=== PATIENT | female | born 1970 | race African-American/Black ===

== ENCOUNTER 2022-02-18 00:27 | Inpatient (IN) | payer MEDICARE, MEDICAID, SELFPAY ==
[2022-02-18] VITALS (17 sets, daily range): BP systolic 126–162; BP diastolic 62–91; PULSE 70–88; RESP 18–22; TEMP 35.6–36.5; O2SAT 90–94; BMI 79.9
--- NOTE | 2022-02-18 | ECHO_ITS ---
Patient Info Name: Armond Jones Age: 51 years : 1970 Gender: Female Ht: 64 in Wt: 466 lbs BSA: 3.25 m2 HR: 83 bpm BP: 147 / 62 mmHg Heart Rhythm: Sinus Rhythm Technical Quality: Poor Exam Date: 02/18/2022 10:06 AM Exam Location: [facility] Pul[facility] Patient Status: Inpatient Admit Date: 02/18/2022 Staff Ordering Physician: Sofia Santo MD Mobile Engineer: Ileana Juarez RDCS Attending Provider: Sofia Santo MD Referring Physician: Gal STERLING; Exam Type: CA echo dop color flow w con Study Info Indications - chf Complete two-dimensional, color flow and Doppler transthoracic echocardiogram is performed with contrast to opacify the left ventricle and to improve the deliniation of the left ventricle endocardial borders. Contrast/Agitated Saline Contrast/Ag. Saline: Definity Amount: 3.00 ml Administered By: Ileana Juarez RDCS Existing IV Access: Yes IV Access Condition: patent with no signs of infiltration Summary 1. Left ventricular chamber dimension is mildly enlarged. 2. Left ventricular systolic function is mildly reduced, estimated at 50-55%. 3. There is moderately increased left ventricular wall thickness. 4. The left ventricular diastolic function is indeterminate. 5. Left atrial chamber dimension is mildly enlarged. 6. Right atrial chamber dimension is mildly enlarged. 7. There is mild mitral valve regurgitation. 8. There is mild tricuspid valve regurgitation. 9. There is mild pulmonic regurgitation. Left Ventricle Left ventricular chamber dimension is mildly enlarged. Left ventricular systolic function is mildly reduced, estimated at 50-55%. There is moderately increased left ventricular wall thickness. The left ventricular diastolic function is indeterminate. Right Ventricle Right ventricular chamber dimension is not well visualized. Left Atria Left atrial chamber dimension is mildly enlarged. Right Atria Right atrial chamber dimension is mildly enlarged. Atrial Septum Intact interatrial septum visualized by color flow imaging. Aortic Valve The aortic valve is trileaflet. There is mild aortic valve sclerosis. There is no aortic valve stenosis. There is trace aortic valve regurgitation. Pulmonic Valve The pulmonic valve is normal. There is no pulmonic valve stenosis. There is mild pulmonic regurgitation. Mitral Valve The mitral valve has thickened leaflets. There is no mitral valve stenosis. There is mild mitral valve regurgitation. Tricuspid Valve The tricuspid valve leaflets are not well visualized. There is no significant tricuspid valve stenosis. There is mild tricuspid valve regurgitation. No pulmonary hypertension, estimated pulmonary arterial systolic pressure is 31 mmHg. Pericardium/Pleural The pericardium appears normal. There is no pericardial effusion. Inferior Vena Cava Normal inferior vena cava with >50% collapse upon inspiration consistent with normal right atrial pressure, 10 mmHg. Aorta The aortic root size at the sinus of Valsalva is normal. Left Ventricular Outflow Tract Name Value Normal LVOT 2D LVOT Diameter 2.15 cm
--- NOTE | ~2022-02-18 | XR_ITS ---
EXAMINATION: XR chest 1V portable DATE: 02/18/2022 06:09 INDICATION: Congestive heart failure TECHNIQUE: frontal view of the chest was obtained. COMPARISON: None FINDINGS: Evaluation is mildly limited by body habitus. Cardiomegaly with pulmonary vascular congestion but wit hout scott pulmonary edema. Bandlike opacity at the lateral left midlung zone and favor atelectasis o breezy pneumonia. No pleural effusion or pneumothorax. There are bridging osteophytes at multiple levels in the spine, consistent with diffuse idiopathic skeletal hyperostosis (DISH). IMPRESSION: 1. Cardiomegaly with pulmonary vascular congestion but without scott pulmonary edema. 2. Bandlike opacity left midlung zone and favor atelectasis over pneumonia. Reviewed, dictated and finalized at location A. MACHINE OPERATOR
--- NOTE | ~2022-02-18 | US_ITS ---
EXAMINATION: US renal BI DATE: 02/18/2022 10:48 INDICATION: Acute kidney injury. TECHNIQUE: Multiple ultrasound grayscale images of the kidneys were obtained. COMPARISON: None. FINDINGS: The right kidney measures 12.5 x 5.7 x 6.6 cm. The left kidney measures 10.6 x 5.3 x 7.7 cm. The kidn eys demonstrate normal parenchymal echogenicity. There is no hydronephrosis. The bladder is decompres sed. IMPRESSION: 1. Normal kidney sizes. No hydronephrosis. Reviewed, dictated and finalized at location A. TUNER
--- NOTE | ~2022-02-18 | US_ITS ---
US abdomen limited DATE: 02/22/2022 13:04 INDICATION: Check for ascites TECHNIQUE: Real-time imaging COMPARISON: CT abdomen pelvis FINDINGS: The abdominal structures were difficult to penetrate due to morbid obesity, edema of the ab dominal wall. No significant ascites was documented. IMPRESSION: Limited examination; no significant ascites is demonstrated Reviewed, dictated and finalized at Location A. Reviewed, dictated and finalized at location A. PACKER
--- NOTE | ~2022-02-18 | CT_ITS ---
EXAMINATION: CT abdomen pelvis wo con DATE: 02/22/2022 12:46 INDICATION: Abdominal distention TECHNIQUE: Computed tomography (CT) of the abdomen and pelvis was performed without intravenous contr ast. Automated exposure control and iterative reconstruction technique were employed. Exam dose: 161 6.53 mGy-cm total exam DLP. COMPARISON: 02/22/2022 Limited abdominal ultrasound examination FINDINGS: Soft tissue detail is quite limited due to morbid obesity. There is lingular infiltrate/atelectasis and lesser middle lobe atelectasis. Cardiomegaly. No pericardial effusion. No pleural effusion. There is extensive edema of the abdominal wall, particularly the dependent portion, consistent with a nasarca. There is minimal perihepatic ascites. No apparent hepatic, splenic, pancreatic, and adrenal or renal space-occupying mass lesion is evident on this limited noncontrast examination. No bile duct or pancreatic duct dilatation is evident. The gallbladder is not detected. No apparent urinary tract calculus or hydroureteronephrosis. Normal caliber of the abdominal aorta. No obvious adenopathy or intra-abdominal or pelvic mass lesion or adenopathy or ascites is noted. No bowel obstruction or intraperitoneal free air is evident. Detail of the bowel is quite limited. Included skeletal structures are unremarkable. IMPRESSION: Anasarca Limited examination due to morbid obesity Cardiomegaly Minimal perihepatic ascites Reviewed, dictated and finalized at Location A. Reviewed, dictated and finalized at location A. NCE CENTER DISPLAY BUILDER
--- NOTE | 2022-02-18 00:42 | ADMGEN ---
This patient, Armond Jones, was admitted to IMU Room 213-01. Patient/family oriented to hospital policies and general routines including ID bracelet, bed and alarms, visiting hours, pain management, procedures, bathroom and other care routines, personal items, smoking policy, room service/diet, and visiting hours. Information on how to activate the Rapid Response Team has been discussed. Patient/Family are encouraged to report perceived risks to care and to ask questions if they do not understand what they are told or what they should do.
--- NOTE | 2022-02-18 00:57 | ECG_ITS ---
Measurements Intervals [place] Rate: 86 P: 35 UT: 166 QRS: 10 QRSD: 82 T: 6 QT: 367 QTc: 440 Interpretive Statements SINUS RHYTHM LOW QRS VOLTAGE IN PRECORDIAL LEADS BORDERLINE R WAVE PROGRESSION, ANTERIOR LEADS BORDERLINE ST-T WAVE ABNORMALITY- INF/HIGH LAT LEADS BASELINE ARTIFACT- I, II, III, AVR, AVL, AVF, V1-V6 BORDERLINE ECG NO PREVIOUS ECG AVAILABLE FOR COMPARISON Electronically Signed On 02-18-2022 6:45:05 CREEL CLERK by Luis Sofia D.O.
[2022-02-18 01:36] LABS: Glucose Point of Care 93 mg/dl (65-105)
[2022-02-18 03:06] LABS: Basophils Percent Auto 0.2 % (0.2-1.2); Eosinophils Absolute Auto 0.2 K/mm3 (0-0.3); Eosinophils Percent Auto 3.3 % (0-4.4); Hematocrit 35.6 % (37.0-47.0); Hemoglobin 9.8 g/dL (12.0-15.0); Immature Granulocyte Absolute 0.01 K/mm3 (0.00-0.031); Immature Granulocyte Percent A 0.2 % (0-0.5); Lymphocytes Absolute Auto 0.79 K/mm3 (0.9-3.2); Lymphocytes Percent Auto 17.2 % (18.3-44.2); Mean Corpuscular HGB Conc 27.5 g/dl (32-36); Mean Corpuscular Hemoglobin 23.1 pg (26-34); Mean Corpuscular Volume 83.8 fl (80-100); Mean Platelet Volume 9.6 fl (7.4-10.4); Monocytes Absolute Auto 0.5 K/mm3 (0.1-0.6); Monocytes Percent Auto 11.8 % (2.6-8.5); Neutrophils Absolute Auto 3.1 K/mm3 (1.3-6.7); Neutrophils Percent Auto 67.3 % (45.5-73.1); Platelet Count Result 256 k/mm3 (150-375); Red Blood Count 4.25 M/mm3 (4.2-5.4); Red Cell Distribution Width 21.6 % (11.5-14.5); White Blood Count 4.6 K/mm3 (4.5-10.0)
[2022-02-18 03:16] LABS: INR 1.2; Prothrombin Time 14.7 Seconds (11.1-14.7)
[2022-02-18 03:17] LABS: Partial Thromboplastin Time 28.6 SECONDS (22.3-36.8)
[2022-02-18 03:19] LABS: Lactic Acid Reflex 0.8 mmol/L (0.7-2.0)
[2022-02-18 03:39] LABS: Troponin I 0.038 ng/mL (0.000-0.034)
[2022-02-18 03:51] LABS: NT Pro B Type Natriuretic Pept 3260 pg/mL (5-100)
[2022-02-18 03:52] LABS: Anion Gap 15 mmol/L (8-16); Blood Urea Nitrogen 37 mg/dL (7-17); Calcium 8.6 mg/dL (8.4-10.2); Carbon Dioxide 27 mmol/L (22-30); Chloride 109 mmol/L (98-107); Estimated CRCL calculation 46 ml/min; Estimated Glomerular Filt Rate 26; Glucose 105 mg/dL (65-110); Magnesium 2.3 mg/dL (1.6-2.3); Phosphorus 4.4 mg/dL (2.5-4.5); Potassium 4.6 mmol/L (3.4-5.0); Sodium 151 mmol/L (137-145)
[2022-02-18 04:06] LABS: Anisocytosis 1+ (NORMAL); Ovalocytes 1+ (NORMAL); Platelet Estimate Adequate (Adequate); Poikilocytosis 1+ (NORMAL)
[2022-02-18 04:07] LABS: Hypochromasia 2+ (NORMAL); Schistocytes None Seen (NORMAL)
[2022-02-18 04:47] LABS: Appearance Urine Clear (Clear); Bilirubin Urine Negative (Negative); Blood Urine Negative (Negative); Color Urine Yellow (Yellow); Glucose Urine UA Negative (Negative); Ketones Urine Negative (Negative); Leukocyte Esterase Ur Negative LEU/UL (Negative); Nitrate Urine Negative (Negative); Protein Urine 2+ mg/dL (Negative); Specific Grav Ur 1.015 (1.001-1.035); Urobilinogen Urine 0.2 mg/dL (<2.0)
[2022-02-18 04:50] LABS: Bacteria Urine Trace /hpf; Mucus Urine Rare /lpf; Squamous Epithelial Cell Urine Occasional /hpf (Few); WBC Urine 0-3 /hpf
[2022-02-18] MEDS: DEXTROSE 5%/0.45% SOD CHL 1,000 ML 65 ML IV CONT (04:57)
[2022-02-18] MEDS: polyethylene glycoL 3350 238 GM BOTTLE PO (04:59)
[2022-02-18 05:22] LABS: Add Urine Microscopic? YES
[2022-02-18 06:49] LABS: Troponin I 0.037 ng/mL (0.000-0.034)
[2022-02-18 08:13] LABS: Glucose Point of Care 137 mg/dl (65-105)
[2022-02-18] MEDS: amLODIPine BESYLATE 5 MG TABLET 10 MG PO (08:27)
[2022-02-18] MEDS: METOPROLOL TARTRATE 50 MG TAB PO ×2 (08:27→22:02)
[2022-02-18] MEDS: hydrALAZINE HCL 50 MG TABLET PO ×2 (08:28→22:02)
[2022-02-18] MEDS: ENOXAPARIN 40 MG/0.4 ML SYRINGE SUB-Q (08:28)
[2022-02-18] MEDS: ATORVASTATIN 20 MG TABLET PO (08:28)
[2022-02-18] MEDS: lisinopriL 10 MG TABLET PO (08:28)
--- NOTE | 2022-02-18 08:44 | PM.IMHP ---
H&P: HPI History of Present Illness Date/Time: 02/18/22 08:44 Chief Complaint: shortness of breath Narrative: 51-year-old female with past medical history significant for heart failure, obesity, diabetes, hypertension is presenting with a history of progressively worsening shortness of breath. She has not been able to follow-up with outpatient care due to lack of insurance. She has been able to maintain taking her medications, however. A few weeks ago, she started noticing that she had significant reduction in urinary output despite continuing to take her Lasix. She is also noted the last week significant swelling in her lower extremities, abdomen, hips and thighs. Patient denies fevers or chills, nausea, vomiting or diarrhea. No recent travel or sick contacts. Patient presented to the ER at [facility]. She was thought to be in heart failure exacerbation and started on Lasix. Review of Systems Review of Systems: 12 point review of systems was assessed and was negative except as noted in the HPI [facility] Past Medical History Medical History (Updated 02/18/22 @ 17:51 by Lashae Rhoades, ) Hypertension associated with diabetes Morbid obesity with BMI of 70 and over, adult Family History Family History Mother Diabetes mellitus Social History Social History Smoking status: Never smoker Alcohol intake: never Substance use: never Lack of Transportation: YES Lack of Food: Never True Current Housing: I Have Housing Concerned About Future Housing: No Difficulty Paying Gas/Electric Bills: No Difficulty Paying for Meds: No Currently Unemployed: No Education: High School Diploma/GED Difficulty w/ Childcare or Family Care: No Spiritual care concerns: No Meds Home Medications and Allergies Home Medications Medication Instructions Recorded Confirmed Type amlodipine 10 mg tablet 10 mg PO DAILY 02/18/22 02/18/22 History atorvastatin 20 mg tablet 20 mg PO DAILY 02/18/22 02/18/22 History furosemide 40 mg tablet 40 mg PO DAILY 02/18/22 02/18/22 History glipizide 10 mg tablet 10 mg PO DAILY 02/18/22 02/18/22 History hydralazine 50 mg tablet 50 mg PO BID 02/18/22 02/18/22 History insulin detemir U-100 100 unit/mL 20 unit subcut HS 02/18/22 02/18/22 History (3 mL) subcutaneous pen (Levemir FlexTouch U-100 Insulin) lisinopril 40 mg tablet 10 mg PO DAILY 02/18/22 02/18/22 History metformin 1,000 mg tablet 1,000 mg PO BID 02/18/22 02/18/22 History metoprolol tartrate 50 mg tablet 50 mg PO BID 02/18/22 02/18/22 History Allergies Allergy/AdvReac Type Severity Reaction Status Date / Time Latex, Natural Rubber Allergy Rash Verified 02/18/22 01:05 Vital Signs Vital Signs - 24 hr 02/18/22 00:49 02/18/22 00:35 02/18/22 02:00 Temperature 97.7 F Pulse Rate 88 83 Respiratory Rate 20 Blood Pressure 153/91 H Pulse Oximetry 90 Oxygen Delivery Room Air 02/18/22 04:00 02/18/22 04:00 02/18/22 04:00 Temperature 97.6 F Pulse Rate 83 87 88 Respiratory Rate 20 18 Blood Pressure 147/62 H Pulse Oximetry 90 94 Oxygen Delivery Room Air 02/18/22 06:00 02/18/22 08:15 02/18/22 08:27 Temperature 96.0 F L Pulse Rate 83 84 86 Respiratory Rate 22 H Blood Pressure 162/71 H Pulse Oximetry 93 Oxygen Delivery Exam Narrative: General: No acute distress, alert and oriented per baseline HEENT: Atraumatic, normocephalic, mucous membranes moist CV: Regular rate and rhythm, S1, S2 Lungs: Diminished at bases, some scattered crackles Abdomen: Soft, nontender, somewhat distended, pitting edema noted in bilateral hips and lower abdomen Extremities: Significant pitting edema to bilateral lower extremities Skin: No rashes noted, no lesions or wounds seen Psych: Euthymic, normal affect H&P: Results Labs Labs: Short CBC 02/18/22 Range/Units
[2022-02-18] MEDS: PERFLUTREN LIPID MICROSPHERES 1.5 ML VIAL DILUTED TO 10 ML TOTAL VOLUME IV PUSH (10:10)
--- NOTE | 2022-02-18 10:11 | IVDEFINITY ---
Prior to administration of IV Definity the patient was educated on the risks and benefits of the imaging enhancing agent including potential adverse side effects. The patient verbalized understanding. Allergies were verified. No exclusion criteria were identified and at least one of the following inclusion criteria were met: 1) physician request, 2) patient technically difficult to image (per the [place] [employer]ocardi[employer] guidelines of two or more segments not discernable within the apical view), or 3) questionable left ventricular function. ?
[2022-02-18] MEDS: FUROSEMIDE INJ 40 MG/4 ML VIAL IV PUSH ×2 (11:33→17:09)
[2022-02-18 11:44] LABS: Glucose Point of Care 162 mg/dl (65-105)
--- NOTE | 2022-02-18 13:01 | PM.CNCAR ---
Assessment and Plan Assessment and plan (1) Hypertension associated with diabetes: Code(s): E11.59 - Type 2 diabetes mellitus with other circulatory complications; I15.2 - Hypertension secondary to endocrine disorders Status: Acute Assessment and Plan: Elevated at this point. Continue metoprolol, hydralazine, amlodipine. Hold lisinopril because of renal failure. (2) Morbid obesity with BMI of 70 and over, adult: Code(s): E66.01 - Morbid (severe) obesity due to excess calories; Z68.45 - Body mass index [BMI] 70 or greater, adult Status: Acute Assessment and Plan: Significant weight gain over the past few months. Obviously dietary and lifestyle modifications are imperative and discussed/recommended (3) CHF (congestive heart failure): Code(s): I50.9 - Heart failure, unspecified Status: Acute Assessment and Plan: Her heart failure is not otherwise specified. Uncertain what type. Likely right-sided heart failure from untreated sleep apnea, pulmonary hypertension but cannot exclude systolic or diastolic left-sided heart failure either at this point. Regardless heard diet is also quite poor and she eats fast food frequently. She does not watch her salt intake. Low-salt diet. Intake and output will be recorded as well as daily weights. 2D echocardiogram with Doppler will be ordered and reviewed. 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 Will increase furosemide to 40 mg IV q.8 hours. BMP daily. Nocturnal oxygen study tonight. (4) Renal failure: Code(s): N19 - Unspecified kidney failure Status: Acute Assessment and Plan: Nephrology consultation History of Present Illness History of Present Illness Consult date/time: 02/18/22 13:01 Requesting physician: Lashae Rhoades DO Consult reason: congestive heart failure Reason For Visit: chf Narrative: Date of service 02/18/2022 Reason fo consultation: CHF Requesting provider: Dr. Rhoades History: Patient is a 51-year-old female who does have a history of CHF, hypertension, diabetes, obesity. She formally has seen Dr. White as an outpatient but has not seen him recently due to insurance reasons. She has a longstanding history of lower extremity edema. It has progressively worsened over the years but especially the last 3 days as significantly worsened. She also has had worsening shortness of breath. Shortness of breath occurs with only mild activity such as walking across the room at this point. She denies any chest pain, paroxysmal nocturnal dyspnea, orthopnea, palpitations. Because of the worsening edema, dyspnea with activity and the fact she reportedly has not had a bowel movement in about 3 weeks, she decided to come to an outside hospital for further workup evaluation and treatment. She was subsequently transferred here for further evaluation and treatment for heart failure. Patient was found to be in renal failure also and BNP was elevated. She was given diuretics and she is feeling somewhat better and is breathing a little easier. Review of Systems Review of Systems: All systems reviewed & are unremarkable except as noted in HPI and below Constitutional: Constitutional: Denies body ache(s) Eyes: Eyes: Denies blurry vision ENT: Reports Normal hearing present Cardiovascular: Cardiovascular: Denies chest pain, Reports pedal edema, Reports leg edema, Denies lightheadedness and Denies palpitations Respiratory: Respiratory: Reports dyspnea and Reports dyspnea on exertion Gastrointestinal: Gastrointestinal: Denies abdominal pain, Reports bloating and Reports constipation Genitourinary: Genitourinary: Denies hematuria Musculoskeletal: Musculoskeletal: Denies back pain Integumentary/Breasts: Skin/Breast: Reports skin pain and Denies unusual bruising Neurologic: Denies Abnormal speech present Psychiatric: Psychiatric: Denies behavioral changes End
[2022-02-18 13:08] LABS: Hemoglobin A1C 8.6 % (<5.7)
[2022-02-18 13:28] LABS: Basophils Percent Auto 0.2 % (0.2-1.2); Eosinophils Absolute Auto 0.2 K/mm3 (0-0.3); Eosinophils Percent Auto 3.5 % (0-4.4); Hematocrit 36.4 % (37.0-47.0); Hemoglobin 9.9 g/dL (12.0-15.0); Immature Granulocyte Absolute 0.02 K/mm3 (0.00-0.031); Immature Granulocyte Percent A 0.4 % (0-0.5); Lymphocytes Absolute Auto 0.67 K/mm3 (0.9-3.2); Lymphocytes Percent Auto 14.9 % (18.3-44.2); Mean Corpuscular HGB Conc 27.2 g/dl (32-36); Mean Corpuscular Hemoglobin 22.8 pg (26-34); Mean Corpuscular Volume 83.9 fl (80-100); Mean Platelet Volume 8.8 fl (7.4-10.4); Monocytes Absolute Auto 0.5 K/mm3 (0.1-0.6); Monocytes Percent Auto 10.4 % (2.6-8.5); Neutrophils Absolute Auto 3.2 K/mm3 (1.3-6.7); Neutrophils Percent Auto 70.6 % (45.5-73.1); Platelet Count Result 253 k/mm3 (150-375); Red Blood Count 4.34 M/mm3 (4.2-5.4); White Blood Count 4.5 K/mm3 (4.5-10.0)
[2022-02-18 13:39] LABS: Alanine Aminotransferase 17 U/L (6-35); Albumin Level 3.7 g/dL (3.5-5.1); Alkaline Phosphatase 107 U/L (38-126); Anion Gap 11 mmol/L (8-16); Aspartate Amino Transferase 26 U/L (14-36); Bilirubin,Total 0.5 mg/dL (0.2-1.3); Blood Urea Nitrogen 36 mg/dL (7-17); Calcium 8.5 mg/dL (8.4-10.2); Carbon Dioxide 29 mmol/L (22-30); Chloride 107 mmol/L (98-107); Estimated CRCL calculation 48 ml/min; Estimated Glomerular Filt Rate 27; Glucose 195 mg/dL (65-110); Potassium 5.3 mmol/L (3.4-5.0); Sodium 147 mmol/L (137-145)
--- NOTE | 2022-02-18 13:44 | PM.CNNEP ---
Assessment and Plan Assessment and plan (1) Renal failure: Code(s): N19 - Unspecified kidney failure Status: Acute Assessment and Plan: acute versus acute on chronic versus chronic (?) no reported history of renal insufficiency per patient major risk factors include HTN and DM x 15+ years with variable control follow-up on renal ultrasound assess for proteinuria check serological testing hold DAMIEN-I given #2 follow repeat labs and UOP (2) Hyperkalemia: Code(s): E87.5 - Hyperkalemia Status: Acute Assessment and Plan: mildly elevated due to #1 +/- DAMIEN-I use medical management as needed follow repeat levels (3) CHF (congestive heart failure): Code(s): I50.9 - Heart failure, unspecified Status: Acute Assessment and Plan: apparent new issue/finding Cardiology recommendations noted suspect right sided heart failure from obesity/pulmonary HTN/possible LUCIA however, cannot discount systolic and/or diastolic dysfunction either follow-up on Echo IV diuresis follow I/Os and daily weights (4) Hypertension: Code(s): I10 - Essential (primary) hypertension Status: Chronic Assessment and Plan: elevated on admission but better currently diuresis may help to some degree follow trend of hemodynamics (5) Diabetes: Code(s): E11.9 - Type 2 diabetes mellitus without complications Status: Chronic Assessment and Plan: follow accuchecks glycemic control Will continue to follow. History of Present Illness Reason for Consult Consult date: 02/19/22 Reason for consult: Other (renal insufficiency) Chief Complaint Chief complaint: chf History of Present Illness Narrative: The patient is a 51-year-old female with a past medical history as outlined below who presented to an outside hospital emergency room due to shortness of breath. The patient noted approximately two weeks ago she has had decrease/ decline in her urine output spite the use of outpatient diuretic therapy. This was further complicated by an increase in swelling in her lower extremity edema As well as increasing edema in her abdomen, hips, and thighs. Soon after, she no any increase in her shortness of breath that seems to be progressively getting worse and worse. She had no reported issues or with fevers, chills, nausea, diarrhea. Given the progressive decline in her breathing, she presented to [facility] Emergency room further evaluation. Workup and evaluation in the emergency room demonstrated the patient to have evidence of what appeared to be exacerbation of congestive heart failure. Furthermore, routine blood test demonstrated evidence of renal insufficiency although it is unclear how acute or chronic his condition is. She was otherwise hemodynamically stable. Given her renal failure and her evidence of CHF, she was transferred to [facility] for further evaluation and therapy. Renal consultation was requested due to her elevated BUN and creatinine. Unfortunately, I have no other previous labs to compare to but according to the patient, she has never been told that she had any issues or problems with renal dysfunction. She does have risk factors for kidney disease in the form of hypertension and diabetes for last 15+ years and she freely admits that her control of these two conditions has been up and down in the time that she is had these problems. Unfortunately, due to issues with her insurance, she has not been able to follow-up of any primary care physician or outpatient evaluation but she was able to continue her home medications. Currently, at the time my visit, she does not appear to be in acute distress and her breathing seems the fairly stable at rest. Review of Systems Review of Systems: As per HPI. [facility] Past Medical History Medical History (Updated 02/19/22 @ 01:48 by Sheela Rene MD) Hyp
[2022-02-18 13:56] LABS: Anisocytosis 2+ (NORMAL); Hypochromasia 1+ (NORMAL); Ovalocytes 1+ (NORMAL); Platelet Estimate Adequate (Adequate)
[2022-02-18 14:11] LABS: Schistocytes None Seen (NORMAL)
[2022-02-18 16:40] LABS: Glucose Point of Care 185 mg/dl (65-105)
[2022-02-18] MEDS: DEXTROSE 50% 25 GM/50 ML SYRINGE IV PUSH (18:37)
[2022-02-18] MEDS: SODIUM BICARBONATE 8.4% 50 MEQ/50 ML SYRINGE IV PUSH (18:37)
[2022-02-18] MEDS: INSULIN HUMAN REGULAR (*BKC) 100 UNITS/ML 10 UNITS IV PUSH (18:41)
[2022-02-18] MEDS: CALCIUM GLUC 1,000 MG/NS 50 ML 1,000 MG/50 ML BAG 100 MG IVPB (18:41)
[2022-02-18 20:00] LABS: Anion Gap 8 mmol/L (8-16); Blood Urea Nitrogen 37 mg/dL (7-17); Calcium 8.6 mg/dL (8.4-10.2); Carbon Dioxide 29 mmol/L (22-30); Chloride 110 mmol/L (98-107); Estimated CRCL calculation 43 ml/min; Estimated Glomerular Filt Rate 23; Glucose 111 mg/dL (65-110); Potassium 4.9 mmol/L (3.4-5.0); Sodium 147 mmol/L (137-145)
[2022-02-18 21:18] LABS: Glucose Point of Care 117 mg/dl (65-105)
[2022-02-18] MEDS: HEPARIN SODIUM 5,000 UNITS/ML VIAL 5000 UNITS SUB-Q (22:02)
[2022-02-18] MEDS: INSULIN GLARGINE (*BKC) 100 UNITS/ML 20 UNITS SUB-Q (22:03)
[2022-02-19] VITALS (17 sets, daily range): BP systolic 113–144; BP diastolic 54–100; PULSE 66–79; RESP 18–22; TEMP 35.7–36.6; O2SAT 90–94
[2022-02-19 05:06] LABS: Basophils Percent Auto 0.5 % (0.2-1.2); Eosinophils Absolute Auto 0.1 K/mm3 (0-0.3); Eosinophils Percent Auto 3.2 % (0-4.4); Hematocrit 34.8 % (37.0-47.0); Hemoglobin 9.5 g/dL (12.0-15.0); Immature Granulocyte Absolute 0.02 K/mm3 (0.00-0.031); Immature Granulocyte Percent A 0.5 % (0-0.5); Lymphocytes Absolute Auto 0.93 K/mm3 (0.9-3.2); Lymphocytes Percent Auto 24.5 % (18.3-44.2); Mean Corpuscular HGB Conc 27.3 g/dl (32-36); Mean Corpuscular Hemoglobin 22.7 pg (26-34); Mean Corpuscular Volume 83.3 fl (80-100); Mean Platelet Volume 9.1 fl (7.4-10.4); Monocytes Absolute Auto 0.5 K/mm3 (0.1-0.6); Monocytes Percent Auto 13.5 % (2.6-8.5); Neutrophils Absolute Auto 2.2 K/mm3 (1.3-6.7); Neutrophils Percent Auto 57.8 % (45.5-73.1); Platelet Count Result 251 k/mm3 (150-375); Red Blood Count 4.18 M/mm3 (4.2-5.4); Red Cell Distribution Width 21.8 % (11.5-14.5); White Blood Count 3.8 K/mm3 (4.5-10.0)
[2022-02-19 05:15] LABS: Alanine Aminotransferase 16 U/L (6-35); Albumin Level 3.6 g/dL (3.5-5.1); Alkaline Phosphatase 99 U/L (38-126); Anion Gap 12 mmol/L (8-16); Aspartate Amino Transferase 22 U/L (14-36); Bilirubin,Total 0.5 mg/dL (0.2-1.3); Blood Urea Nitrogen 37 mg/dL (7-17); Calcium 8.6 mg/dL (8.4-10.2); Carbon Dioxide 28 mmol/L (22-30); Chloride 108 mmol/L (98-107); Creatine Kinase 81 U/L (30-135); Estimated CRCL calculation 44 ml/min; Estimated Glomerular Filt Rate 24; Glucose 105 mg/dL (65-110); Phosphorus 4.3 mg/dL (2.5-4.5); Sodium 148 mmol/L (137-145)
[2022-02-19 05:42] LABS: Complement C3 136 mg/dL (88-165)
[2022-02-19] MEDS: HEPARIN SODIUM 5,000 UNITS/ML VIAL 5000 UNITS SUB-Q ×3 (06:00→22:04)
[2022-02-19 07:30] LABS: Creatinine Urine 132.7 mg/dL; Total Protein Urine Random 114 mg/dL; Ur Ttl Prot Creatinine Ratio 0.86 mg/mg (0-0.20); Urea Random Urine 551 MG/DL
[2022-02-19 07:34] LABS: Sodium Urine Random 35 meq/L
--- NOTE | 2022-02-19 07:53 | PM.IMPN ---
Progress Note: A&P Assessment and Plan (1) CHF (congestive heart failure): Code(s): I50.9 - Heart failure, unspecified Status: Acute Assessment and Plan: EF noted to be 50-55%, unable to determine diastolic function, appreciate cardiology consultation Continue IV diuresis with Lasix 40 mg IV t.i.d. (2) Renal failure: Code(s): N19 - Unspecified kidney failure Status: Acute Assessment and Plan: Creatinine improving with Lasix, continue diuresis and monitor Appreciate nephrology consultation Will discuss with Nephrology, but would recommend discontinuing Norvasc in favor of hydralazine/clonidine versus other medications due to significant lower extremity edema at baseline (3) Morbid obesity with BMI of 70 and over, adult: Code(s): E66.01 - Morbid (severe) obesity due to excess calories; Z68.45 - Body mass index [BMI] 70 or greater, adult Status: Acute (4) Hypertension associated with diabetes: Code(s): E11.59 - Type 2 diabetes mellitus with other circulatory complications; I15.2 - Hypertension secondary to endocrine disorders Status: Acute Assessment and Plan: A1c is 8.6, Accu-Cheks and sliding scale insulin Lantus 20 units q.h.s. plus 11 units of NovoLog with meals and intensive sliding scale (5) Hypernatremia: Code(s): E87.0 - Hyperosmolality and hypernatremia Status: Acute Assessment and Plan: improving with diuresis, monitor (6) Hyperkalemia: Code(s): E87.5 - Hyperkalemia Status: Acute Assessment and Plan: Resolved, continue to monitor Plan DVT prophylaxis with Lovenox GI prophylaxis not indicated Code status full code Subjective Date/time seen: 02/19/22 07:53 Interval history: No overnight events noted. No chest pain or shortness of breath. No nausea, vomiting or diarrhea. No fevers or chills. Patient states that her swelling is significantly improved. Review of Systems Review of Systems: 12 point review of systems was assessed and was negative except as noted in the HPI Exam Narrative: General: No acute distress, alert and oriented per baseline HEENT: Atraumatic, normocephalic, mucous membranes moist CV: Regular rate and rhythm, S1, S2 Lungs: Diminished at bases, some scattered crackles Abdomen: Soft, nontender, somewhat distended, pitting edema noted in bilateral hips and lower abdomen Extremities: Significant pitting edema to bilateral lower extremities Skin: No rashes noted, no lesions or wounds seen Psych: Euthymic, normal affect Objective Data Vital Signs Vital Signs: Vital Signs - 24 hr 02/18/22 08:15 02/18/22 08:27 02/18/22 12:26 Temperature 96.0 F L 96.7 F L Pulse Rate 84 86 71 Respiratory Rate 22 H 22 H Blood Pressure 162/71 H 133/76 Pulse Oximetry 93 94 Oxygen Delivery 02/18/22 08:00 02/18/22 12:00 02/18/22 08:00 Temperature Pulse Rate 86 Respiratory Rate Blood Pressure Pulse Oximetry 93 94 Oxygen Delivery Room Air Room Air 02/18/22 10:00 02/18/22 12:00 02/18/22 14:00 Temperature Pulse Rate 70 74 80 Respiratory Rate Blood Pressure Pulse Oximetry Oxygen Delivery 02/18/22 16:00 02/18/22 16:48 02/18/22 16:00 Temperature 97.7 F Pulse Rate 72 72 Respiratory Rate 22 H Blood Pressure 126/73 Pulse Oximetry 94 92 Oxygen Delivery Room Air 02/18/22 18:00 02/18/22 20:00 02/18/22 22:02 Temperature 97.4 F L Pulse Rate 74 76 77 Respiratory Rate 20 Blood Pressure 142/62 H Pulse Oximetry 90 Oxygen Delivery 02/19/22 00:00 02/18/22 20:00 02/19/22 00:00 Temperature 97.2 F L Pulse Rate 66 Respiratory Rate 20 Blood Pressure 116/54 L Pulse Oximetry 90 Oxygen Delivery Room Air Room Air 02/18/22 20:00 02/18/22 22:00 02/19/22 00:00 Temperature Pulse Rate 73 77 68 Respiratory Rate Blood Pressure Pulse Oximetry Oxygen Delivery 02/19/22 02:00 02/19/22 04:
[2022-02-19 08:15] LABS: Glucose Point of Care 86 mg/dl (65-105)
[2022-02-19 08:20] LABS: Platelet Estimate Adequate (Adequate)
[2022-02-19 08:21] LABS: Anisocytosis 2+ (NORMAL); Microcytosis 1+ (NORMAL); Ovalocytes 1+ (NORMAL); Tear Drop Cells 1+ (NORMAL)
[2022-02-19 08:22] LABS: Schistocytes None Seen (NORMAL); Target Cells 1+ (NORMAL)
[2022-02-19] MEDS: FUROSEMIDE INJ 40 MG/4 ML VIAL IV PUSH ×3 (08:47→16:10)
[2022-02-19] MEDS: amLODIPine BESYLATE 5 MG TABLET 10 MG PO (08:48)
[2022-02-19] MEDS: ATORVASTATIN 20 MG TABLET PO (08:48)
[2022-02-19] MEDS: METOPROLOL TARTRATE 50 MG TAB PO ×2 (08:48→22:04)
[2022-02-19] MEDS: hydrALAZINE HCL 50 MG TABLET PO ×2 (08:48→22:05)
--- NOTE | 2022-02-19 09:33 | PM.PNCARD ---
Progress Note: A&P Assessment and Plan (1) Hypertension associated with diabetes: Code(s): E11.59 - Type 2 diabetes mellitus with other circulatory complications; I15.2 - Hypertension secondary to endocrine disorders Status: Acute Assessment and Plan: BP is better controlled today. Continue metoprolol, hydralazine, amlodipine. Hold lisinopril because of renal failure. (2) Morbid obesity with BMI of 70 and over, adult: Code(s): E66.01 - Morbid (severe) obesity due to excess calories; Z68.45 - Body mass index [BMI] 70 or greater, adult Status: Acute Assessment and Plan: Significant weight gain over the past few months. Obviously dietary and lifestyle modifications are imperative and discussed/recommended (3) CHF (congestive heart failure): Code(s): I50.9 - Heart failure, unspecified Status: Acute Assessment and Plan: She does have significant sleep apnea. Probably predominantly right-sided heart failure. Echo was of poor quality due to body habitus but ejection fraction did not appear to be significantly reduced. Continue IV diuretics. Treatment for sleep apnea. Low-salt diet. Intake and output will be recorded as well as daily weights. Will request records from her nuclear medical tech's office regarding previous workup. Continue furosemide to 40 mg IV q.8 hours. BMP daily. Give a dose of metolazone 2.5 mg times 1 today (4) Renal failure: Code(s): N19 - Unspecified kidney failure Status: Acute Assessment and Plan: Nephrology consultation (5) LUCIA (obstructive sleep apnea): Code(s): G47.33 - Obstructive sleep apnea (adult) (pediatric) Status: Acute Assessment and Plan: Will consult pulmonology Subjective Date/time seen: 02/19/22 09:33 Interval history: 51-year-old admitted for heart failure Date of service 02/19/2022: She is diuresing. She does feel that she is slightly less swollen. Apnea link did show severe sleep apnea. It should be noted that she typically sleeps on her side or her stomach at home. She denies any chest pain. Review of Systems Review of Systems: All systems reviewed & are unremarkable except as noted in HPI and below Constitutional: Constitutional: Denies body ache(s) and Denies excessive sweating Eyes: Eyes: Denies blurry vision ENT: Reports Normal hearing present and Denies lip swelling Cardiovascular: Cardiovascular: Denies chest pain, Reports pedal edema, Reports leg edema, Denies lightheadedness, Denies palpitations, Reports dyspnea and Reports dyspnea on exertion Respiratory: Respiratory: Reports dyspnea and Reports dyspnea on exertion Gastrointestinal: Gastrointestinal: Denies abdominal pain, Reports bloating and Reports constipation Genitourinary: Genitourinary: Denies hematuria Musculoskeletal: Musculoskeletal: Denies back pain Integumentary/Breasts: Skin/Breast: Reports skin pain and Denies unusual bruising Neurologic: Reports Normal hearing present, Denies Abnormal speech present and Denies behavioral changes Psychiatric: Psychiatric: Denies behavioral changes Endocrine: Endocrine: Denies excessive sweating and Denies palpitations Hematologic/Lymphatic: Hematologic/Lymphatic: Denies easy bleeding Allergic/Immunologic: Allergic/Immunologic: Denies GI upset with certain foods and Denies lip swelling Exam Narrative: Pleasant and appropriate and appears stated age Const: General: comfortable and no acute distress; No in distress HENMT: Face/Nose/Sinus: Normal nares present Eyes: Sclera: sclerae normal Pupils: pupils not ERRL Neck: Neck: supple Carotids: no bruits Chest: Other: No reproducible chest wall pain to palpation Resp: Effort & Inspection: normal respiratory effort Auscultation: diminished lung sounds Cardio: Rate: regular rate Rhythm: regular rhythm Other: Distant heart sounds GI: Inspection: non-distended Auscultation: normal bowel sounds Skin: Ge
[2022-02-19] MEDS: metOLazone 2.5 MG TABLET PO (10:21)
--- NOTE | 2022-02-19 11:18 | PM.CNPUL ---
Assessment and Plan Assessment and plan (1) Obesity hypoventilation syndrome: Code(s): E66.2 - Morbid (severe) obesity with alveolar hypoventilation Status: Acute Assessment and Plan: Patient with a BMI of 80.9, after diuresis and feeling improved her daytime blood gas of 7.37/51/56. She has obesity hypoventilation syndrome and would benefit from noninvasive ventilation to prevent further exacerbations and hospitalizations. I will initiate noninvasive ventilation. I will initially try BiPAP and if she does not tolerate this I will try noninvasive ventilation with an AVAPS mode. I will check an overnight oximetry on noninvasive ventilation on room air. I will check a blood gas prior to removal of the noninvasive ventilation. I will check a TSH and free T4. Agree with as aggressive diuresis as tolerated by her cardiac and renal Systems per Cardiology and the hospitalist team. Discussed with Dr. Rhoades. Will follow with you. History of Present Illness History of Present Illness Consult date: 02/19/22 Chief complaint: chf Narrative: 02/19/2022: This is a new pulmonary consult for obstructive sleep apnea. 51-year-old with a history of CHF, hypertension, diabetes, morbid obesity with a BMI of 80.9. Patient presented to the emergency room on 02/18/2022 with chronic dyspnea on exertion and worse over the last 3 days. Patient also had worsening total body edema. patient was found to be fluid overloaded with acute renal failure and a BNP of 3260. Her chest x-ray demonstrated cardiomegaly, perihilar congestion and mild pulmonary vascular redistribution. Patient was initiated on diuretics And currently is on Lasix 40 IV t.i.d.. She has also been placed on lisinopril 10 q.day, metoprolol 50 q.12, hydralazine 50 q.12, amlodipine 10 q.day and a statin. As of today she remains 2.1 L positive since admission. Since admission patient has been on room air with saturations 90%. Patient had an apnea link performed on 02/18/2022 with a baseline saturation 87%, low saturation 70%. Time with saturation less than or equal to 80 8% was 344 minutes or 89% of the monitored time, her oxygen desaturation index was 76.8 and her AHI was 42.1. I was consulted for obstructive sleep apnea. The patient tells me that 10 years ago she had an in-lab sleep study when she weighed 300 lb and was told she did not have obstructive sleep apnea. over the last year the patient has had worsening dyspnea on exertion and worsening anasarca. Over the last week she states that she had trouble walking across the room. Patient is a never smoker and was exposed to secondhand smoke from both of her parents and swell as her . 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 Ten years ago she weighed 300 lb. In February of 2021 she weighed 338 lb. In September of 2021 she weighed 350 lb. Currently she weighs 465 lb. This weight loss has been associated with increasing total body edema. The patient says that she snores sometimes she has no witnessed apneas, no morning headaches, minimal daytime hypersomnia and does feel refreshed when she wakes up. 02/19 Today the patient states that her dyspnea on exertion is about 40% better. Her tightness in her abdomen and legs is improved but still present. Creatinine is 2.5. Her room air blood gases 7.37/51/56. DATA 02/18/2022 Echo summary Summary ? 1. Left ventricular chamber dimension is mildly enlarged. ? 2. Left ventricular systolic function is mildly reduced, estimated at 50-55%. ? 3. There is moderately increased left ventricular wall thickness. ? 4. The left ventricular diastolic function is indeterminate. ? 5. Left atrial chamber dimension is mildly enlarged. ? 6. Right atrial chamber dimension is mildly enlarged. ? 7. There is mild mitral valve reg
[2022-02-19 11:53] LABS: Glucose Point of Care 125 mg/dl (65-105)
[2022-02-19 12:11] LABS: Alveolar/Arterial O2 Gradient 33.2 mmHg; Base Excess ABG 2.9 mEq/l (+/-2.0); Fractional Inspired Oxygen 21 %; Oxygen Content ABG 13.8 %vol (16.0-22.0); PO2 ABG 55.5 mmHg (80.0-100.0); PO2 FiO2 Ratio Arterial Blood 2.64 %; Total Hemoglobin 11.3 g/dL (12.0-18.0); pH ABG 7.372 (7.350-7.450)
[2022-02-19 12:12] LABS: Oxygen Saturation ABG 87.7 % (95.0-100.0)
[2022-02-19 12:13] LABS: Device ROOM AIR; Modified Allen's Test Pass; Oxyhemoglobin 86.5 % THb (90.0-100.0); Site Drawn LEFT RADIAL
--- NOTE | 2022-02-19 12:36 | P.PNNP_ITS ---
Progress Note: A&P Assessment and Plan (1) Renal failure: Code(s): N19 - Unspecified kidney failure Status: Acute Assessment and Plan: * acute versus acute on chronic versus chronic (?) * no reported history of renal insufficiency per patient * major risk factors include HTN and DM x 15+ years with variable control * evaluation to date: * renal ultrasound without obstruction * urine electrolytes are prerenal * 860mg of proteinuria * serological testing pending * hold DAMIEN-I given #2 * follow repeat labs and UOP (2) Hyperkalemia: Code(s): E87.5 - Hyperkalemia Status: Acute Assessment and Plan: * better at this dwight * due to #1 +/- DAMIEN-I use * medical management as needed * follow repeat levels (3) CHF (congestive heart failure): Code(s): I50.9 - Heart failure, unspecified Status: Acute Assessment and Plan: * apparent new issue/finding * Cardiology recommendations noted * Echo results noted * suspect right sided heart failure from obesity/pulmonary HTN/LUCIA * continue IV diuresis * follow I/Os and daily weights (4) LUCIA (obstructive sleep apnea): Code(s): G47.33 - Obstructive sleep apnea (adult) (pediatric) Status: Acute Assessment and Plan: * as noted by apnea link * Pulmonary recommendations noted (5) Hypertension: Code(s): I10 - Essential (primary) hypertension Status: Chronic Assessment and Plan: * elevated on admission but better currently * diuresis may help to some degree * follow trend of hemodynamics (6) Diabetes: Code(s): E11.9 - Type 2 diabetes mellitus without complications Status: Chronic Assessment and Plan: * follow accuchecks * glycemic control Will continue to follow. Subjective Date/time seen: 02/19/22 12:36 Feels less swollen at this time with ongoing diuresis (although difficult to assess by I/Os how much UOP she is making); renal function remains relatively stable; apnea link reveals evidence of LUCIA and Pulmonary has seen the patient already with regard to this finding; no apparent distress at the time of my visit. Exam Narrative: General: obese AA female in NAD Heart: normal S1 and S2; no rub Lungs: decreased throughtout with bibasilar crackles Abdomen: soft, nontender, nondistended; abdominal wall edema present Extremities: no cyanosis or clubbing; 2 - 3+ edema Skin: warm and dry Objective Data Vital Signs Vital Signs: Vital Signs Temp Pulse Resp BP Pulse Ox O2 Del Method 02/19/22 12:00 72 02/19/22 10:00 70 02/19/22 12:10 35.7 C L 71 20 113/100 H 91 02/19/22 11:39 Room Air 02/19/22 08:00 Room Air 02/19/22 08:00 78 02/19/22 08:48 79 02/19/22 08:34 35.8 C L 78 22 H 138/61 92 02/19/22 04:00 36.2 C L 73 18 138/57 L 90 02/19/22 06:00 74 02/19/22 04:52 90 Room Air 02/19/22 04:00 70 02/19/22 02:00 76 02/19/22 00:00 68 02/18/22 22:00 77 02/18/22 20:00 73 02/19/22 00:00 Room Air 02/18/22 20:00 Room Air 02/19/22 00:00 36.2 C L 66 20 116/54 L 90 02/18/22 22:02 77 02/18/22 20:00 36.3 C L 76 20 142/62 H
--- NOTE | 2022-02-19 12:36 | PM.PNNEP ---
Progress Note: A&P Assessment and Plan (1) Renal failure: Code(s): N19 - Unspecified kidney failure Status: Acute Assessment and Plan: acute versus acute on chronic versus chronic (?) no reported history of renal insufficiency per patient major risk factors include HTN and DM x 15+ years with variable control evaluation to date: renal ultrasound without obstruction urine electrolytes are prerenal 860mg of proteinuria serological testing pending hold DAMIEN-I given #2 follow repeat labs and UOP (2) Hyperkalemia: Code(s): E87.5 - Hyperkalemia Status: Acute Assessment and Plan: better at this dwight due to #1 +/- DAMIEN-I use medical management as needed follow repeat levels (3) CHF (congestive heart failure): Code(s): I50.9 - Heart failure, unspecified Status: Acute Assessment and Plan: apparent new issue/finding Cardiology recommendations noted Echo results noted suspect right sided heart failure from obesity/pulmonary HTN/LUCIA continue IV diuresis follow I/Os and daily weights (4) LUCIA (obstructive sleep apnea): Code(s): G47.33 - Obstructive sleep apnea (adult) (pediatric) Status: Acute Assessment and Plan: as noted by apnea link Pulmonary recommendations noted (5) Hypertension: Code(s): I10 - Essential (primary) hypertension Status: Chronic Assessment and Plan: elevated on admission but better currently diuresis may help to some degree follow trend of hemodynamics (6) Diabetes: Code(s): E11.9 - Type 2 diabetes mellitus without complications Status: Chronic Assessment and Plan: follow accuchecks glycemic control Will continue to follow. Subjective Date/time seen: 02/19/22 12:36 Feels less swollen at this time with ongoing diuresis (although difficult to assess by I/Os how much UOP she is making); renal function remains relatively stable; apnea link reveals evidence of LUCIA and Pulmonary has seen the patient already with regard to this finding; no apparent distress at the time of my visit. Exam Narrative: General: obese AA female in NAD Heart: normal S1 and S2; no rub Lungs: decreased throughtout with bibasilar crackles Abdomen: soft, nontender, nondistended; abdominal wall edema present Extremities: no cyanosis or clubbing; 2 - 3+ edema Skin: warm and dry Objective Data Vital Signs Vital Signs: Vital Signs Temp Pulse Resp BP Pulse Ox O2 Del Method 02/19/22 12:00 72 02/19/22 10:00 70 02/19/22 12:10 35.7 C L 71 20 113/100 H 91 02/19/22 11:39 Room Air 02/19/22 08:00 Room Air 02/19/22 08:00 78 02/19/22 08:48 79 02/19/22 08:34 35.8 C L 78 22 H 138/61 92 02/19/22 04:00 36.2 C L 73 18 138/57 L 90 02/19/22 06:00 74 02/19/22 04:52 90 Room Air 02/19/22 04:00 70 02/19/22 02:00 76 02/19/22 00:00 68 02/18/22 22:00 77 02/18/22 20:00 73 02/19/22 00:00 Room Air 02/18/22 20:00 Room Air 02/19/22 00:00 36.2 C L 66 20 116/54 L 90 02/18/22 22:02 77 02/18/22 20:00 36.3 C L 76 20 142/62 H 90 02/18/22 18:00 74 02/18/22 16:00 72 02/18/22 16:48 36.5 C 72 22 H 126/73 92 02/18/22 16:00 94 Room Air 02/18/22 14:00 80 Intake/Output Intake/Output: Intake & Output 02/16/22 02/17/22 02/18/22 02/19/22 23:59 23:59 23:59 23:59 Intake Total 1609 1320 Output Total 601 250 Balance 1008 1070 Meds/Results Medications: Active Medications Generic Name Dose Route Start Last Admin Trade Name Freq PRN Reason Stop Dose Admin Acetaminophen 650 mg 02/18/22 00:54 Acetaminophen 325 Mg Tablet PO Q4H PRN Mild Pain (1-3) or Fever Al Hydrox/Mg Hydrox/Simethicone 30 ml 02/18/22 00:54 Mag Hydrox/Al Hydrox/Simeth 30 Ml Udc PO QID PRN Dyspepsia Aml
[2022-02-19 18:41] LABS: Glucose Point of Care 163 mg/dl (65-105)
[2022-02-19] MEDS: INSULIN GLARGINE (*BKC) 100 UNITS/ML 20 UNITS SUB-Q (22:01)
[2022-02-19 22:12] LABS: Glucose Point of Care 155 mg/dl (65-105)
[2022-02-20] VITALS (12 sets, daily range): BP systolic 135–153; BP diastolic 59–80; PULSE 61–100; RESP 20–24; TEMP 36.4–36.8; O2SAT 91–96
[2022-02-20] MEDS: HEPARIN SODIUM 5,000 UNITS/ML VIAL 5000 UNITS SUB-Q ×3 (06:36→20:28)
[2022-02-20 06:45] LABS: Basophils Percent Auto 0.6 % (0.2-1.2); Eosinophils Absolute Auto 0.1 K/mm3 (0-0.3); Eosinophils Percent Auto 3.2 % (0-4.4); Hematocrit 34.3 % (37.0-47.0); Hemoglobin 9.7 g/dL (12.0-15.0); Immature Granulocyte Absolute 0.01 K/mm3 (0.00-0.031); Immature Granulocyte Percent A 0.3 % (0-0.5); Lymphocytes Absolute Auto 0.88 K/mm3 (0.9-3.2); Lymphocytes Percent Auto 25.8 % (18.3-44.2); Mean Corpuscular HGB Conc 28.3 g/dl (32-36); Mean Corpuscular Hemoglobin 23.4 pg (26-34); Mean Corpuscular Volume 82.7 fl (80-100); Mean Platelet Volume 9.3 fl (7.4-10.4); Monocytes Absolute Auto 0.6 K/mm3 (0.1-0.6); Monocytes Percent Auto 16.4 % (2.6-8.5); Neutrophils Absolute Auto 1.8 K/mm3 (1.3-6.7); Neutrophils Percent Auto 53.7 % (45.5-73.1); Platelet Count Result 230 k/mm3 (150-375); Red Blood Count 4.15 M/mm3 (4.2-5.4); Red Cell Distribution Width 21.9 % (11.5-14.5); White Blood Count 3.4 K/mm3 (4.5-10.0)
[2022-02-20 06:54] LABS: Alanine Aminotransferase 16 U/L (6-35); Albumin Level 3.6 g/dL (3.5-5.1); Alkaline Phosphatase 95 U/L (38-126); Anion Gap 12 mmol/L (8-16); Aspartate Amino Transferase 21 U/L (14-36); Bilirubin,Total 0.5 mg/dL (0.2-1.3); Blood Urea Nitrogen 35 mg/dL (7-17); Calcium 8.7 mg/dL (8.4-10.2); Carbon Dioxide 29 mmol/L (22-30); Chloride 106 mmol/L (98-107); Estimated CRCL calculation 50 ml/min; Estimated Glomerular Filt Rate 28; Glucose 111 mg/dL (65-110); Phosphorus 4.1 mg/dL (2.5-4.5); Potassium 4.3 mmol/L (3.4-5.0); Sodium 147 mmol/L (137-145)
[2022-02-20 07:03] LABS: Alveolar/Arterial O2 Gradient 27.9 mmHg; Base Excess ABG 2.9 mEq/l (+/-2.0); Fractional Inspired Oxygen 21 %; HCO3 ABG 29.3 mEq/l (22.0-26.0); Oxygen Content ABG 13.1 %vol (16.0-22.0); Oxygen Saturation ABG 87.9 % (95.0-100.0); PCO2 ABG 54.1 mmHg (35.0-45.0); PO2 FiO2 Ratio Arterial Blood 2.71 %; Total Hemoglobin 10.8 g/dL (12.0-18.0); pH ABG 7.352 (7.350-7.450)
[2022-02-20 07:05] LABS: Device NON-INVASIVE VENT; Modified Allen's Test Pass; Oxyhemoglobin 85.8 % THb (90.0-100.0); Site Drawn RIGHT RADIAL
[2022-02-20 07:06] LABS: Non-Invasive Expiratory Pressure 5 CMH2O; Non-Invasive Vent Rate 20 /MIN
[2022-02-20 07:41] LABS: Free T4 Free Thyroxine 1.38 ng/mL (0.78-2.19)
[2022-02-20 07:45] LABS: Glucose Point of Care 163 mg/dl (65-105)
--- NOTE | 2022-02-20 08:27 | PM.IMPN ---
Progress Note: A&P Assessment and Plan (1) CHF (congestive heart failure): Code(s): I50.9 - Heart failure, unspecified Status: Acute Assessment and Plan: EF noted to be 50-55%, unable to determine diastolic function, appreciate cardiology consultation Continue IV diuresis with Lasix 40 mg IV t.i.d. Metolazone added per Cardiology, continue to monitor, strict I's and O's and daily weights appear inaccurate, symptoms and clinical exam appear improved (2) Renal failure: Code(s): N19 - Unspecified kidney failure Status: Acute Assessment and Plan: Creatinine improving with Lasix, continue diuresis and monitor Appreciate nephrology consultation Will discuss with Nephrology, but would recommend discontinuing Norvasc in favor of hydralazine/clonidine versus other medications due to significant lower extremity edema at baseline (3) Morbid obesity with BMI of 70 and over, adult: Code(s): E66.01 - Morbid (severe) obesity due to excess calories; Z68.45 - Body mass index [BMI] 70 or greater, adult Status: Acute (4) Hypertension associated with diabetes: Code(s): E11.59 - Type 2 diabetes mellitus with other circulatory complications; I15.2 - Hypertension secondary to endocrine disorders Status: Acute Assessment and Plan: A1c is 8.6, Accu-Cheks and sliding scale insulin Lantus 20 units q.h.s. plus 11 units of NovoLog with meals and intensive sliding scale (5) Hypernatremia: Code(s): E87.0 - Hyperosmolality and hypernatremia Status: Acute Assessment and Plan: improving with diuresis, monitor (6) Hyperkalemia: Code(s): E87.5 - Hyperkalemia Status: Acute Assessment and Plan: Resolved, continue to monitor Plan DVT prophylaxis with Lovenox GI prophylaxis not indicated Code status full code Subjective Date/time seen: 02/20/22 08:27 Interval history: No overnight events noted. No chest pain or shortness of breath. No nausea, vomiting or diarrhea. No fevers or chills. Patient states her swelling is significantly improved from yesterday. Review of Systems Review of Systems: 12 point review of systems was assessed and was negative except as noted in the HPI Exam Narrative: General: No acute distress, alert and oriented per baseline HEENT: Atraumatic, normocephalic, mucous membranes moist CV: Regular rate and rhythm, S1, S2 Lungs: Diminished at bases, some scattered crackles Abdomen: Soft, nontender, improved distension from yesterday, some swelling noted in hips and lower abdomen, nonpitting Extremities: 2+ pitting edema bilateral lower extremities Skin: No rashes noted, no lesions or wounds seen Psych: Euthymic, normal affect Objective Data Vital Signs Vital Signs: Vital Signs - 24 hr 02/19/22 08:34 02/19/22 08:48 02/19/22 11:39 Temperature 96.4 F L Pulse Rate 78 79 Respiratory Rate 22 H Blood Pressure 138/61 Pulse Oximetry 92 Oxygen Delivery Room Air 02/19/22 12:10 02/19/22 10:00 02/19/22 12:00 Temperature 96.2 F L Pulse Rate 71 70 72 Respiratory Rate 20 Blood Pressure 113/100 H Pulse Oximetry 91 Oxygen Delivery 02/19/22 14:00 02/19/22 16:06 02/19/22 16:00 Temperature 96.3 F L Pulse Rate 79 73 70 Respiratory Rate 20 Blood Pressure 128/58 L Pulse Oximetry 93 Oxygen Delivery 02/19/22 21:36 02/19/22 22:04 02/19/22 20:00 Temperature 97.9 F Pulse Rate 74 74 76 Respiratory Rate 20 Blood Pressure 144/78 H Pulse Oximetry 94 Oxygen Delivery 02/20/22 00:00 02/20/22 04:00 02/20/22 05:42 Temperature 97.6 F Pulse Rate 64 61 74 Respiratory Rate 20 Blood Pressure 140/59 L Pulse Oximetry 91 Oxygen Delivery Intake/Output Intake/Output: Intake & Output 02/17/22 02/18/22 02/19/22 02/20/22 23:59 23:59 23:59 23:59 Intake Total 1609 2120 Output Total 601 250 Balance 1008 1870 Meds/Results Medications: Active Med
[2022-02-20] MEDS: FUROSEMIDE INJ 40 MG/4 ML VIAL IV PUSH ×3 (08:58→18:06)
[2022-02-20] MEDS: amLODIPine BESYLATE 5 MG TABLET 10 MG PO (08:58)
[2022-02-20] MEDS: METOPROLOL TARTRATE 50 MG TAB PO ×2 (08:58→20:26)
[2022-02-20 08:59] LABS: Glucose Point of Care 105 mg/dl (65-105)
[2022-02-20] MEDS: hydrALAZINE HCL 50 MG TABLET PO ×2 (09:00→20:26)
[2022-02-20] MEDS: ATORVASTATIN 20 MG TABLET PO (09:00)
--- NOTE | 2022-02-20 10:33 | PM.PNCARD ---
Progress Note: A&P Assessment and Plan (1) Hypertension associated with diabetes: Code(s): E11.59 - Type 2 diabetes mellitus with other circulatory complications; I15.2 - Hypertension secondary to endocrine disorders Status: Acute Assessment and Plan: Continue metoprolol, hydralazine, amlodipine. Hold lisinopril because of renal failure - when able recommend starting Entresto 24-26 for HFpEF. (2) Morbid obesity with BMI of 70 and over, adult: Code(s): E66.01 - Morbid (severe) obesity due to excess calories; Z68.45 - Body mass index [BMI] 70 or greater, adult Status: Acute Assessment and Plan: Significant weight gain over the past few months. Obviously dietary and lifestyle modifications are imperative and discussed/recommended (3) CHF (congestive heart failure): Code(s): I50.9 - Heart failure, unspecified Status: Acute Assessment and Plan: She does have significant sleep apnea. Probably predominantly right-sided heart failure. Echo was of poor quality due to body habitus but ejection fraction did not appear to be significantly reduced. Continue furosemide 40mg IV q8h Treatment for sleep apnea Low-salt diet. Intake and output will be recorded Fluid restriction daily weights As above would start Entresto when renal function improves Would also recommend spironolactone Avoid jardiance because of high risk for genital yeast infections given body habitus (4) Renal failure: Code(s): N19 - Unspecified kidney failure Status: Acute Assessment and Plan: Nephrology consultation (5) LUCIA (obstructive sleep apnea): Code(s): G47.33 - Obstructive sleep apnea (adult) (pediatric) Status: Acute Assessment and Plan: Will consult pulmonology Subjective Date/time seen: 02/20/22 10:33 Cardiology follow up for CHF Still has significant lower extremity swelling but she thinks it is improved some because she has more ankle mobility. Breathing is ok. Does have some shortness of breath with exertion. Review of Systems Review of Systems: All systems reviewed & are unremarkable except as noted in HPI and below Constitutional: Constitutional: Denies body ache(s) and Denies excessive sweating Eyes: Eyes: Denies blurry vision ENT: Reports Normal hearing present and Denies lip swelling Cardiovascular: Cardiovascular: Denies chest pain, Reports pedal edema, Reports leg edema, Denies lightheadedness, Denies palpitations, Reports dyspnea and Reports dyspnea on exertion Respiratory: Respiratory: Reports dyspnea and Reports dyspnea on exertion Gastrointestinal: Gastrointestinal: Denies abdominal pain, Reports bloating and Reports constipation Genitourinary: Genitourinary: Denies hematuria Musculoskeletal: Musculoskeletal: Denies back pain Integumentary/Breasts: Skin/Breast: Reports skin pain and Denies unusual bruising Neurologic: Reports Normal hearing present, Denies Abnormal speech present and Denies behavioral changes Psychiatric: Psychiatric: Denies behavioral changes Endocrine: Endocrine: Denies excessive sweating and Denies palpitations Hematologic/Lymphatic: Hematologic/Lymphatic: Denies easy bleeding Allergic/Immunologic: Allergic/Immunologic: Denies GI upset with certain foods and Denies lip swelling Exam Narrative: Pleasant and appropriate and appears stated age Const: General: comfortable and no acute distress; No in distress HENMT: Face/Nose/Sinus: Normal nares present Eyes: Sclera: sclerae normal Pupils: pupils not ERRL Neck: Neck: supple Carotids: no bruits Chest: Other: No reproducible chest wall pain to palpation Resp: Effort & Inspection: normal respiratory effort Auscultation: diminished lung sounds Cardio: Rate: regular rate Rhythm: regular rhythm Other: Distant heart sounds GI: Inspection: non-distended Auscultation: normal bowel sounds Urinary Catheter: Urinary Catheter: patent and
--- NOTE | 2022-02-20 10:41 | PM.PNPUL ---
Progress Note: A&P Assessment and Plan (1) Obesity hypoventilation syndrome: Code(s): E66.2 - Morbid (severe) obesity with alveolar hypoventilation Status: Acute Assessment and Plan: Patient with a BMI of 80.9, after diuresis and feeling improved her daytime blood gas of 7.37/51/56. She has obesity hypoventilation syndrome with daytime hypercarbia and would benefit from noninvasive ventilation to prevent further exacerbations and hospitalizations. The patient did not tolerate straight BiPAP mode of ventilation but has tolerated a noninvasive ventilation with the AVAPS mode. 02/19/2022 I will initiate noninvasive ventilation. I will initially try BiPAP and if she does not tolerate this I will try noninvasive ventilation with an AVAPS mode. I will check an overnight oximetry on noninvasive ventilation on room air. I will check a blood gas prior to removal of the noninvasive ventilation. I will check a TSH and free T4. Agree with as aggressive diuresis as tolerated by her cardiac and renal Systems per Cardiology and the hospitalist team. 02/20 currently patient states she is improved. She is sitting in a chair on room air saturations 91%. She did not tolerate BiPAP and was placed on noninvasive ventilation with an AVAPS mode rate of 20, tidal volume 500, EPAP 5, minimal inspiratory pressure 6, maximal inspiratory pressure 25, inspiratory time 1.0, rise of 3 and room air last night. Patient wore fullface mask and said that she slept well with the machine. Patient had a blood gas prior to removal of the machine with a pH of 7.35/54/57. Patient had an overnight oximetry on the settings with an average saturation of 88%. Lowest saturation 80%. Time with saturation less than or equal to 88% was 142 minutes or 57% of the monitor time. Free T4 is 1.38, normal, TSH is 5.35, elevated Plan: the patient did not tolerate BiPAP mode of ventilation and I have again adjusted her noninvasive ventilation with the a VATS mode to increase her minute ventilation and have increased her rate from 20-22, increased her tidal volume from 500-550. She required her rise to be decreased to 5 and her inspiratory time to be changed from 1-1.2 for comfort. I have placed her on 28% FiO2 and will repeat an overnight oximetry on the above settings with 28% FiO2 and repeat a blood gas prior to removal of the mask. I have talked to extension course coordinator and have initiated the process to obtain a home noninvasive ventilator with the AVAPS mode. Discussed with Dr. Rhoades. Will follow with you. (2) CHF (congestive heart failure): Code(s): I50.9 - Heart failure, unspecified Status: Acute Assessment and Plan: 02/19 Agree with as aggressive diuresis as tolerated by her cardiac and renal Systems per Cardiology and the hospitalist team. Cr 2.5. Clinically she tells me she has less edema than when she presented. 02/20 Patient is on Lasix 40 IV t.i.d. and says that she is urinating a lot but her ins and outs demonstrates she only urinated 250 mL yesterda y and that she is 3.1 L positive since admission. Her admission weight is listed as 211.4 kg and today her weight is 213.9 kg. She again tells me that her swelling has decreased. Her creatinine is 2.20. Agree with as aggressive diuresis as tolerated by her cardiac and renal Systems per Cardiology and the hospitalist team. Subjective Date/time seen: 02/20/22 10:41 Interval history: 02/19/2022:? This is a new pulmonary consult for obstructive sleep apnea.? 51-year-old with a history of CHF, hypertension, diabetes, morbid obesity with a BMI of 80.9.? Patient presented to the emergency room on 02/18/2022 with chronic dyspnea on exertion and worse over the last 3 days.? Patient also had worsening total body edema.? patient was found to be fluid overloaded with acute renal failure and a BNP of 3260.? Her chest x-ray? demonstrated cardiomegaly, perihilar congestion and mild pulmona
[2022-02-20 11:46] LABS: Glucose Point of Care 122 mg/dl (65-105)
--- NOTE | 2022-02-20 12:49 | PC.NURSE ---
On 02/20/22, the student, [Dora Delgado], provided care and completed [facility] documentation on this patient. I have reviewed the student's documentation and agree with the findings.
[2022-02-20] MEDS: metOLazone 2.5 MG TABLET PO (13:02)
--- NOTE | 2022-02-20 13:50 | P.PNNP_ITS ---
Progress Note: A&P Assessment and Plan (1) Renal failure: Code(s): N19 - Unspecified kidney failure Status: Acute Assessment and Plan: * acute versus acute on chronic versus chronic (?) * suspect more chronic issues than acute * major risk factors include HTN and DM x 15+ years with variable control * obesity, LUCIA, and OHS likely contributing as well * evaluation to date: * renal ultrasound without obstruction * urine electrolytes are prerenal * 860mg of proteinuria * serological testing pending * hold DAMIEN-I given #2 * follow repeat labs and UOP (2) Hyperkalemia: Code(s): E87.5 - Hyperkalemia Status: Acute Assessment and Plan: * better at this dwight * due to #1 +/- DAMIEN-I use * medical management as needed * follow repeat levels (3) CHF (congestive heart failure): Code(s): I50.9 - Heart failure, unspecified Status: Acute Assessment and Plan: * apparent new issue/finding * Cardiology recommendations noted * Echo results noted * suspect right sided heart failure from obesity/pulmonary HTN/LUCIA/OHS * continue IV diuresis * follow I/Os and daily weights (4) LUCIA (obstructive sleep apnea): Code(s): G47.33 - Obstructive sleep apnea (adult) (pediatric) Status: Acute Assessment and Plan: * as noted by apnea link * complicated by obesity hypoventilation syndrome * Pulmonary following with recommendations noted (5) Hypertension: Code(s): I10 - Essential (primary) hypertension Status: Chronic Assessment and Plan: * elevated on admission but better currently * diuresis may help to some degree * follow trend of hemodynamics (6) Diabetes: Code(s): E11.9 - Type 2 diabetes mellitus without complications Status: Chronic Assessment and Plan: * follow accuchecks * glycemic control Will continue to follow. Subjective Date/time seen: 02/20/22 13:50 Overall, she seems to be doing reasonably well. Tolerating aggressive diuresis with relative stability in renal function; no new issues/problems voiced at the time of my visit; respiratory status appears to be improging as well. Exam Narrative: General: obese AA female in NAD Heart: normal S1 and S2; no rub Lungs: decreased throughout with a few bibasilar crackles Abdomen: soft, nontender, nondistended; abdominal wall edema present Extremities: no cyanosis or clubbing; 2 - 3+ edema Skin: warm and intact Objective Data Vital Signs Vital Signs: Vital Signs Temp Pulse Resp BP Pulse Ox 02/20/22 12:00 70 02/20/22 08:00 70 02/20/22 08:00 36.4 C L 74 22 H 153/80 H 96 02/20/22 08:58 100 02/20/22 05:42 36.4 C 74 20 140/59 L 91 02/20/22 04:00 61 02/20/22 00:00 64 02/19/22 20:00 76 02/19/22 22:04 74 02/19/22 21:36 36.6 C 74 20 144/78 H 94 Intake/Output Intake/Output: Intake & Output 02/17/22 02/18/22 02/19/22 02/20/22 23:59 23:59 23:59 23:59 Intake Total 1609 2120 360 Output Total 601 250 Balance 1008 1870 360 Meds/Results Medications: Active Medications Generic Name Dose Route
--- NOTE | 2022-02-20 13:50 | PM.PNNEP ---
Progress Note: A&P Assessment and Plan (1) Renal failure: Code(s): N19 - Unspecified kidney failure Status: Acute Assessment and Plan: acute versus acute on chronic versus chronic (?) suspect more chronic issues than acute major risk factors include HTN and DM x 15+ years with variable control obesity, LUCIA, and OHS likely contributing as well evaluation to date: renal ultrasound without obstruction urine electrolytes are prerenal 860mg of proteinuria serological testing pending hold DAMIEN-I given #2 follow repeat labs and UOP (2) Hyperkalemia: Code(s): E87.5 - Hyperkalemia Status: Acute Assessment and Plan: better at this dwight due to #1 +/- DAMIEN-I use medical management as needed follow repeat levels (3) CHF (congestive heart failure): Code(s): I50.9 - Heart failure, unspecified Status: Acute Assessment and Plan: apparent new issue/finding Cardiology recommendations noted Echo results noted suspect right sided heart failure from obesity/pulmonary HTN/LUCIA/OHS continue IV diuresis follow I/Os and daily weights (4) LUCIA (obstructive sleep apnea): Code(s): G47.33 - Obstructive sleep apnea (adult) (pediatric) Status: Acute Assessment and Plan: as noted by apnea link complicated by obesity hypoventilation syndrome Pulmonary following with recommendations noted (5) Hypertension: Code(s): I10 - Essential (primary) hypertension Status: Chronic Assessment and Plan: elevated on admission but better currently diuresis may help to some degree follow trend of hemodynamics (6) Diabetes: Code(s): E11.9 - Type 2 diabetes mellitus without complications Status: Chronic Assessment and Plan: follow accuchecks glycemic control Will continue to follow. Subjective Date/time seen: 02/20/22 13:50 Overall, she seems to be doing reasonably well. Tolerating aggressive diuresis with relative stability in renal function; no new issues/problems voiced at the time of my visit; respiratory status appears to be improging as well. Exam Narrative: General: obese AA female in NAD Heart: normal S1 and S2; no rub Lungs: decreased throughout with a few bibasilar crackles Abdomen: soft, nontender, nondistended; abdominal wall edema present Extremities: no cyanosis or clubbing; 2 - 3+ edema Skin: warm and intact Objective Data Vital Signs Vital Signs: Vital Signs Temp Pulse Resp BP Pulse Ox 02/20/22 12:00 70 02/20/22 08:00 70 02/20/22 08:00 36.4 C L 74 22 H 153/80 H 96 02/20/22 08:58 100 02/20/22 05:42 36.4 C 74 20 140/59 L 91 02/20/22 04:00 61 02/20/22 00:00 64 02/19/22 20:00 76 02/19/22 22:04 74 02/19/22 21:36 36.6 C 74 20 144/78 H 94 Intake/Output Intake/Output: Intake & Output 02/17/22 02/18/22 02/19/22 02/20/22 23:59 23:59 23:59 23:59 Intake Total 1609 2120 360 Output Total 601 250 Balance 1008 1870 360 Meds/Results Medications: Active Medications Generic Name Dose Route Start Last Admin Trade Name Freq PRN Reason Stop Dose Admin Acetaminophen 650 mg 02/18/22 00:54 Acetaminophen 325 Mg Tablet PO Q4H PRN Mild Pain (1-3) or Fever Al Hydrox/Mg Hydrox/Simethicone 30 ml 02/18/22 00:54 Mag Hydrox/Al Hydrox/Simeth 30 Ml Udc PO QID PRN Dyspepsia Amlodipine Besylate 10 mg 02/18/22 09:00 02/20/22 08:58 Amlodipine Besylate 5 Mg Tablet PO 10 mg DAILY RUSSEL Administration Atorvastatin Calcium 20 mg 02/18/22 09:00 02/20/22 09:00 Atorvastatin 20 Mg Tablet PO 20 mg DAILY RUSSEL Administration Dextrose 12.5 gm 02/18/22 08:02 Dextrose 50% 25 Gm/50 Ml Syringe IV PUSH PRN PRN Hypoglycemia Protocol Furosemide 40 mg 02/18/22 17:00 02/20/22 13:33 Furosemide Inj 40 Mg/4 Ml Vial IV PUSH 40 mg TID RUSSEL Administratio
[2022-02-20 17:07] LABS: Glucose Point of Care 170 mg/dl (65-105)
[2022-02-20] MEDS: INSULIN GLARGINE (*BKC) 100 UNITS/ML 20 UNITS SUB-Q (20:26)
[2022-02-21] VITALS (13 sets, daily range): BP systolic 126–157; BP diastolic 69–77; PULSE 60–80; RESP 16–18; TEMP 36–37.1; O2SAT 86–99
[2022-02-21 05:04] LABS: Basophils Percent Auto 0.5 % (0.2-1.2); Eosinophils Absolute Auto 0.2 K/mm3 (0-0.3); Eosinophils Percent Auto 4.6 % (0-4.4); Hematocrit 32.9 % (37.0-47.0); Hemoglobin 9.1 g/dL (12.0-15.0); Immature Granulocyte Absolute 0.01 K/mm3 (0.00-0.031); Immature Granulocyte Percent A 0.3 % (0-0.5); Lymphocytes Absolute Auto 0.63 K/mm3 (0.9-3.2); Mean Corpuscular HGB Conc 27.7 g/dl (32-36); Mean Corpuscular Hemoglobin 22.8 pg (26-34); Mean Corpuscular Volume 82.3 fl (80-100); Mean Platelet Volume 8.5 fl (7.4-10.4); Monocytes Absolute Auto 0.6 K/mm3 (0.1-0.6); Monocytes Percent Auto 15.9 % (2.6-8.5); Neutrophils Absolute Auto 2.3 K/mm3 (1.3-6.7); Neutrophils Percent Auto 61.7 % (45.5-73.1); Platelet Count Result 215 k/mm3 (150-375); Red Cell Distribution Width 21.5 % (11.5-14.5); White Blood Count 3.7 K/mm3 (4.5-10.0)
[2022-02-21 05:18] LABS: Alveolar/Arterial O2 Gradient 36.2 mmHg; Base Excess ABG 6.3 mEq/l (+/-2.0); Fractional Inspired Oxygen 28 %; HCO3 ABG 33.5 mEq/l (22.0-26.0); Oxygen Content ABG 14.3 %vol (16.0-22.0); Oxygen Saturation ABG 96.1 % (95.0-100.0); Oxyhemoglobin 95.3 % THb (90.0-100.0); PO2 ABG 89.3 mmHg (80.0-100.0); PO2 FiO2 Ratio Arterial Blood 3.19 %; Total Hemoglobin 10.6 g/dL (12.0-18.0); pH ABG 7.345 (7.350-7.450)
[2022-02-21 05:21] LABS: Alanine Aminotransferase 17 U/L (6-35); Albumin Level 3.4 g/dL (3.5-5.1); Alkaline Phosphatase 91 U/L (38-126); Anion Gap 11 mmol/L (8-16); Aspartate Amino Transferase 22 U/L (14-36); Bilirubin,Total 0.4 mg/dL (0.2-1.3); Blood Urea Nitrogen 33 mg/dL (7-17); Calcium 8.6 mg/dL (8.4-10.2); Carbon Dioxide 32 mmol/L (22-30); Chloride 103 mmol/L (98-107); Estimated CRCL calculation 50 ml/min; Estimated Glomerular Filt Rate 28; Glucose 141 mg/dL (65-110); Phosphorus 4.1 mg/dL (2.5-4.5); Potassium 3.9 mmol/L (3.4-5.0); Sodium 146 mmol/L (137-145)
[2022-02-21 05:25] LABS: Device OTHER DEVICE; Modified Allen's Test Pass; PCO2 ABG 62.8 mmHg (35.0-45.0); Site Drawn RIGHT RADIAL
[2022-02-21 05:41] LABS: Anisocytosis 2+ (NORMAL); Hypochromasia 1+ (NORMAL); Platelet Estimate Adequate (Adequate)
[2022-02-21 05:43] LABS: Schistocytes None Seen (NORMAL)
--- NOTE | 2022-02-21 05:51 | PC.NURSE ---
Pt has critical CO2 value of 62.8. Attempted to call Dr. Wasserman twice with no answer. Will try to get ahold of Dr to report critical result. If unable to report result I will pass this information on to day shift.
[2022-02-21] MEDS: HEPARIN SODIUM 5,000 UNITS/ML VIAL 5000 UNITS SUB-Q ×3 (06:41→21:36)
--- NOTE | 2022-02-21 07:54 | PM.IMPN ---
Progress Note: A&P Assessment and Plan (1) CHF (congestive heart failure): Code(s): I50.9 - Heart failure, unspecified Status: Acute Assessment and Plan: EF noted to be 50-55%, unable to determine diastolic function, appreciate cardiology consultation Will discontinue Lasix in favor of Bumex, monitor kidney function with increased diuresis Will also add a fluid restriction of 1200 mL today Metolazone added per Cardiology, continue to monitor, strict I's and O's and daily weights appear inaccurate, symptoms and clinical exam appear worsened today (2) Renal failure: Code(s): N19 - Unspecified kidney failure Status: Acute Assessment and Plan: Creatinine unchanged, discontinue Lasix in favor of Bumex today, monitor response tomorrow Appreciate nephrology consultation Will discontinue Norvasc due to lower extremity lymphedema as well as worsening swelling, may need to add clonidine or hydralazine if blood pressure goes too high without this medication (3) Morbid obesity with BMI of 70 and over, adult: Code(s): E66.01 - Morbid (severe) obesity due to excess calories; Z68.45 - Body mass index [BMI] 70 or greater, adult Status: Acute (4) Hypertension associated with diabetes: Code(s): E11.59 - Type 2 diabetes mellitus with other circulatory complications; I15.2 - Hypertension secondary to endocrine disorders Status: Acute Assessment and Plan: A1c is 8.6, Accu-Cheks and sliding scale insulin Lantus 20 units q.h.s. plus 11 units of NovoLog with meals and intensive sliding scale Blood glucose consistently under 180 here (5) Hypernatremia: Code(s): E87.0 - Hyperosmolality and hypernatremia Status: Acute Assessment and Plan: improving with diuresis, monitor (6) Hyperkalemia: Code(s): E87.5 - Hyperkalemia Status: Acute Assessment and Plan: Resolved, continue to monitor Plan DVT prophylaxis with Lovenox GI prophylaxis not indicated Code status full code Subjective Date/time seen: 02/21/22 07:54 Interval history: No overnight events noted. No chest pain or shortness of breath. No nausea, vomiting or diarrhea. No fevers or chills. Patient feels much more swollen today than yesterday. Review of Systems Review of Systems: 12 point review of systems was assessed and was negative except as noted in the HPI Exam Narrative: General: No acute distress, alert and oriented per baseline HEENT: Atraumatic, normocephalic, mucous membranes moist CV: Regular rate and rhythm, S1, S2 Lungs: Diminished at bases, some scattered crackles Abdomen: Soft, nontender, abdomen feels much more tight and distended, pitting edema in lower abdomen and bilateral hips noted Extremities: 2+ pitting edema bilateral lower extremities, a little worse than yesterday Skin: No rashes noted, no lesions or wounds seen Psych: Euthymic, normal affect Objective Data Vital Signs Vital Signs: Vital Signs - 24 hr 02/20/22 08:58 02/20/22 08:00 02/20/22 08:00 Temperature 97.5 F L Pulse Rate 100 74 70 Respiratory Rate 22 H Blood Pressure 153/80 H Pulse Oximetry 96 Oxygen Delivery 02/20/22 12:00 02/20/22 16:35 02/20/22 16:00 Temperature 98.0 F Pulse Rate 70 73 72 Respiratory Rate 22 H Blood Pressure 144/68 H Pulse Oximetry 93 Oxygen Delivery 02/20/22 19:52 02/20/22 20:00 02/20/22 21:34 Temperature 98.3 F Pulse Rate 73 77 77 Respiratory Rate 22 H 20 Blood Pressure 135/62 Pulse Oximetry 93 92 Oxygen Delivery Room Air 02/20/22 22:30 02/21/22 00:00 02/21/22 04:00 Temperature Pulse Rate 60 60 Respiratory Rate 24 H Blood Pressure Pulse Oximetry Oxygen Delivery CPAP 02/21/22 05:18 Temperature 98.8 F Pulse Rate 63 Respiratory Rate 18 Blood Pressure 146/77 H Pulse Oximetry 99 Oxygen Delivery Intake/Output Intake/Output: Intake & Output 02/18/22 02/19/22
[2022-02-21 08:14] LABS: Glucose Point of Care 108 mg/dl (65-105)
[2022-02-21] MEDS: FUROSEMIDE INJ 40 MG/4 ML VIAL IV PUSH ×2 (08:34→12:43)
[2022-02-21] MEDS: METOPROLOL TARTRATE 50 MG TAB PO ×2 (08:34→21:36)
[2022-02-21] MEDS: ATORVASTATIN 20 MG TABLET PO (08:34)
[2022-02-21] MEDS: amLODIPine BESYLATE 5 MG TABLET 10 MG PO (08:34)
[2022-02-21] MEDS: hydrALAZINE HCL 50 MG TABLET PO ×2 (08:34→21:36)
--- NOTE | 2022-02-21 10:23 | PM.PNCARD ---
Progress Note: A&P Assessment and Plan (1) Obesity hypoventilation syndrome: Code(s): E66.2 - Morbid (severe) obesity with alveolar hypoventilation Status: Acute (2) CHF (congestive heart failure): Code(s): I50.9 - Heart failure, unspecified Status: Acute Plan Massive obesity with hypoventilation and volume overload as a result of this. Patient is still tolerating higher dose of IV furosemide 3 times daily with gradual improvement in fluid overload and so far no worsening renal insufficiency or creation of unacceptable pre renal state. Will therefore continue this for the time being. Dakota Chavez MD [facility] Subjective Date/time seen: date of service:02/21/22 10:23 Interval history: 51-year-old admitted for heart failure Date of service 02/19/2022: She is diuresing. She does feel that she is slightly less swollen. Apnea link did show severe sleep apnea. It should be noted that she typically sleeps on her side or her stomach at home. She denies any chest pain. Date of service 02/21/2022: Sitting in the bedside chair feet elevated offers no complaints says she is feeling better no longer having any dyspnea. Exam Narrative: Pleasant and appropriate and appears stated age Const: General: comfortable and no acute distress; No in distress HENMT: Face/Nose/Sinus: Normal nares present Eyes: Sclera: sclerae normal Pupils: pupils not ERRL Neck: Neck: supple Carotids: no bruits Chest: Other: No reproducible chest wall pain to palpation Resp: Effort & Inspection: normal respiratory effort Auscultation: diminished lung sounds Cardio: Rate: regular rate Rhythm: regular rhythm Other: Distant heart sounds GI: Inspection: non-distended Auscultation: normal bowel sounds Urinary Catheter: Urinary Catheter: patent and draining Skin: General skin exam: normal color and No rashes noted Rashes: no rashes noted Neuro: Cranial nerves: No Equal, round and reactive pupils present and Yes Normal hearing present Speech: normal speech and No Abnormal speech present Extrem: General: edema Other: Severe edema up to and including her hips and lower back Psych: Mental Status: mental status grossly normal Affect: normal affect Objective Data Vital Signs Vital Signs: Vital Signs - 24 hr 02/20/22 12:00 02/20/22 16:35 02/20/22 16:00 Temperature 36.7 C Pulse Rate 70 73 72 Respiratory Rate 22 H Blood Pressure 144/68 H Pulse Oximetry 93 Oxygen Delivery 02/20/22 19:52 02/20/22 20:00 02/20/22 21:34 Temperature 36.8 C Pulse Rate 73 77 77 Respiratory Rate 22 H 20 Blood Pressure 135/62 Pulse Oximetry 93 92 Oxygen Delivery Room Air 02/20/22 22:30 02/21/22 00:00 02/21/22 04:00 Temperature Pulse Rate 60 60 Respiratory Rate 24 H Blood Pressure Pulse Oximetry Oxygen Delivery CPAP 02/21/22 05:18 02/21/22 08:34 Temperature 37.1 C Pulse Rate 63 70 Respiratory Rate 18 Blood Pressure 146/77 H Pulse Oximetry 99 Oxygen Delivery Intake/Output Intake/Output: Intake & Output 02/18/22 02/19/22 02/20/22 02/21/22 23:59 23:59 23:59 23:59 Intake Total 1609 2120 880 680 Output Total 601 250 400 Balance 1008 1870 880 280 Meds/Results Medications: Active Medications Generic Name Dose Route Start Last Admin Trade Name Freq PRN Reason Stop Dose Admin Acetaminophen 650 mg 02/18/22 00:54 Acetaminophen 325 Mg Tablet PO Q4H PRN Mild Pain (1-3) or Fever Al Hydrox/Mg Hydrox/Simethicone 30 ml 02/18/22 00:54 Mag Hydrox/Al Hydrox/Simeth 30 Ml Udc PO QID PRN Dyspepsia Amlodipine Besylate 10 mg 02/18/22 09:00 02/21/22 08:34 Amlodipine Besylate 5 Mg Tablet PO 10 mg DAILY RUSSEL Administration Atorvastatin Calcium 20 mg 02/18/22 09:00 02/21/22 08:34 Atorvastatin 20 Mg Tablet PO 20 mg DAILY RUSSEL Administration Dextrose 12.5 gm 02/18/22 08:02 Dextrose 50% 25 Gm/50 Ml
[2022-02-21 11:54] LABS: Glucose Point of Care 125 mg/dl (65-105)
[2022-02-21 12:13] LABS: Myoglobin, Urine <27 mcg/L (<28)
--- NOTE | 2022-02-21 12:43 | PM.PNNEP ---
Progress Note: A&P Assessment and Plan (1) Renal failure: Code(s): N19 - Unspecified kidney failure Status: Acute Assessment and Plan: acute versus acute on chronic versus chronic (?) suspect more of a chronic issue than acute major risk factors include HTN and DM x 15+ years with variable control obesity, LUCIA, and OHS likely contributing as well evaluation to date: renal ultrasound without obstruction urine electrolytes are prerenal 860mg of proteinuria serological testing pending hold DAMIEN-I given #2 follow repeat labs and UOP (2) Hyperkalemia: Code(s): E87.5 - Hyperkalemia Status: Acute Assessment and Plan: better at this dwight due to #1 +/- DAMIEN-I use medical management as needed follow repeat levels (3) CHF (congestive heart failure): Code(s): I50.9 - Heart failure, unspecified Status: Acute Assessment and Plan: apparent new issue/finding Cardiology recommendations noted Echo results noted suspect right sided heart failure from obesity/pulmonary HTN/LUCIA/OHS continue IV diuresis follow I/Os and daily weights (4) LUCIA (obstructive sleep apnea): Code(s): G47.33 - Obstructive sleep apnea (adult) (pediatric) Status: Acute Assessment and Plan: as noted by apnea link complicated by obesity hypoventilation syndrome Pulmonary following with recommendations noted (5) Hypertension: Code(s): I10 - Essential (primary) hypertension Status: Chronic Assessment and Plan: elevated on admission but better currently diuresis may help to some degree follow trend of hemodynamics (6) Diabetes: Code(s): E11.9 - Type 2 diabetes mellitus without complications Status: Chronic Assessment and Plan: follow accuchecks glycemic control Will continue to follow. Subjective Date/time seen: 02/21/22 12:43 Overall, seems to be doing reasonably well in comparison to admission -- swelling and edema slowly getting better; tolerating diuresis with relative stability in renal function; no apparent distress noted at this time; no other issues/events overnight or earlier this morning. Exam Narrative: General: obese AA female in NAD Heart: normal S1 and S2; no rub Lungs: decreased throughout with a few scattered crackles at bases Abdomen: soft, nontender, nondistended; abdominal wall edema present Extremities: no cyanosis or clubbing; 2 - 3+ edema Skin: no rash Objective Data Vital Signs Vital Signs: Vital Signs Temp Pulse Resp BP Pulse Ox O2 Del Method 02/21/22 12:03 71 02/21/22 08:00 78 02/21/22 12:08 91 Room Air 02/21/22 08:34 70 02/21/22 05:18 37.1 C 63 18 146/77 H 99 02/21/22 04:00 60 02/21/22 00:00 60 02/20/22 22:30 24 H CPAP 02/20/22 21:34 36.8 C 77 20 135/62 92 02/20/22 20:00 77 02/20/22 19:52 73 22 H 93 Room Air 02/20/22 16:00 72 02/20/22 16:35 36.7 C 73 22 H 144/68 H 93 Intake/Output Intake/Output: Intake & Output 02/18/22 02/19/22 02/20/22 02/21/22 23:59 23:59 23:59 23:59 Intake Total 1609 2120 880 800 Output Total 601 250 400 Balance 1008 1870 880 400 Meds/Results Medications: Active Medications Generic Name Dose Route Start Last Admin Trade Name Freq PRN Reason Stop Dose Admin Acetaminophen 650 mg 02/18/22 00:54 Acetaminophen 325 Mg Tablet PO Q4H PRN Mild Pain (1-3) or Fever Al Hydrox/Mg Hydrox/Simethicone 30 ml 02/18/22 00:54 Mag Hydrox/Al Hydrox/Simeth 30 Ml Udc PO QID PRN Dyspepsia Atorvastatin Calcium 20 mg 02/18/22 09:00 02/21/22 08:34 Atorvastatin 20 Mg Tablet PO 20 mg DAILY RUSSEL Administration Bumetanide 2 mg 02/21/22 12:55 02/21/22 13:43 Bumetanide Inj 1 Mg/4 Ml Vial IV PUSH Not Given BID RUSSEL Dextrose 12.5 gm 02/18/22 08:02 Dextrose 50% 25 Gm/50 Ml Syringe IV PUSH
--- NOTE | 2022-02-21 12:43 | P.PNNP_ITS ---
Progress Note: A&P Assessment and Plan (1) Renal failure: Code(s): N19 - Unspecified kidney failure Status: Acute Assessment and Plan: * acute versus acute on chronic versus chronic (?) * suspect more of a chronic issue than acute * major risk factors include HTN and DM x 15+ years with variable control * obesity, LUCIA, and OHS likely contributing as well * evaluation to date: * renal ultrasound without obstruction * urine electrolytes are prerenal * 860mg of proteinuria * serological testing pending * hold DAMIEN-I given #2 * follow repeat labs and UOP (2) Hyperkalemia: Code(s): E87.5 - Hyperkalemia Status: Acute Assessment and Plan: * better at this dwight * due to #1 +/- DAMIEN-I use * medical management as needed * follow repeat levels (3) CHF (congestive heart failure): Code(s): I50.9 - Heart failure, unspecified Status: Acute Assessment and Plan: * apparent new issue/finding * Cardiology recommendations noted * Echo results noted * suspect right sided heart failure from obesity/pulmonary HTN/LUCIA/OHS * continue IV diuresis * follow I/Os and daily weights (4) LUCIA (obstructive sleep apnea): Code(s): G47.33 - Obstructive sleep apnea (adult) (pediatric) Status: Acute Assessment and Plan: * as noted by apnea link * complicated by obesity hypoventilation syndrome * Pulmonary following with recommendations noted (5) Hypertension: Code(s): I10 - Essential (primary) hypertension Status: Chronic Assessment and Plan: * elevated on admission but better currently * diuresis may help to some degree * follow trend of hemodynamics (6) Diabetes: Code(s): E11.9 - Type 2 diabetes mellitus without complications Status: Chronic Assessment and Plan: * follow accuchecks * glycemic control Will continue to follow. Subjective Date/time seen: 02/21/22 12:43 Overall, seems to be doing reasonably well in comparison to admission -- swelling and edema slowly getting better; tolerating diuresis with relative stability in renal function; no apparent distress noted at this time; no other issues/events overnight or earlier this morning. Exam Narrative: General: obese AA female in NAD Heart: normal S1 and S2; no rub Lungs: decreased throughout with a few scattered crackles at bases Abdomen: soft, nontender, nondistended; abdominal wall edema present Extremities: no cyanosis or clubbing; 2 - 3+ edema Skin: no rash Objective Data Vital Signs Vital Signs: Vital Signs Temp Pulse Resp BP Pulse Ox O2 Del Method 02/21/22 12:03 71 02/21/22 08:00 78 02/21/22 12:08 91 Room Air 02/21/22 08:34 70 02/21/22 05:18 37.1 C 63 18 146/77 H 99 02/21/22 04:00 60 02/21/22 00:00 60 02/20/22 22:30 24 H CPAP 02/20/22 21:34 36.8 C 77 20 135/62 92 02/20/22 20:00 77 02/20/22 19:52 73 22 H 93 Room Air 02/20/22 16:00 72 02/20/22 16:35 36.7 C 73 22 H 144/68 H 93 Intake/Output Intake/Output: Intake & Output 02/18/22 02/19/22 02/20/22 02/21/22 23:59 23:59 23:59 23:59 Intake Total 1609 2120 880 800
[2022-02-21] MEDS: BUMETANIDE INJ 1 MG/4 ML VIAL 2 MG IV PUSH (16:59)
[2022-02-21 17:07] LABS: Glucose Point of Care 166 mg/dl (65-105)
--- NOTE | 2022-02-21 18:20 | PM.PNPUL ---
Progress Note: A&P Assessment and Plan (1) Obesity hypoventilation syndrome: Code(s): E66.2 - Morbid (severe) obesity with alveolar hypoventilation Status: Acute Assessment and Plan: Patient with a BMI of 80.9, after diuresis and feeling improved her daytime blood gas of 7.37/51/56. She has obesity hypoventilation syndrome with daytime hypercarbia and would benefit from noninvasive ventilation to prevent further exacerbations and hospitalizations. The patient did not tolerate straight BiPAP mode of ventilation but has tolerated a noninvasive ventilation with the AVAPS mode. 02/19/2022 I will initiate noninvasive ventilation. I will initially try BiPAP and if she does not tolerate this I will try noninvasive ventilation with an AVAPS mode. I will check an overnight oximetry on noninvasive ventilation on room air. I will check a blood gas prior to removal of the noninvasive ventilation. I will check a TSH and free T4. Agree with as aggressive diuresis as tolerated by her cardiac and renal Systems per Cardiology and the hospitalist team. 02/20 currently patient states she is improved. She is sitting in a chair on room air saturations 91%. She did not tolerate BiPAP and was placed on noninvasive ventilation with an AVAPS mode rate of 20, tidal volume 500, EPAP 5, minimal inspiratory pressure 6, maximal inspiratory pressure 25, inspiratory time 1.0, rise of 3 and room air last night. Patient wore fullface mask and said that she slept well with the machine. Patient had a blood gas prior to removal of the machine with a pH of 7.35/54/57. Patient had an overnight oximetry on the settings with an average saturation of 88%. Lowest saturation 80%. Time with saturation less than or equal to 88% was 142 minutes or 57% of the monitor time. Free T4 is 1.38, normal, TSH is 5.35, elevated 02/21 ABG shows increased pCO2, pH 7.34/ pCO2 62.8/pO2 89.3/HCO3 - 33.5/saturation 96% on 2 L/min. she will need continued adjustments to decrease pCO2. Increase TV 570. The ApneaLink did not have sufficient flow time to give reliable results. Although the recording tiome was over 6 hours, the flow time was zero, indicating that the cannula was not in the correct position. Plan: the patient did not tolerate BiPAP mode of ventilation; noninvasive ventilation with the AVAPS mode to increase her minute ventilation and have increased her rate from 20-22, increased her tidal volume from 500-550. She required her rise to be decreased to 5 and her inspiratory time to be changed from 1-1.2 for comfort; Feb 20 - placed on 28% FiO2; overnight oximetry on the above settings with 28% FiO2 and repeat a blood gas prior to removal of the mask. Initiated the process to obtain a home noninvasive ventilator with the AVAPS mode. (2) CHF (congestive heart failure): Code(s): I50.9 - Heart failure, unspecified Status: Acute Assessment and Plan: 02/19 Agree with as aggressive diuresis as tolerated by her cardiac and renal Systems per Cardiology and the hospitalist team. Cr 2.5. Clinically she tells me she has less edema than when she presented. 02/20 Patient is on Lasix 40 IV t.i.d. and says that she is urinating a lot but her ins and outs demonstrates she only urinated 250 mL yesterday and that she is 3.1 L positive since admission. Her admission weight is listed as 211.4 kg and today her weight is 213.9 kg. She again tells me that her swelling has decreased. Her creatinine is 2.20. Continue aggressive diuresis as tolerated by her cardiac and renal systems per Cardiology and the hospitalist team. 02/21 - She continues diuresis; creat better, 2.1. Recorded weights are not accurate. Subjective Date/time seen: 02/21/22 18:20 Interval history: Hospital follow up : 51-year-old with a history of CHF, hypertension, diabet
[2022-02-21] MEDS: INSULIN GLARGINE (*BKC) 100 UNITS/ML 20 UNITS SUB-Q (21:36)
[2022-02-21 21:44] LABS: Glucose Point of Care 174 mg/dl (65-105)
[2022-02-22] VITALS (10 sets, daily range): BP systolic 132–146; BP diastolic 50–65; PULSE 69–88; RESP 14–20; TEMP 36.4–36.6; O2SAT 90–99
[2022-02-22 05:35] LABS: Basophils Percent Auto 0.2 % (0.2-1.2); Eosinophils Absolute Auto 0.1 K/mm3 (0-0.3); Eosinophils Percent Auto 3.2 % (0-4.4); Hematocrit 32.4 % (37.0-47.0); Hemoglobin 9.2 g/dL (12.0-15.0); Immature Granulocyte Absolute 0.01 K/mm3 (0.00-0.031); Immature Granulocyte Percent A 0.2 % (0-0.5); Lymphocytes Absolute Auto 0.64 K/mm3 (0.9-3.2); Lymphocytes Percent Auto 14.7 % (18.3-44.2); Mean Corpuscular HGB Conc 28.4 g/dl (32-36); Mean Corpuscular Hemoglobin 22.7 pg (26-34); Mean Corpuscular Volume 79.8 fl (80-100); Mean Platelet Volume 9.6 fl (7.4-10.4); Monocytes Absolute Auto 0.7 K/mm3 (0.1-0.6); Monocytes Percent Auto 15.7 % (2.6-8.5); Neutrophils Absolute Auto 2.9 K/mm3 (1.3-6.7); Platelet Count Result 222 k/mm3 (150-375); Red Blood Count 4.06 M/mm3 (4.2-5.4); Red Cell Distribution Width 21.2 % (11.5-14.5); White Blood Count 4.3 K/mm3 (4.5-10.0)
[2022-02-22 05:49] LABS: Alanine Aminotransferase 17 U/L (6-35); Albumin Level 3.4 g/dL (3.5-5.1); Alkaline Phosphatase 90 U/L (38-126); Anion Gap 11 mmol/L (8-16); Aspartate Amino Transferase 21 U/L (14-36); Bilirubin,Total 0.5 mg/dL (0.2-1.3); Blood Urea Nitrogen 34 mg/dL (7-17); Calcium 8.7 mg/dL (8.4-10.2); Carbon Dioxide 32 mmol/L (22-30); Chloride 102 mmol/L (98-107); Estimated CRCL calculation 53 ml/min; Estimated Glomerular Filt Rate 32; Glucose 106 mg/dL (65-110); Phosphorus 3.9 mg/dL (2.5-4.5); Potassium 3.7 mmol/L (3.4-5.0); Sodium 145 mmol/L (137-145)
[2022-02-22 05:56] LABS: Platelet Estimate Adequate (Adequate)
[2022-02-22 05:57] LABS: Hypochromasia 2+ (NORMAL)
[2022-02-22 05:58] LABS: Ovalocytes 1+ (NORMAL)
[2022-02-22] MEDS: HEPARIN SODIUM 5,000 UNITS/ML VIAL 5000 UNITS SUB-Q ×3 (06:15→21:25)
--- NOTE | 2022-02-22 07:45 | PM.IMPN ---
Progress Note: A&P Assessment and Plan (1) CHF (congestive heart failure): Code(s): I50.9 - Heart failure, unspecified Status: Acute Assessment and Plan: EF noted to be 50-55%, unable to determine diastolic function, appreciate cardiology consultation Improved on Bumex and fluid restriction, continue this Metolazone discontinued, strict I's and O's and daily weights appear inaccurate (2) Renal failure: Code(s): N19 - Unspecified kidney failure Status: Acute Assessment and Plan: Improved on Bumex Appreciate nephrology consultation Will discontinue Norvasc due to lower extremity lymphedema as well as worsening swelling, may need to add clonidine or hydralazine if blood pressure goes too high without this medication BP controlled here, 132/59 today after stopping norvasc, monitor (3) Morbid obesity with BMI of 70 and over, adult: Code(s): E66.01 - Morbid (severe) obesity due to excess calories; Z68.45 - Body mass index [BMI] 70 or greater, adult Status: Acute (4) Hypertension associated with diabetes: Code(s): E11.59 - Type 2 diabetes mellitus with other circulatory complications; I15.2 - Hypertension secondary to endocrine disorders Status: Acute Assessment and Plan: A1c is 8.6, Accu-Cheks and sliding scale insulin Lantus 20 units q.h.s. at home, novolog with meals at home--being held here Blood glucose consistently under 180 here Blood glucose levels dropping due to different diet here, will decrease insulin: lantus 18 units tonight plus SSI Plan DVT prophylaxis with heparin GI prophylaxis not indicated Code status full code Subjective Date/time seen: 02/22/22 07:45 Interval history: No overnight events noted. No chest pain or shortness of breath. No nausea, vomiting or diarrhea. No fevers or chills. Patient states she has had a significant amount of urine output and feels much less swollen today than yesterday. Review of Systems Review of Systems: 12 point review of systems was assessed and was negative except as noted in the HPI Exam Narrative: General: No acute distress, alert and oriented per baseline HEENT: Atraumatic, normocephalic, mucous membranes moist CV: Regular rate and rhythm, S1, S2 Lungs: Diminished at bases, some scattered crackles Abdomen: Soft with some distention noted, some pitting edema in lower abdomen and side, tops of hips, appears somewhat improved from yesterday Extremities: Edema improved from yesterday and lower extremities, +1 pitting Skin: No rashes noted, no lesions or wounds seen Psych: Euthymic, normal affect Objective Data Vital Signs Vital Signs: Vital Signs - 24 hr 02/21/22 08:34 02/21/22 12:08 02/21/22 14:11 Temperature 96.8 F L Pulse Rate 70 73 Respiratory Rate 17 Blood Pressure 126/76 Pulse Oximetry 91 86 L Oxygen Delivery Room Air 02/21/22 08:00 02/21/22 12:03 02/21/22 14:57 Temperature Pulse Rate 78 71 Respiratory Rate Blood Pressure Pulse Oximetry 91 Oxygen Delivery 02/21/22 16:00 02/21/22 18:19 02/21/22 20:55 Temperature 96.9 F L 97.6 F Pulse Rate 74 77 80 Respiratory Rate 18 16 Blood Pressure 152/69 H 157/73 H Pulse Oximetry 97 93 Oxygen Delivery 02/21/22 21:36 02/21/22 20:00 02/22/22 00:00 Temperature Pulse Rate 80 72 Respiratory Rate Blood Pressure Pulse Oximetry Oxygen Delivery Room Air 02/22/22 04:00 02/22/22 04:57 Temperature 97.8 F Pulse Rate 69 74 Respiratory Rate 14 Blood Pressure 132/59 L Pulse Oximetry 90 Oxygen Delivery Intake/Output Intake/Output: Intake & Output 02/19/22 02/20/22 02/21/22 02/22/22 23:59 23:59 23:59 23:59 Intake Total 2120 880 1370 240 Output Total 250 1400 1000 Balance 6923 286 -30 -897 Meds/Results Medications: Active Medications Generic Name Dose Route Start Last Admin Trade Name Freq PRN Reason Stop Dose Admin Acetaminophen 650 mg
[2022-02-22 08:05] LABS: Glucose Point of Care 79 mg/dl (65-105)
[2022-02-22] MEDS: hydrALAZINE HCL 50 MG TABLET PO ×2 (09:25→20:38)
[2022-02-22] MEDS: METOPROLOL TARTRATE 50 MG TAB PO ×2 (09:25→20:38)
[2022-02-22] MEDS: ATORVASTATIN 20 MG TABLET PO (09:25)
[2022-02-22] MEDS: BUMETANIDE INJ 1 MG/4 ML VIAL 2 MG IV PUSH ×2 (09:26→17:24)
[2022-02-22 12:00] LABS: Glucose Point of Care 101 mg/dl (65-105)
--- NOTE | 2022-02-22 13:10 | P.PNNP_ITS ---
Progress Note: A&P Assessment and Plan (1) Renal failure: Code(s): N19 - Unspecified kidney failure Status: Acute Assessment and Plan: * acute versus acute on chronic versus chronic (?) * suspect more of a chronic issue than acute * major risk factors include HTN and DM x 15+ years with variable control * obesity, LUCIA, and OHS likely contributing as well * evaluation to date: * renal ultrasound without obstruction * urine electrolytes are prerenal * 860mg of proteinuria * serological testing pending * holding DAMIEN-I given #2 * follow repeat labs and UOP (2) Hyperkalemia: Code(s): E87.5 - Hyperkalemia Status: Acute Assessment and Plan: * better at this dwight * due to #1 +/- DAMIEN-I use * medical management as needed * follow repeat levels (3) CHF (congestive heart failure): Code(s): I50.9 - Heart failure, unspecified Status: Acute Assessment and Plan: * apparent new issue/finding * Cardiology recommendations noted * Echo results noted * suspect right sided heart failure from obesity/pulmonary HTN/LUCIA/OHS * continue IV diuresis * follow I/Os and daily weights (4) LUCIA (obstructive sleep apnea): Code(s): G47.33 - Obstructive sleep apnea (adult) (pediatric) Status: Acute Assessment and Plan: * as noted by apnea link * complicated by obesity hypoventilation syndrome * Pulmonary following with recommendations noted (5) Hypertension: Code(s): I10 - Essential (primary) hypertension Status: Chronic Assessment and Plan: * elevated on admission but better currently * diuresis may help to some degree * follow trend of hemodynamics (6) Diabetes: Code(s): E11.9 - Type 2 diabetes mellitus without complications Status: Chronic Assessment and Plan: * follow accuchecks * glycemic control Will continue to follow. Subjective Date/time seen: 02/22/22 13:10 Continues to feel better with ongoing treatment -- feels swelling/edema are improving in association with increased urine output with diuresis; renal function holding stable with current intreventions a well as diuresis; no i ssues/events overnight or earlier this AM. Exam 2 Narrative: General: obese AA female in NAD Heart: normal S1 and S2; no rub Lungs: decreased throughout Abdomen: soft, nontender, nondistended; abdominal wall edema present Extremities: no cyanosis or clubbing; 2+ edema Skin: no nodules Objective Data Vital Signs Vital Signs: Vital Signs Temp Pulse Resp BP Pulse Ox O2 Del Method 02/22/22 12:00 75 02/22/22 08:00 78 02/22/22 10:03 Room Air 02/22/22 08:17 Room Air 02/22/22 04:57 36.6 C 74 14 132/59 L 90 02/22/22 04:00 69 02/22/22 00:00 72 02/21/22 20:00 Room Air 02/21/22 21:36 80 02/21/22 20:55 36.4 C 80 16 157/73 H 93 02/21/22 18:19 36.1 C L 77 18 152/69 H 97 Intake/Output Intake/Output: Intake & Output 02/19/22 02/20/22 02/21/22 02/22/22 23:59 23:59 23:59 23:59 Intake Total 2120 880 1370 720 Output Total 250 1400 2750 Balance 1869 88 Meds/Results Medications:
--- NOTE | 2022-02-22 13:10 | PM.PNNEP ---
Progress Note: A&P Assessment and Plan (1) Renal failure: Code(s): N19 - Unspecified kidney failure Status: Acute Assessment and Plan: acute versus acute on chronic versus chronic (?) suspect more of a chronic issue than acute major risk factors include HTN and DM x 15+ years with variable control obesity, LUCIA, and OHS likely contributing as well evaluation to date: renal ultrasound without obstruction urine electrolytes are prerenal 860mg of proteinuria serological testing pending holding DAMIEN-I given #2 follow repeat labs and UOP (2) Hyperkalemia: Code(s): E87.5 - Hyperkalemia Status: Acute Assessment and Plan: better at this dwight due to #1 +/- DAMIEN-I use medical management as needed follow repeat levels (3) CHF (congestive heart failure): Code(s): I50.9 - Heart failure, unspecified Status: Acute Assessment and Plan: apparent new issue/finding Cardiology recommendations noted Echo results noted suspect right sided heart failure from obesity/pulmonary HTN/LUCIA/OHS continue IV diuresis follow I/Os and daily weights (4) LUCIA (obstructive sleep apnea): Code(s): G47.33 - Obstructive sleep apnea (adult) (pediatric) Status: Acute Assessment and Plan: as noted by apnea link complicated by obesity hypoventilation syndrome Pulmonary following with recommendations noted (5) Hypertension: Code(s): I10 - Essential (primary) hypertension Status: Chronic Assessment and Plan: elevated on admission but better currently diuresis may help to some degree follow trend of hemodynamics (6) Diabetes: Code(s): E11.9 - Type 2 diabetes mellitus without complications Status: Chronic Assessment and Plan: follow accuchecks glycemic control Will continue to follow. Subjective Date/time seen: 02/22/22 13:10 Continues to feel better with ongoing treatment -- feels swelling/edema are improving in association with increased urine output with diuresis; renal function holding stable with current intreventions a well as diuresis; no issues/events overnight or earlier this AM. Exam Narrative: General: obese AA female in NAD Heart: normal S1 and S2; no rub Lungs: decreased throughout Abdomen: soft, nontender, nondistended; abdominal wall edema present Extremities: no cyanosis or clubbing; 2+ edema Skin: no nodules Objective Data Vital Signs Vital Signs: Vital Signs Temp Pulse Resp BP Pulse Ox O2 Del Method 02/22/22 12:00 75 02/22/22 08:00 78 02/22/22 10:03 Room Air 02/22/22 08:17 Room Air 02/22/22 04:57 36.6 C 74 14 132/59 L 90 02/22/22 04:00 69 02/22/22 00:00 72 02/21/22 20:00 Room Air 02/21/22 21:36 80 02/21/22 20:55 36.4 C 80 16 157/73 H 93 02/21/22 18:19 36.1 C L 77 18 152/69 H 97 Intake/Output Intake/Output: Intake & Output 02/19/22 02/20/22 02/21/22 02/22/22 23:59 23:59 23:59 23:59 Intake Total 2120 880 1370 720 Output Total 250 1400 2750 Balance 5240 687 -6529 Meds/Results Medications: Active Medications Generic Name Dose Route Start Last Admin Trade Name Freq PRN Reason Stop Dose Admin Acetaminophen 650 mg 02/18/22 00:54 Acetaminophen 325 Mg Tablet PO Q4H PRN Mild Pain (1-3) or Fever Al Hydrox/Mg Hydrox/Simethicone 30 ml 02/18/22 00:54 Mag Hydrox/Al Hydrox/Simeth 30 Ml Udc PO QID PRN Dyspepsia Atorvastatin Calcium 20 mg 02/18/22 09:00 02/22/22 09:25 Atorvastatin 20 Mg Tablet PO 20 mg DAILY RUSSEL Administration Bumetanide 2 mg 02/21/22 12:55 02/22/22 17:24 Bumetanide Inj 1 Mg/4 Ml Vial IV PUSH 2 mg BID RUSSEL Administration Dextrose 12.5 gm 02/18/22 08:02 Dextrose 50% 25 Gm/50 Ml Syringe IV PUSH PRN PRN Hypoglycemia Protocol Glucagon 1 mg 02/18/22 08:02 Glucagon For Inj
[2022-02-22 14:58] LABS: Alpha 1 Globulin 0.4 g/dL (0.2-0.3); Alpha 2 Globulin 0.7 g/dL (0.5-0.9); Beta 1 Globulin 0.5 g/dL (0.4-0.6); Gamma Globulin 1.7 g/dL (0.8-1.7); Protein, Total 6.9 g/dL (6.1-8.1)
[2022-02-22 16:45] LABS: Glucose Point of Care 120 mg/dl (65-105)
[2022-02-22 17:27] LABS: Kappa\\Lambda Light Chains 2.27 (0.26-1.65)
[2022-02-22] MEDS: INSULIN GLARGINE (*BKC) 100 UNITS/ML 18 UNITS SUB-Q (20:41)
[2022-02-22 21:05] LABS: Glucose Point of Care 146 mg/dl (65-105)
[2022-02-23] VITALS (14 sets, daily range): BP systolic 138–150; BP diastolic 64–75; PULSE 73–89; RESP 18–28; TEMP 36.9; O2SAT 92–96
[2022-02-23] MEDS: HEPARIN SODIUM 5,000 UNITS/ML VIAL 5000 UNITS SUB-Q ×3 (05:51→21:00)
[2022-02-23 06:21] LABS: Basophils Percent Auto 0.3 % (0.2-1.2); Eosinophils Absolute Auto 0.1 K/mm3 (0-0.3); Eosinophils Percent Auto 3.1 % (0-4.4); Hematocrit 32.8 % (37.0-47.0); Hemoglobin 9.4 g/dL (12.0-15.0); Immature Granulocyte Absolute 0.02 K/mm3 (0.00-0.031); Immature Granulocyte Percent A 0.6 % (0-0.5); Lymphocytes Absolute Auto 0.85 K/mm3 (0.9-3.2); Lymphocytes Percent Auto 23.6 % (18.3-44.2); Mean Corpuscular HGB Conc 28.7 g/dl (32-36); Mean Corpuscular Hemoglobin 23.1 pg (26-34); Mean Corpuscular Volume 80.6 fl (80-100); Mean Platelet Volume 9.6 fl (7.4-10.4); Monocytes Absolute Auto 0.6 K/mm3 (0.1-0.6); Monocytes Percent Auto 15.8 % (2.6-8.5); Neutrophils Percent Auto 56.6 % (45.5-73.1); Platelet Count Result 227 k/mm3 (150-375); Red Blood Count 4.07 M/mm3 (4.2-5.4); Red Cell Distribution Width 21.3 % (11.5-14.5); White Blood Count 3.6 K/mm3 (4.5-10.0)
[2022-02-23 06:48] LABS: Alanine Aminotransferase 20 U/L (6-35); Albumin Level 3.6 g/dL (3.5-5.1); Alkaline Phosphatase 94 U/L (38-126); Anion Gap 7 mmol/L (8-16); Aspartate Amino Transferase 28 U/L (14-36); Bilirubin,Total 0.8 mg/dL (0.2-1.3); Blood Urea Nitrogen 34 mg/dL (7-17); Calcium 8.6 mg/dL (8.4-10.2); Carbon Dioxide 35 mmol/L (22-30); Chloride 101 mmol/L (98-107); Estimated CRCL calculation 55 ml/min; Estimated Glomerular Filt Rate 34; Glucose 119 mg/dL (65-110); Phosphorus 3.8 mg/dL (2.5-4.5); Potassium 3.5 mmol/L (3.4-5.0); Sodium 143 mmol/L (137-145)
[2022-02-23 07:44] LABS: NT Pro B Type Natriuretic Pept 5330 pg/mL (5-100)
[2022-02-23 08:07] LABS: Platelet Estimate Adequate (Adequate)
[2022-02-23 08:08] LABS: Anisocytosis 1+ (NORMAL); Ovalocytes 1+ (NORMAL); Poikilocytosis 1+ (NORMAL); Target Cells 1+ (NORMAL)
[2022-02-23 08:09] LABS: Schistocytes 1+ (NORMAL)
[2022-02-23 08:57] LABS: Glucose Point of Care 101 mg/dl (65-105)
--- NOTE | 2022-02-23 09:08 | PM.PNCARD ---
Progress Note: A&P Assessment and Plan (1) Obesity hypoventilation syndrome: Code(s): E66.2 - Morbid (severe) obesity with alveolar hypoventilation <TOD Chan - Last Filed: 02/23/22 13:34> Status: Acute <TOD Chan - Last Filed: 02/23/22 13:34> (2) CHF (congestive heart failure): Code(s): I50.9 - Heart failure, unspecified <TOD Chan - Last Filed: 02/23/22 13:34> Status: Acute <TOD Chan - Last Filed: 02/23/22 13:34> Assessment and Plan: She does have significant sleep apnea. Probably predominantly right-sided heart failure. Echo was of poor quality due to body habitus but ejection fraction did not appear to be significantly reduced. Continue furosemide 40mg IV q8h - renal function is stable Treatment for sleep apnea Low-salt diet. Strict I&O Fluid restriction daily weights Would start Entresto when renal function improves Would also recommend spironolactone Avoid jardiance because of high risk for genital yeast infections given body habitus <TOD Chan - Last Filed: 02/23/22 13:34> Assessment and Plan: Attending Addendum: I agree with the above documentation and plan of care as outlined. <Ameya Mendez MD - Last Filed: 02/23/22 14:18> Subjective Date/time seen: 02/23/22 09:08 <TOD Chan - Last Filed: 02/23/22 13:34> Interval history: 51-year-old admitted for heart failure Date of service 02/19/2022: She is diuresing. She does feel that she is slightly less swollen. Apnea link did show severe sleep apnea. It should be noted that she typically sleeps on her side or her stomach at home. She denies any chest pain. Date of service 02/21/2022: Sitting in the bedside chair feet elevated offers no complaints says she is feeling better no longer having any dyspnea. Date of service 02/23/22: Feels good today continues to deny any dyspnea. Swelling is improving. <TOD Chan - Last Filed: 02/23/22 13:34> Review of Systems Review of Systems: All systems reviewed & are unremarkable except as noted in HPI and below <TOD Chan - Last Filed: 02/23/22 13:34> Constitutional: Constitutional: Denies body ache(s) and Denies excessive sweating <TOD Chan - Last Filed: 02/23/22 13:34> Eyes: Eyes: Denies blurry vision <TOD Chan - Last Filed: 02/23/22 13:34> ENT: Reports Normal hearing present and Denies lip swelling <TOD Chan - Last Filed: 02/23/22 13:34> Cardiovascular: Cardiovascular: Denies chest pain, Reports pedal edema, Reports leg edema, Denies lightheadedness, Denies palpitations, Reports dyspnea and Reports dyspnea on exertion <TOD Chan - Last Filed: 02/23/22 13:34> Respiratory: Respiratory: Reports dyspnea and Reports dyspnea on exertion <TOD Chan - Last Filed: 02/23/22 13:34> Gastrointestinal: Gastrointestinal: Denies abdominal pain, Reports bloating and Reports constipation <TOD Chan - Last Filed: 02/23/22 13:34> Genitourinary: Genitourinary: Denies hematuria <TOD Chan - Last Filed: 02/23/22 13:34> Musculoskeletal: Musculoskeletal: Denies back pain <TOD Chan - Last Filed: 02/23/22 13:34> Integumentary/Breasts: Skin/Breast: Reports skin pain and Denies unusual bruising <TOD Chan - Last Filed: 02/23/22 13:34> Neurologic: Reports Normal hearing present, Denies Abnormal speech present and Denies behavioral changes <TOD Chan - Last Filed: 02/23/22 13:34> Psychiatric: Psychiatric: Denies behavioral changes <TOD Chan - Last Filed: 02/23/22 13:34> Endocrine: Endocrine: Denies excessive sweating and Denies palpitations <TOD Chan - Last Filed: 02/23/22 13:34> Hematologic/Lymphatic: Hematologic/Lymphatic: Denies easy bleeding <TOD Chan - Last Filed: 02/23/22 13:
[2022-02-23] MEDS: METOPROLOL TARTRATE 50 MG TAB PO ×2 (09:48→21:01)
[2022-02-23] MEDS: ATORVASTATIN 20 MG TABLET PO (09:50)
[2022-02-23] MEDS: hydrALAZINE HCL 50 MG TABLET PO ×2 (09:50→21:01)
[2022-02-23] MEDS: BUMETANIDE INJ 1 MG/4 ML VIAL 2 MG IV PUSH ×2 (09:50→17:07)
--- NOTE | 2022-02-23 10:30 | PM.IMPN ---
Progress Note: A&P Assessment and Plan (1) CHF (congestive heart failure): Code(s): I50.9 - Heart failure, unspecified Status: Acute Assessment and Plan: EF noted to be 50-55%, unable to determine diastolic function, appreciate cardiology consultation Improved on Bumex and fluid restriction, continue this Metolazone discontinued, strict I's and O's and daily weights appear inaccurate (2) Renal failure: Code(s): N19 - Unspecified kidney failure Status: Acute Assessment and Plan: Continue to improve with diuresis Appreciate nephrology consultation Will discontinue Norvasc due to lower extremity lymphedema as well as worsening swelling, may need to add clonidine or hydralazine if blood pressure goes too high without this medication BP controlled here, 132/59 today after stopping norvasc, monitor (3) Morbid obesity with BMI of 70 and over, adult: Code(s): E66.01 - Morbid (severe) obesity due to excess calories; Z68.45 - Body mass index [BMI] 70 or greater, adult Status: Acute (4) Hypertension associated with diabetes: Code(s): E11.59 - Type 2 diabetes mellitus with other circulatory complications; I15.2 - Hypertension secondary to endocrine disorders Status: Acute Assessment and Plan: A1c is 8.6, Accu-Cheks and sliding scale insulin Lantus 20 units q.h.s. at home, novolog with meals at home--being held here Blood glucose consistently under 180 here Blood glucose levels dropping due to different diet here, decreased insulin from 20 units to 18 units, now stable FBG around 100 (5) Obesity hypoventilation syndrome: Code(s): E66.2 - Morbid (severe) obesity with alveolar hypoventilation Status: Acute Assessment and Plan: appreciate pulm consult, nocturnal NIV (6) LUCIA (obstructive sleep apnea): Code(s): G47.33 - Obstructive sleep apnea (adult) (pediatric) Status: Acute Assessment and Plan: nocturnal NIV per pulm, will need at d/c Plan PT/OT/ambulate TID DVT prophylaxis with heparin GI prophylaxis not indicated Code status full code Subjective Date/time seen: 02/23/22 10:30 Interval history: No overnight events noted. No chest pain or shortness of breath. No nausea, vomiting or diarrhea. No fevers or chills. Patient states her swelling seems much improved today. Review of Systems Review of Systems: 12 point review of systems was assessed and was negative except as noted in the HPI Exam Narrative: General: No acute distress, alert and oriented per baseline HEENT: Atraumatic, normocephalic, mucous membranes moist CV: Regular rate and rhythm, S1, S2 Lungs: Diminished at bases, some scattered crackles Abdomen: Soft with some distention noted, some pitting edema in lower abdomen and side, tops of hips, continues to improve Extremities: Edema improved from yesterday and lower extremities, nonpitting today Skin: No rashes noted, no lesions or wounds seen Psych: Euthymic, normal affect Objective Data Vital Signs Vital Signs: Vital Signs - 24 hr 02/22/22 12:00 02/22/22 14:00 02/22/22 16:00 Temperature 97.5 F L Pulse Rate 75 79 77 Respiratory Rate 20 Blood Pressure 134/50 L Pulse Oximetry 92 Oxygen Delivery 02/22/22 20:38 02/22/22 21:34 02/22/22 20:00 Temperature 97.5 F L Pulse Rate 77 88 80 Respiratory Rate 20 Blood Pressure 146/65 H Pulse Oximetry 99 Oxygen Delivery 02/23/22 02:22 02/23/22 04:00 02/23/22 05:19 Temperature 98.4 F Pulse Rate 78 76 78 Respiratory Rate 18 Blood Pressure 146/64 H Pulse Oximetry 93 Oxygen Delivery 02/23/22 07:44 02/23/22 09:48 Temperature Pulse Rate 83 Respiratory Rate Blood Pressure Pulse Oximetry 96 Oxygen Delivery Room Air Intake/Output Intake/Output: Intake & Output 02/20/22 02/21/22 02/22/22 02/23/22 23:59 23:59 23:59 23:59 Intake Total 880 1370 960 480 Output Total 1400 2750 160
[2022-02-23 12:31] LABS: Glucose Point of Care 142 mg/dl (65-105)
[2022-02-23] MEDS: LORATADINE 10 MG TABLET PO (12:35)
[2022-02-23] MEDS: FLUTICASONE PROPIONATE 0.05% NA SPR 16 GM BTL (*BKC) 1 SPRAY NASAL ×2 (12:35→21:01)
--- NOTE | 2022-02-23 12:55 | P.PNPL_ITS ---
Progress Note: A&P Assessment and Plan (1) Obesity hypoventilation syndrome: Code(s): E66.2 - Morbid (severe) obesity with alveolar hypoventilation Status: Acute Assessment and Plan: Patient with a BMI of 80.9, after diuresis and feeling improved her daytime blood gas of 7.37/51/56. She has obesity hypoventilation syndrome with daytime hypercarbia and would benefit from noninvasive ventilation to prevent further exacerbations and hospitalizations. The patient did not tolerate straight BiPAP mode of ventilation but has tolerated a noninvasive ventilation with the AVAPS mode. 02/19/2022 I will initiate noninvasive ventilation. I will initially try BiPAP and if she does not tolerate this I will try noninvasive ventilation with an AVAPS mode. I will check an overnight oximetry on noninvasive ventilation on room air. I will check a blood gas prior to removal of the noninvasive ventilation. I will check a TSH and free T4. Agree with as aggressive diuresis as tolerated by her cardiac and renal Systems per Cardiology and the hospitalist team. 02/20 currently patient states she is improved. She is sitting in a chair on room air saturations 91%. She did not tolerate BiPAP and was placed on noninvasive ventilation with an AVAPS mode rate of 20, tidal volume 500, EPAP 5, minimal inspiratory pressure 6, maximal inspiratory pressure 25, inspiratory time 1.0, rise of 3 and room air last night. Patient wore fullface mask and said that she slept well with the machine. Patient had a blood gas prior to removal of the machine with a pH of 7.35/54/57. Patient had an overnight oximetry on the settings with an average saturation of 88%. Lowest saturation 80%. Time with saturation less than or equal to 88% was 142 minutes or 57% of the monitor time. Free T4 is 1.38, normal, TSH is 5.35, elevated Plan: the patient did not tolerate BiPAP mode of ventilation and I have again adjusted her noninvasive ventilation with the a VATS mode to increase her minute ventilation and have increased her rate from 20-22, increased her tidal volume from 500-550. She required her rise to be decreased to 5 and her inspiratory time to be changed from 1-1.2 for comfort. I have placed her on 28% FiO2 and will repeat an overnight oximetry on the above settings with 28% FiO2 and repeat a blood gas prior to removal of the mask. I have talked to respiratory special services coordinator rdinator and have initiated the process to obtain a home noninvasive ventilator with the AVAPS mode. 02/21? ABG shows increased pCO2, pH 7.34/ pCO2 62.8/pO2 89.3/HCO3 - 33.5/saturation 96% on 2 L/min. she will need continued adjustments to decrease pCO2. Increase TV 570. The Apnea[employer] did not have sufficient flow time to give reliable results. Although the recording tiome was over 6 hours, the flow time was zero, indicating that the cannula was not in the correct position. Plan:? the patient did not tolerate BiPAP mode of ventilation; noninvasive ventilation with the AVAPS mode to increase her minute ventilation and have increased her rate from 20-22, increased her tidal volume from 500-550.? She required her rise to be decreased to 5 and her inspiratory time to be changed from 1-1.2 for comfort; Nov 11 - placed on 28% FiO2; overnight oximetry on the above settings with 28% FiO2 and repeat a blood gas prior to removal of the mask. Initiated the process to obtain a home noninvasive ventilator with the AVAPS mode. 02/22 the patient did not tolerate hospital noninvasive ventilation. 02/23 Patient did not tolerate hospital noninvasive ventilation. Currently she is sitting in a chair in states she has no shortness of breath at rest. Room air saturations are 93%. Patient stated she could not
--- NOTE | 2022-02-23 14:48 | PM.PNNEP ---
Progress Note: A&P Assessment and Plan (1) Renal failure: Code(s): N19 - Unspecified kidney failure Status: Acute Assessment and Plan: acute versus acute on chronic versus chronic (?) suspect more of a chronic issue than acute possible component of renal venous hypertension (and hence improvement in renal function with diuresis) major risk factors include HTN and DM x 15+ years with variable control obesity, LUCIA, and OHS likely contributing as well evaluation to date: renal ultrasound without obstruction urine electrolytes are prerenal 860mg of proteinuria ANCA, SPEP, and UPEP negative; other serologies pending holding DAMIEN-I given #2 follow repeat labs and UOP (2) Hyperkalemia: Code(s): E87.5 - Hyperkalemia Status: Acute Assessment and Plan: better at this dwight due to #1 +/- DAMIEN-I use medical management as needed follow repeat levels (3) CHF (congestive heart failure): Code(s): I50.9 - Heart failure, unspecified Status: Acute Assessment and Plan: apparent new issue/finding Cardiology recommendations noted Echo results noted suspect right sided heart failure from obesity/pulmonary HTN/LUCIA/OHS continue IV diuresis follow I/Os and daily weights (4) LUCIA (obstructive sleep apnea): Code(s): G47.33 - Obstructive sleep apnea (adult) (pediatric) Status: Acute Assessment and Plan: as noted by apnea link complicated by obesity hypoventilation syndrome Pulmonary following with recommendations noted (5) Hypertension: Code(s): I10 - Essential (primary) hypertension Status: Chronic Assessment and Plan: elevated on admission but better currently diuresis may help to some degree follow trend of hemodynamics (6) Diabetes: Code(s): E11.9 - Type 2 diabetes mellitus without complications Status: Chronic Assessment and Plan: follow accuchecks glycemic control Will continue to follow. Subjective Date/time seen: 02/23/22 14:48 Continue to make slow and steady improvement -- breathing as well as edema/swelling are significantly better and renal function stable if not better in spite of aggressive IV diuresis; no apparent distress voiced at the time of my visit; no events overnight or earlier this AM. Exam Narrative: General: obese AA female in NAD Heart: normal S1 and S2; no rub Lungs: decreased throughout Abdomen: soft, nontender, nondistended; abdominal wall edema present Extremities: no cyanosis or clubbing; 2+ edema Skin: no nodules Objective Data Vital Signs Vital Signs: Vital Signs Temp Pulse Resp BP Pulse Ox O2 Del Method 02/23/22 14:00 36.9 C 77 20 150/75 H 92 02/23/22 12:00 73 02/23/22 08:00 77 02/23/22 09:50 Room Air 02/23/22 09:48 83 02/23/22 07:44 96 Room Air 02/23/22 05:19 36.9 C 78 18 146/64 H 93 02/23/22 04:00 76 02/23/22 02:22 78 02/22/22 20:00 80 02/22/22 21:34 36.4 C L 88 20 146/65 H 99 02/22/22 20:38 77 Intake/Output Intake/Output: Intake & Output 02/20/22 02/21/22 02/22/22 02/23/22 23:59 23:59 23:59 23:59 Intake Total 880 1370 960 720 Output Total 1400 2750 1600 Balance -880 Meds/Results Medications: Active Medications Generic Name Dose Route Start Last Admin Trade Name Freq PRN Reason Stop Dose Admin Acetaminophen 650 mg 02/18/22 00:54 Acetaminophen 325 Mg Tablet PO Q4H PRN Mild Pain (1-3) or Fever Al Hydrox/Mg Hydrox/Simethicone 30 ml 02/18/22 00:54 Mag Hydrox/Al Hydrox/Simeth 30 Ml Udc PO QID PRN Dyspepsia Atorvastatin Calcium 20 mg 02/18/22 09:00 02/23/22 09:50 Atorvastatin 20 Mg Tablet PO 20 mg DAILY RUSSEL Administration Bumetanide 2 mg 02/21/22 12:55 02/23/22 17:07 Bumetanide Inj 1 Mg/4 Ml Vial IV PUSH 2 mg BID RUSSEL Administration Dextrose 1
--- NOTE | 2022-02-23 14:48 | P.PNNP_ITS ---
Progress Note: A&P Assessment and Plan (1) Renal failure: Code(s): N19 - Unspecified kidney failure Status: Acute Assessment and Plan: * acute versus acute on chronic versus chronic (?) * suspect more of a chronic issue than acute * possible component of renal venous hypertension (and hence improvement in renal function with diuresis) * major risk factors include HTN and DM x 15+ years with variable control * obesity, LUCIA, and OHS likely contributing as well * evaluation to date: * renal ultrasound without obstruction * urine electrolytes are prerenal * 860mg of proteinuria * ANCA, SPEP, and UPEP negative; other serologies pending * holding DAMIEN-I given #2 * follow repeat labs and UOP (2) Hyperkalemia: Code(s): E87.5 - Hyperkalemia Status: Acute Assessment and Plan: * better at this dwight * due to #1 +/- DAMIEN-I use * medical management as needed * follow repeat levels (3) CHF (congestive heart failure): Code(s): I50.9 - Heart failure, unspecified Status: Acute Assessment and Plan: * apparent new issue/finding * Cardiology recommendations noted * Echo results noted * suspect right sided heart failure from obesity/pulmonary HTN/LUCIA/OHS * continue IV diuresis * follow I/Os and daily weights (4) LUCIA (obstructive sleep apnea): Code(s): G47.33 - Obstructive sleep apnea (adult) (pediatric) Status: Acute Assessment and Plan: * as noted by apnea link * complicated by obesity hypoventilation syndrome * Pulmonary following with recommendations noted (5) Hypertension: Code(s): I10 - Essential (primary) hypertension Status: Chronic Assessment and Plan: * elevated on admission but better currently * diuresis may help to some degree * follow trend of hemodynamics (6) Diabetes: Code(s): E11.9 - Type 2 diabetes mellitus without complications Status: Chronic Assessment and Plan: * follow accuchecks * glycemic control Will continue to follow. Subjective Date/time seen: 02/23/22 14:48 Continue to make slow and steady improvement -- breathing as well as edema/swelling are significantly better and renal function stable if not better in spite of aggressive IV diuresis; no apparent distress voiced at the time of my visit; no events overnight or earlier this AM. Exam Narrative: General: obese AA female in NAD Heart: normal S1 and S2; no rub Lungs: decreased throughout Abdomen: soft, nontender, nondistended; abdominal wall edema present Extremities: no cyanosis or clubbing; 2+ edema Skin: no nodules Objective Data Vital Signs Vital Signs: Vital Signs Temp Pulse Resp BP Pulse Ox O2 Del Method 02/23/22 14:00 36.9 C 77 20 150/75 H 92 02/23/22 12:00 73 02/23/22 08:00 77 02/23/22 09:50 Room Air 02/23/22 09:48 83 02/23/22 07:44 96 Room Air 02/23/22 05:19 36.9 C 78 18 146/64 H 93 02/23/22 04:00 76 02/23/22 02:22 78 02/22/22 20:00 80 02/22/22 21:34 36.4 C L 88 20 146/65 H 99 02/22/22 20:38 77 Intake/Output Intake/Output: Intake & Output 02/20/22 02/21/22 02/22/22 02/23/22 23:59 23:
[2022-02-23] MEDS: DOCUSATE SODIUM 100 MG CAPSULE PO ×2 (17:07→21:01)
[2022-02-23 17:14] LABS: Glucose Point of Care 162 mg/dl (65-105)
[2022-02-23 20:52] LABS: Total Protein/Creatinine Ratio 927 mg/g creat (24-184)
[2022-02-23] MEDS: INSULIN GLARGINE (*BKC) 100 UNITS/ML 18 UNITS SUB-Q (20:59)
[2022-02-24] VITALS (12 sets, daily range): BP systolic 131–148; BP diastolic 57–81; PULSE 66–81; RESP 18–27; TEMP 36.5–36.6; O2SAT 94–96
[2022-02-24 01:48] LABS: ANCA Screen Negative (Negative)
[2022-02-24 02:48] LABS: Glucose Point of Care 222 mg/dl (65-105)
[2022-02-24] MEDS: HEPARIN SODIUM 5,000 UNITS/ML VIAL 5000 UNITS SUB-Q ×3 (05:54→22:46)
[2022-02-24 05:58] LABS: Alanine Aminotransferase 22 U/L (6-35); Albumin Level 3.4 g/dL (3.5-5.1); Alkaline Phosphatase 93 U/L (38-126); Anion Gap 11 mmol/L (8-16); Aspartate Amino Transferase 28 U/L (14-36); Bilirubin,Total 0.7 mg/dL (0.2-1.3); Blood Urea Nitrogen 30 mg/dL (7-17); Calcium 8.4 mg/dL (8.4-10.2); Carbon Dioxide 34 mmol/L (22-30); Chloride 100 mmol/L (98-107); Estimated CRCL calculation 49 ml/min; Estimated Glomerular Filt Rate 30; Glucose 136 mg/dL (65-110); Potassium 3.1 mmol/L (3.4-5.0); Sodium 145 mmol/L (137-145)
[2022-02-24 06:11] LABS: Basophils Percent Auto 0.6 % (0.2-1.2); Eosinophils Absolute Auto 0.1 K/mm3 (0-0.3); Eosinophils Percent Auto 3.6 % (0-4.4); Hematocrit 31.6 % (37.0-47.0); Hemoglobin 8.8 g/dL (12.0-15.0); Immature Granulocyte Absolute 0.01 K/mm3 (0.00-0.031); Immature Granulocyte Percent A 0.3 % (0-0.5); Lymphocytes Absolute Auto 0.86 K/mm3 (0.9-3.2); Lymphocytes Percent Auto 23.8 % (18.3-44.2); Mean Corpuscular HGB Conc 27.8 g/dl (32-36); Mean Corpuscular Hemoglobin 22.4 pg (26-34); Mean Corpuscular Volume 80.6 fl (80-100); Mean Platelet Volume 9.7 fl (7.4-10.4); Monocytes Absolute Auto 0.6 K/mm3 (0.1-0.6); Monocytes Percent Auto 15.2 % (2.6-8.5); Neutrophils Absolute Auto 2.1 K/mm3 (1.3-6.7); Neutrophils Percent Auto 56.5 % (45.5-73.1); Platelet Count Result 207 k/mm3 (150-375); Red Blood Count 3.92 M/mm3 (4.2-5.4); Red Cell Distribution Width 21.5 % (11.5-14.5); White Blood Count 3.6 K/mm3 (4.5-10.0)
[2022-02-24 07:06] LABS: Anisocytosis 2+ (NORMAL); Ovalocytes 1+ (NORMAL); Platelet Estimate Adequate (Adequate); Poikilocytosis 1+ (NORMAL); Schistocytes 1+ (NORMAL)
[2022-02-24 07:07] LABS: Target Cells 1+ (NORMAL)
[2022-02-24 08:42] LABS: Glucose Point of Care 116 mg/dl (65-105)
[2022-02-24] MEDS: ATORVASTATIN 20 MG TABLET PO (08:50)
[2022-02-24] MEDS: BUMETANIDE INJ 1 MG/4 ML VIAL 2 MG IV PUSH (08:50)
[2022-02-24] MEDS: FLUTICASONE PROPIONATE 0.05% NA SPR 16 GM BTL (*BKC) 1 SPRAY NASAL ×2 (08:51→22:45)
[2022-02-24] MEDS: hydrALAZINE HCL 50 MG TABLET PO ×2 (08:51→22:45)
[2022-02-24] MEDS: DOCUSATE SODIUM 100 MG CAPSULE PO ×2 (08:51→22:45)
[2022-02-24] MEDS: LORATADINE 10 MG TABLET PO (08:51)
[2022-02-24] MEDS: METOPROLOL TARTRATE 50 MG TAB PO ×2 (08:52→22:46)
--- NOTE | 2022-02-24 10:30 | PM.IMPN ---
Progress Note: A&P Assessment and Plan (1) CHF (congestive heart failure): Code(s): I50.9 - Heart failure, unspecified Status: Acute Assessment and Plan: EF noted to be 50-55%, unable to determine diastolic function, appreciate cardiology consultation Improved on Bumex and fluid restriction, kidney function slightly worsened today, will decrease diuresis to bumex 1 mg BID and reasess tomorrow, can likely convert to oral diuresis tomorrow and d/c home soon Metolazone discontinued, strict I's and O's and daily weights appear inaccurate (2) Renal failure: Code(s): N19 - Unspecified kidney failure Status: Acute Assessment and Plan: Continue to improve with diuresis Appreciate nephrology consultation Will discontinue Norvasc due to lower extremity lymphedema as well as worsening swelling, may need to add clonidine or hydralazine if blood pressure goes too high without this medication BP controlled here, 132/59 today after stopping norvasc, monitor (3) Morbid obesity with BMI of 70 and over, adult: Code(s): E66.01 - Morbid (severe) obesity due to excess calories; Z68.45 - Body mass index [BMI] 70 or greater, adult Status: Acute Assessment and Plan: DAMIEN wrap for lymphedema, ambulate TID to mobilize fluid, work with PT/OT for d/c planning (4) Hypertension associated with diabetes: Code(s): E11.59 - Type 2 diabetes mellitus with other circulatory complications; I15.2 - Hypertension secondary to endocrine disorders Status: Acute Assessment and Plan: A1c is 8.6, Accu-Cheks and sliding scale insulin Lantus 20 units q.h.s. at home, novolog with meals at home--being held here Blood glucose consistently under 180 here Blood glucose levels dropping due to different diet here, decreased insulin from 20 units to 18 units, now stable FBG around 100 (5) Obesity hypoventilation syndrome: Code(s): E66.2 - Morbid (severe) obesity with alveolar hypoventilation Status: Acute Assessment and Plan: appreciate pulm consult, nocturnal NIV (6) LUCIA (obstructive sleep apnea): Code(s): G47.33 - Obstructive sleep apnea (adult) (pediatric) Status: Acute Assessment and Plan: nocturnal NIV per pulm, will need at d/c Plan PT/OT/ambulate TID DVT prophylaxis with heparin GI prophylaxis not indicated Code status full code Subjective Date/time seen: 02/24/22 10:30 Interval history: No overnight events noted. No chest pain or shortness of breath. No nausea, vomiting or diarrhea. No fevers or chills. Review of Systems Review of Systems: 12 point review of systems was assessed and was negative except as noted in the HPI Exam Narrative: General: No acute distress, alert and oriented per baseline HEENT: Atraumatic, normocephalic, mucous membranes moist CV: Regular rate and rhythm, S1, S2 Lungs: Diminished at bases, some scattered crackles Abdomen: Soft with some distention noted, edema much improved from yesterday Extremities: Edema improved from yesterday and lower extremities, nonpitting today Skin: No rashes noted, no lesions or wounds seen Psych: Euthymic, normal affect Objective Data Vital Signs Vital Signs: Vital Signs - 24 hr 02/23/22 12:00 02/23/22 14:00 02/23/22 16:00 Temperature 98.5 F Pulse Rate 73 77 78 Respiratory Rate 20 Blood Pressure 150/75 H Pulse Oximetry 92 Oxygen Delivery 02/23/22 20:34 02/23/22 21:01 02/23/22 20:00 Temperature 98.4 F Pulse Rate 78 78 Respiratory Rate 20 Blood Pressure 138/65 Pulse Oximetry 93 Oxygen Delivery Room Air 02/23/22 23:13 02/23/22 22:40 02/23/22 20:00 Temperature Pulse Rate 76 73 89 Respiratory Rate 28 H Blood Pressure Pulse Oximetry 95 95 Oxygen Delivery 02/24/22 00:00 02/24/22 04:53 02/24/22 04:00 Temperature 98 F Pulse Rate 69 66 67 Respiratory Rate 20 Blood Pressure 139/57 L Pulse Oximetry 94 Oxygen
--- NOTE | 2022-02-24 10:41 | PM.PNCARD ---
Progress Note: A&P Assessment and Plan (1) Obesity hypoventilation syndrome: Code(s): E66.2 - Morbid (severe) obesity with alveolar hypoventilation Status: Acute (2) CHF (congestive heart failure): Code(s): I50.9 - Heart failure, unspecified Status: Acute Assessment and Plan: She does have significant sleep apnea. Probably predominantly right-sided heart failure. Echo was of poor quality due to body habitus but ejection fraction did not appear to be significantly reduced. Improving with aggressive diuresis Reduce furosemide to 40mg IV b.i.d Treatment for sleep apnea Low-salt diet. Strict I&O Fluid restriction daily weights Would start Entresto when renal function improves Would also recommend spironolactone Avoid jardiance because of high risk for genital yeast infections given body habitus Subjective Date/time seen: 02/24/22 10:41 Cardiology follow up for CHF Interval history: Continues to improve. No shortness of breath. Edema is improving. She feels that her abdominal girth is decreasing and abdomen feels less distended/firm. Review of Systems Review of Systems: All systems reviewed & are unremarkable except as noted in HPI and below Constitutional: Constitutional: Denies body ache(s) and Denies excessive sweating Eyes: Eyes: Denies blurry vision ENT: Reports Normal hearing present and Denies lip swelling Cardiovascular: Cardiovascular: Denies chest pain, Reports pedal edema, Reports leg edema, Denies lightheadedness, Denies palpitations, Reports dyspnea and Reports dyspnea on exertion Respiratory: Respiratory: Reports dyspnea and Reports dyspnea on exertion Gastrointestinal: Gastrointestinal: Denies abdominal pain, Reports bloating and Reports constipation Genitourinary: Genitourinary: Denies hematuria Musculoskeletal: Musculoskeletal: Denies back pain Integumentary/Breasts: Skin/Breast: Reports skin pain and Denies unusual bruising Neurologic: Reports Normal hearing present, Denies Abnormal speech present and Denies behavioral changes Psychiatric: Psychiatric: Denies behavioral changes Endocrine: Endocrine: Denies excessive sweating and Denies palpitations Hematologic/Lymphatic: Hematologic/Lymphatic: Denies easy bleeding Allergic/Immunologic: Allergic/Immunologic: Denies GI upset with certain foods and Denies lip swelling Exam Narrative: Pleasant and appropriate and appears stated age Const: General: comfortable and no acute distress; No in distress HENMT: Face/Nose/Sinus: Normal nares present Eyes: Sclera: sclerae normal Pupils: pupils not ERRL Neck: Neck: supple Carotids: no bruits Chest: Other: No reproducible chest wall pain to palpation Resp: Effort & Inspection: normal respiratory effort Auscultation: diminished lung sounds Cardio: Rate: regular rate Rhythm: regular rhythm Other: Distant heart sounds GI: Inspection: non-distended Auscultation: normal bowel sounds Skin: General skin exam: normal color and No rashes Rashes: no rashes noted Neuro: Cranial nerves: No Equal, round and reactive pupils present and Yes Normal hearing present Speech: normal speech and No Abnormal speech present Extrem: General: edema Other: Moderate pedal edema, pretibial edema improved Psych: Mental Status: mental status grossly normal Affect: normal affect Objective Data Vital Signs Vital Signs: Vital Signs - 24 hr 02/23/22 12:00 02/23/22 14:00 02/23/22 16:00 Temperature 36.9 C Pulse Rate 73 77 78 Respiratory Rate 20 Blood Pressure 150/75 H Pulse Oximetry 92 Oxygen Delivery 02/23/22 20:34 02/23/22 21:01 02/23/22 20:00 Temperature 36.9 C Pulse Rate 78 78 Respiratory Rate 20 Blood Pressure 138/65 Pulse Oximetry 93 Oxygen Delivery Room Air 02/23/22 23:13 02/23/22 22:40 02/23/22 20:00 Temperature Pulse Rate 76 73 89 Respiratory Rate 28 H Blood Pressure Pulse Oximetry 95 95 Oxyge
--- NOTE | 2022-02-24 11:13 | P.PNNP_ITS ---
Progress Note: A&P Assessment and Plan (1) Renal failure: Code(s): N19 - Unspecified kidney failure Status: Acute Assessment and Plan: * acute versus acute on chronic versus chronic (?) * suspect more of a chronic issue than acute * major risk factors include HTN and DM x 15+ years with variable control * obesity, LUCIA, and OHS likely contributing as well * evaluation to date: * renal ultrasound without obstruction * urine electrolytes are prerenal * 860mg of proteinuria * ANCA, SPEP, and UPEP negative; other serologies pending * holding DAMIEN-I given #2 * follow repeat labs and UOP (2) Hyperkalemia: Code(s): E87.5 - Hyperkalemia Status: Acute Assessment and Plan: * better at this dwight * due to #1 +/- DAMIEN-I use on admission * medical management as needed * follow repeat levels (3) CHF (congestive heart failure): Code(s): I50.9 - Heart failure, unspecified Status: Acute Assessment and Plan: * apparent new issue/finding * Cardiology recommendations noted * Echo results noted * suspect right sided heart failure from obesity/pulmonary HTN/LUCIA/OHS * continue diuresis - noted plan to switch to oral diuretics * follow I/Os and daily weights (4) LUCIA (obstructive sleep apnea): Code(s): G47.33 - Obstructive sleep apnea (adult) (pediatric) Status: Acute Assessment and Plan: * as noted by apnea link * complicated by obesity hypoventilation syndrome * Pulmonary following with recommendations noted (5) Hypertension: Code(s): I10 - Essential (primary) hypertension Status: Chronic Assessment and Plan: * elevated on admission but better currently * diuresis may help to some degree * follow trend of hemodynamics (6) Diabetes: Code(s): E11.9 - Type 2 diabetes mellitus without complications Status: Chronic Assessment and Plan: * follow accuchecks * glycemic control Will continue to follow. Subjective Date/time seen: 02/24/22 11:13 Continues to do well overall; decreasing edema/swelling in association with improvement in her breathing/respiratory status; renal function remains relatively stable with ongoing diuresis; no apparent distress voiced. Exam Narrative: General: obese AA female in NAD Heart: normal S1 and S2; no rub Lungs: decreased throughout Abdomen: soft, nontender, nondistended; decreased abdominal wall edema Extremities: no cyanosis or clubbing; 1+ edema Skin: warm and intact Objective Data Vital Signs Vital Signs: Vital Signs Temp Pulse Resp BP Pulse Ox O2 Del Method 02/24/22 08:00 72 02/24/22 08:00 Room Air 02/24/22 08:52 76 02/24/22 04:00 67 02/24/22 04:53 36.6 C 66 20 139/57 L 94 02/24/22 00:00 69 02/23/22 20:00 89 02/23/22 22:40 73 95 02/23/22 23:13 76 28 H 95 02/23/22 20:00 Room Air 02/23/22 21:01 78 02/23/22 20:34 36.9 C 78 20 138/65 93 02/23/22 16:00 78 02/23/22 14:00 36.9 C 77 20 150/75 H 92 Intake/Output Intake/Output: Intake & Output 02/21/22 02/22/22 02/23/22 02/24/22 23:59 23:59 23:59 23:59 Intake Total 1370 960
--- NOTE | 2022-02-24 11:13 | PM.PNNEP ---
Progress Note: A&P Assessment and Plan (1) Renal failure: Code(s): N19 - Unspecified kidney failure Status: Acute Assessment and Plan: acute versus acute on chronic versus chronic (?) suspect more of a chronic issue than acute major risk factors include HTN and DM x 15+ years with variable control obesity, LUCIA, and OHS likely contributing as well evaluation to date: renal ultrasound without obstruction urine electrolytes are prerenal 860mg of proteinuria ANCA, SPEP, and UPEP negative; other serologies pending holding DAMIEN-I given #2 follow repeat labs and UOP (2) Hyperkalemia: Code(s): E87.5 - Hyperkalemia Status: Acute Assessment and Plan: better at this dwgiht due to #1 +/- DAMIEN-I use on admission medical management as needed follow repeat levels (3) CHF (congestive heart failure): Code(s): I50.9 - Heart failure, unspecified Status: Acute Assessment and Plan: apparent new issue/finding Cardiology recommendations noted Echo results noted suspect right sided heart failure from obesity/pulmonary HTN/LUCIA/OHS continue diuresis - noted plan to switch to oral diuretics follow I/Os and daily weights (4) LUCIA (obstructive sleep apnea): Code(s): G47.33 - Obstructive sleep apnea (adult) (pediatric) Status: Acute Assessment and Plan: as noted by apnea link complicated by obesity hypoventilation syndrome Pulmonary following with recommendations noted (5) Hypertension: Code(s): I10 - Essential (primary) hypertension Status: Chronic Assessment and Plan: elevated on admission but better currently diuresis may help to some degree follow trend of hemodynamics (6) Diabetes: Code(s): E11.9 - Type 2 diabetes mellitus without complications Status: Chronic Assessment and Plan: follow accuchecks glycemic control Will continue to follow. Subjective Date/time seen: 02/24/22 11:13 Continues to do well overall; decreasing edema/swelling in association with improvement in her breathing/respiratory status; renal function remains relatively stable with ongoing diuresis; no apparent distress voiced. Exam Narrative: General: obese AA female in NAD Heart: normal S1 and S2; no rub Lungs: decreased throughout Abdomen: soft, nontender, nondistended; decreased abdominal wall edema Extremities: no cyanosis or clubbing; 1+ edema Skin: warm and intact Objective Data Vital Signs Vital Signs: Vital Signs Temp Pulse Resp BP Pulse Ox O2 Del Method 02/24/22 08:00 72 02/24/22 08:00 Room Air 02/24/22 08:52 76 02/24/22 04:00 67 02/24/22 04:53 36.6 C 66 20 139/57 L 94 02/24/22 00:00 69 02/23/22 20:00 89 02/23/22 22:40 73 95 02/23/22 23:13 76 28 H 95 02/23/22 20:00 Room Air 02/23/22 21:01 78 02/23/22 20:34 36.9 C 78 20 138/65 93 02/23/22 16:00 78 02/23/22 14:00 36.9 C 77 20 150/75 H 92 Intake/Output Intake/Output: Intake & Output 02/21/22 02/22/22 02/23/22 02/24/22 23:59 23:59 23:59 23:59 Intake Total 1370 960 960 480 Output Total 1400 2750 2550 600 Balance -30 -1790 -1590 -120 Meds/Results Medications: Active Medications Generic Name Dose Route Start Last Admin Trade Name Freq PRN Reason Stop Dose Admin Acetaminophen 650 mg 02/18/22 00:54 Acetaminophen 325 Mg Tablet PO Q4H PRN Mild Pain (1-3) or Fever Al Hydrox/Mg Hydrox/Simethicone 30 ml 02/18/22 00:54 Mag Hydrox/Al Hydrox/Simeth 30 Ml Udc PO QID PRN Dyspepsia Atorvastatin Calcium 20 mg 02/18/22 09:00 02/24/22 08:50 Atorvastatin 20 Mg Tablet PO 20 mg DAILY RUSSEL Administration Bumetanide 1 mg 02/24/22 17:00 Bumetanide Inj 1 Mg/4 Ml Vial IV PUSH BID RUSSEL Dextrose 12.5 gm 02/18/22 08:02 Dextrose 50% 25 Gm/50 Ml Syringe IV PUSH PRN PRN
[2022-02-24 11:26] LABS: Complement Total CH50 >60 U/mL (31-60)
[2022-02-24 12:14] LABS: Glucose Point of Care 132 mg/dl (65-105)
[2022-02-24 17:07] LABS: Glucose Point of Care 223 mg/dl (65-105)
[2022-02-24] MEDS: INSULIN ASPART (*BKC) 100 UNITS/ML SUB-Q (17:18)
[2022-02-24] MEDS: BUMETANIDE INJ 1 MG/4 ML VIAL IV PUSH (17:18)
[2022-02-24] MEDS: INSULIN GLARGINE (*BKC) 100 UNITS/ML 18 UNITS SUB-Q (22:43)
[2022-02-24 23:14] LABS: Glucose Point of Care 190 mg/dl (65-105)
[2022-02-25] VITALS (17 sets, daily range): BP systolic 137–158; BP diastolic 57–72; PULSE 70–88; RESP 16–24; TEMP 36.1–37.2; O2SAT 92–95
[2022-02-25 05:05] LABS: Alveolar/Arterial O2 Gradient 19.4 mmHg; Base Excess ABG 14.3 mEq/l (+/-2.0); Fractional Inspired Oxygen 21 %; HCO3 ABG 40.1 mEq/l (22.0-26.0); Oxygen Saturation ABG 92.2 % (95.0-100.0); Oxyhemoglobin 90.4 % THb (90.0-100.0); PCO2 ABG 57.5 mmHg (35.0-45.0); PO2 ABG 61.5 mmHg (80.0-100.0); PO2 FiO2 Ratio Arterial Blood 2.93 %; Total Hemoglobin 10.2 g/dL (12.0-18.0); pH ABG 7.461 (7.350-7.450)
[2022-02-25 05:09] LABS: Device NON-INVASIVE VENT; Modified Allen's Test Pass; Non-Invasive Vent Rate 24 /MIN; Site Drawn RIGHT RADIAL
[2022-02-25 05:10] LABS: Non-Invasive Expiratory Pressure 10 CMH2O
[2022-02-25 05:21] LABS: Basophils Percent Auto 0.5 % (0.2-1.2); Eosinophils Absolute Auto 0.2 K/mm3 (0-0.3); Eosinophils Percent Auto 5.2 % (0-4.4); Hematocrit 32.4 % (37.0-47.0); Hemoglobin 9.2 g/dL (12.0-15.0); Immature Granulocyte Absolute 0.02 K/mm3 (0.00-0.031); Immature Granulocyte Percent A 0.5 % (0-0.5); Lymphocytes Absolute Auto 0.94 K/mm3 (0.9-3.2); Lymphocytes Percent Auto 25.7 % (18.3-44.2); Mean Corpuscular HGB Conc 28.4 g/dl (32-36); Mean Corpuscular Hemoglobin 22.9 pg (26-34); Mean Corpuscular Volume 80.8 fl (80-100); Mean Platelet Volume 10.1 fl (7.4-10.4); Monocytes Absolute Auto 0.6 K/mm3 (0.1-0.6); Monocytes Percent Auto 17.2 % (2.6-8.5); Neutrophils Absolute Auto 1.9 K/mm3 (1.3-6.7); Neutrophils Percent Auto 50.9 % (45.5-73.1); Platelet Count Result 227 k/mm3 (150-375); Red Blood Count 4.01 M/mm3 (4.2-5.4); Red Cell Distribution Width 21.4 % (11.5-14.5); White Blood Count 3.7 K/mm3 (4.5-10.0)
[2022-02-25 05:24] LABS: Alanine Aminotransferase 23 U/L (6-35); Albumin Level 3.4 g/dL (3.5-5.1); Alkaline Phosphatase 86 U/L (38-126); Anion Gap 11 mmol/L (8-16); Aspartate Amino Transferase 36 U/L (14-36); Bilirubin,Total 0.7 mg/dL (0.2-1.3); Blood Urea Nitrogen 30 mg/dL (7-17); Calcium 8.5 mg/dL (8.4-10.2); Carbon Dioxide 37 mmol/L (22-30); Chloride 98 mmol/L (98-107); Estimated CRCL calculation 51 ml/min; Estimated Glomerular Filt Rate 32; Glucose 141 mg/dL (65-110); Potassium 2.9 mmol/L (3.4-5.0); Sodium 146 mmol/L (137-145)
[2022-02-25 05:53] LABS: Anisocytosis 1+ (NORMAL); Hypochromasia 1+ (NORMAL); Ovalocytes 1+ (NORMAL); Platelet Estimate Adequate (Adequate); Schistocytes None Seen (NORMAL)
[2022-02-25] MEDS: HEPARIN SODIUM 5,000 UNITS/ML VIAL 5000 UNITS SUB-Q ×3 (06:46→21:29)
--- NOTE | 2022-02-25 08:13 | PM.IMPN ---
Progress Note: A&P Assessment and Plan (1) CHF (congestive heart failure): Code(s): I50.9 - Heart failure, unspecified Status: Acute Assessment and Plan: EF noted to be 50-55%, unable to determine diastolic function, appreciate cardiology consultation Improved on Bumex and fluid restriction, kidney function slightly worsened today, continue diuresis with bumex 1 mg BID Metolazone discontinued, strict I's and O's and daily weights appear inaccurate (2) Renal failure: Code(s): N19 - Unspecified kidney failure Status: Acute Assessment and Plan: Continue to improve with diuresis Appreciate nephrology consultation Discontinued Norvasc due to lower extremity lymphedema as well as worsening swelling, may need to add clonidine or hydralazine if blood pressure goes too high without this medication BP controlled and will continue to monitor (3) Morbid obesity with BMI of 70 and over, adult: Code(s): E66.01 - Morbid (severe) obesity due to excess calories; Z68.45 - Body mass index [BMI] 70 or greater, adult Status: Acute Assessment and Plan: SAMI wrap for lymphedema, ambulate TID to mobilize fluid, work with PT/OT for d/c planning (4) Hypertension associated with diabetes: Code(s): E11.59 - Type 2 diabetes mellitus with other circulatory complications; I15.2 - Hypertension secondary to endocrine disorders Status: Acute Assessment and Plan: A1c is 8.6, Accu-Cheks and sliding scale insulin Lantus 20 units q.h.s. at home, novolog with meals at home--being held here Blood glucose consistently under 180 here Blood glucose levels dropping due to different diet here, decreased insulin from 20 units to 18 units, now stable FBG around 100 (5) Obesity hypoventilation syndrome: Code(s): E66.2 - Morbid (severe) obesity with alveolar hypoventilation Status: Acute Assessment and Plan: appreciate pulm consult, nocturnal NIV which Has been ordered by Pulmonary (6) LUCIA (obstructive sleep apnea): Code(s): G47.33 - Obstructive sleep apnea (adult) (pediatric) Status: Acute Assessment and Plan: nocturnal NIV per pulm, will need at d/c Plan PT/OT/ambulate TID DVT prophylaxis with heparin GI prophylaxis not indicated Code status full code Subjective Date/time seen: 02/25/22 08:13 Interval history: No overnight events noted. breathing has improved significantly. She is going for a home oxygen evaluation. Leg swelling has improved it is wrapped with Sami wrap. No fever chills. Mild cough Review of Systems Review of Systems: All systems reviewed & are unremarkable except as noted in HPI and below Exam Narrative: General: No acute distress, alert and oriented per baseline HEENT: Atraumatic, normocephalic, mucous membranes moist CV: Regular rate and rhythm, S1, S2 Lungs: Diminished at bases, some scattered crackles Abdomen: Soft with some distention noted, edema much improved Extremities: Edema improved bilateral lower extremities, nonpitting Skin: No rashes noted, no lesions or wounds seen Psych: Euthymic, normal affect Objective Data Vital Signs Vital Signs: Vital Signs - 24 hr 02/24/22 08:52 02/24/22 12:00 02/24/22 14:12 Temperature 97.7 F Pulse Rate 76 75 76 Respiratory Rate 18 Blood Pressure 131/63 Pulse Oximetry 94 Oxygen Delivery Fraction of Inspired Oxygen 02/24/22 16:00 02/24/22 20:50 02/24/22 22:46 Temperature 97.7 F Pulse Rate 78 81 81 Respiratory Rate 20 Blood Pressure 148/81 H Pulse Oximetry 94 Oxygen Delivery Fraction of Inspired Oxygen 02/24/22 22:40 02/24/22 22:40 02/24/22 20:00 Temperature Pulse Rate 79 69 Respiratory Rate 27 H Blood Pressure Pulse Oximetry 96 96 Oxygen Delivery BiPAP Fraction of Inspired Oxygen 21 02/24/22 20:00 02/25/22 00:00 02/25/22 02:46 Temperature Pulse Rate 81 81 Respiratory Rate 24 H Bl
[2022-02-25] MEDS: ATORVASTATIN 20 MG TABLET PO (08:32)
[2022-02-25] MEDS: FLUTICASONE PROPIONATE 0.05% NA SPR 16 GM BTL (*BKC) 1 SPRAY NASAL (08:33)
[2022-02-25] MEDS: hydrALAZINE HCL 50 MG TABLET PO ×2 (08:33→21:29)
[2022-02-25] MEDS: BUMETANIDE INJ 1 MG/4 ML VIAL IV PUSH ×2 (08:33→18:02)
[2022-02-25] MEDS: METOPROLOL TARTRATE 50 MG TAB PO ×2 (08:33→21:29)
[2022-02-25] MEDS: DOCUSATE SODIUM 100 MG CAPSULE PO ×2 (08:33→21:29)
[2022-02-25] MEDS: LORATADINE 10 MG TABLET PO (08:33)
[2022-02-25 08:48] LABS: Glucose Point of Care 128 mg/dl (65-105)
--- NOTE | 2022-02-25 09:01 | PM.PNPUL ---
Progress Note: A&P Assessment and Plan (1) Obesity hypoventilation syndrome: Code(s): E66.2 - Morbid (severe) obesity with alveolar hypoventilation Status: Acute Assessment and Plan: Patient with a BMI of 80.9, after diuresis and feeling improved her daytime blood gas of 7.37/51/56. She has obesity hypoventilation syndrome with daytime hypercarbia and would benefit from noninvasive ventilation to prevent further exacerbations and hospitalizations. The patient did not tolerate straight BiPAP mode of ventilation but has tolerated a noninvasive ventilation with the AVAPS mode. 02/19/2022 I will initiate noninvasive ventilation. I will initially try BiPAP and if she does not tolerate this I will try noninvasive ventilation with an AVAPS mode. I will check an overnight oximetry on noninvasive ventilation on room air. I will check a blood gas prior to removal of the noninvasive ventilation. I will check a TSH and free T4. Agree with as aggressive diuresis as tolerated by her cardiac and renal Systems per Cardiology and the hospitalist team. 02/20 currently patient states she is improved. She is sitting in a chair on room air saturations 91%. She did not tolerate BiPAP and was placed on noninvasive ventilation with an AVAPS mode rate of 20, tidal volume 500, EPAP 5, minimal inspiratory pressure 6, maximal inspiratory pressure 25, inspiratory time 1.0, rise of 3 and room air last night. Patient wore fullface mask and said that she slept well with the machine. Patient had a blood gas prior to removal of the machine with a pH of 7.35/54/57. Patient had an overnight oximetry on the settings with an average saturation of 88%. Lowest saturation 80%. Time with saturation less than or equal to 88% was 142 minutes or 57% of the monitor time. Free T4 is 1.38, normal, TSH is 5.35, elevated Plan: the patient did not tolerate BiPAP mode of ventilation and I have again adjusted her noninvasive ventilation with the a VATS mode to increase her minute ventilation and have increased her rate from 20-22, increased her tidal volume from 500-550. She required her rise to be decreased to 5 and her inspiratory time to be changed from 1-1.2 for comfort. I have placed her on 28% FiO2 and will repeat an overnight oximetry on the above settings with 28% FiO2 and repeat a blood gas prior to removal of the mask. I have talked to international marketing coordinator and have initiated the process to obtain a home noninvasive ventilator with the AVAPS mode. 02/21? ABG shows increased pCO2, pH 7.34/ pCO2 62.8/pO2 89.3/HCO3 - 33.5/saturation 96% on 2 L/min. she will need continued adjustments to decrease pCO2. Increase TV 570. The ApneaLink did not have sufficient flow time to give reliable results. Although the recording tiome was over 6 hours, the flow time was zero, indicating that the cannula was not in the correct position. Plan:? the patient did not tolerate BiPAP mode of ventilation; noninvasive ventilation with the AVAPS mode to increase her minute ventilation and have increased her rate from 20-22, increased her tidal volume from 500-550.? She required her rise to be decreased to 5 and her inspiratory time to be changed from 1-1.2 for comfort; Nov - placed on 28% FiO2; overnight oximetry on the above settings with 28% FiO2 and repeat a blood gas prior to removal of the mask. Initiated the process to obtain a home noninvasive ventilator with the AVAPS mode. 02/22 the patient did not tolerate hospital noninvasive ventilation. 02/23 Patient did not tolerate hospital noninvasive ventilation. Currently she is sitting in a chair in states she has no shortness of breath at rest. Room air saturations are 93%. Patient stated she could not tolerate the hospital noninvasive ventilation close air was not going in and she had a difficult time expiring. Placed her in bed and adjusted her noninvasive ventilation To achieve comfort with AVAPS mode to a rate of 24, tidal v
--- NOTE | 2022-02-25 09:04 | PCNWS ---
Weekly nutritional screen. Patient is tolerating current diet with adequate intake. No weight loss reported. No nutritional needs at this time.
--- NOTE | 2022-02-25 10:50 | PCRCNOTE ---
Home O2 Eval complete. No Home O2 required. RN notified.
[2022-02-25] MEDS: CALCIUM CARBONATE (TUMS) 500 MG (200 MG ELEMENTAL) PO (11:45)
[2022-02-25 11:52] LABS: Glucose Point of Care 161 mg/dl (65-105)
[2022-02-25] MEDS: POTASSIUM CHLORIDE 20 MEQ TABLET PO (12:55)
[2022-02-25 13:49] LABS: Anti Glomerular Basement Memb <1.0 AI (<1.0)
--- NOTE | 2022-02-25 14:23 | P.PNNP_ITS ---
Progress Note: A&P Assessment and Plan (1) Renal failure: Code(s): N19 - Unspecified kidney failure Status: Acute Assessment and Plan: * suspect more of a chronic issue than acute given relative stability in renal function at this time * major risk factors include HTN and DM x 15+ years with variable control * obesity, LUCIA, and OHS likely contributing as well * evaluation to date: * renal ultrasound without obstruction * urine electrolytes are prerenal * 860mg of proteinuria * ANCA, antiGBM-ab, SPEP, and UPEP negative; other serologies pending * holding DAMIEN-I given #2 * follow repeat labs and UOP (2) Hyperkalemia: Code(s): E87.5 - Hyperkalemia Status: Acute Assessment and Plan: * better at this dwight (issues with hypokalemia noted) * due to #1 +/- DAMIEN-I use on admission * medical management as needed * follow repeat levels - consider adding back DAMIEN-I versus entresto (3) CHF (congestive heart failure): Code(s): I50.9 - Heart failure, unspecified Status: Acute Assessment and Plan: * apparent new issue/finding * Cardiology recommendations noted * Echo results noted * suspect right sided heart failure from obesity/pulmonary HTN/LUCIA/OHS * continue diuresis - noted plan to switch to oral diuretics * follow I/Os and daily weights (4) LUCIA (obstructive sleep apnea): Code(s): G47.33 - Obstructive sleep apnea (adult) (pediatric) Status: Acute Assessment and Plan: * as noted by apnea link * complicated by obesity hypoventilation syndrome * Pulmonary following with recommendations noted (5) Hypertension: Code(s): I10 - Essential (primary) hypertension Status: Chronic Assessment and Plan: * elevated on admission but better currently * diuresis may help to some degree * follow trend of hemodynamics (6) Diabetes: Code(s): E11.9 - Type 2 diabetes mellitus without complications Status: Chronic Assessment and Plan: * follow accuchecks * glycemic control Will continue to follow. Subjective Date/time seen: 02/25/22 14:23 Continues to do reasonably well with ongoing therapy -- swelling/edema/breathing all have significantly improved with current aggressive therapy; no apparent distress noted at this time; no issues/events overnight or earlier this morning. Exam Narrative: General: obese AA female in NAD Heart: normal S1 and S2; no rub Lungs: decreased throughout Abdomen: soft, nontender, nondistended; decreased abdominal wall edema Extremities: no cyanosis or clubbing; 1+ edema Skin: no rash Objective Data Vital Signs Vital Signs: Vital Signs Temp Pulse Resp BP Pulse Ox O2 Del Method FiO2 02/25/22 13:45 36.4 C 84 16 142/72 H 93 02/25/22 12:00 74 02/25/22 09:15 Room Air 02/25/22 09:10 84 95 Room Air 02/25/22 08:55 79 92 Room Air 02/25/22 08:50 73 93 Room Air 02/25/22 08:00 78 02/25/22 08:33 84 02/25/22 04:00 70 02/25/22 04:50 84 24 H 92 02/25/22 04:05 36.1 C L 71 20 137/57 L 93 02/25/22 02:46 81 24 H 94 02/25/22 00:00 81 02/24/22 20:00 BiPAP 21 02/24/22 20:00 69 02/24/22 22:40 96 BiPAP 21
--- NOTE | 2022-02-25 14:23 | PM.PNNEP ---
Progress Note: A&P Assessment and Plan (1) Renal failure: Code(s): N19 - Unspecified kidney failure Status: Acute Assessment and Plan: suspect more of a chronic issue than acute given relative stability in renal function at this time major risk factors include HTN and DM x 15+ years with variable control obesity, LUCIA, and OHS likely contributing as well evaluation to date: renal ultrasound without obstruction urine electrolytes are prerenal 860mg of proteinuria ANCA, antiGBM-ab, SPEP, and UPEP negative; other serologies pending holding DAMIEN-I given #2 follow repeat labs and UOP (2) Hyperkalemia: Code(s): E87.5 - Hyperkalemia Status: Acute Assessment and Plan: better at this dwight (issues with hypokalemia noted) due to #1 +/- DAMIEN-I use on admission medical management as needed follow repeat levels - consider adding back DAMIEN-I versus entresto (3) CHF (congestive heart failure): Code(s): I50.9 - Heart failure, unspecified Status: Acute Assessment and Plan: apparent new issue/finding Cardiology recommendations noted Echo results noted suspect right sided heart failure from obesity/pulmonary HTN/LUCIA/OHS continue diuresis - noted plan to switch to oral diuretics follow I/Os and daily weights (4) LUCIA (obstructive sleep apnea): Code(s): G47.33 - Obstructive sleep apnea (adult) (pediatric) Status: Acute Assessment and Plan: as noted by apnea link complicated by obesity hypoventilation syndrome Pulmonary following with recommendations noted (5) Hypertension: Code(s): I10 - Essential (primary) hypertension Status: Chronic Assessment and Plan: elevated on admission but better currently diuresis may help to some degree follow trend of hemodynamics (6) Diabetes: Code(s): E11.9 - Type 2 diabetes mellitus without complications Status: Chronic Assessment and Plan: follow accuchecks glycemic control Will continue to follow. Subjective Date/time seen: 02/25/22 14:23 Continues to do reasonably well with ongoing therapy -- swelling/edema/breathing all have significantly improved with current aggressive therapy; no apparent distress noted at this time; no issues/events overnight or earlier this morning. Exam Narrative: General: obese AA female in NAD Heart: normal S1 and S2; no rub Lungs: decreased throughout Abdomen: soft, nontender, nondistended; decreased abdominal wall edema Extremities: no cyanosis or clubbing; 1+ edema Skin: no rash Objective Data Vital Signs Vital Signs: Vital Signs Temp Pulse Resp BP Pulse Ox O2 Del Method FiO2 02/25/22 13:45 36.4 C 84 16 142/72 H 93 02/25/22 12:00 74 02/25/22 09:15 Room Air 02/25/22 09:10 84 95 Room Air 02/25/22 08:55 79 92 Room Air 02/25/22 08:50 73 93 Room Air 02/25/22 08:00 78 02/25/22 08:33 84 02/25/22 04:00 70 02/25/22 04:50 84 24 H 92 02/25/22 04:05 36.1 C L 71 20 137/57 L 93 02/25/22 02:46 81 24 H 94 02/25/22 00:00 81 02/24/22 20:00 BiPAP 21 02/24/22 20:00 69 02/24/22 22:40 96 BiPAP 02/24/22 22:40 79 27 H 96 02/24/22 22:46 81 02/24/22 20:50 36.5 C 81 20 148/81 H 94 02/24/22 16:00 78 Intake/Output Intake/Output: Intake & Output 02/22/22 02/23/22 02/24/22 02/25/22 23:59 23:59 23:59 23:59 Intake Total 960 960 960 360 Output Total 2750 2550 2050 400 Balance -1790 -1590 -1090 -40 Meds/Results Medications: Active Medications Generic Name Dose Route Start Last Admin Trade Name Freq PRN Reason Stop Dose Admin Acetaminophen 650 mg 02/18/22 00:54 Acetaminophen 325 Mg Tablet PO Q4H PRN Mild Pain (1-3) or Fever Al Hydrox/Mg Hydrox/Simethicone 30 ml 02/18/22 00:54 Mag Hydrox/Al Hydrox/Simeth 30 Ml Udc PO
[2022-02-25 17:25] LABS: Glucose Point of Care 160 mg/dl (65-105)
[2022-02-25] MEDS: INSULIN GLARGINE (*BKC) 100 UNITS/ML 18 UNITS SUB-Q (21:29)
[2022-02-25] MEDS: FLUTICASONE PROPIONATE 0.05% NA SPR 16 GM BTL (*BKC) 2 SPRAY NASAL (21:30)
[2022-02-25 21:49] LABS: Glucose Point of Care 185 mg/dl (65-105)
[2022-02-26] VITALS (7 sets, daily range): BP systolic 137–164; BP diastolic 69–85; PULSE 68–74; RESP 18; TEMP 36.8–36.9; O2SAT 90–93
[2022-02-26 06:39] LABS: Basophils Percent Auto 0.2 % (0.2-1.2); Eosinophils Absolute Auto 0.1 K/mm3 (0-0.3); Eosinophils Percent Auto 3.5 % (0-4.4); Hematocrit 32.8 % (37.0-47.0); Hemoglobin 9.2 g/dL (12.0-15.0); Immature Granulocyte Absolute 0.01 K/mm3 (0.00-0.031); Immature Granulocyte Percent A 0.2 % (0-0.5); Lymphocytes Absolute Auto 1.06 K/mm3 (0.9-3.2); Lymphocytes Percent Auto 26.2 % (18.3-44.2); Mean Corpuscular Hemoglobin 22.7 pg (26-34); Mean Platelet Volume 9.6 fl (7.4-10.4); Monocytes Absolute Auto 0.6 K/mm3 (0.1-0.6); Monocytes Percent Auto 15.8 % (2.6-8.5); Neutrophils Absolute Auto 2.2 K/mm3 (1.3-6.7); Neutrophils Percent Auto 54.1 % (45.5-73.1); Platelet Count Result 218 k/mm3 (150-375); Red Blood Count 4.05 M/mm3 (4.2-5.4); Red Cell Distribution Width 21.6 % (11.5-14.5); White Blood Count 4.1 K/mm3 (4.5-10.0)
[2022-02-26 06:49] LABS: Alanine Aminotransferase 22 U/L (6-35); Albumin Level 3.7 g/dL (3.5-5.1); Alkaline Phosphatase 90 U/L (38-126); Anion Gap 12 mmol/L (8-16); Aspartate Amino Transferase 33 U/L (14-36); Bilirubin,Total 0.8 mg/dL (0.2-1.3); Blood Urea Nitrogen 29 mg/dL (7-17); Calcium 8.6 mg/dL (8.4-10.2); Carbon Dioxide 36 mmol/L (22-30); Chloride 98 mmol/L (98-107); Estimated CRCL calculation 51 ml/min; Estimated Glomerular Filt Rate 32; Glucose 111 mg/dL (65-110); Magnesium 1.8 mg/dL (1.6-2.3); Potassium 3.2 mmol/L (3.4-5.0); Sodium 146 mmol/L (137-145)
[2022-02-26] MEDS: HEPARIN SODIUM 5,000 UNITS/ML VIAL 5000 UNITS SUB-Q (06:52)
[2022-02-26] MEDS: LORATADINE 10 MG TABLET PO (08:33)
[2022-02-26] MEDS: DOCUSATE SODIUM 100 MG CAPSULE PO (08:34)
[2022-02-26] MEDS: ATORVASTATIN 20 MG TABLET PO (08:34)
[2022-02-26] MEDS: METOPROLOL TARTRATE 50 MG TAB PO (08:35)
[2022-02-26] MEDS: hydrALAZINE HCL 50 MG TABLET PO (08:35)
[2022-02-26] MEDS: POTASSIUM CHLORIDE 20 MEQ TABLET 40 MEQ PO (08:37)
[2022-02-26] MEDS: FLUTICASONE PROPIONATE 0.05% NA SPR 16 GM BTL (*BKC) 2 SPRAY NASAL (08:38)
[2022-02-26] MEDS: BUMETANIDE INJ 1 MG/4 ML VIAL IV PUSH (08:38)
[2022-02-26 09:18] LABS: Glucose Point of Care 119 mg/dl (65-105)
--- NOTE | 2022-02-26 09:50 | PM.PNCARD ---
Progress Note: A&P Assessment and Plan (1) Obesity hypoventilation syndrome: Code(s): E66.2 - Morbid (severe) obesity with alveolar hypoventilation Status: Acute (2) CHF (congestive heart failure): Code(s): I50.9 - Heart failure, unspecified Status: Acute Assessment and Plan: She does have significant sleep apnea. Probably predominantly right-sided heart failure. Echo was of poor quality due to body habitus but ejection fraction did not appear to be significantly reduced. Improved. Continue p.o. bumex Supplement K+ as needed Treatment for sleep apnea Low-salt diet. Strict I&O Fluid restriction daily weights Would start Entresto when renal function improves Would also recommend spironolactone Avoid jardiance because of high risk for genital yeast infections given body habitus Follow up in our office has been scheduled. Cardiology will sign off. Do not hesitate to contact us with any questions. Subjective Date/time seen: 02/26/22 09:50 Cardiology follow up for CHF Continues to feel well. Completed physical therapy this morning without any shortness of breath. Swelling continues to improve. Review of Systems Review of Systems: All systems reviewed & are unremarkable except as noted in HPI and below Constitutional: Constitutional: Denies body ache(s) and Denies excessive sweating Eyes: Eyes: Denies blurry vision ENT: Reports Normal hearing present and Denies lip swelling Cardiovascular: Cardiovascular: Denies chest pain, Reports pedal edema, Reports leg edema, Denies lightheadedness, Denies palpitations, Reports dyspnea and Reports dyspnea on exertion Respiratory: Respiratory: Reports dyspnea and Reports dyspnea on exertion Gastrointestinal: Gastrointestinal: Denies abdominal pain, Reports bloating and Reports constipation Genitourinary: Genitourinary: Denies hematuria Musculoskeletal: Musculoskeletal: Denies back pain Integumentary/Breasts: Skin/Breast: Reports skin pain and Denies unusual bruising Neurologic: Reports Normal hearing present, Denies Abnormal speech present and Denies behavioral changes Psychiatric: Psychiatric: Denies behavioral changes Endocrine: Endocrine: Denies excessive sweating and Denies palpitations Hematologic/Lymphatic: Hematologic/Lymphatic: Denies easy bleeding Allergic/Immunologic: Allergic/Immunologic: Denies GI upset with certain foods and Denies lip swelling Exam Narrative: Pleasant and appropriate and appears stated age Const: General: comfortable and no acute distress; No in distress Nutritional Appearance: obese morbidly obese HENMT: Face/Nose/Sinus: Normal nares present Eyes: Sclera: sclerae normal Pupils: pupils not ERRL Neck: Neck: supple Carotids: no bruits Chest: Other: No reproducible chest wall pain to palpation Resp: Effort & Inspection: normal respiratory effort Auscultation: diminished lung sounds Cardio: Rate: regular rate Rhythm: regular rhythm Other: Distant heart sounds GI: Inspection: non-distended Auscultation: normal bowel sounds Urinary Catheter: Urinary Catheter: patent and draining Skin: General skin exam: normal color and No rashes Rashes: no rashes noted Neuro: Cranial nerves: No Equal, round and reactive pupils present and Yes Normal hearing present Speech: normal speech and No Abnormal speech present Extrem: General: edema Other: Moderate pedal edema, pretibial edema improved Psych: Mental Status: mental status grossly normal Affect: normal affect Objective Data Vital Signs Vital Signs: Vital Signs - 24 hr 02/25/22 12:00 02/25/22 13:45 02/25/22 16:00 Temperature 36.4 C Pulse Rate 74 84 80 Respiratory Rate 16 Blood Pressure 142/72 H Pulse Oximetry 93 Oxygen Delivery 02/25/22 21:18 02/25/22 21:29 02/25/22 20:00 Temperature 37.2 C Pulse Rate 77 77 78 Respiratory Rate 20 Blood Pressure 158/70 H Pulse Oximetry 92 Oxygen Delive
--- NOTE | 2022-02-26 12:51 | P.PNNP_ITS ---
Progress Note: A&P Assessment and Plan (1) Renal failure: Code(s): N19 - Unspecified kidney failure Status: Acute Assessment and Plan: * suspect more of a chronic issue than acute given relative stability in renal function since admission * major risk factors include HTN and DM x 15+ years with variable control * obesity, LUCIA, and OHS likely contributing as well * evaluation to date: * renal ultrasound without obstruction * urine electrolytes are prerenal * 860mg of proteinuria * ANCA, antiGBM-ab, SPEP, and UPEP negative; other serologies pending * holding DAMIEN-I given #2 * follow repeat labs and UOP (2) Hyperkalemia: Code(s): E87.5 - Hyperkalemia Status: Acute Assessment and Plan: * better at this dwight (issues with hypokalemia noted) * due to #1 +/- DAMIEN-I use on admission * medical management as needed * follow repeat levels - consider adding back DAMIEN-I versus entresto (3) CHF (congestive heart failure): Code(s): I50.9 - Heart failure, unspecified Status: Acute Assessment and Plan: * apparent new issue/finding * Cardiology recommendations noted * Echo results noted * suspect right sided heart failure from obesity/pulmonary HTN/LUCIA/OHS * continue diuresis - noted plan to switch to oral diuretics * follow I/Os and daily weights (4) LUCIA (obstructive sleep apnea): Code(s): G47.33 - Obstructive sleep apnea (adult) (pediatric) Status: Acute Assessment and Plan: * as noted by apnea link * complicated by obesity hypoventilation syndrome * Pulmonary following with recommendations noted (5) Hypertension: Code(s): I10 - Essential (primary) hypertension Status: Chronic Assessment and Plan: * elevated on admission but better currently * diuresis may help to some degree * follow trend of hemodynamics (6) Diabetes: Code(s): E11.9 - Type 2 diabetes mellitus without complications Status: Chronic Assessment and Plan: * follow accuchecks * glycemic control Will continue to follow. Subjective Date/time seen: 02/26/22 12:51 Continues to do well since admission -- breathing along with swelling/edema conitnue to improve with diuretic therapy and renal function remains stable as well; no apparent distress voiced at tthis time; no issues/events overnight or earlier this AM. Exam Narrative: General: obese AA female in NAD Heart: normal S1 and S2; no rub Lungs: decreased throughout Abdomen: soft, nontender, nondistended; decreased abdominal wall edema Extremities: no cyanosis or clubbing; 1+ edema Skin: no rash Objective Data Vital Signs Vital Signs: Vital Signs Temp Pulse Resp BP Pulse Ox O2 Del Method 02/26/22 08:00 Room Air 02/26/22 08:00 71 02/26/22 08:35 68 02/26/22 04:00 69 02/26/22 05:11 36.8 C 72 18 137/69 90 02/25/22 22:55 88 24 H 93 02/26/22 00:00 68 02/25/22 20:00 Room Air 02/25/22 20:00 78 02/25/22 21:29 77 02/25/22 21:18 37.2 C 77 20 158/70 H 92 02/25/22 16:00 80 02/25/22 13:45 36.4 C 84 16 142/72 H 93 Intake/Output Intake/Output: Intake & Output 02/23/22 02/24/22
--- NOTE | 2022-02-26 12:51 | PM.PNNEP ---
Progress Note: A&P Assessment and Plan (1) Renal failure: Code(s): N19 - Unspecified kidney failure Status: Acute Assessment and Plan: suspect more of a chronic issue than acute given relative stability in renal function since admission major risk factors include HTN and DM x 15+ years with variable control obesity, LUCIA, and OHS likely contributing as well evaluation to date: renal ultrasound without obstruction urine electrolytes are prerenal 860mg of proteinuria ANCA, antiGBM-ab, SPEP, and UPEP negative; other serologies pending holding DAMIEN-I given #2 follow repeat labs and UOP (2) Hyperkalemia: Code(s): E87.5 - Hyperkalemia Status: Acute Assessment and Plan: better at this dwight (issues with hypokalemia noted) due to #1 +/- DAMIEN-I use on admission medical management as needed follow repeat levels - consider adding back DAMIEN-I versus entresto (3) CHF (congestive heart failure): Code(s): I50.9 - Heart failure, unspecified Status: Acute Assessment and Plan: apparent new issue/finding Cardiology recommendations noted Echo results noted suspect right sided heart failure from obesity/pulmonary HTN/LUCIA/OHS continue diuresis - noted plan to switch to oral diuretics follow I/Os and daily weights (4) LUCIA (obstructive sleep apnea): Code(s): G47.33 - Obstructive sleep apnea (adult) (pediatric) Status: Acute Assessment and Plan: as noted by apnea link complicated by obesity hypoventilation syndrome Pulmonary following with recommendations noted (5) Hypertension: Code(s): I10 - Essential (primary) hypertension Status: Chronic Assessment and Plan: elevated on admission but better currently diuresis may help to some degree follow trend of hemodynamics (6) Diabetes: Code(s): E11.9 - Type 2 diabetes mellitus without complications Status: Chronic Assessment and Plan: follow accuchecks glycemic control Will continue to follow. Subjective Date/time seen: 02/26/22 12:51 Continues to do well since admission -- breathing along with swelling/edema conitnue to improve with diuretic therapy and renal function remains stable as well; no apparent distress voiced at tthis time; no issues/events overnight or earlier this AM. Exam Narrative: General: obese AA female in NAD Heart: normal S1 and S2; no rub Lungs: decreased throughout Abdomen: soft, nontender, nondistended; decreased abdominal wall edema Extremities: no cyanosis or clubbing; 1+ edema Skin: no rash Objective Data Vital Signs Vital Signs: Vital Signs Temp Pulse Resp BP Pulse Ox O2 Del Method 02/26/22 08:00 Room Air 02/26/22 08:00 71 02/26/22 08:35 68 02/26/22 04:00 69 02/26/22 05:11 36.8 C 72 18 137/69 90 02/25/22 22:55 88 24 H 93 02/26/22 00:00 68 02/25/22 20:00 Room Air 02/25/22 20:00 78 02/25/22 21:29 77 02/25/22 21:18 37.2 C 77 20 158/70 H 92 02/25/22 16:00 80 02/25/22 13:45 36.4 C 84 16 142/72 H 93 Intake/Output Intake/Output: Intake & Output 02/23/22 02/24/22 02/25/22 02/26/22 23:59 23:59 23:59 23:59 Intake Total 675 627 3001 240 Output Total 2550 2050 400 920 Balance -1590 -1090 840 -680 Meds/Results Medications: Active Medications Generic Name Dose Route Start Last Admin Trade Name Nghiaq PRN Reason Stop Dose Admin Acetaminophen 650 mg 02/18/22 00:54 Acetaminophen 325 Mg Tablet PO Q4H PRN Mild Pain (1-3) or Fever Al Hydrox/Mg Hydrox/Simethicone 30 ml 02/18/22 00:54 Mag Hydrox/Al Hydrox/Simeth 30 Ml Udc PO QID PRN Dyspepsia Atorvastatin Calcium 20 mg 02/18/22 09:00 02/26/22 08:34 Atorvastatin 20 Mg Tablet PO 20 mg DAILY RUSSEL Administration Bumetanide 1 mg 02/26/22 17:00 Bumetanide 1 Mg Tablet PO BID RUSSEL Calcium Carbon
--- NOTE | 2022-02-26 13:28 | PM.DS ---
DS: Admitting Diagnosis Discharge Date 02/26/2022 Admitting Diagnosis Shortness of breath DS: Discharge Diagnosis Discharge Diagnosis (1) CHF (congestive heart failure): Code(s): I50.9 - Heart failure, unspecified Status: Acute (2) Renal failure: Code(s): N19 - Unspecified kidney failure Status: Acute (3) Morbid obesity with BMI of 70 and over, adult: Code(s): E66.01 - Morbid (severe) obesity due to excess calories; Z68.45 - Body mass index [BMI] 70 or greater, adult Status: Acute (4) Hypertension associated with diabetes: Code(s): E11.59 - Type 2 diabetes mellitus with other circulatory complications; I15.2 - Hypertension secondary to endocrine disorders Status: Acute (5) Obesity hypoventilation syndrome: Code(s): E66.2 - Morbid (severe) obesity with alveolar hypoventilation Status: Acute (6) LUCIA (obstructive sleep apnea): Code(s): G47.33 - Obstructive sleep apnea (adult) (pediatric) Status: Acute DS: Summary Hospital Course Hospital Course: # congestive heart failure: EF noted to be 50-55%, unable to determine diastolic function, appreciate cardiology consultation. Patient started with diuresis. Monitor renal function during diuresis. Kidney function remains stable further diuresis and eventually Bumex was changed to oral b.i.d. Needs close monitoring of intake and output as well as renal function as an outpatient basis # renal insufficiency acute versus chronic. Creatinine of 2 on arrival. Remains same with diuresis. Likely related to underlying hypertension and diabetes mellitus. Continue to follow up with Renal as an outpatient basis #Morbid obesity with BMI of 70 and over, adult: DAMIEN wrap for lymphedema, ambulate TID to mobilize fluid, follow-up with bariatric surgery as an outpatient basis eventually # type 2 diabetes mellitus on insulin: A1c is 8.6, Accu-Cheks and sliding scale insulin Lantus 20 units q.h.s. at home, novolog with meals at home--being held here Resume home medication. With renal insufficiency will stop her metformin # obesity hypoventilation syndrome: appreciate pulm consult, nocturnal NIV ordered and will need at discharge. Delete that # obstructive sleep apnea # nocturnal NIV per pulm, will need at d/c # DVT prophylaxis with heparin # Code status full code Time Spent with Patient Time attestation: Total time spent providing and/or coordinating discharge services: 50 minutes Exam Narrative: General: No acute distress, alert and oriented per baseline HEENT: Atraumatic, normocephalic, mucous membranes moist CV: Regular rate and rhythm, S1, S2 Lungs: Diminished at bases, some scattered crackles Abdomen: Soft with some distention noted, edema much improved Extremities: Edema improved bilateral lower extremities, nonpitting Skin: No rashes noted, no lesions or wounds seen Psych: Euthymic, normal affect DS: Data Data Completed and Pending Completed studies during hospitalization: Exam Type: ? ? CA echo dop color flow w con Study Info Indications ?? ? - chf Complete two-dimensional, color flow and Doppler transthoracic echocardiogram is performed with contrast to opacify the left ventricle and to improve the deliniation of the left ventricle endocardial borders. Account #: ? ? [id number] Contrast/Agitated Saline Contrast/Ag. Saline: ? ? Definity Amount: ? ? 3.00 ml Administered By: ? ? Ann,? Ileana [facility] Existing IV Access: ? ? Yes IV Access Condition: ? ? patent with no signs of infiltration Summary ? 1. Left ventricular chamber dimension is mildly enlarged. ? 2. Left ventricular systolic function is mildly reduced, estimated at 50-55%. ? 3. There is moderately increased left ventricular wall thickness. ? 4. The left ventricular diastolic function is indeterminate. ? 5. Left atrial chamber dimension is mildly enlarged. ? 6. Right atrial
[2022-02-26 13:41] LABS: Glucose Point of Care 139 mg/dl (65-105)
[2022-02-26 18:47] LABS: Cryoglobulin, QL Negative (Negative)
== END 2022-02-26 15:45 | disposition home or self-care (01) | DRG 292 ==
LOC: ANHIMU 02-19 12:22 → ANH2MED 02-19 17:19
PROVIDERS: Internal Medicine Nephrology; Internal Medicine Pulmonary Disease; Student in an Organized Health Care Education/Training Program; Admitting Provider Internal Medicine; Visit Provider Internal Medicine
DX: I13.0 Hypertensive heart and chronic kidney disease with heart failure and stage 1 through stage 4 chronic kidney disease, or unspecified chronic kidney disease (principal); E66.2 Morbid (severe) obesity with alveolar hypoventilation; Z68.45 Body mass index [BMI] 70 or greater, adult; E87.0 Hyperosmolality and hypernatremia; I50.810 Right heart failure, unspecified; I89.0 Lymphedema, not elsewhere classified; N18.9 Chronic kidney disease, unspecified; E11.22 Type 2 diabetes mellitus with diabetic chronic kidney disease; E87.5 Hyperkalemia; I27.20 Pulmonary hypertension, unspecified; Z79.4 Long term (current) use of insulin; Z91.198 Patient's noncompliance with other medical treatment and regimen for other reason
CPT/HCPCS: 36415; 36600; 71045; 74176; 76705; 76775; 80048; 80053; 80069; 81001; 82550; 82570; 82595; 82805; 82948; 83036; 83520; 83605; 83735; 83874; 83880; 83883; 84100; 84155; 84156; 84165; 84166; 84300; 84439; 84443; 84484; 84540; 85025; 85610; 85730; 85999; 86036; 86038; 86160; 86162; 86225; 93005; 94002; 94618; 94762; 97110; 97116; 97161; 97165; 97530; 97535; A9270; C8929; J0610; J1644; J1650; J1815; J1940; Q9957

== ENCOUNTER 2022-03-04 13:39 | Outpatient (CLI) | payer MEDICARE, MEDICAID, SELFPAY ==
[2022-03-04 14:39] LABS: Basophils Percent Auto 0.5 % (0.2-1.2); Eosinophils Absolute Auto 0.1 K/mm3 (0-0.3); Eosinophils Percent Auto 3.4 % (0-4.4); Hematocrit 34.7 % (37.0-47.0); Hemoglobin 9.6 g/dL (12.0-15.0); Immature Granulocyte Absolute 0.01 K/mm3 (0.00-0.031); Immature Granulocyte Percent A 0.2 % (0-0.5); Lymphocytes Absolute Auto 0.98 K/mm3 (0.9-3.2); Lymphocytes Percent Auto 23.8 % (18.3-44.2); Mean Corpuscular HGB Conc 27.7 g/dl (32-36); Mean Corpuscular Hemoglobin 23.3 pg (26-34); Mean Corpuscular Volume 84.2 fl (80-100); Mean Platelet Volume 10.4 fl (7.4-10.4); Monocytes Absolute Auto 0.5 K/mm3 (0.1-0.6); Monocytes Percent Auto 11.2 % (2.6-8.5); Neutrophils Absolute Auto 2.5 K/mm3 (1.3-6.7); Neutrophils Percent Auto 60.9 % (45.5-73.1); Platelet Count Result 239 k/mm3 (150-375); Red Blood Count 4.12 M/mm3 (4.2-5.4); Red Cell Distribution Width 22.5 % (11.5-14.5); White Blood Count 4.1 K/mm3 (4.5-10.0)
[2022-03-04 14:51] LABS: Alanine Aminotransferase 19 U/L (6-35); Alkaline Phosphatase 106 U/L (38-126); Anion Gap 9 mmol/L (8-16); Aspartate Amino Transferase 25 U/L (14-36); Bilirubin,Total 0.9 mg/dL (0.2-1.3); Blood Urea Nitrogen 26 mg/dL (7-17); Calcium 8.6 mg/dL (8.4-10.2); Carbon Dioxide 31 mmol/L (22-30); Chloride 105 mmol/L (98-107); Estimated Glomerular Filt Rate 36; Glucose 119 mg/dL (65-110); Potassium 3.6 mmol/L (3.4-5.0); Sodium 145 mmol/L (137-145)
[2022-03-04 15:35] LABS: Anisocytosis 3+ (NORMAL); Hypochromasia 1+ (NORMAL); Platelet Estimate Adequate (Adequate); Schistocytes None Seen (NORMAL)
== END 2022-03-04 13:40 | disposition home or self-care (01) ==
PROVIDERS: Visit Provider Internal Medicine
DX: I50.9 Heart failure, unspecified (principal); N19 Unspecified kidney failure
CPT/HCPCS: 36415; 80053; 85025

== ENCOUNTER 2022-03-18 11:18 | Outpatient (CLI) | payer MEDICARE, MEDICAID, SELFPAY ==
[2022-03-18 12:08] LABS: Anion Gap 7 mmol/L (8-16); Blood Urea Nitrogen 25 mg/dL (7-17); Calcium 8.7 mg/dL (8.4-10.2); Carbon Dioxide 30 mmol/L (22-30); Chloride 106 mmol/L (98-107); Estimated Glomerular Filt Rate 36; Glucose 174 mg/dL (65-110); Sodium 143 mmol/L (137-145)
== END 2022-03-18 11:19 | disposition home or self-care (01) ==
LOC: ANHLAB 11:22
PROVIDERS: Visit Provider Nurse Practitioner
DX: I50.30 Unspecified diastolic (congestive) heart failure (principal)
CPT/HCPCS: 36415; 80048

== ENCOUNTER 2022-07-09 09:49 | Inpatient (IN) | payer MEDICARE, MEDICAID, SELFPAY ==
[2022-07-09] VITALS (14 sets, daily range): BP systolic 132–181; BP diastolic 65–90; PULSE 64–75; RESP 16–24; TEMP 35.9–36.7; O2SAT 89–100; BMI 75.1
--- NOTE | ~2022-07-09 | US_ITS ---
EXAMINATION: US renal BI DATE: 07/09/2022 17:42 INDICATION: Chronic renal failure TECHNIQUE: Multiple grayscale and Doppler ultrasound images of the kidneys were obtained. COMPARISON: None. FINDINGS: The kidneys are not visualized due to patient body habitus. IMPRESSION: 1. Nonvisualization of the kidneys. Reviewed, dictated and finalized at location F.
--- NOTE | ~2022-07-09 | US_ITS ---
EXAMINATION: US venous doppler [facility] DATE: 07/09/2022 17:41 INDICATION: Lower limb edema TECHNIQUE: Martines scale images without and with compression and Doppler images of the bilateral lower e xtremity veins were obtained. COMPARISON: None FINDINGS: The right common femoral vein, profunda femoral vein, femoral vein, popliteal vein, peroneal trunk, p osterior tibial veins, and greater saphenous vein are patent. The left common femoral vein, profunda femoral vein, femoral vein, popliteal vein, peroneal trunk, po sterior tibial veins, and greater saphenous vein are patent. IMPRESSION: 1. Patent bilateral lower extremity veins. No evidence of deep venous thrombosis. Reviewed, dictated and finalized at location F. IMPRESSION: 1. Patent bilateral lower extremity veins. No evidence of deep venous thrombosi s.
--- NOTE | ~2022-07-09 | XR_ITS ---
EXAMINATION: XR chest 1V portable DATE: 07/09/2022 11:47 INDICATION: Dyspnea. TECHNIQUE: A single frontal view of the chest was obtained on 2 radiographs. COMPARISON: Chest single view 02/18/2022, CT abdomen and pelvis 02/22/2022 FINDINGS: Sensitivity is decreased by obesity. There are airspace opacities in the mid and lower lung zones. No pleural effusion or pneumothorax. Cardiomegaly is noted. IMPRESSION: 1. Airspace opacities in the mid and lower lung zones, consistent with atelectasis versus pneumonia. 2. Cardiomegaly. Reviewed, dictated and finalized at location A. IMPRESSION: 1. Airspace opacities in the mid and lower lung zones, consistent with atelecta sis versus pneumonia. 2. Cardiomegaly.
--- NOTE | ~2022-07-09 | XR_ITS ---
EXAMINATION: XR chest 1V portable Exam Date/Time: 07/12/2022 15:56 CDT HISTORY: increase oxygen demand. Comparison: 07/09/2022. RESULT: Lines, tubes, and devices: None. Lungs and pleura: The patient is rotated towards the right. Sensitivity is decreased by obesity. Sim ilar diffuse mild reticular and groundglass opacities, with vascular congestion. Scattered subsegment al airspace opacities. Cardiomediastinal silhouette: Stable. Other: No acute osseous or upper abdominal finding. IMPRESSION: Pulmonary vascular congestion/mild interstitial edema. Patchy opacities may reflect atelectasis, noti ng that infection is not excluded Reviewed, dictated and finalized at location K. IMPRESSION: Pulmonary vascular congestion/mild interstitial edema. Patchy opacities may ref lect atelectasis, noting that infection is not excluded
--- NOTE | 2022-07-09 09:58 | ECG_ITS ---
Measurements Intervals [place] Rate: 73 P: 16 ME: 171 QRS: 74 QRSD: 90 T: -39 QT: 403 QTc: 444 Interpretive Statements SINUS RHYTHM POOR R WAVE PROGRESSION, ANTERIOR LEADS BORDERLINE ST-T WAVE ABNORMALITY- INF/HIGH LAT LEADS BASELINE ARTIFACT- I, II, AVR, AVL BORDERLINE ECG COMPARED TO ECG 02/18/2022 05:38:37 NO SIGNIFICANT CHANGES Electronically Signed On 07-09-2022 10:09:32 CDT by Luis Sofia D.O.
[2022-07-09 10:42] LABS: Basophils Percent Auto 0.2 % (0.2-1.2); Eosinophils Absolute Auto 0.1 K/mm3 (0-0.3); Eosinophils Percent Auto 2.3 % (0-4.4); Hematocrit 34.3 % (37.0-47.0); Hemoglobin 9.7 g/dL (12.0-15.0); Immature Granulocyte Absolute 0.01 K/mm3 (0.00-0.031); Immature Granulocyte Percent A 0.2 % (0-0.5); Lymphocytes Absolute Auto 0.74 K/mm3 (0.9-3.2); Lymphocytes Percent Auto 15.8 % (18.3-44.2); Mean Corpuscular HGB Conc 28.3 g/dl (32-36); Mean Corpuscular Hemoglobin 25.4 pg (26-34); Mean Corpuscular Volume 89.8 fl (80-100); Mean Platelet Volume 9.9 fl (7.4-10.4); Monocytes Absolute Auto 0.5 K/mm3 (0.1-0.6); Monocytes Percent Auto 11.3 % (2.6-8.5); Neutrophils Absolute Auto 3.3 K/mm3 (1.3-6.7); Neutrophils Percent Auto 70.2 % (45.5-73.1); Platelet Count Result 219 k/mm3 (150-375); Red Blood Count 3.82 M/mm3 (4.2-5.4); Red Cell Distribution Width 17.9 % (11.5-14.5); White Blood Count 4.7 K/mm3 (4.5-10.0)
[2022-07-09 10:56] LABS: Alanine Aminotransferase 22 U/L (6-35); Albumin Level 3.8 g/dL (3.5-5.1); Alkaline Phosphatase 197 U/L (38-126); Anion Gap 6 mmol/L (8-16); Aspartate Amino Transferase 23 U/L (14-36); Bilirubin,Total 0.9 mg/dL (0.2-1.3); Blood Urea Nitrogen 32 mg/dL (7-17); Calcium 8.6 mg/dL (8.4-10.2); Carbon Dioxide 32 mmol/L (22-30); Chloride 107 mmol/L (98-107); Estimated CRCL calculation 61 ml/min; Estimated Glomerular Filt Rate 38; Glucose 177 mg/dL (65-110); Potassium 4.4 mmol/L (3.4-5.0); Sodium 145 mmol/L (137-145)
[2022-07-09] MEDS: BUMETANIDE INJ 1 MG/4 ML VIAL IV PUSH ×2 (10:56→20:35)
[2022-07-09 10:58] LABS: Hypochromasia 1+ (NORMAL); Platelet Estimate Adequate (Adequate)
[2022-07-09 10:59] LABS: Anisocytosis 1+ (NORMAL); Ovalocytes 1+ (NORMAL); Poikilocytosis 1+ (NORMAL)
[2022-07-09 11:00] LABS: Schistocytes None Seen (NORMAL)
--- NOTE | 2022-07-09 12:16 | PC.NURSE ---
Lab called regarding BNP results. Lab reports will be resulted in approx 15-20 min.
[2022-07-09 12:25] LABS: NT Pro B Type Natriuretic Pept 4530 pg/mL (19.9-100)
--- NOTE | 2022-07-09 12:26 | ED.SOB ---
HPI - SOB/Dyspnea General Chief Complaint: Shortness of Breath/Dyspnea Stated Complaint: SOB Time Seen by Provider: 07/09/22 10:00 History of Present Illness HPI Narrative: Patient is a 52-year-old female who presents ER with shortness of breath. Worsening over the last week. She has been out of her Bumex. Has recently been hospitalized due to heart failure exacerbation. No chest pain or chest pressure. Hypoxic upon arrival. Related Data Home Medications Medication Instructions Recorded Confirmed atorvastatin 20 mg tablet 20 mg PO DAILY 02/18/22 07/09/22 glipizide 10 mg tablet 10 mg PO DAILY 02/18/22 07/09/22 hydralazine 50 mg tablet 50 mg PO BID 02/18/22 07/09/22 insulin detemir U-100 100 unit/mL 20 unit subcut HS 02/18/22 07/09/22 (3 mL) subcutaneous pen (Levemir FlexTouch U-100 Insulin) metoprolol tartrate 50 mg tablet 50 mg PO BID 02/18/22 07/09/22 Allergies Allergy/AdvReac Type Severity Reaction Status Date / Time Latex, Natural Rubber Allergy Rash Verified 07/09/22 10:13 Review of Systems Review of Systems: All systems reviewed & are unremarkable except as noted in HPI and below Constitutional: Constitutional: Denies chills, Denies fatigue and Denies fever(s) ENT: Denies nasal congestion and Denies sore throat Cardiovascular: Cardiovascular: Denies chest pain, Denies rapid heart rate and Denies radiating jaw, neck or arm pain Respiratory: Respiratory: Denies cough and Reports dyspnea Gastrointestinal: Gastrointestinal: Denies abdominal pain, Denies nausea and Denies vomiting [facility] Past Medical History Medical History (Updated 07/09/22 @ 19:00 by Jose Baker MD) CHF (congestive heart failure) Diabetes Hyperlipidemia Hypertension Hypertension associated with diabetes Morbid obesity with BMI of 70 and over, adult LUCIA (obstructive sleep apnea) Surgical History Surgical History (Updated 07/09/22 @ 15:13 by Pam Walls NP) H/O section times 2 History of tonsillectomy and adenoidectomy Family History Family History Mother Diabetes mellitus Family history of thyroid problem Sibling Thyroid cancer Social History Social History (Updated 07/09/22 @ 15:15 by Pam Walls NP) Social History: She lives with her 2 daughters . She is disabled. She is . Code status full code Smoking status: Never smoker Alcohol intake: never Substance use: never Lack of Transportation: No Lack of Food: Never True Current Housing: I Have Housing Concerned About Future Housing: No Difficulty Paying Gas/Electric Bills: No Difficulty Paying for Meds: No Currently Unemployed: No Education: Trade/Vocational Certificate Difficulty w/ Childcare or Family Care: No Spiritual care concerns: No Exam Narrative: GENERAL: Well-appearing, morbidly obese, and in no acute distress. HEAD: Normocephalic, atraumatic. ENT: Mucous membranes moist. CHEST: Clear to auscultation. No respiratory distress. HEART: Regular rate and rhythm. Normal peripheral pulses. ABDOMEN: Soft, nontender, nondistended. EXTREMITIES: Normal range of motion. 2+ edema. SKIN: Warm, dry, no rash. NEURO: Alert and oriented x3. PSYCH: Normal mood and affect. Course Course Emergency Course: Patient informed of results and need to stay due to hypoxia and volume overload. Diuresis ordered. Vital Signs Vital signs: Vital Signs Temperature 98.1 F 07/09/22 09:53 Pulse Rate 75 07/09/22 09:53 Respiratory Rate 22 H 07/09/22 09:53 Blood Pressure 181/90 H 07/09/22 09:53 Pulse Oximetry 89 L 07/09/22 09:53 Oxygen Delivery Room Air 07/09/22 09:53 Temperature 96.7 F L 07/09/22 14:00 Pulse Rate 72 07/09/22 18:19 Respiratory Rate 21 H 07/09/22 14:00 Blood Pressure 141/86 H 07/09/22 14:00 Pulse Oximetry 99 07/09/22 14:00 Oxygen Delivery Nasal Cannula 07/09/22 11:02 Oxygen Flow Rate 2
--- NOTE | 2022-07-09 13:15 | PM.IMHP ---
H&P: HPI History of Present Illness Date/Time: 07/09/22 13:15 Chief Complaint: Shortness of breath Narrative: This is a 52-year-old female patient who has 4+ pitting edema to her lower extremities and has been gaining weight. She has increased swelling to her lower extremities. She does have a history of congestive heart failure. The patient stated that she knew she was in trouble when she gained weight a few days ago. The patient stated that she had similar symptoms back in February when she was admitted for CHF. The patient tells me that she was not aware of her renal failure. She also stated she was not aware of her anemia. Chest x-ray today shows airspace opacities in the mid and lower lung zones consistent with atelectasis versus pneumonia. Cardiomegaly. Her H&H is 9.7 and 34.3 which is her baseline. Her BUN is 32 creatinine 1.7 which is her baseline. GFR is 38 again her is her baseline. Blood sugars 177. BNP is 4530. The patient stated that she does take her Bumex as prescribed. The patient is being admitted to inpatient services the date of service of 07/09/2022. Review of Systems Review of Systems: All systems reviewed & are unremarkable except as noted in HPI and below Constitutional: Constitutional: Reports as per HPI and Reports no additional constitutional complaints Eyes: Eyes: Reports as per HPI and Reports no additional eye complaints ENT: Reports system reviewed and no additional complaints, except as documented and Reports Normal hearing present Cardiovascular: Cardiovascular: Reports no additional cardiovascular complaints Respiratory: Respiratory: Reports no additional respiratory complaints and Reports no additional respiratory complaints Gastrointestinal: Gastrointestinal: Reports as per HPI and Reports no additional gastrointestinal complaints Musculoskeletal: Musculoskeletal: Reports no additional musculoskeletal complaints Integumentary/Breasts: Skin/Breast: Reports system reviewed and no additional complaints, except as docu and Reports as per HPI Neurologic: Reports system reviewed and no additional complaints, except as documented, Reports as per HPI and Reports Normal hearing present Psychiatric: Psychiatric: Reports no additional psychiatric complaints and Reports as per HPI Endocrine: Endocrine: Reports no additional endocrine complaints Hematologic/Lymphatic: Hematologic/Lymphatic: Reports no additional hematologic/lymphatic complaints Allergic/Immunologic: Allergic/Immunologic: Reports no additional allergic/immunologic complaints PMFSH Past Medical History Medical History CHF (congestive heart failure) Diabetes Hyperlipidemia Hypertension Hypertension associated with diabetes Morbid obesity with BMI of 70 and over, adult LUCIA (obstructive sleep apnea) Surgical History Surgical History (Updated 07/09/22 @ 15:13 by Pam Walls NP) H/O section times 2 History of tonsillectomy and adenoidectomy Family History Family History Mother Diabetes mellitus Family history of thyroid problem Sibling Thyroid cancer Social History Social History (Updated 07/09/22 @ 15:15 by Pam Walls NP) Social History: She lives with her 2 daughters . She is disabled. She is . Code status full code Smoking status: Never smoker Alcohol intake: never Substance use: never Lack of Transportation: No Lack of Food: Never True Current Housing: I Have Housing Concerned About Future Housing: No Difficulty Paying Gas/Electric Bills: No Difficulty Paying for Meds: No Currently Unemployed: No Education: Trade/Vocational Certificate Difficulty w/ Childcare or Family Care: No Spiritual care concerns: No Meds Home Medications and Allergies Home Medications Medication Instructions Recorded Confirmed Type atorvastatin 2
--- NOTE | 2022-07-09 14:55 | ADMGEN ---
This patient, Armond Jones, was admitted to [facility] Surg Room 322-01. Patient/family oriented to hospital policies and general routines including ID bracelet, bed and alarms, visiting hours, pain management, procedures, bathroom and other care routines, personal items, smoking policy, room service/diet, and visiting hours. Information on how to activate the Rapid Response Team has been discussed. Patient/Family are encouraged to report perceived risks to care and to ask questions if they do not understand what they are told or what they should do.
[2022-07-09] MEDS: METOPROLOL TARTRATE 50 MG TAB PO (18:19)
[2022-07-09] MEDS: POTASSIUM CHLORIDE 10 MEQ TABLET.ER PO (18:20)
[2022-07-09] MEDS: hydrALAZINE HCL 50 MG TABLET PO (18:20)
[2022-07-09 19:32] LABS: Glucose Point of Care 166 mg/dl (65-105)
[2022-07-09] MEDS: FLUTICASONE PROPIONATE 0.05% NA SPR 16 GM BTL (*BKC) 1 SPRAY NASAL (20:36)
[2022-07-09] MEDS: HEPARIN SODIUM 5,000 UNITS/ML VIAL 5000 UNITS SUB-Q (20:51)
[2022-07-09] MEDS: INSULIN GLARGINE (*BKC) 100 UNITS/ML 20 UNITS SUB-Q (20:53)
[2022-07-09 21:53] LABS: Glucose Point of Care 150 mg/dl (65-105)
[2022-07-10] VITALS (11 sets, daily range): BP systolic 141–146; BP diastolic 69–102; PULSE 63–70; RESP 18–20; TEMP 35.9–36.3; O2SAT 81–100
[2022-07-10] MEDS: HEPARIN SODIUM 5,000 UNITS/ML VIAL 5000 UNITS SUB-Q ×3 (05:52→21:21)
[2022-07-10 07:23] LABS: Basophils Percent Auto 0.3 % (0.2-1.2); Eosinophils Absolute Auto 0.1 K/mm3 (0-0.3); Eosinophils Percent Auto 3.5 % (0-4.4); Hematocrit 33.7 % (37.0-47.0); Hemoglobin 9.2 g/dL (12.0-15.0); Immature Granulocyte Absolute 0.01 K/mm3 (0.00-0.031); Immature Granulocyte Percent A 0.3 % (0-0.5); Lymphocytes Absolute Auto 0.83 K/mm3 (0.9-3.2); Lymphocytes Percent Auto 23.9 % (18.3-44.2); Mean Corpuscular HGB Conc 27.3 g/dl (32-36); Mean Corpuscular Hemoglobin 24.9 pg (26-34); Mean Corpuscular Volume 91.3 fl (80-100); Mean Platelet Volume 9.9 fl (7.4-10.4); Monocytes Absolute Auto 0.5 K/mm3 (0.1-0.6); Platelet Count Result 198 k/mm3 (150-375); Red Blood Count 3.69 M/mm3 (4.2-5.4); Red Cell Distribution Width 17.8 % (11.5-14.5); White Blood Count 3.5 K/mm3 (4.5-10.0)
[2022-07-10 07:37] LABS: Alanine Aminotransferase 20 U/L (6-35); Albumin Level 3.6 g/dL (3.5-5.1); Alkaline Phosphatase 168 U/L (38-126); Anion Gap 4 mmol/L (8-16); Aspartate Amino Transferase 23 U/L (14-36); Bilirubin,Total 0.8 mg/dL (0.2-1.3); Blood Urea Nitrogen 34 mg/dL (7-17); Calcium 8.4 mg/dL (8.4-10.2); Carbon Dioxide 32 mmol/L (22-30); Chloride 107 mmol/L (98-107); Estimated CRCL calculation 57 ml/min; Estimated Glomerular Filt Rate 36; Glucose 90 mg/dL (65-110); Magnesium 2.2 mg/dL (1.6-2.3); Potassium 4.6 mmol/L (3.4-5.0); Sodium 143 mmol/L (137-145)
[2022-07-10 07:47] LABS: Hemoglobin A1C 8.4 % (<5.7)
[2022-07-10 07:57] LABS: Hypochromasia 2+ (NORMAL); Ovalocytes 1+ (NORMAL); Platelet Estimate Adequate (Adequate)
[2022-07-10 07:58] LABS: Anisocytosis 1+ (NORMAL); Schistocytes None Seen (NORMAL)
[2022-07-10 08:19] LABS: Glucose Point of Care 77 mg/dl (65-105)
[2022-07-10] MEDS: FLUTICASONE PROPIONATE 0.05% NA SPR 16 GM BTL (*BKC) 1 SPRAY NASAL ×2 (08:48→21:03)
[2022-07-10] MEDS: METOPROLOL TARTRATE 50 MG TAB PO ×2 (08:49→18:35)
[2022-07-10] MEDS: ATORVASTATIN 20 MG TABLET PO (08:50)
[2022-07-10] MEDS: POTASSIUM CHLORIDE 10 MEQ TABLET.ER PO ×2 (08:50→18:37)
[2022-07-10] MEDS: hydrALAZINE HCL 50 MG TABLET PO ×2 (08:50→18:38)
[2022-07-10] MEDS: glipiZIDE 5 MG TABLET 10 MG PO (08:50)
[2022-07-10] MEDS: BUMETANIDE INJ 1 MG/4 ML VIAL IV PUSH ×2 (08:51→18:49)
[2022-07-10 09:12] LABS: Glucose Point of Care 91 mg/dl (65-105)
--- NOTE | 2022-07-10 11:20 | P.CONNP_ITS ---
Assessment and Plan Assessment and plan (1) Stage 3b chronic kidney disease: Code(s): N18.32 - Chronic kidney disease, stage 3b Status: Chronic Assessment and Plan: * baseline creatinine runs ~ 1.7 - 2.2mg/dl * based on evaluation on last hospitalization (February 2022), felt to be secondary to diabetes and hypertension * previous evaluation reviewed: * HTN + DM x 15+ years with variable control * obesity and LUCIA/OHS likely contributing * renal ultrasound w/o obstruction * moderate proteinuria * serological evaluation (ANCA/RASHEL/dsDNA-Ab/cyroglobulins/antiGBM-Ab/SPEP and UPEP) all negative * appears relatively stable * follow repeat labs and UOP with diuresis (2) Acute exacerbation of CHF (congestive heart failure): Code(s): I50.9 - Heart failure, unspecified Status: Acute Assessment and Plan: * as evidence evaluation to date: * 20 pound fluid weight gain * elevated BNP * edema in abdomen, back, and lower extremities * suspect due to right sided heart failure (based on last Echo, obesity, and LUCIA) * on IV bumex * consider adding metolazone to augment diuresis * follow I/Os, daily weights, and exam * reassess for proteinuria to r/o nephrotic syndrome * Cardiology consultation (3) Hypertension: Code(s): I10 - Essential (primary) hypertension Status: Chronic Assessment and Plan: * mildly elevated * may improve with ongoing diuresis * follow trend of hemodynamics (4) Anemia: Code(s): D64.9 - Anemia, unspecified Status: Acute Assessment and Plan: * could be related to CKD * check iron studies * consider empiric Epogen * follow H/H (5) Diabetes mellitus with chronic kidney disease: Code(s): E11.22 - Type 2 diabetes mellitus with diabetic chronic kidney disease Status: Chronic Assessment and Plan: * follow accuchecks * glycemic control per hospitalists I will continue to follow the patient with you while she remains hospitalized and make further recommendations during hospital course. Thank you for allowing me to participate in care this patient. History of Present Illness Reason for Consult Consult date: 07/10/22 Reason for consult: chronic renal failure Chief Complaint Chief complaint: CHF Exacerbation History of Present Illness Narrative: The patient is a 52-year-old female with a past medical history as outlined below who presented to [facility] Emergency room for further evaluation of shortness of breath The patient was apparently coming to [facility] for a follow-up appointment with Cardiology regarding her known history of congestive heart failure. On her way in to the hospital, she felt more short of breath than usual. she felt that her breathing was somewhat worse in general and instead of going to her schedule cardiology appointment, she presented to the ER for further assessment. Workup and evaluation in the emergency room demonstrated the patient to be hemodynamically stable and in no acute distress. Routine blood test demo nstrated labs consistent with a known history of renal insufficiency /chronic kidney disease with no critical electrolyte abnormalities. Her CBC was significant for anemia with a hemoglobin of 9.7 and hematocrit 34.3. Her BNP was quite elevated 4530 and she had a chest x-ray that demonstrated airspace opacities in the mid and lower lung zones consistent with atelectasis versus pneumonia as well as cardiomegaly. Her exam was significant for significant /severe low
--- NOTE | 2022-07-10 11:20 | PM.CNNEP ---
Assessment and Plan Assessment and plan (1) Stage 3b chronic kidney disease: Code(s): N18.32 - Chronic kidney disease, stage 3b Status: Chronic Assessment and Plan: baseline creatinine runs ~ 1.7 - 2.2mg/dl based on evaluation on last hospitalization (February 2022), felt to be secondary to diabetes and hypertension previous evaluation reviewed: HTN + DM x 15+ years with variable control obesity and LUCIA/OHS likely contributing renal ultrasound w/o obstruction moderate proteinuria serological evaluation (ANCA/RASHEL/dsDNA-Ab/cyroglobulins/antiGBM-Ab/SPEP and UPEP) all negative appears relatively stable follow repeat labs and UOP with diuresis (2) Acute exacerbation of CHF (congestive heart failure): Code(s): I50.9 - Heart failure, unspecified Status: Acute Assessment and Plan: as evidence evaluation to date: 20 pound fluid weight gain elevated BNP edema in abdomen, back, and lower extremities suspect due to right sided heart failure (based on last Echo, obesity, and LUCIA) on IV bumex consider adding metolazone to augment diuresis follow I/Os, daily weights, and exam reassess for proteinuria to r/o nephrotic syndrome Cardiology consultation (3) Hypertension: Code(s): I10 - Essential (primary) hypertension Status: Chronic Assessment and Plan: mildly elevated may improve with ongoing diuresis follow trend of hemodynamics (4) Anemia: Code(s): D64.9 - Anemia, unspecified Status: Acute Assessment and Plan: could be related to CKD check iron studies consider empiric Epogen follow H/H (5) Diabetes mellitus with chronic kidney disease: Code(s): E11.22 - Type 2 diabetes mellitus with diabetic chronic kidney disease Status: Chronic Assessment and Plan: follow accuchecks glycemic control per hospitalists I will continue to follow the patient with you while she remains hospitalized and make further recommendations during hospital course. Thank you for allowing me to participate in care this patient. History of Present Illness Reason for Consult Consult date: 07/10/22 Reason for consult: chronic renal failure Chief Complaint Chief complaint: CHF Exacerbation History of Present Illness Narrative: The patient is a 52-year-old female with a past medical history as outlined below who presented to [facility] Emergency room for further evaluation of shortness of breath The patient was apparently coming to [facility] for a follow-up appointment with Cardiology regarding her known history of congestive heart failure. On her way in to the hospital, she felt more short of breath than usual. she felt that her breathing was somewhat worse in general and instead of going to her schedule cardiology appointment, she presented to the ER for further assessment. Workup and evaluation in the emergency room demonstrated the patient to be hemodynamically stable and in no acute distress. Routine blood test demonstrated labs consistent with a known history of renal insufficiency /chronic kidney disease with no critical electrolyte abnormalities. Her CBC was significant for anemia with a hemoglobin of 9.7 and hematocrit 34.3. Her BNP was quite elevated 4530 and she had a chest x-ray that demonstrated airspace opacities in the mid and lower lung zones consistent with atelectasis versus pneumonia as well as cardiomegaly. Her exam was significant for significant /severe lower extremity edema as well as mild distension is abdomen with abdominal wall edema as well. It was felt her shortness of breath and swelling were likely another exacerbation of her CHF much like she had in February of 2022. She was started on IV diuretic therapy and subsequently admitted to the hospital for further evaluation and therapy. Since her admission, she appears to have responded to IV diuretic therapy and does feel
[2022-07-10 12:06] LABS: Glucose Point of Care 108 mg/dl (65-105)
--- NOTE | 2022-07-10 12:50 | PM.CNCAR ---
Assessment and Plan Assessment and plan (1) CHF (congestive heart failure): Code(s): I50.9 - Heart failure, unspecified Status: Acute (2) Obesity hypoventilation syndrome: Code(s): E66.2 - Morbid (severe) obesity with alveolar hypoventilation Status: Acute (3) Morbid obesity with BMI of 70 and over, adult: Code(s): E66.01 - Morbid (severe) obesity due to excess calories; Z68.45 - Body mass index [BMI] 70 or greater, adult Status: Acute Plan This is a 52-year-old woman with suspected right heart failure because of massive obesity and probable sleep apnea. CPAP has been started at home and she is compliant with her device. She has gained about 20 lb of weight presumably fluid weight since discharge in February. Her medical regimen is appropriate for this. I would like to add some oral chlorthalidone to hopefully increase the affective the IV bumetanide that is being used for her diuresis. Hopefully this will accelerate her diuresis to her previous dry weight and allow her to be discharged more expeditiously. I do not believe we need to initiate any further cardiac workup her evaluation was just a few months ago and there is nothing going on clinically that with sleep me to suspect something different or new here. It is important that she loses weight and is compliant with her CPAP. These measures will be the most effective in terms of treating her diastolic heart failure. Dakota Chavez MD [facility] History of Present Illness History of Present Illness Consult date/time: 07/10/22 12:50 Reason For Visit: CHF Exacerbation Narrative: this is a 52-year-old woman who is known to our service with a history of diastolic heart failure and massive obesity who is being seen at the request of the hospitalist today for assistance with evaluation and management. The patient was seen by our service in February of 2022 when she was hospitalized here for some time with edema and fluid overload. The patient is massively obese with a BMI of 75 and was felt clinically to have obstructive sleep apnea. Her evaluation at that time included an echocardiogram which was of suboptimal quality because of her body habitus but did did appear to show preserved left ventricular systolic function and no obvious valvular dysfunction. She was treated with the regimen including bumetanide, hydralazine, metoprolol and over the course of the hospital stay lost about 45 lb of weight and was discharged in the middle of February in improved condition. She states that she had a follow-up appointment yesterday with my partner, Dr. Alfaro and while she was coming into the hospital he building 2 arrived to the appointment she was feeling worse with more shortness of breath so instead of coming to the office she went to the emergency room where she was evaluated and admitted. Her admitting weight in the hospital at 197.8 kg suggests about 20 lb of weight gain since discharge in February. She was unaware of this weight gain otherwise. She believes that for several days before this admission she has been having more difficulty with exertional shortness of breath. Upon seeing her in the room today she appears to be comfortable she has a visiting with her daughter who is in the room as well. Review of Systems Constitutional: Constitutional: Reports fatigue Eyes: Eyes: Reports no additional eye complaints ENT: Reports system reviewed and no additional complaints, except as documented Cardiovascular: Cardiovascular: Reports as per HPI and Reports leg edema Respiratory: Respiratory: Reports dyspnea on exertion Gastrointestinal: Gastrointestinal: Reports no additional gastrointestinal complaints Musculoskeletal: Musculoskeletal: Reports no additional musculoskeletal complaints Integumentary/Breasts: Skin/Breast: Reports system reviewed and no additional complaints, except as docu Neurologic: Reports system reviewed and no additional com
--- NOTE | 2022-07-10 14:33 | PM.IMPN ---
Progress Note: A&P Assessment and Plan (1) CHF (congestive heart failure): Code(s): I50.9 - Heart failure, unspecified Status: Acute Assessment and Plan: Monitor vital signs, I&Os, BUN/creatinine, daily weights, neuro status and patient is a fall risk Monitor serum electrolytes, Keep serum Potassium>4 and serum Magnesium>2 and CBC IV Bumex Consult cardiology for further management, appreciate assistance and recommendations Patient has 4+ pitting edema to lower extremities. Will also get the ultrasound to rule out any DVTs. Last echo was on 02/18/2022 read as EF of 50 55%, mild valvular disease, LVH, intermediate diastolic function BNP 4530 (2) Hyperlipidemia: Code(s): E78.5 - Hyperlipidemia, unspecified Status: Acute Assessment and Plan: Continue with atorvastatin (3) Hypertension: Code(s): I10 - Essential (primary) hypertension Status: Chronic Assessment and Plan: Continue with hydralazine Metoprolol (4) Diabetes: Code(s): E11.9 - Type 2 diabetes mellitus without complications Status: Chronic Assessment and Plan: Accu-Cheks AC and HS with sliding scale insulin and hypoglycemic protocol check A1c Continue with glipizide (5) LUCIA (obstructive sleep apnea): Code(s): G47.33 - Obstructive sleep apnea (adult) (pediatric) Status: Acute Assessment and Plan: The patient is requesting a nasal pillow for her CPAP machine (6) Renal failure: Code(s): N19 - Unspecified kidney failure Status: Acute Assessment and Plan: Renal ultrasound with non visualization of the kidneys due to body habitus Nephrology has been consulted The patient is at her baseline. Continue to monitor her renal function as she is on Bumex. Subjective Date/time seen: 07/10/22 14:33 Interval history: Patient sitting on side of the bed 1 and room. Patient stated that she presented to the ED due to shortness of breath and that this has improved since arrival. Patient states that she noticed swelling into her back and bottom that is not normally there. She also states that her abdomen is very tight when it is usually not tight. Patient has had approximately 20 lb weight gain since February. Review of Systems Review of Systems: All systems reviewed & are unremarkable except as noted in HPI and below Exam Narrative: GENERAL: Comfortable, no acute distress, morbidly obese HENMT: moist mucous membranes EYES: EOM intact b/l NECK: no lymphadenopathy RESPIRATORY: clear to auscultation CARDIO: RRR GI: soft, nontender, bowel sounds present SKIN: no rashes EXTREMITIES: +4 pitting edema from the mid abdomen down Objective Data Vital Signs Vital Signs: Vital Signs - 24 hr 07/09/22 18:19 07/09/22 22:57 07/09/22 22:00 Temperature 96.6 F L Pulse Rate 72 64 Respiratory Rate 18 Blood Pressure 132/65 Pulse Oximetry 97 97 Oxygen Delivery Nasal Cannula Oxygen Flow Rate 2 07/09/22 20:20 07/10/22 01:03 07/10/22 06:00 Temperature 96.6 F L Pulse Rate 64 63 65 Respiratory Rate 18 18 Blood Pressure 145/70 H Pulse Oximetry 97 95 100 Oxygen Delivery Nasal Cannula Autopap Oxygen Flow Rate 3 07/10/22 08:49 07/10/22 08:46 Temperature Pulse Rate 64 Respiratory Rate Blood Pressure Pulse Oximetry 100 Oxygen Delivery Nasal Cannula Oxygen Flow Rate 2 Intake/Output Intake/Output: Intake & Output 07/07/22 07/08/22 07/09/22 07/10/22 23:59 23:59 23:59 23:59 Intake Total 350 590 Balance 350 590 Meds/Results Medications: Active Medications Generic Name Dose Route Start Last Admin Trade Name Freq PRN Reason Stop Dose Admin Acetaminophen 650 mg 07/09/22 12:28 Acetaminophen 325 Mg Tablet PO Q4H PRN Mild Pain (1-3) or Fever Hydrocodone Bitart/Acetaminophen 1 tab 07/09/22 12:28 Hydrocodone/Acetaminophen (*Crx) 5-325 Mg Tablet PO Q4H PRN Mohamud
--- NOTE | 2022-07-10 14:48 | PC.NURSE ---
BAL Quintero requested to try to wean patient off of O2. O2 sats were 81% on room air. Patient placed back on 2 L O2 nC. Sats are now 95% on 2L NC. BAL Quintero aware.
[2022-07-10] MEDS: CHLORTHALIDONE 25 MG TABLET PO (15:30)
[2022-07-10 17:00] LABS: Glucose Point of Care 153 mg/dl (65-105)
[2022-07-10 19:10] LABS: Creatinine Urine 107.3 mg/dL; Total Protein Urine Random 169 mg/dL; Ur Ttl Prot Creatinine Ratio 1.58 mg/mg (0-0.20)
[2022-07-10] MEDS: INSULIN GLARGINE (*BKC) 100 UNITS/ML 20 UNITS SUB-Q (21:00)
[2022-07-10 22:18] LABS: Glucose Point of Care 144 mg/dl (65-105)
[2022-07-11] VITALS (8 sets, daily range): BP systolic 135–140; BP diastolic 52–79; PULSE 65–72; RESP 18–22; TEMP 36.6–36.7; O2SAT 93–98
[2022-07-11] MEDS: HEPARIN SODIUM 5,000 UNITS/ML VIAL 5000 UNITS SUB-Q ×3 (05:48→20:58)
[2022-07-11 07:16] LABS: Basophils Percent Auto 0.3 % (0.2-1.2); Eosinophils Absolute Auto 0.1 K/mm3 (0-0.3); Hemoglobin 9.3 g/dL (12.0-15.0); Immature Granulocyte Absolute 0.01 K/mm3 (0.00-0.031); Immature Granulocyte Percent A 0.3 % (0-0.5); Lymphocytes Absolute Auto 0.88 K/mm3 (0.9-3.2); Lymphocytes Percent Auto 24.9 % (18.3-44.2); Mean Corpuscular HGB Conc 27.4 g/dl (32-36); Mean Corpuscular Hemoglobin 24.7 pg (26-34); Mean Corpuscular Volume 90.4 fl (80-100); Mean Platelet Volume 10.1 fl (7.4-10.4); Monocytes Absolute Auto 0.6 K/mm3 (0.1-0.6); Monocytes Percent Auto 16.4 % (2.6-8.5); Neutrophils Absolute Auto 1.9 K/mm3 (1.3-6.7); Neutrophils Percent Auto 54.1 % (45.5-73.1); Platelet Count Result 201 k/mm3 (150-375); Red Blood Count 3.76 M/mm3 (4.2-5.4); White Blood Count 3.5 K/mm3 (4.5-10.0)
[2022-07-11 07:35] LABS: Alanine Aminotransferase 19 U/L (6-35); Albumin Level 3.7 g/dL (3.5-5.1); Alkaline Phosphatase 176 U/L (38-126); Anion Gap 2 mmol/L (8-16); Aspartate Amino Transferase 25 U/L (14-36); Bilirubin,Total 0.9 mg/dL (0.2-1.3); Blood Urea Nitrogen 36 mg/dL (7-17); Calcium 8.6 mg/dL (8.4-10.2); Carbon Dioxide 37 mmol/L (22-30); Chloride 106 mmol/L (98-107); Estimated CRCL calculation 49 ml/min; Estimated Glomerular Filt Rate 30; Glucose 59 mg/dL (65-110); Magnesium 2.2 mg/dL (1.6-2.3); Potassium 4.9 mmol/L (3.4-5.0); Sodium 145 mmol/L (137-145)
[2022-07-11] MEDS: DEXTROSE 5% 1,000 ML 1,000 ML 100 ML IVPB (07:43)
[2022-07-11] MEDS: BUMETANIDE INJ 1 MG/4 ML VIAL IV PUSH (07:47)
[2022-07-11] MEDS: POTASSIUM CHLORIDE 10 MEQ TABLET.ER PO (07:47)
[2022-07-11] MEDS: ATORVASTATIN 20 MG TABLET PO (07:47)
[2022-07-11] MEDS: METOPROLOL TARTRATE 50 MG TAB PO ×2 (07:47→16:59)
[2022-07-11] MEDS: LORATADINE 10 MG TABLET PO (07:48)
[2022-07-11] MEDS: FLUTICASONE PROPIONATE 0.05% NA SPR 16 GM BTL (*BKC) 1 SPRAY NASAL ×2 (07:48→20:59)
[2022-07-11] MEDS: hydrALAZINE HCL 50 MG TABLET PO ×2 (07:48→16:59)
[2022-07-11] MEDS: CHLORTHALIDONE 25 MG TABLET PO (07:48)
[2022-07-11 08:09] LABS: Glucose Point of Care 93 mg/dl (65-105)
[2022-07-11 08:09] LABS: Glucose Point of Care 47 mg/dl (65-105)
[2022-07-11 08:09] LABS: Glucose Point of Care 59 mg/dl (65-105)
[2022-07-11 08:28] LABS: Anisocytosis 1+ (NORMAL); Hypochromasia 2+ (NORMAL); Microcytosis 1+ (NORMAL); Ovalocytes 1+ (NORMAL); Platelet Estimate Adequate (Adequate)
[2022-07-11 08:29] LABS: Schistocytes None Seen (NORMAL)
--- NOTE | 2022-07-11 10:23 | PM.PNCARD ---
Progress Note: A&P Assessment and Plan (1) Acute exacerbation of CHF (congestive heart failure): Code(s): I50.9 - Heart failure, unspecified Status: Acute Assessment and Plan: Patient with acute on chronic CHF with preserved ejection fraction In the setting of morbid obesity and untreated or undertreated was LUCIA. - change IV bumetanide to bumetanide 2 mg p.o. b.i.d. for maintenance diuresis. - start spironolactone 25 mg p.o. daily; reduce potassium dose to 10 mEq p.o. daily, monitor potassium levels closely. - start SGLT 2 inhibitor for diastolic CHF; will also benefit patient for diabetes mellitus, and some weight reduction -optimal blood pressure control -outpatient cardiology follow-up (2) LUCIA (obstructive sleep apnea): Code(s): G47.33 - Obstructive sleep apnea (adult) (pediatric) Status: Acute Assessment and Plan: optimal treatment of LUCIA, weight reduction. Patient reported that she is scheduled to undergo weight reduction eval as an outpatient. She was encouraged to follow up at weight loss clinic. Patient also has establish cardiovascular care, and will follow up in our cardiology clinic after hospital discharge. Time Spent With Patient Time with patient: 25 - 35 minutes Subjective Date/time seen: 07/11/22 10:23 Interval history: Date of service: July 11, 2022 Interval history:Patient reports improvement in her shortness of breath. No chest pain or palpitations. At the time of evaluation, patient was sitting Up in the bed. Exam Narrative: PHYSICAL EXAMINATION: GENERAL: morbidly obese, Alert, oriented, no acute distress MENTAL STATUS: affect appropriate to mood EYES: Extraocular movements intact, no pallor EARS: External ears appear normal, hearing grossly normal NOSE: Normal and patent, no discharge MOUTH: Mucous membranes moist, tongue normal NECK: Supple, thick neck CHEST: Good respiratory effort, diminished breath sounds due to body habitus HEART: Normal rate, regular rhythm, no audible murmurs ABDOMEN: obese, protuberant NEUROLOGICAL: Alert, oriented, normal speech, no gross motor deficits MUSCULOSKELETAL: No major deformity, no amputation EXTREMITIES: pedal edema, no clubbing, no cyanosis SKIN: no rash on the exposed area, no cyanosis PSYCHIATRIC: Normal mood, appropriate affect Objective Data Vital Signs Vital Signs: Vital Signs - 24 hr 07/10/22 14:34 07/10/22 14:39 07/10/22 14:00 Temperature 36.2 C L Pulse Rate 69 Respiratory Rate 20 Blood Pressure 146/69 H Pulse Oximetry 81 L 94 95 Oxygen Delivery Room Air Nasal Cannula Oxygen Flow Rate 2 07/10/22 18:35 07/10/22 18:36 07/10/22 20:00 Temperature Pulse Rate 70 70 70 Respiratory Rate 20 Blood Pressure 146/81 H Pulse Oximetry 94 94 Oxygen Delivery Nasal Cannula Oxygen Flow Rate 2 07/10/22 22:00 07/11/22 06:00 07/11/22 07:55 Temperature 36.3 C L 36.6 C Pulse Rate 64 65 Respiratory Rate 20 20 Blood Pressure 141/102 H 135/52 L Pulse Oximetry 95 95 93 Oxygen Delivery Nasal Cannula Oxygen Flow Rate 2 07/11/22 09:24 Temperature Pulse Rate Respiratory Rate Blood Pressure Pulse Oximetry 98 Oxygen Delivery Nasal Cannula Oxygen Flow Rate 2 Intake/Output Intake/Output: Intake & Output 07/08/22 07/09/22 07/10/22 07/11/22 23:59 23:59 23:59 23:59 Intake Total 350 1470 490 Balance 350 1470 490 Meds/Results Medications: Active Medications Generic Name Dose Route Start Last Admin Trade Name Freq PRN Reason Stop Dose Admin Acetaminophen 650 mg 07/09/22 12:28 Acetaminophen 325 Mg Tablet PO Q4H PRN Mild Pain (1-3) or Fever Hydrocodone Bitart/Acetaminophen 1 tab 07/09/22 12:28 Hydrocodone/Acetaminophen (*Crx) 5-325 Mg Tablet PO Q4H PRN Pain Rated 4-6 Atorvastatin Calcium 20 mg 07/10/22 09:00 07/11/22 07:47 Atorvastatin 20 Mg Tablet PO 20 mg DAILY RUSSEL Administration
--- NOTE | 2022-07-11 11:33 | P.PNNP_ITS ---
Progress Note: A&P Assessment and Plan (1) Stage 3b chronic kidney disease: Code(s): N18.32 - Chronic kidney disease, stage 3b Status: Chronic Assessment and Plan: * baseline creatinine runs ~ 1.7 - 2.2mg/dl * based on evaluation on last hospitalization (February 2022), felt to be secondary to diabetes and hypertension * previous evaluation reviewed (February 2022): * HTN + DM x 15+ years with variable control * obesity and LUCIA/OHS likely contributing * renal ultrasound w/o obstruction * moderate proteinuria * serological evaluation (ANCA/RASHEL/dsDNA-Ab/cyroglobulins/antiGBM-Ab/SPEP and UPEP) all negative * appears relatively stable * follow repeat labs and UOP with diuresis (2) Acute exacerbation of CHF (congestive heart failure): Code(s): I50.9 - Heart failure, unspecified Status: Acute Assessment and Plan: * as evidence evaluation to date: * 20 pound fluid weight gain * elevated BNP * edema in abdomen, back, and lower extremities * suspect due to right sided heart failure (based on last Echo, obesity, and LUCIA) * on IV bumex + chlorthalidone * follow I/Os, daily weights, and exam * not nephrotic syndrome as only 1600mg of proteinuria * Cardiology following (3) Hypertension: Code(s): I10 - Essential (primary) hypertension Status: Chronic Assessment and Plan: * mildly elevated but better * may improve with ongoing diuresis * follow trend of hemodynamics (4) Anemia: Code(s): D64.9 - Anemia, unspecified Status: Acute Assessment and Plan: * could be related to CKD * check iron studies * consider empiric Epogen * follow H/H (5) Diabetes mellitus with chronic kidney disease: Code(s): E11.22 - Type 2 diabetes mellitus with diabetic chronic kidney disease Status: Chronic Assessment and Plan: * follow accuchecks * glycemic control per hospitalists Will continue to follow. Subjective Date/time seen: 07/11/22 11:33 She reports ongoing improvement in her respiratory status/breathing and believes her swelling/edema is better as well; creatinine up by AM labs but not surprising in the context of IV diuresis; no other acute issues/events overnight or earlier this morning. Exam Narrative: General: WD/WN AA female in NAD Heart: normal S1 and S2; no rub Lungs: decreased throughout Abdomen: soft, nontender, nondistended; decreased abdominal wall edema Extremities: no cyanosis or clubbing; 2 - 3+ edema Skin: warm and dry Objective Data Vital Signs Vital Signs: Vital Signs Temp Pulse Resp BP Pulse Ox O2 Del Method O2 Flow Rate 07/11/22 11:30 97.8 F 72 18 140/79 98 07/11/22 09:24 98 Nasal Cannula 2 07/11/22 07:55 93 Nasal Cannula 2 07/11/22 06:00 98 F 65 20 135/52 L 95 07/10/22 22:00 97.4 F L 64 20 141/102 H 95 07/10/22 20:00 70 20 94 Nasal Cannula 2 07/10/22 18:36 70 146/81 H 94 07/10/22 18:35 70 Intake/Output Intake/Output: Intake & Output 07/08/22 07/09/22 07/10/22 07/11/22 23:59 23:59 23:59 23:59 Intake Total 350 1470 1610 Balance 350 1470 1610 Meds/Results Medications: Active Medications
--- NOTE | 2022-07-11 11:33 | PM.PNNEP ---
Progress Note: A&P Assessment and Plan (1) Stage 3b chronic kidney disease: Code(s): N18.32 - Chronic kidney disease, stage 3b Status: Chronic Assessment and Plan: baseline creatinine runs ~ 1.7 - 2.2mg/dl based on evaluation on last hospitalization (February 2022), felt to be secondary to diabetes and hypertension previous evaluation reviewed (February 2022): HTN + DM x 15+ years with variable control obesity and LUCIA/OHS likely contributing renal ultrasound w/o obstruction moderate proteinuria serological evaluation (ANCA/RASHEL/dsDNA-Ab/cyroglobulins/antiGBM-Ab/SPEP and UPEP) all negative appears relatively stable follow repeat labs and UOP with diuresis (2) Acute exacerbation of CHF (congestive heart failure): Code(s): I50.9 - Heart failure, unspecified Status: Acute Assessment and Plan: as evidence evaluation to date: 20 pound fluid weight gain elevated BNP edema in abdomen, back, and lower extremities suspect due to right sided heart failure (based on last Echo, obesity, and LUCIA) on IV bumex + chlorthalidone follow I/Os, daily weights, and exam not nephrotic syndrome as only 1600mg of proteinuria Cardiology following (3) Hypertension: Code(s): I10 - Essential (primary) hypertension Status: Chronic Assessment and Plan: mildly elevated but better may improve with ongoing diuresis follow trend of hemodynamics (4) Anemia: Code(s): D64.9 - Anemia, unspecified Status: Acute Assessment and Plan: could be related to CKD check iron studies consider empiric Epogen follow H/H (5) Diabetes mellitus with chronic kidney disease: Code(s): E11.22 - Type 2 diabetes mellitus with diabetic chronic kidney disease Status: Chronic Assessment and Plan: follow accuchecks glycemic control per hospitalists Will continue to follow. Subjective Date/time seen: 07/11/22 11:33 She reports ongoing improvement in her respiratory status/breathing and believes her swelling/edema is better as well; creatinine up by AM labs but not surprising in the context of IV diuresis; no other acute issues/events overnight or earlier this morning. Exam Narrative: General: WD/WN AA female in NAD Heart: normal S1 and S2; no rub Lungs: decreased throughout Abdomen: soft, nontender, nondistended; decreased abdominal wall edema Extremities: no cyanosis or clubbing; 2 - 3+ edema Skin: warm and dry Objective Data Vital Signs Vital Signs: Vital Signs Temp Pulse Resp BP Pulse Ox O2 Del Method O2 Flow Rate 07/11/22 11:30 97.8 F 72 18 140/79 98 07/11/22 09:24 98 Nasal Cannula 2 07/11/22 07:55 93 Nasal Cannula 2 07/11/22 06:00 98 F 65 20 135/52 L 95 07/10/22 22:00 97.4 F L 64 20 141/102 H 95 07/10/22 20:00 70 20 94 Nasal Cannula 2 07/10/22 18:36 70 146/81 H 94 07/10/22 18:35 70 Intake/Output Intake/Output: Intake & Output 07/08/22 07/09/22 07/10/22 07/11/22 23:59 23:59 23:59 23:59 Intake Total 350 1470 1610 Balance 350 1470 1610 Meds/Results Medications: Active Medications Generic Name Dose Route Start Last Admin Trade Name Freq PRN Reason Stop Dose Admin Acetaminophen 650 mg 07/09/22 12:28 Acetaminophen 325 Mg Tablet PO Q4H PRN Mild Pain (1-3) or Fever Hydrocodone Bitart/Acetaminophen 1 tab 07/09/22 12:28 Hydrocodone/Acetaminophen (*Crx) 5-325 Mg Tablet PO Q4H PRN Pain Rated 4-6 Atorvastatin Calcium 20 mg 07/10/22 09:00 07/11/22 07:47 Atorvastatin 20 Mg Tablet PO 20 mg DAILY RUSSEL Administration Bumetanide 2 mg 07/11/22 17:00 07/11/22 16:59 Bumetanide 1 Mg Tablet PO 2 mg BID RUSSEL Administration Chlorthalidone 25 mg 07/10/22 12:50 07/11/22 07:48 Chlorthalidone 25 Mg Tablet PO 25 mg DAILY RUSSEL Administration Dextrose 12.5 gm 07/09/22 15:08 Dextrose 5
[2022-07-11] MEDS: EMPAGLIFLOZIN 10 MG TABLET PO (12:11)
[2022-07-11 12:32] LABS: Glucose Point of Care 113 mg/dl (65-105)
--- NOTE | 2022-07-11 12:48 | PM.IMPN ---
Progress Note: A&P Assessment and Plan (1) CHF (congestive heart failure): Code(s): I50.9 - Heart failure, unspecified Status: Acute Assessment and Plan: Monitor vital signs, I&Os, BUN/creatinine, daily weights, neuro status and patient is a fall risk Monitor serum electrolytes, Keep serum Potassium>4 and serum Magnesium>2 and CBC Consult cardiology for further management, appreciate assistance and recommendations Patient has 4+ pitting edema to lower extremities. Will also get the ultrasound to rule out any DVTs. Last echo was on 02/18/2022 read as EF of 50 55%, mild valvular disease, LVH, intermediate diastolic function BNP 4530 07/11 Cardiology transition patient to IV Bumex to p.o. Bumexi 2 mg p.o. b.i.d. patient was started on spironolactone and SGLT 2 inhibitor for diastolic CHF. Patient is a requiring O2 supplementation. Wean patient to maintain oxygen greater than 90%. (2) Hyperlipidemia: Code(s): E78.5 - Hyperlipidemia, unspecified Status: Acute Assessment and Plan: Continue with atorvastatin (3) Hypertension: Code(s): I10 - Essential (primary) hypertension Status: Chronic Assessment and Plan: Continue with hydralazine Metoprolol (4) Diabetes: Code(s): E11.9 - Type 2 diabetes mellitus without complications Status: Chronic Assessment and Plan: Accu-Cheks AC and HS with sliding scale insulin and hypoglycemic protocol check A1c Continue with glipizide (5) LUCIA (obstructive sleep apnea): Code(s): G47.33 - Obstructive sleep apnea (adult) (pediatric) Status: Acute Assessment and Plan: The patient is requesting a nasal pillow for her CPAP machine (6) Renal failure: Code(s): N19 - Unspecified kidney failure Status: Acute Assessment and Plan: Renal ultrasound with non visualization of the kidneys due to body habitus Nephrology has been consulted The patient is at her baseline. Continue to monitor her renal function as she is on Bumex. Plan Patient states that she has an appointment for outpatient weight loss surgery program and discussed with her that this would be a great idea considering her weight and overall health right now. She is waiting to hear back from this program currently. Subjective Date/time seen: 07/11/22 12:48 Interval history: Patient sitting on the edge of the bed doing well when I enter the room. Patient states that her shortness of breath has improved although she is still wearing oxygen. Patient failed to be weaned off oxygen yesterday. Patient believes that some of the swelling has gone down. Patient denies body aches, chills, chest pain, headache, dizziness. Review of Systems Review of Systems: All systems reviewed & are unremarkable except as noted in HPI and below Exam Narrative: GENERAL: Comfortable, no acute distress, morbidly obese HENMT: moist mucous membranes EYES: EOM intact b/l NECK: no lymphadenopathy RESPIRATORY: clear to auscultation CARDIO: RRR GI: soft, nontender, bowel sounds present SKIN: no rashes EXTREMITIES: +4 pitting edema from the mid abdomen down Objective Data Vital Signs Vital Signs: Vital Signs - 24 hr 07/10/22 14:34 07/10/22 14:39 07/10/22 14:00 Temperature 97.1 F L Pulse Rate 69 Respiratory Rate 20 Blood Pressure 146/69 H Pulse Oximetry 81 L 94 95 Oxygen Delivery Room Air Nasal Cannula Oxygen Flow Rate 2 07/10/22 18:35 07/10/22 18:36 07/10/22 20:00 Temperature Pulse Rate 70 70 70 Respiratory Rate 20 Blood Pressure 146/81 H Pulse Oximetry 94 94 Oxygen Delivery Nasal Cannula Oxygen Flow Rate 2 07/10/22 22:00 07/11/22 06:00 07/11/22 07:55 Temperature 97.4 F L 98 F Pulse Rate 64 65 Respiratory Rate 20 20 Blood Pressure 141/102 H 135/52 L Pulse Oximetry 95 95 93 Oxygen Delivery Nasal Cannula Oxygen Flow Rate 2 07/11/22 09:24 Temperature Pulse R
[2022-07-11 16:58] LABS: Glucose Point of Care 108 mg/dl (65-105)
[2022-07-11] MEDS: BUMETANIDE 1 MG TABLET 2 MG PO (16:59)
[2022-07-11 21:41] LABS: Glucose Point of Care 164 mg/dl (65-105)
[2022-07-12] VITALS (8 sets, daily range): BP systolic 132–154; BP diastolic 51–75; PULSE 67–72; RESP 18–22; TEMP 36.4–36.8; O2SAT 92–99
[2022-07-12 05:49] LABS: Glucose Point of Care 123 mg/dl (65-105)
[2022-07-12] MEDS: HEPARIN SODIUM 5,000 UNITS/ML VIAL 5000 UNITS SUB-Q ×3 (05:51→20:34)
[2022-07-12 06:43] LABS: Basophils Percent Auto 0.3 % (0.2-1.2); Eosinophils Absolute Auto 0.1 K/mm3 (0-0.3); Eosinophils Percent Auto 3.5 % (0-4.4); Hematocrit 32.9 % (37.0-47.0); Hemoglobin 9.1 g/dL (12.0-15.0); Lymphocytes Absolute Auto 0.72 K/mm3 (0.9-3.2); Lymphocytes Percent Auto 19.4 % (18.3-44.2); Mean Corpuscular HGB Conc 27.7 g/dl (32-36); Mean Corpuscular Hemoglobin 24.8 pg (26-34); Mean Corpuscular Volume 89.6 fl (80-100); Mean Platelet Volume 9.5 fl (7.4-10.4); Monocytes Absolute Auto 0.5 K/mm3 (0.1-0.6); Monocytes Percent Auto 14.3 % (2.6-8.5); Neutrophils Absolute Auto 2.3 K/mm3 (1.3-6.7); Neutrophils Percent Auto 62.5 % (45.5-73.1); Platelet Count Result 184 k/mm3 (150-375); Red Blood Count 3.67 M/mm3 (4.2-5.4); Red Cell Distribution Width 17.7 % (11.5-14.5); White Blood Count 3.7 K/mm3 (4.5-10.0)
[2022-07-12 06:56] LABS: Alanine Aminotransferase 20 U/L (6-35); Albumin Level 3.7 g/dL (3.5-5.1); Alkaline Phosphatase 175 U/L (38-126); Anion Gap 5 mmol/L (8-16); Aspartate Amino Transferase 26 U/L (14-36); Bilirubin,Total 0.9 mg/dL (0.2-1.3); Blood Urea Nitrogen 39 mg/dL (7-17); Calcium 8.6 mg/dL (8.4-10.2); Carbon Dioxide 33 mmol/L (22-30); Chloride 104 mmol/L (98-107); Estimated CRCL calculation 49 ml/min; Estimated Glomerular Filt Rate 30; Glucose 115 mg/dL (65-110); Potassium 4.7 mmol/L (3.4-5.0); Sodium 142 mmol/L (137-145)
[2022-07-12 07:12] LABS: Iron 50 ug/dL (37-170)
[2022-07-12 07:18] LABS: Anisocytosis 1+ (NORMAL); Hypochromasia 1+ (NORMAL); Ovalocytes 1+ (NORMAL); Platelet Estimate Adequate (Adequate); Schistocytes None Seen (NORMAL)
[2022-07-12 07:22] LABS: Percent Iron Saturation 14 % (20-50)
[2022-07-12 08:02] LABS: Glucose Point of Care 107 mg/dl (65-105)
[2022-07-12] MEDS: ATORVASTATIN 20 MG TABLET PO (08:08)
[2022-07-12] MEDS: glipiZIDE 5 MG TABLET 10 MG PO (08:08)
[2022-07-12] MEDS: BUMETANIDE 1 MG TABLET 2 MG PO (08:08)
[2022-07-12] MEDS: METOPROLOL TARTRATE 50 MG TAB PO ×2 (08:08→16:37)
[2022-07-12] MEDS: CHLORTHALIDONE 25 MG TABLET PO (08:08)
[2022-07-12] MEDS: EMPAGLIFLOZIN 10 MG TABLET PO (08:08)
[2022-07-12] MEDS: POTASSIUM CHLORIDE 10 MEQ TABLET.ER PO (08:08)
[2022-07-12] MEDS: FLUTICASONE PROPIONATE 0.05% NA SPR 16 GM BTL (*BKC) 1 SPRAY NASAL ×2 (08:09→20:34)
[2022-07-12] MEDS: hydrALAZINE HCL 50 MG TABLET PO ×2 (08:09→16:37)
[2022-07-12] MEDS: TOLNAFTATE 1% POWDER 45 GM BTL 1 APPLIC TOPICAL ×2 (08:09→20:34)
[2022-07-12] MEDS: SPIRONOLACTONE 25 MG TABLET PO (08:09)
[2022-07-12 11:38] LABS: Glucose Point of Care 155 mg/dl (65-105)
--- NOTE | 2022-07-12 14:44 | PM.PNNEP ---
Progress Note: A&P Assessment and Plan (1) Stage 3b chronic kidney disease: Code(s): N18.32 - Chronic kidney disease, stage 3b Status: Chronic Assessment and Plan: baseline creatinine runs ~ 1.7 - 2.2mg/dl based on evaluation on last hospitalization (February 2022), felt to be secondary to diabetes and hypertension previous evaluation reviewed (February 2022): HTN + DM x 15+ years with variable control obesity and LUCIA/OHS likely contributing renal ultrasound w/o obstruction moderate proteinuria serological evaluation (ANCA/RASHEL/dsDNA-Ab/cyroglobulins/antiGBM-Ab/SPEP and UPEP) all negative appears relatively stable follow repeat labs and UOP with diuresis (2) Acute exacerbation of CHF (congestive heart failure): Code(s): I50.9 - Heart failure, unspecified Status: Acute Assessment and Plan: as evidence evaluation to date: 20 pound fluid weight gain elevated BNP edema in abdomen, back, and lower extremities suspect due to right sided heart failure (based on last Echo, obesity, and LUCIA) on IV bumex + chlorthalidone follow I/Os, daily weights, and exam not nephrotic syndrome as only 1600mg of proteinuria Cardiology following (3) Hypertension: Code(s): I10 - Essential (primary) hypertension Status: Chronic Assessment and Plan: mildly elevated but better may improve with ongoing diuresis follow trend of hemodynamics (4) Anemia: Code(s): D64.9 - Anemia, unspecified Status: Acute Assessment and Plan: could be related to CKD anemia studies with iron deficiency dose with IV iron follow H/H (5) Diabetes mellitus with chronic kidney disease: Code(s): E11.22 - Type 2 diabetes mellitus with diabetic chronic kidney disease Status: Chronic Assessment and Plan: follow accuchecks glycemic control per hospitalists Will continue to follow. Subjective Date/time seen: 07/12/22 14:44 Overall, she seems to think her breathing and edema are doing better; however, her oxygen saturations drop with ambulation but she denies shortness of breath; no other issues/events overnight or earlier this morning; renal function relatively stable with ongoing diuresis. Exam Narrative: General: WD/WN AA female in NAD Heart: normal S1 and S2; no rub Lungs: decreased throughout Abdomen: soft, nontender, nondistended; decreased abdominal wall edema Extremities: no cyanosis or clubbing; 2 - 3+ edema Skin: warm and intact Objective Data Vital Signs Vital Signs: Vital Signs Temp Pulse Resp BP Pulse Ox O2 Del Method O2 Flow Rate 07/12/22 14:00 97.8 F 72 20 154/75 H 92 07/12/22 08:00 94 Nasal Cannula 2 07/12/22 08:08 72 07/12/22 06:00 97.6 F 69 22 H 146/72 H 99 07/11/22 20:00 68 22 H 93 Autopap 07/12/22 02:18 68 93 Autopap 07/11/22 23:35 67 96 Autopap 07/11/22 22:00 98.1 F 71 22 H 135/69 93 07/11/22 20:46 93 Nasal Cannula 2 Intake/Output Intake/Output: Intake & Output 07/09/22 07/10/22 07/11/22 07/12/22 23:59 23:59 23:59 23:59 Intake Total 350 1470 1730 2011 Output Total 70 Balance 350 1470 1730 1942 Meds/Results Medications: Active Medications Generic Name Dose Route Start Last Admin Trade Name Freq PRN Reason Stop Dose Admin Acetaminophen 650 mg 07/09/22 12:28 Acetaminophen 325 Mg Tablet PO Q4H PRN Mild Pain (1-3) or Fever Hydrocodone Bitart/Acetaminophen 1 tab 07/09/22 12:28 Hydrocodone/Acetaminophen (*Crx) 5-325 Mg Tablet PO Q4H PRN Pain Rated 4-6 Atorvastatin Calcium 20 mg 07/10/22 09:00 07/12/22 08:08 Atorvastatin 20 Mg Tablet PO 20 mg DAILY RUSSEL Administration Bumetanide 2 mg 07/11/22 17:00 07/12/22 08:08 Bumetanide 1 Mg Tablet PO 2 mg BID RUSSEL Administration Bumetanide 1 mg 07/12/22 17:00 07/12/22 16:38 Bumetanide Inj 1 Mg/4 Ml Vial I
--- NOTE | 2022-07-12 14:44 | P.PNNP_ITS ---
Progress Note: A&P Assessment and Plan (1) Stage 3b chronic kidney disease: Code(s): N18.32 - Chronic kidney disease, stage 3b Status: Chronic Assessment and Plan: * baseline creatinine runs ~ 1.7 - 2.2mg/dl * based on evaluation on last hospitalization (February 2022), felt to be secondary to diabetes and hypertension * previous evaluation reviewed (February 2022): * HTN + DM x 15+ years with variable control * obesity and LUCIA/OHS likely contributing * renal ultrasound w/o obstruction * moderate proteinuria * serological evaluation (ANCA/RASHEL/dsDNA-Ab/cyroglobulins/antiGBM-Ab/SPEP and UPEP) all negative * appears relatively stable * follow repeat labs and UOP with diuresis (2) Acute exacerbation of CHF (congestive heart failure): Code(s): I50.9 - Heart failure, unspecified Status: Acute Assessment and Plan: * as evidence evaluation to date: * 20 pound fluid weight gain * elevated BNP * edema in abdomen, back, and lower extremities * suspect due to right sided heart failure (based on last Echo, obesity, and LUCIA) * on IV bumex + chlorthalidone * follow I/Os, daily weights, and exam * not nephrotic syndrome as only 1600mg of proteinuria * Cardiology following (3) Hypertension: Code(s): I10 - Essential (primary) hypertension Status: Chronic Assessment and Plan: * mildly elevated but better * may improve with ongoing diuresis * follow trend of hemodynamics (4) Anemia: Code(s): D64.9 - Anemia, unspecified Status: Acute Assessment and Plan: * could be related to CKD * anemia studies with iron deficiency * dose with IV iron * follow H/H (5) Diabetes mellitus with chronic kidney disease: Code(s): E11.22 - Type 2 diabetes mellitus with diabetic chronic kidney disease Status: Chronic Assessment and Plan: * follow accuchecks * glycemic control per hospitalists Will continue to follow. Subjective Date/time seen: 07/12/22 14:44 Overall, she seems to think her breathing and edema are doing better; however, her oxygen saturations drop with ambulation but she denies shortness of breath; no other issues/events overnight or earlier this morning; renal function relatively stable with ongoing diuresis. Exam Narrative: General: WD/WN AA female in NAD Heart: normal S1 and S2; no rub Lungs: decreased throughout Abdomen: soft, nontender, nondistended; decreased abdominal wall edema Extremities: no cyanosis or clubbing; 2 - 3+ edema Skin: warm and intact Objective Data Vital Signs Vital Signs: Vital Signs Temp Pulse Resp BP Pulse Ox O2 Del Method O2 Flow Rate 07/12/22 14:00 97.8 F 72 20 154/75 H 92 07/12/22 08:00 94 Nasal Cannula 2 07/12/22 08:08 72 07/12/22 06:00 97.6 F 69 22 H 146/72 H 99 07/11/22 20:00 68 22 H 93 Autopap 07/12/22 02:18 68 93 Autopap 07/11/22 23:35 67 96 Autopap 07/11/22 22:00 98.1 F 71 22 H 135/69 93 07/11/22 20:46 93 Nasal Cannula 2 Intake/Output Intake/Output: Intake & Output 07/09/22 07/10/22 07/11/22 07/12/22 23:59 23:59 23:59 23:59 Intake Total 350 1470 1730 2011 Output Total 70 Balance 350 1470 1730 1941
--- NOTE | 2022-07-12 15:28 | PM.IMPN ---
Progress Note: A&P Assessment and Plan (1) CHF (congestive heart failure): Code(s): I50.9 - Heart failure, unspecified Status: Acute Assessment and Plan: Monitor vital signs, I&Os, BUN/creatinine, daily weights, neuro status and patient is a fall risk Monitor serum electrolytes, Keep serum Potassium>4 and serum Magnesium>2 and CBC Consult cardiology for further management, appreciate assistance and recommendations Patient has 4+ pitting edema to lower extremities. Will also get the ultrasound to rule out any DVTs. Last echo was on 02/18/2022 read as EF of 50 55%, mild valvular disease, LVH, intermediate diastolic function BNP 4530 07/11 Cardiology transition patient to IV Bumex to p.o. Bumexi 2 mg p.o. b.i.d. patient was started on spironolactone and SGLT 2 inhibitor for diastolic CHF. Patient is a requiring O2 supplementation. Wean patient to maintain oxygen greater than 90%. 07/12 restarted patient back on IV Bumex due to her continuing to have shortness of breath and +4 pitting edema. Due to increased oxygen demands and patient requiring 2 L will repeat chest x-ray. (2) Hypoxia: Code(s): R09.02 - Hypoxemia Status: Acute Assessment and Plan: patient requiring 2 L of oxygen to maintain saturations greater than 90. Have tried to wean patient multiple times and her O2 has dropped into the low 80s. Patient is still requiring 2 L Will repeat chest x-ray Patient may have to have home O2 evaluation if cannot decrease oxygen demand. Patient has distant lung sounds Most likely due to body mass. (3) Hyperlipidemia: Code(s): E78.5 - Hyperlipidemia, unspecified Status: Acute Assessment and Plan: Continue with atorvastatin (4) Hypertension: Code(s): I10 - Essential (primary) hypertension Status: Chronic Assessment and Plan: Continue with hydralazine Metoprolol (5) Diabetes: Code(s): E11.9 - Type 2 diabetes mellitus without complications Status: Chronic Assessment and Plan: Accu-Cheks AC and HS with sliding scale insulin and hypoglycemic protocol check A1c Continue with glipizide (6) LUCIA (obstructive sleep apnea): Code(s): G47.33 - Obstructive sleep apnea (adult) (pediatric) Status: Acute Assessment and Plan: The patient is requesting a nasal pillow for her CPAP machine (7) Renal failure: Code(s): N19 - Unspecified kidney failure Status: Acute Assessment and Plan: Renal ultrasound with non visualization of the kidneys due to body habitus Nephrology has been consulted The patient is at her baseline. Continue to monitor her renal function as she is on Bumex. Plan Patient states that she has an appointment for outpatient weight loss surgery program and discussed with her that this would be a great idea considering her weight and overall health right now. She is waiting to hear back from this program currently. Subjective Date/time seen: 07/12/22 15:28 Interval history: patient doing well today. Patient states that her shortness of breath has improved although every time she ambulates her oxygen drops. Patient has not experienced any orthopnea and states that she typically sleeps with multiple pillows under her head and that she has done this since she was a kid. Patient denies cough. Patient believes that her edema is improving although on exam she still has very edematous skin with tightness. Patient may have to have home O2 evaluation if oxygen does not improve. Review of Systems Review of Systems: All systems reviewed & are unremarkable except as noted in HPI and below Exam Narrative: GENERAL: Comfortable, no acute distress, morbidly obese HENMT: moist mucous membranes EYES: EOM intact b/l NECK: no lymphadenopathy RESPIRATORY: distant breath sounds CARDIO: RRR GI: soft, nontender, bowel sounds present, edema over the abdomen SKIN: no rashes E
[2022-07-12 16:12] LABS: Glucose Point of Care 132 mg/dl (65-105)
[2022-07-12] MEDS: BUMETANIDE INJ 1 MG/4 ML VIAL IV PUSH (16:38)
[2022-07-12 21:37] LABS: Glucose Point of Care 144 mg/dl (65-105)
[2022-07-13] VITALS (13 sets, daily range): BP systolic 122–161; BP diastolic 59–77; PULSE 67–79; RESP 12–24; TEMP 36.2–36.4; O2SAT 86–98
[2022-07-13] MEDS: HEPARIN SODIUM 5,000 UNITS/ML VIAL 5000 UNITS SUB-Q ×3 (06:13→21:03)
[2022-07-13 07:07] LABS: Basophils Percent Auto 0.3 % (0.2-1.2); Eosinophils Absolute Auto 0.2 K/mm3 (0-0.3); Eosinophils Percent Auto 5.2 % (0-4.4); Immature Granulocyte Absolute 0.02 K/mm3 (0.00-0.031); Immature Granulocyte Percent A 0.6 % (0-0.5); Lymphocytes Percent Auto 23.1 % (18.3-44.2); Mean Corpuscular HGB Conc 28.1 g/dl (32-36); Mean Corpuscular Volume 88.9 fl (80-100); Mean Platelet Volume 10.4 fl (7.4-10.4); Monocytes Absolute Auto 0.6 K/mm3 (0.1-0.6); Monocytes Percent Auto 16.8 % (2.6-8.5); Neutrophils Absolute Auto 1.9 K/mm3 (1.3-6.7); Platelet Count Result 187 k/mm3 (150-375); Red Cell Distribution Width 17.7 % (11.5-14.5); White Blood Count 3.5 K/mm3 (4.5-10.0)
[2022-07-13 07:23] LABS: Alanine Aminotransferase 20 U/L (6-35); Albumin Level 3.7 g/dL (3.5-5.1); Alkaline Phosphatase 179 U/L (38-126); Anion Gap 4 mmol/L (8-16); Aspartate Amino Transferase 29 U/L (14-36); Bilirubin,Total 0.8 mg/dL (0.2-1.3); Blood Urea Nitrogen 40 mg/dL (7-17); Calcium 8.7 mg/dL (8.4-10.2); Carbon Dioxide 32 mmol/L (22-30); Chloride 106 mmol/L (98-107); Estimated CRCL calculation 54 ml/min; Estimated Glomerular Filt Rate 33; Glucose 124 mg/dL (65-110); Magnesium 2.3 mg/dL (1.6-2.3); Potassium 4.2 mmol/L (3.4-5.0); Sodium 142 mmol/L (137-145)
[2022-07-13 07:52] LABS: Procalcitonin 0.1 ng/mL
[2022-07-13 08:23] LABS: Glucose Point of Care 128 mg/dl (65-105)
[2022-07-13] MEDS: IRON SUCROSE COMPLEX 500 MG in SODIUM CHLORIDE 0.9% IV 250 ML 78.57 MG IVPB (09:16)
[2022-07-13] MEDS: ATORVASTATIN 20 MG TABLET PO (09:16)
[2022-07-13] MEDS: FLUTICASONE PROPIONATE 0.05% NA SPR 16 GM BTL (*BKC) 1 SPRAY NASAL ×2 (09:16→21:04)
[2022-07-13] MEDS: hydrALAZINE HCL 50 MG TABLET PO ×2 (09:17→17:35)
[2022-07-13] MEDS: EMPAGLIFLOZIN 10 MG TABLET PO (09:17)
[2022-07-13] MEDS: TOLNAFTATE 1% POWDER 45 GM BTL 1 APPLIC TOPICAL ×2 (09:17→21:05)
[2022-07-13] MEDS: glipiZIDE 5 MG TABLET 10 MG PO (09:17)
[2022-07-13] MEDS: BUMETANIDE INJ 1 MG/4 ML VIAL IV PUSH ×2 (09:17→17:35)
[2022-07-13] MEDS: SPIRONOLACTONE 25 MG TABLET PO (09:17)
[2022-07-13] MEDS: POTASSIUM CHLORIDE 10 MEQ TABLET.ER PO (09:17)
[2022-07-13] MEDS: METOPROLOL TARTRATE 50 MG TAB PO ×2 (09:17→17:35)
[2022-07-13] MEDS: CHLORTHALIDONE 25 MG TABLET PO (09:17)
[2022-07-13] MEDS: LORATADINE 10 MG TABLET PO (09:17)
--- NOTE | 2022-07-13 10:57 | HOMEO2EVAL ---
Evaluation was performed at [facility] Home Oxygen Evaluation RC: Home Oxygen (O2) Evaluation Start: 07/12/22 11:32 Freq: ONCE Status: Active Protocol: RPE Activity Type Activity Date Activity User E-sign Co-sign Detail Recorded Client Recorded Date Recorded By Document 07/13/22 10:15 PK [email or web address] 07/13/22 10:52 PK Document 07/13/22 10:20 PK [email or web address] 07/13/22 10:52 PK Document 07/13/22 10:25 [facility] [email or web address] 07/13/22 10:52 [facility] Document 07/13/22 10:30 [facility] [email or web address] 07/13/22 10:52 [facility] Document 07/13/22 10:45 [facility] [email or web address] 07/13/22 10:52 [facility] 07/13/22 07/13/22 07/13/22 10:15 10:20 10:25 Home O2 Evaluation [Oxygen] -Test Phase Resting Exercise Exercise -Oxygen Delivery Room Air Room Air Nasal Cannula -Oxygen Flow Rate (L/min) 1 [Pulse Oximetry] -Pulse Oximetry (90-100 %) 93 86 L 87 L [Pulse Rate] -Pulse Rate (60-100 beats/min) 69 77 79 [Charges] -Treatment Charges O2 Evaluation - Inpatient 07/13/22 07/13/22 10:30 10:45 Home O2 Evaluation [Oxygen] -Test Phase Exercise Exercise -Oxygen Delivery Nasal Cannula -Oxygen Flow Rate (L/min) 2 2 [Pulse Oximetry] -Pulse Oximetry (90-100 %) 90 90 [Pulse Rate] -Pulse Rate (60-100 beats/min) 78 78 [Charges] -Treatment Charges
--- NOTE | 2022-07-13 11:02 | PCRCNOTE ---
HOME O2 EVAL COMPLETE. PATIENT REQUIRES 2 LPM WITH ACTIVITY AND ROOM AIR WITH REST. RN NOTIFIED. SET UP WITH [facility]. [phone]
--- NOTE | 2022-07-13 11:11 | P.PNNP_ITS ---
Progress Note: A&P Assessment and Plan (1) Stage 3b chronic kidney disease: Code(s): N18.32 - Chronic kidney disease, stage 3b Status: Chronic Assessment and Plan: * baseline creatinine runs ~ 1.7 - 2.2mg/dl * based on evaluation on last hospitalization (February 2022), felt to be secondary to diabetes and hypertension * previous evaluation reviewed (February 2022): * HTN + DM x 15+ years with variable control * obesity and LUCIA/OHS likely contributing * renal ultrasound w/o obstruction * moderate proteinuria * serological evaluation (ANCA/RASHEL/dsDNA-Ab/cyroglobulins/antiGBM-Ab/SPEP and UPEP) all negative * appears relatively stable * follow repeat labs and UOP with diuresis (2) Acute exacerbation of CHF (congestive heart failure): Code(s): I50.9 - Heart failure, unspecified Status: Acute Assessment and Plan: * as evidence evaluation to date: * 20 pound fluid weight gain * elevated BNP * edema in abdomen, back, and lower extremities * suspect due to right sided heart failure (based on last Echo, obesity, and LUCIA) * on IV bumex + chlorthalidone * consider increasing bumex to 2mg IV bid * follow I/Os, daily weights, and exam * not nephrotic syndrome as only 1600mg of proteinuria * Cardiology following (3) Hypertension: Code(s): I10 - Essential (primary) hypertension Status: Chronic Assessment and Plan: * mildly elevated but better * may improve with ongoing diuresis * follow trend of hemodynamics (4) Anemia: Code(s): D64.9 - Anemia, unspecified Status: Acute Assessment and Plan: * could be related to CKD * anemia studies with iron deficiency * dose with IV iron * follow H/H (5) Diabetes mellitus with chronic kidney disease: Code(s): E11.22 - Type 2 diabetes mellitus with diabetic chronic kidney disease Status: Chronic Assessment and Plan: * follow accuchecks * glycemic control per hospitalists Will continue to follow. Subjective Date/time seen: 07/13/22 11:11 Denies any shortness of breath but attempts at weaning supplemental oxygen have failed; renal function tolerating diuresis at this time; still quite edematous but patient thinks swelling/edema is doing better; no other issues/events overnight. Exam Narrative: General: WD/WN AA female in NAD Heart: normal S1 and S2; no rub Lungs: decreased throughout Abdomen: soft, nontender, nondistended; decreased abdominal wall edema Extremities: no cyanosis or clubbing; 2 - 3+ edema Skin: warm and intact Objective Data Vital Signs Vital Signs: Vital Signs Temp Pulse Resp BP Pulse Ox O2 Del Method O2 Flow Rate 07/13/22 10:45 78 90 Nasal Cannula 2 07/13/22 10:30 78 90 2 07/13/22 10:25 79 87 L Nasal Cannula 1 07/13/22 10:20 77 86 L Room Air 07/13/22 10:15 69 93 Room Air 07/13/22 09:17 69 07/13/22 09:07 96 Nasal Cannula 2 07/13/22 06:00 97.6 F 69 18 131/68 90 07/13/22 00:19 67 94 Autopap 07/12/22 20:00 93 Nasal Cannula 2 07/12/22 20:19 98.3 F 67 18 132/51 L 98 07/12/22 16:37 70 07/12/22 14:00 97.8 F 72 20 154/75 H 92 Intake/Output Intake/Output: Intake & Output
--- NOTE | 2022-07-13 11:11 | PM.PNNEP ---
Progress Note: A&P Assessment and Plan (1) Stage 3b chronic kidney disease: Code(s): N18.32 - Chronic kidney disease, stage 3b Status: Chronic Assessment and Plan: baseline creatinine runs ~ 1.7 - 2.2mg/dl based on evaluation on last hospitalization (February 2022), felt to be secondary to diabetes and hypertension previous evaluation reviewed (February 2022): HTN + DM x 15+ years with variable control obesity and LUCIA/OHS likely contributing renal ultrasound w/o obstruction moderate proteinuria serological evaluation (ANCA/RASHEL/dsDNA-Ab/cyroglobulins/antiGBM-Ab/SPEP and UPEP) all negative appears relatively stable follow repeat labs and UOP with diuresis (2) Acute exacerbation of CHF (congestive heart failure): Code(s): I50.9 - Heart failure, unspecified Status: Acute Assessment and Plan: as evidence evaluation to date: 20 pound fluid weight gain elevated BNP edema in abdomen, back, and lower extremities suspect due to right sided heart failure (based on last Echo, obesity, and LUCIA) on IV bumex + chlorthalidone consider increasing bumex to 2mg IV bid follow I/Os, daily weights, and exam not nephrotic syndrome as only 1600mg of proteinuria Cardiology following (3) Hypertension: Code(s): I10 - Essential (primary) hypertension Status: Chronic Assessment and Plan: mildly elevated but better may improve with ongoing diuresis follow trend of hemodynamics (4) Anemia: Code(s): D64.9 - Anemia, unspecified Status: Acute Assessment and Plan: could be related to CKD anemia studies with iron deficiency dose with IV iron follow H/H (5) Diabetes mellitus with chronic kidney disease: Code(s): E11.22 - Type 2 diabetes mellitus with diabetic chronic kidney disease Status: Chronic Assessment and Plan: follow accuchecks glycemic control per hospitalists Will continue to follow. Subjective Date/time seen: 07/13/22 11:11 Denies any shortness of breath but attempts at weaning supplemental oxygen have failed; renal function tolerating diuresis at this time; still quite edematous but patient thinks swelling/edema is doing better; no other issues/events overnight. Exam Narrative: General: WD/WN AA female in NAD Heart: normal S1 and S2; no rub Lungs: decreased throughout Abdomen: soft, nontender, nondistended; decreased abdominal wall edema Extremities: no cyanosis or clubbing; 2 - 3+ edema Skin: warm and intact Objective Data Vital Signs Vital Signs: Vital Signs Temp Pulse Resp BP Pulse Ox O2 Del Method O2 Flow Rate 07/13/22 10:45 78 90 Nasal Cannula 2 07/13/22 10:30 78 90 2 07/13/22 10:25 79 87 L Nasal Cannula 1 07/13/22 10:20 77 86 L Room Air 07/13/22 10:15 69 93 Room Air 07/13/22 09:17 69 07/13/22 09:07 96 Nasal Cannula 2 07/13/22 06:00 97.6 F 69 18 131/68 90 07/13/22 00:19 67 94 Autopap 07/12/22 20:00 93 Nasal Cannula 2 07/12/22 20:19 98.3 F 67 18 132/51 L 98 07/12/22 16:37 70 07/12/22 14:00 97.8 F 72 20 154/75 H 92 Intake/Output Intake/Output: Intake & Output 07/10/22 07/11/22 07/12/22 07/13/22 23:59 23:59 23:59 23:59 Intake Total 1470 1730 2011 120 Output Total 70 Balance 1470 1730 1942 120 Meds/Results Medications: Active Medications Generic Name Dose Route Start Last Admin Trade Name Freq PRN Reason Stop Dose Admin Acetaminophen 650 mg 07/09/22 12:28 Acetaminophen 325 Mg Tablet PO Q4H PRN Mild Pain (1-3) or Fever Hydrocodone Bitart/Acetaminophen 1 tab 07/09/22 12:28 Hydrocodone/Acetaminophen (*Crx) 5-325 Mg Tablet PO Q4H PRN Pain Rated 4-6 Atorvastatin Calcium 20 mg 07/10/22 09:00 07/13/22 09:16 Atorvastatin 20 Mg Tablet PO 20 mg DAILY RUSSEL Administration Bumetanide 2 mg 07/11/22 17:00
[2022-07-13 11:32] LABS: Glucose Point of Care 124 mg/dl (65-105)
--- NOTE | 2022-07-13 13:46 | PM.IMPN ---
Progress Note: A&P Assessment and Plan (1) CHF (congestive heart failure): Code(s): I50.9 - Heart failure, unspecified Status: Acute Assessment and Plan: Monitor vital signs, I&Os, BUN/creatinine, daily weights, neuro status and patient is a fall risk Monitor serum electrolytes, Keep serum Potassium>4 and serum Magnesium>2 and CBC Consult cardiology for further management, appreciate assistance and recommendations Patient has 4+ pitting edema to lower extremities. Will also get the ultrasound to rule out any DVTs. Last echo was on 02/18/2022 read as EF of 50 55%, mild valvular disease, LVH, intermediate diastolic function BNP 4530 07/11 Cardiology transition patient to IV Bumex to p.o. Bumexi 2 mg p.o. b.i.d. patient was started on spironolactone and SGLT 2 inhibitor for diastolic CHF. Patient is a requiring O2 supplementation. Wean patient to maintain oxygen greater than 90%. 07/12 restarted patient back on IV Bumex due to her continuing to have shortness of breath and +4 pitting edema. Due to increased oxygen demands and patient requiring 2 L will repeat chest x-ray. 07/13 Patient is still very edematous. X-Ray showed pulmonary vascular congestion/ mild interstitial edema. Continue diuretics. (2) Hypoxia: Code(s): R09.02 - Hypoxemia Status: Acute Assessment and Plan: patient requiring 2 L of oxygen to maintain saturations greater than 90. Have tried to wean patient multiple times and her O2 has dropped into the low 80s. Patient is still requiring 2 L Will repeat chest x-ray Patient may have to have home O2 evaluation if cannot decrease oxygen demand. Patient has distant lung sounds Most likely due to body mass. (3) Hyperlipidemia: Code(s): E78.5 - Hyperlipidemia, unspecified Status: Acute Assessment and Plan: Continue with atorvastatin (4) Hypertension: Code(s): I10 - Essential (primary) hypertension Status: Chronic Assessment and Plan: Continue with hydralazine Metoprolol (5) Diabetes: Code(s): E11.9 - Type 2 diabetes mellitus without complications Status: Chronic Assessment and Plan: Accu-Cheks AC and HS with sliding scale insulin and hypoglycemic protocol check A1c Continue with glipizide (6) LUCIA (obstructive sleep apnea): Code(s): G47.33 - Obstructive sleep apnea (adult) (pediatric) Status: Acute Assessment and Plan: The patient is requesting a nasal pillow for her CPAP machine (7) Renal failure: Code(s): N19 - Unspecified kidney failure Status: Acute Assessment and Plan: Renal ultrasound with non visualization of the kidneys due to body habitus Nephrology has been consulted The patient is at her baseline. Continue to monitor her renal function as she is on Bumex. Plan Patient states that she has an appointment for outpatient weight loss surgery program and discussed with her that this would be a great idea considering her weight and overall health right now. She is waiting to hear back from this program currently. Subjective Date/time seen: 07/13/22 13:46 Interval history: Patient is still very edematous. Patient continues to be on O2. Patient states that she is not short of breath. Denies chest pain, N/V/D, dizziness, orthopnea, and cough. Review of Systems Review of Systems: All systems reviewed & are unremarkable except as noted in HPI and below Exam Narrative: GENERAL: Comfortable, no acute distress, morbidly obese HENMT: moist mucous membranes EYES: EOM intact b/l NECK: no lymphadenopathy RESPIRATORY: distant breath sounds CARDIO: RRR GI: soft, nontender, bowel sounds present, edema over the abdomen SKIN: no rashes EXTREMITIES: +4 pitting edema from the mid abdomen down, slowly improving. Objective Data Vital Signs Vital Signs: Vital Signs - 24 hr 07/12/22
[2022-07-13 16:32] LABS: Glucose Point of Care 117 mg/dl (65-105)
[2022-07-13 22:12] LABS: Glucose Point of Care 178 mg/dl (65-105)
[2022-07-14 00:16] VITALS: PULSE 66; O2SAT 95
[2022-07-14 05:03] VITALS: BP 160/77; PULSE 73; RESP 16; TEMP 35.9; O2SAT 94
[2022-07-14] MEDS: HEPARIN SODIUM 5,000 UNITS/ML VIAL 5000 UNITS SUB-Q (05:44)
[2022-07-14 07:43] LABS: Basophils Percent Auto 0.5 % (0.2-1.2); Eosinophils Absolute Auto 0.2 K/mm3 (0-0.3); Eosinophils Percent Auto 4.6 % (0-4.4); Hematocrit 33.2 % (37.0-47.0); Hemoglobin 9.4 g/dL (12.0-15.0); Immature Granulocyte Absolute 0.01 K/mm3 (0.00-0.031); Immature Granulocyte Percent A 0.3 % (0-0.5); Lymphocytes Absolute Auto 0.85 K/mm3 (0.9-3.2); Mean Corpuscular HGB Conc 28.3 g/dl (32-36); Mean Corpuscular Hemoglobin 25.4 pg (26-34); Mean Corpuscular Volume 89.7 fl (80-100); Mean Platelet Volume 10.3 fl (7.4-10.4); Monocytes Absolute Auto 0.7 K/mm3 (0.1-0.6); Monocytes Percent Auto 17.6 % (2.6-8.5); Platelet Count Result 188 k/mm3 (150-375); Red Cell Distribution Width 17.6 % (11.5-14.5); White Blood Count 3.7 K/mm3 (4.5-10.0)
[2022-07-14 07:51] LABS: Alanine Aminotransferase 20 U/L (6-35); Albumin Level 3.8 g/dL (3.5-5.1); Alkaline Phosphatase 177 U/L (38-126); Anion Gap 4 mmol/L (8-16); Aspartate Amino Transferase 27 U/L (14-36); Bilirubin,Total 0.9 mg/dL (0.2-1.3); Blood Urea Nitrogen 39 mg/dL (7-17); Calcium 8.9 mg/dL (8.4-10.2); Carbon Dioxide 35 mmol/L (22-30); Chloride 104 mmol/L (98-107); Estimated CRCL calculation 51 ml/min; Estimated Glomerular Filt Rate 31; Glucose 92 mg/dL (65-110); Potassium 4.1 mmol/L (3.4-5.0); Sodium 143 mmol/L (137-145)
[2022-07-14 07:57] LABS: Hypochromasia 1+ (NORMAL); Ovalocytes 1+ (NORMAL); Platelet Estimate Adequate (Adequate)
[2022-07-14 07:58] LABS: Anisocytosis 1+ (NORMAL); Schistocytes None Seen (NORMAL)
[2022-07-14 08:15] LABS: Glucose Point of Care 100 mg/dl (65-105)
[2022-07-14] MEDS: hydrALAZINE HCL 50 MG TABLET PO (09:10)
[2022-07-14] MEDS: glipiZIDE 5 MG TABLET 10 MG PO (09:10)
[2022-07-14] MEDS: CHLORTHALIDONE 25 MG TABLET PO (09:10)
[2022-07-14] MEDS: ATORVASTATIN 20 MG TABLET PO (09:10)
[2022-07-14] MEDS: FLUTICASONE PROPIONATE 0.05% NA SPR 16 GM BTL (*BKC) 1 SPRAY NASAL (09:10)
[2022-07-14 09:11] VITALS: PULSE 73
[2022-07-14] MEDS: EMPAGLIFLOZIN 10 MG TABLET PO (09:11)
[2022-07-14] MEDS: METOPROLOL TARTRATE 50 MG TAB PO (09:11)
[2022-07-14] MEDS: POTASSIUM CHLORIDE 10 MEQ TABLET.ER PO (09:13)
[2022-07-14] MEDS: BUMETANIDE INJ 1 MG/4 ML VIAL IV PUSH (09:15)
[2022-07-14] MEDS: SPIRONOLACTONE 25 MG TABLET PO (09:15)
[2022-07-14] MEDS: IRON SUCROSE COMPLEX 500 MG in SODIUM CHLORIDE 0.9% IV 250 ML 78.5 MG IVPB (09:25)
[2022-07-14] MEDS: LORATADINE 10 MG TABLET PO (09:25)
--- NOTE | 2022-07-14 09:49 | PM.PNNEP ---
Progress Note: A&P Assessment and Plan (1) Stage 3b chronic kidney disease: Code(s): N18.32 - Chronic kidney disease, stage 3b Status: Chronic Assessment and Plan: baseline creatinine runs ~ 1.7 - 2.2mg/dl based on evaluation on last hospitalization (February 2022), felt to be secondary to diabetes and hypertension previous evaluation reviewed (February 2022): HTN + DM x 15+ years with variable control obesity and LUCIA/OHS likely contributing renal ultrasound w/o obstruction moderate proteinuria serological evaluation (ANCA/RASHEL/dsDNA-Ab/cyroglobulins/antiGBM-Ab/SPEP and UPEP) all negative appears relatively stable follow repeat labs and UOP with diuresis (2) Acute exacerbation of CHF (congestive heart failure): Code(s): I50.9 - Heart failure, unspecified Status: Acute Assessment and Plan: as evidence evaluation to date: 20 pound fluid weight gain elevated BNP edema in abdomen, back, and lower extremities suspect due to right sided heart failure (based on last Echo, obesity, and LUCIA) on IV bumex + chlorthalidone will change chlorthalidone to metolazone increase bumex to 2mg IV bid follow I/Os, daily weights, and exam not nephrotic syndrome as only 1600mg of proteinuria Cardiology following (3) Hypertension: Code(s): I10 - Essential (primary) hypertension Status: Chronic Assessment and Plan: mildly elevated but better may improve with ongoing diuresis follow trend of hemodynamics (4) Anemia: Code(s): D64.9 - Anemia, unspecified Status: Acute Assessment and Plan: could be related to CKD anemia studies with iron deficiency dose with IV iron start oral iron follow H/H (5) Diabetes mellitus with chronic kidney disease: Code(s): E11.22 - Type 2 diabetes mellitus with diabetic chronic kidney disease Status: Chronic Assessment and Plan: follow accuchecks glycemic control per hospitalists Will continue to follow. Subjective Date/time seen: 07/14/22 09:49 Appears fairly comfortable at the time of my visit; renal function tolerating diuresis at this time but she still has a significant amount of sweling/edema although she feels that it is doing better; no apparent issues or problems overnight or earlier this AM. Exam Narrative: General: WD/WN AA female in NAD Heart: normal S1 and S2; no rub Lungs: decreased throughout Abdomen: soft, nontender, nondistended; decreased abdominal wall edema Extremities: no cyanosis or clubbing; 2 - 3+ edema Skin: warm and intact Objective Data Vital Signs Vital Signs: Vital Signs Temp Pulse Resp BP Pulse Ox O2 Del Method O2 Flow Rate 07/14/22 09:11 73 07/14/22 05:03 96.7 F L 73 16 160/77 H 94 07/14/22 00:16 66 95 Autopap 07/13/22 22:00 97.1 F L 69 24 H 161/77 H 98 07/13/22 20:00 91 Nasal Cannula 2 07/13/22 17:35 72 07/13/22 14:00 97.6 F 67 12 122/59 L 92 Intake/Output Intake/Output: Intake & Output 07/11/22 07/12/22 07/13/22 07/14/22 23:59 23:59 23:59 23:59 Intake Total 1730 2011 1135 590 Output Total 70 Balance 1730 1941 1135 590 Meds/Results Medications: Active Medications Generic Name Dose Route Start Last Admin Trade Name Freq PRN Reason Stop Dose Admin Acetaminophen 650 mg 07/09/22 12:28 Acetaminophen 325 Mg Tablet PO Q4H PRN Mild Pain (1-3) or Fever Hydrocodone Bitart/Acetaminophen 1 tab 07/09/22 12:28 Hydrocodone/Acetaminophen (*Crx) 5-325 Mg Tablet PO Q4H PRN Pain Rated 4-6 Atorvastatin Calcium 20 mg 07/10/22 09:00 07/14/22 09:10 Atorvastatin 20 Mg Tablet PO 20 mg DAILY RUSSEL Administration Bumetanide 2 mg 07/11/22 17:00 07/12/22 08:08 Bumetanide 1 Mg Tablet PO 2 mg BID RUSSEL Administration Bumetanide 1 mg 07/12/22 17:00 07/14/22 09:15 Bumetanide Inj 1 Mg/4 Ml Vial IV PUSH 1 m
--- NOTE | 2022-07-14 09:49 | P.PNNP_ITS ---
Progress Note: A&P Assessment and Plan (1) Stage 3b chronic kidney disease: Code(s): N18.32 - Chronic kidney disease, stage 3b Status: Chronic Assessment and Plan: * baseline creatinine runs ~ 1.7 - 2.2mg/dl * based on evaluation on last hospitalization (February 2022), felt to be secondary to diabetes and hypertension * previous evaluation reviewed (February 2022): * HTN + DM x 15+ years with variable control * obesity and LUCIA/OHS likely contributing * renal ultrasound w/o obstruction * moderate proteinuria * serological evaluation (ANCA/RASHEL/dsDNA-Ab/cyroglobulins/antiGBM-Ab/SPEP and UPEP) all negative * appears relatively stable * follow repeat labs and UOP with diuresis (2) Acute exacerbation of CHF (congestive heart failure): Code(s): I50.9 - Heart failure, unspecified Status: Acute Assessment and Plan: * as evidence evaluation to date: * 20 pound fluid weight gain * elevated BNP * edema in abdomen, back, and lower extremities * suspect due to right sided heart failure (based on last Echo, obesity, and LUCIA) * on IV bumex + chlorthalidone * will change chlorthalidone to metolazone * increase bumex to 2mg IV bid * follow I/Os, daily weights, and exam * not nephrotic syndrome as only 1600mg of proteinuria * Cardiology following (3) Hypertension: Code(s): I10 - Essential (primary) hypertension Status: Chronic Assessment and Plan: * mildly elevated but better * may improve with ongoing diuresis * follow trend of hemodynamics (4) Anemia: Code(s): D64.9 - Anemia, unspecified Status: Acute Assessment and Plan: * could be related to CKD * anemia studies with iron deficiency * dose with IV iron * start oral iron * follow H/H (5) Diabetes mellitus with chronic kidney disease: Code(s): E11.22 - Type 2 diabetes mellitus with diabetic chronic kidney disease Status: Chronic Assessment and Plan: * follow accuchecks * glycemic control per hospitalists Will continue to follow. Subjective Date/time seen: 07/14/22 09:49 Appears fairly comfortable at the time of my visit; renal function tolerating diuresis at this time but she still has a significant amount of sweling/edema although she feels that it is doing better; no apparent issues or problems overnight or earlier this AM. Exam Narrative: General: WD/WN AA female in NAD Heart: normal S1 and S2; no rub Lungs: decreased throughout Abdomen: soft, nontender, nondistended; decreased abdominal wall edema Extremities: no cyanosis or clubbing; 2 - 3+ edema Skin: warm and intact Objective Data Vital Signs Vital Signs: Vital Signs Temp Pulse Resp BP Pulse Ox O2 Del Method O2 Flow Rate 07/14/22 09:11 73 07/14/22 05:03 96.7 F L 73 16 160/77 H 94 07/14/22 00:16 66 95 Autopap 07/13/22 22:00 97.1 F L 69 24 H 161/77 H 98 07/13/22 20:00 91 Nasal Cannula 2 07/13/22 17:35 72 07/13/22 14:00 97.6 F 67 12 122/59 L 92 Intake/Output Intake/Output: Intake & Output 07/11/22 07/12/22 07/13/22 07/14/22 23:59 23:59 23:59 23:59 Intake Total 0 2011 1135 590 Output Total 70 Balance 1730 1941 1135 590
[2022-07-14 12:05] LABS: Glucose Point of Care 145 mg/dl (65-105)
--- NOTE | 2022-07-14 13:57 | PM.DS ---
DS: Admitting Diagnosis Discharge Date 07/14/22 Admitting Diagnosis Congestive heart failure exacerbation DS: Discharge Diagnosis Discharge Diagnosis (1) CHF (congestive heart failure): Code(s): I50.9 - Heart failure, unspecified Status: Acute Assessment and Plan: Monitor vital signs, I&Os, BUN/creatinine, daily weights, neuro status and patient is a fall risk Monitor serum electrolytes, Keep serum Potassium>4 and serum Magnesium>2 and CBC Consult cardiology for further management, appreciate assistance and recommendations Patient has 4+ pitting edema to lower extremities. Will also get the ultrasound to rule out any DVTs. Last echo was on 02/18/2022 read as EF of 50 55%, mild valvular disease, LVH, intermediate diastolic function BNP 4530 07/11 Cardiology transition patient to IV Bumex to p.o. Bumexi 2 mg p.o. b.i.d. patient was started on spironolactone and SGLT 2 inhibitor for diastolic CHF. Patient is a requiring O2 supplementation. Wean patient to maintain oxygen greater than 90%. 07/12 restarted patient back on IV Bumex due to her continuing to have shortness of breath and +4 pitting edema. Due to increased oxygen demands and patient requiring 2 L will repeat chest x-ray. 07/13 Patient is still very edematous. X-Ray showed pulmonary vascular congestion/ mild interstitial edema. Continue diuretics. 07/14 Patient still edematous but improving. Pt wanting to be discharged and she is medically stable. No longer having shortness of breath. Medication changes per cardiology and recommended follow up with cardiology. (2) Hypoxia: Code(s): R09.02 - Hypoxemia Status: Acute Assessment and Plan: Patient requiring 2 L of oxygen to maintain saturations greater than 90. Have tried to wean patient multiple times and her O2 has dropped into the low 80s. Patient has distant lung sounds Most likely due to body mass. 07/14 Home O2 evaluation recommending 2 L of O2 with activity and none with rest. (3) Hyperlipidemia: Code(s): E78.5 - Hyperlipidemia, unspecified Status: Acute Assessment and Plan: Continue with atorvastatin (4) Hypertension: Code(s): I10 - Essential (primary) hypertension Status: Chronic Assessment and Plan: Continue with hydralazine Metoprolol (5) Diabetes: Code(s): E11.9 - Type 2 diabetes mellitus without complications Status: Chronic Assessment and Plan: Accu-Cheks AC and HS with sliding scale insulin and hypoglycemic protocol check A1c Continue with glipizide (6) LUCIA (obstructive sleep apnea): Code(s): G47.33 - Obstructive sleep apnea (adult) (pediatric) Status: Acute Assessment and Plan: The patient is requesting a nasal pillow for her CPAP machine (7) Renal failure: Code(s): N19 - Unspecified kidney failure Status: Acute Assessment and Plan: Renal ultrasound with non visualization of the kidneys due to body habitus Nephrology has been consulted The patient is at her baseline. Monitor her renal function as she is on Bumex. Plan Patient states that she has an appointment for outpatient weight loss surgery program and discussed with her that this would be a great idea considering her weight and overall health right now. She is waiting to hear back from this program currently. DS: Summary Hospital Course Reason for hospitalization: Congestive heart failure exacerbation Hospital Course: 52-year-old female with past medical history significant for chronic kidney disease, congestive heart failure, diabetes, LUCIA, hyperlipidemia and morbid obesity presented to the ED on 07/09/2022 with shortness of breath worsening over the past week. Patient had been out of her Bumex and not been taking it. Patient recently hospitalized in February of 2022 due to heart failure exacerbation. Cardiology consulted. It
[2022-07-14 14:00] VITALS: BP 122/64; PULSE 68; RESP 20; TEMP 36.2; O2SAT 95
== END 2022-07-14 16:45 | disposition home or self-care (01) | DRG 291 ==
LOC: ANHED 10:37 → ANH3MEDSUR 13:29
PROVIDERS: Internal Medicine Nephrology; Nurse Practitioner; Admitting Provider Family Medicine; Emergency Provider Emergency Medicine; PCP Internal Medicine Pulmonary Disease; Visit Provider Internal Medicine Critical Care Medicine
DX: I13.0 Hypertensive heart and chronic kidney disease with heart failure and stage 1 through stage 4 chronic kidney disease, or unspecified chronic kidney disease (principal); I50.33 Acute on chronic diastolic (congestive) heart failure; E66.2 Morbid (severe) obesity with alveolar hypoventilation; N17.9 Acute kidney failure, unspecified; Z68.45 Body mass index [BMI] 70 or greater, adult; E11.22 Type 2 diabetes mellitus with diabetic chronic kidney disease; N18.32 Chronic kidney disease, stage 3b; R09.02 Hypoxemia; D63.1 Anemia in chronic kidney disease; E78.5 Hyperlipidemia, unspecified; Z79.4 Long term (current) use of insulin
CPT/HCPCS: 36415; 71045; 76775; 80053; 81050; 82570; 82728; 82948; 83036; 83540; 83550; 83735; 83880; 84145; 84156; 84443; 85025; 93005; 93970; 94618; 96374; 99285; A9270; J1644; J1756; J1815; J7050; J7070

== ENCOUNTER 2022-10-24 13:49 | Outpatient (CLI) | payer MEDICARE, MEDICAID, SELFPAY ==
[2022-10-24 15:03] LABS: Creatinine Urine 46.4 mg/dL; Total Protein Urine Random 46 mg/dL; Ur Ttl Prot Creatinine Ratio 0.99 mg/mg (0-0.20)
[2022-10-24 15:42] LABS: Albumin Level 4.1 g/dL (3.5-5.1); Anion Gap 9 mmol/L (8-16); Blood Urea Nitrogen 63 mg/dL (7-17); Calcium 9.8 mg/dL (8.4-10.2); Carbon Dioxide 32 mmol/L (22-30); Chloride 88 mmol/L (98-107); Estimated Glomerular Filt Rate 31; Glucose 622 mg/dL (65-110); Phosphorus 4.2 mg/dL (2.5-4.5); Potassium 4.7 mmol/L (3.4-5.0); Sodium 129 mmol/L (137-145)
[2022-10-24 16:14] LABS: Vitamin D 25 Hydroxy < 12.8 ng/mL
== END 2022-10-24 13:50 | disposition home or self-care (01) ==
PROVIDERS: Visit Provider Internal Medicine Nephrology
DX: E11.22 Type 2 diabetes mellitus with diabetic chronic kidney disease (principal); I12.9 Hypertensive chronic kidney disease with stage 1 through stage 4 chronic kidney disease, or unspecified chronic kidney disease; N18.32 Chronic kidney disease, stage 3b
CPT/HCPCS: 36415; 80069; 82306; 82570; 83970; 84156

== ENCOUNTER 2023-06-27 13:33 | Emergency (ER) | payer MEDICARE, MEDICAID, SELFPAY ==
--- NOTE | ~2023-06-27 | XR_ITS ---
EXAM: XR knee RT 3V DATE: 06/27/2023 14:27 HISTORY: fall, pain ANTERIOR SURFACE . COMPARISON: None available. FINDINGS: Decreased mineralization. No fracture or dislocation. No lytic or blastic lesion. Tricompa rtmental right knee arthritis, severe in the lateral compartment. No erosion or periosteal change. Mo derate volume joint fluid. Soft tissues within normal limits. IMPRESSION: No acute osseous finding in the right knee. Reviewed, dictated and finalized at location K.
--- NOTE | ~2023-06-27 | XR_ITS ---
EXAM: XR hand LT min 3V, XR wrist LT min 3V DATE: 06/27/2023 14:26 HISTORY: fall, RADIAL WRIST AREA pain . COMPARISON: None available. FINDINGS: Normal mineralization. No fracture or dislocation. No lytic or blastic lesion. Mild scatte red degenerative change in the fingers, thumb, and wrist. Moderate degenerative change at the DRUJ. N o erosion or periosteal change. Soft tissues within normal limits. IMPRESSION: No acute osseous finding in the left hand or wrist. Reviewed, dictated and finalized at location K. IMPRESSION: No acute osseous finding in the left hand or wrist.
--- NOTE | ~2023-06-27 | XR_ITS ---
EXAM: XR shoulder RT min 2V, XR clavicle RT DATE: 06/27/2023 14:26 HISTORY: fall, ANTERIOR LATERAL pain . COMPARISON: None available. FINDINGS: Normal mineralization. No fracture or dislocation. No lytic or blastic lesion. Moderate ac romioclavicular and glenohumeral joint degenerative change. No erosion or periosteal change. Soft tis sues within normal limits. IMPRESSION: No acute osseous finding in the right clavicle or shoulder. Reviewed, dictated and finalized at location K. IMPRESSION: No acute osseous finding in the right clavicle or shoulder.
[2023-06-27 13:39] VITALS: BP 165/85; PULSE 87; RESP 16; TEMP 36.2; O2SAT 99
--- NOTE | 2023-06-27 13:39 | ED.FALL ---
HPI - Fall General Chief Complaint: Fall Stated Complaint: fall Time Seen by Provider: 06/27/23 13:38 History of Present Illness HPI Narrative: Patient is a 53-year-old female with history of CHF, diabetes, hyperlipidemia, hypertension, obesity, obstructive sleep apnea here with a fall. She states that yesterday mid day she was visiting her father and was not fully picking her feet up while she was walking, tripped and fell down falling straight forward onto her front. She tried to break her fall and injured her right shoulder, right knee and left wrist/hand on the way down. Patient denies hitting her head, denies LOC. Patient was able to get herself back up off of the floor shortly. She has been taking some tylenol for pain, last dose was around 8:30 AM. Related Data Home Medications Medication Instructions Recorded Confirmed atorvastatin 20 mg tablet 20 mg PO DAILY 02/18/22 01/25/23 glipizide 10 mg tablet 10 mg PO DAILY 02/18/22 01/25/23 hydralazine 50 mg tablet 50 mg PO BID 02/18/22 01/25/23 insulin detemir U-100 100 unit/mL 20 unit subcut HS 02/18/22 01/25/23 (3 mL) subcutaneous pen (Levemir FlexTouch U-100 Insulin) metoprolol tartrate 50 mg tablet 50 mg PO BID 02/18/22 01/25/23 amlodipine 10 mg tablet 10 mg PO DAILY 01/25/23 01/25/23 semaglutide 0.25 mg or 0.5 mg (2 mg subcut 01/25/23 01/25/23 mg/3 mL) subcutaneous pen injector (Ozempic) Allergies Allergy/AdvReac Type Severity Reaction Status Date / Time Latex, Natural Rubber Allergy Rash Verified 06/27/23 13:34 Review of Systems Review of Systems: All systems reviewed & are unremarkable except as noted in HPI and below PMFSH Past Medical History Medical History CHF (congestive heart failure) Diabetes Hyperlipidemia Hypertension Hypertension associated with diabetes Morbid obesity with BMI of 70 and over, adult LUCIA (obstructive sleep apnea) Surgical History Surgical History H/O section times 2 History of tonsillectomy and adenoidectomy Family History Family History Mother Diabetes mellitus Family history of thyroid problem Sibling Thyroid cancer Social History Social History Social History: She lives with her 2 daughters . She is disabled. She is . Code status full code Smoking status: Never smoker Alcohol intake: never Substance use: never Lack of Transportation: No Lack of Food: Never True Current Housing: I Have Housing Concerned About Future Housing: No Difficulty Paying Gas/Electric Bills: No Difficulty Paying for Meds: No Currently Unemployed: No Education: Trade/Vocational Certificate Difficulty w/ Childcare or Family Care: No Gender identity (if verbalized by the patient): Female Spiritual care concerns: No Exam Narrative: GENERAL: Well-appearing, well-nourished, and in no acute distress. HEAD: Normocephalic, atraumatic. EYES: PERRLA and EOMI. ENT: Nares clear. Mucous membranes moist. NECK: Supple. No cervical tenderness. CHEST: Clear to auscultation. No respiratory distress. No chest wall tenderness. HEART: Regular rate and rhythm. Normal peripheral pulses. ABDOMEN: Soft, nontender, nondistended. No abdominal tenderness. EXTREMITIES: Tenderness over the distal clavicle on the right side. Anterior shoulder tenderness on the right side, normal range of motion, no obvious deformity. Remainder of right upper extremity atraumatic with no tenderness, normal range of motion. Strong radial pulse. Left shoulder, humerus, elbow, forearm nontender with normal range of motion. She has tenderness in the radial aspect of the left wrist was no deformity or swelling. Tenderness over the thenar eminence on the left side. No bruising, deformity
[2023-06-27] MEDS: ACETAMINOPHEN 325 MG TABLET 650 MG PO (14:46)
--- NOTE | 2023-06-27 15:03 | PC.NURSE ---
Sami wrap applied instead of knee immobilizer due to patient size, made aware.
== END 2023-06-27 15:06 | disposition home or self-care (01) ==
PROVIDERS: Emergency Provider Student in an Organized Health Care Education/Training Program
DX: S40.011A Contusion of right shoulder, initial encounter (principal); S60.222A Contusion of left hand, initial encounter; S80.01XA Contusion of right knee, initial encounter; I50.9 Heart failure, unspecified; E11.9 Type 2 diabetes mellitus without complications; I15.2 Hypertension secondary to endocrine disorders; E78.5 Hyperlipidemia, unspecified; E66.01 Morbid (severe) obesity due to excess calories; Z68.43 Body mass index [BMI] 50.0-59.9, adult; G47.33 Obstructive sleep apnea (adult) (pediatric); Z79.85 Long-term (current) use of injectable non-insulin antidiabetic drugs; Z79.84 Long term (current) use of oral hypoglycemic drugs; Z79.4 Long term (current) use of insulin; W01.0XXA Fall on same level from slipping, tripping and stumbling without subsequent striking against object, initial encounter
CPT/HCPCS: 73000; 73030; 73110; 73130; 73562; 99284; A9270

== ENCOUNTER 2023-10-13 13:03 | Outpatient (CLI) | payer MEDICARE, MEDICAID, SELFPAY ==
[2023-10-13 13:56] LABS: Albumin Level 4.3 g/dL (3.5-5.1); Anion Gap 7 mmol/L (4-12); Blood Urea Nitrogen 39 mg/dL (7-17); Calcium 9.2 mg/dL (8.4-10.2); Carbon Dioxide 30 mmol/L (22-30); Chloride 106 mmol/L (98-107); Estimated Glomerular Filt Rate 27; Glucose 176 mg/dL (65-110); Phosphorus 3.4 mg/dL (2.5-4.5); Potassium 3.8 mmol/L (3.4-5.0); Sodium 143 mmol/L (137-145)
[2023-10-13 13:59] LABS: Creatinine Urine 76.9 mg/dL; Total Protein Urine Random 92 mg/dL
[2023-10-13 16:34] LABS: Vitamin D 25 Hydroxy 26.6 ng/mL
== END 2023-10-13 13:04 | disposition home or self-care (01) ==
PROVIDERS: Visit Provider Internal Medicine Nephrology
DX: E11.22 Type 2 diabetes mellitus with diabetic chronic kidney disease (principal); I12.9 Hypertensive chronic kidney disease with stage 1 through stage 4 chronic kidney disease, or unspecified chronic kidney disease; N18.32 Chronic kidney disease, stage 3b; E55.9 Vitamin D deficiency, unspecified
CPT/HCPCS: 36415; 80069; 82306; 82570; 84156

== ENCOUNTER 2023-11-25 12:15 | Outpatient (CLI) | payer MEDICARE, MEDICAID, SELFPAY ==
[2023-11-25 12:45] VITALS: PULSE 73; O2SAT 96
[2023-11-25 12:50] VITALS: PULSE 96; O2SAT 93
[2023-11-25 13:00] VITALS: PULSE 75; O2SAT 97
--- NOTE | 2023-11-25 13:07 | HOMEO2EVAL ---
Evaluation was performed at [facility] Home Oxygen Evaluation RC: Home Oxygen (O2) Evaluation Start: 11/25/23 13:05 Freq: Status: Active Protocol: RPE Activity Type Activity Date Activity User E-sign Co-sign Detail Recorded Client Recorded Date Recorded By Document 11/25/23 12:45 [email or web address] [email or web address] 11/25/23 13:06 DJO Document 11/25/23 12:50 [email or web address] [email or web address] 11/25/23 13:06 DJO Document 11/25/23 13:00 [email or web address] [email or web address] 11/25/23 13:06 DJO 11/25/23 11/25/23 11/25/23 12:45 12:50 13:00 Home O2 Evaluation [Oxygen] -Test Phase Resting Exercise Resting -Oxygen Delivery Room Air Room Air Room Air [Pulse Oximetry] -Pulse Oximetry (90-100 %) 96 93 97 [Pulse Rate] -Pulse Rate (60-100 beats/min) 73 96 75 [Evaluation] -Activity Tolerance Fair [Charges] -Evaluation Charges O2 Evaluation by Pulmonary
== END 2023-11-25 12:16 | disposition home or self-care (01) ==
LOC: ANHPFT 12:15
PROVIDERS: Visit Provider Internal Medicine Pulmonary Disease
DX: I50.9 Heart failure, unspecified (principal)
CPT/HCPCS: 94618

== ENCOUNTER 2024-02-19 11:16 | Outpatient (CLI) | payer MEDICARE, MEDICAID, SELFPAY ==
[2024-02-19 12:35] LABS: Albumin Level 4.3 g/dL (3.5-5.1); Anion Gap 7 mmol/L (4-12); Blood Urea Nitrogen 41 mg/dL (7-17); Calcium 9.3 mg/dL (8.4-10.2); Carbon Dioxide 25 mmol/L (22-30); Chloride 108 mmol/L (98-107); Estimated Glomerular Filt Rate 23; Glucose 186 mg/dL (65-110); Phosphorus 3.9 mg/dL (2.5-4.5); Potassium 5.2 mmol/L (3.4-5.0); Sodium 140 mmol/L (137-145)
[2024-02-19 12:37] LABS: Hemoglobin A1C 8.5 % (<5.7)
[2024-02-19 13:02] LABS: Creatinine Urine 80.1 mg/dL; Total Protein Urine Random 59 mg/dL; Ur Ttl Prot Creatinine Ratio 0.74 mg/mg (0-0.20)
== END 2024-02-19 11:17 | disposition home or self-care (01) ==
PROVIDERS: Visit Provider Internal Medicine Nephrology
DX: E11.22 Type 2 diabetes mellitus with diabetic chronic kidney disease (principal); N18.4 Chronic kidney disease, stage 4 (severe); E11.59 Type 2 diabetes mellitus with other circulatory complications; I15.2 Hypertension secondary to endocrine disorders
CPT/HCPCS: 36415; 80069; 82570; 83036; 84156

== ENCOUNTER 2024-05-02 08:42 | Outpatient (CLI) | payer MEDICARE, MEDICAID, SELFPAY ==
--- OUTSIDE RECORDS SUMMARY | 2024-05-04 16:17 | XMS_ITS | Data Portability ---
Author Organization [facility] Noah [facility] Address [address] [place] [address] Care Team Providers Care Manager Business Process Name Role Phone TERA ROSAS Primary Care Provider Assessment No assessment recorded. Plan of Treatment Reminders Order Date Submit Date Provider Last Modified By Organization Details Last Modified Time Details Appointments ANNUAL 30 2024 02:00P M Tera Rosas MD Not available Not available Not available Lab glucose, fingersti ck, blood 2022 023 In-Office Order, Internal Use Only DO Not Attach Compendium DO Not Attach Compendium, Do Not Delete/merge, [id number] 01/06/2023 13:35:09 HbA1c (hemoglob in A1c), blood 2022 023 In-Office Order, Internal Use Only DO Not Attach Compendium DO Not Attach Compendium, Do Not Delete/merge, [id number] 01/06/2023 13:35:09 HbA1c (hemoglob in A1c), blood 2022 023 In-Office Order, Internal Use Only DO Not Attach Compendium DO Not Attach Compendium, Do Not Delete/merge, [id number] 01/20/2023 16:32:28 CMP, serum or plasma 2023 024 [facility] (Lab), [address] [place], [address], 02/14/2024 14:01:20 lipid panel, serum 2023 024 [facility] (Lab), [address] [place], [address], 02/14/2024 13:56:07 unlisted lab - hemoglobi n A1C 2023 [facility] (Lab), [address], [place], [address], 02/15/2024 08:20:02 microalbu min/creat inine, mass ratio, urine 2023 [facility] (Lab), [address], [place], [address], 02/14/2024 13:09:26 CBC w/ auto diff 2023 [facility] (Lab), [address], [place], [address], 02/14/2024 12:58:40 unlisted lab - vitamin D, 25-hydrox y 2023 024 [facility] (Lab), [address], [place], [address], 02/15/2024 08:20:05 unlisted lab - TSH rfx on abnormal to free T4 2023 [facility] (Lab), [address], [place], [address], 02/14/2024 13:56:05 unlisted lab - B-type natriuret ic peptide 2023 024 [facility] (Lab), [address], [place], [address], 02/15/2024 09:11:36 Referral physical therapist referral 2022 023 [facility], [address] [place], [address], 01/12/2023 16:08:10 Procedures None recorded. Surgeries None recorded. Imaging None recorded. Medication Orders ammonium lactate 12 % lotion [address] [facility], [address] [place], [address], 02/07/2024 18:24:49 ammonium lactate 12 % lotion [address] [facility], [address] [place], [address], 02/07/2024 18:24:49 Levemir FlexPen 100 unit/mL (3 mL) solution subcutane ous insulin pen 2022 023 [facility], [address] [place] [address], [address], 01/06/2023 13:35:27 BD Alcohol Swabs [address] [facility], [address] [place] [address], [address], 02/07/2024 18:24:42 Ozempic 0.25 mg or 0.5 mg (2 mg/1.5 mL) subcutane ous pen injector [address] [facility], [address] [place] [address], [address], 02/07/2024 18:28:35 atorvasta tin 20 mg tablet 2022 023 [facility], [address] [place] [address], [address], 01/06/2023 13:35:28 bumetanid e 2 mg tablet 2022 023 [facility], [address] [place] [address], [address], 01/06/2023 13:35:29 spironola ctone 25 mg tablet 2022 023 [facility], [address] [place], [address], 01/06/2023 13:35:29 amlodipin e 10 mg tablet 2022 023 [facility], [address] [place] [address], [address], 01/20/2023 15:14:34 Levemir FlexPen 100 unit/mL (3 mL) solution subcutane ous insulin pen 2023 [facility], [address] [place] [address], [address], 02/15/2024 12:07:26 Ozempic 0.25 mg or 0.5 mg (2 mg/3 mL) subcutane ous pen injector 2023 [facility], [address] [place] [address], [address], 02/07/2024 18:38:40 ferrous sulfate 325 mg (65 mg iron) tablet 2023 024 [facility], [address] [place] [address], [address], 02/07/2024 18:38:40 bumetanid e 2 mg tablet 2023 024 [facility], [address] [place] [address], [address], 02/07/2024 18:38:42 metoprolo l tartrate 50 mg tablet 2023 024 [facility], [address] [place] [address], [address], 02/07/2024 18:38:41 spironola ctone 25 mg tablet 2023 024 [facility], [address] [place], [address], 02/07/2024 18:38:35 atorvasta tin 20 mg tablet 2023 [facility], [address] [place], [address], 02/07/2024 18:38:36 hydralazi ne 50 mg tablet 2023 [facility], [address] [place] [address], [address], 02/07/2024 18:38:37 potassium chloride ER 10 mEq tablet,ex tended release 2023 [facility], [address] [place] [address], [address], 02/07/2024 18:38:41 amlodipin e 10 mg tablet 2023 [facility], [address] [place] [address], [address], 02/07/2024 18:38:41 albuterol sulfate HFA 90 mcg/actua tion aerosol inhaler 2023 [facility], [address] [place] [address], [address], 02/07/2024 18:38:35 Patient TargetsNo targets recorded. Patient Instructions Encounter Date Encounter Id Patient Instructions Last Modified By Organization Details Last Modified Time 01/06/2023 [id number] dash diet: care instructions Not available 01/06/2023 13:36:52 How To Lower Blood Pressure Not available 01/06/2023 13:36:52 heart attack: care instructions Not available 01/06/2023 17:29:23 stroke education Not available 01/06/2023 17:29:23 stroke: care instructions Not available 01/06/2023 17:29:23 A healthy lifestyle: care instructions Not available 01/11/2023 10:19:10 Learning About Carbohydrate (Carb) Counting and Eating Out When You Have Diabetes Not available 01/06/2023 13:36:52 learning about low-carbohydrate diets Not available 01/06/2023 13:36:52 learning about low-carbohydrate foods Not available 01/06/2023 13:36:52 01/20/2023 [id number] dash diet: care instructions Not available 01/20/2023 15:14:24 How To Lower Blood Pressure Not available 01/20/2023 15:14:24 A healthy lifestyle: care instructions Not available 01/20/2023 16:32:28 02/07/2024 [id number] Learning About Carbohydrate (Carb) Counting and Eating Out When You Have Diabetes Not available 02/07/2024 18:38:25 type 2 diabetes: care instructions Not available 02/07/2024 18:38:25 A healthy lifestyle: care instructions Not available 02/09/2024 10:29:45 heart failure: care instructions Not available 02/07/2024 18:38:24 limiting sodium with heart failure: care instructions Not available 02/07/2024 18:38:24 dash diet: care instructions Not available 02/07/2024 18:38:25 How To Lower Blood Pressure Not available 02/07/2024 18:38:25 asthma: your action plan Not available 02/07/2024 18:38:25 asthma in adults : care instructions Not available 02/07/2024 18:38:25 Reason for Referral Physical Therapist Referral for Unsteady when walking Referring Physician: [facility], Encounter Date: 12/31/2022 Results Created Date Observation Date Name Description Value Unit Range Abnormal Flag Note LastModifiedBy Organization Detail LastModifiedTime 01/07/20 23 01/06/2023 HbA1c (hemo globi n A1c), blood HbA1c 14.4 Not Available In-Office Order Internal Use Only DO Not Attach Compendium DO Not Attach Compendium, Do Not Delete/merge, [id number] 01/06/2023 13:06:26 01/07/20 23 01/06/2023 gluco sugar gregg k, blood Blood Glucose: mg/dl 195 Not Available In-Off ice Order Internal Use Only DO Not Attach Compendium DO Not Attach Compendium, Do Not Delete/merge, [id number] 01/06/2023 13:05:42 01/21/20 23 01/20/2023 HbA1c (hemo globi n A1c), blood HbA1c 12.3 Not Available In-Office Order Internal Use Only DO Not Attach Compendium DO Not Attach Compendium, Do Not Delete/merge, 01/20/2023 14:41:12 02/14/20 24 02/14/2024 COMPL ETE BLOOD COUNT AUTO DIFF white blood count 7.9 x10e3 /uL 3.4-10 .8 normal Not Available [facility] (Lab) [address] [place], [address], 02/14/2024 12:58:40 02/14/20 24 02/14/2024 COMPL ETE BLOOD COUNT AUTO DIFF red blood count 4.10 x10e6 /uL 3.77-5 .28 normal Not Available [facility] (Lab) [address] [facility], [place], [address], 02/14/2024 12:58:40 02/14/20 24 02/14/2024 COMPL ETE BLOOD COUNT AUTO DIFF hemoglobin 11.3 g/dL 11.1-1 5.9 normal Not Available [facility] (Lab) [address] [place], [address], 02/14/2024 12:58:40 02/14/20 24 02/14/2024 COMPL ETE BLOOD COUNT AUTO DIFF hematocrit 37.3 % 34.0-4 6.6 normal Not Available [facility] (Lab) [address] [facility], [place], [address], 02/14/2024 12:58:40 02/14/20 24 02/14/2024 COMPL ETE BLOOD COUNT AUTO DIFF mean corpuscular volume 91 fL 79-97 normal Not Available [facility] (Lab) [address] [place], [address], 02/14/2024 12:58:40 02/14/20 24 02/14/2024 COMPL ETE BLOOD COUNT AUTO DIFF mean corpuscular hemoglobin 27.6 pg 26.6-3 3.0 normal Not Available [facility] (Lab) [address] [place], [address], 02/14/2024 12:58:40 02/14/20 24 02/14/2024 COMPL ETE BLOOD COUNT AUTO DIFF mean corpuscular HGB conc 30.3 g/dL 31.5-3 5.7 low Not Available [facility] (Lab) [address] [place], [address], 02/14/2024 12:58:40 02/14/20 24 02/14/2024 COMPL ETE BLOOD COUNT AUTO DIFF red cell distribution width 14.0 % 11.5-1 4.5 normal Not Available [facility] (Lab) [address] [place], [address], 02/14/2024 12:58:40 02/14/20 24 02/14/2024 COMPL ETE BLOOD COUNT AUTO DIFF platelet count 334 x10e3 /uL 150-45 0 normal Not Available [facility] (Lab) [address] [place], [address], 02/14/2024 12:58:40 02/14/20 24 02/14/2024 COMPL ETE BLOOD COUNT AUTO DIFF mean platelet volume 8.9 fL 8.9-12 .7 normal Not Available [facility] (Lab) [address] [place], [address], 02/14/2024 12:58:40 02/14/20 24 02/14/2024 COMPL ETE BLOOD COUNT AUTO DIFF immature granulocytes pct auto 1.3 % not estb. Not Available [facility] (Lab) [address] [place], [address], 02/14/2024 12:58:40 02/14/20 24 02/14/2024 COMPL ETE BLOOD COUNT AUTO DIFF neutrophils percent auto 70 % not estb. Not Available [facility] (Lab) [address], [place], [address], 02/14/2024 12:58:40 02/14/20 24 02/14/2024 COMPL ETE BLOOD COUNT AUTO DIFF lymphocytes percent auto 20 % not estb. Not Available [facility] (Lab) [address], [place], [address], 02/14/2024 12:58:40 02/14/20 24 02/14/2024 COMPL ETE BLOOD COUNT AUTO DIFF monocytes percent auto 6 % not estb. Not Available [facility] (Lab) [address] [place], [address], 02/14/2024 12:58:40 02/14/20 24 02/14/2024 COMPL ETE BLOOD COUNT AUTO DIFF eosinophils percent auto 2 % not estb. Not Available [facility] (Lab) [address], [place], [address], 02/14/2024 12:58:40 02/14/20 24 02/14/2024 COMPL ETE BLOOD COUNT AUTO DIFF basophils percent auto 0 % not estb. Not Available [facility] (Lab) [address], [place], [address], 02/14/2024 12:58:40 02/14/20 24 02/14/2024 COMPL ETE BLOOD COUNT AUTO DIFF neutrophils absolute auto 5.5 x10e3 /uL 1.4-7. 0 normal Not Available [facility] (Lab) [address], [place], [address], 02/14/2024 12:58:40 02/14/20 24 02/14/2024 COMPL ETE BLOOD COUNT AUTO DIFF immature granulocytes abs auto 0.1 x10e3 /uL 0.0-0. 1 normal Not Available [facility] (Lab) [address], [place], [address], 02/14/2024 12:58:40 02/14/20 24 02/14/2024 COMPL ETE BLOOD COUNT AUTO DIFF lymphocytes absolute auto 1.6 x10e3 /uL 0.7-3. 1 normal Not Available [facility] (Lab) [address] [place], [address], 02/14/2024 12:58:40 02/14/20 24 02/14/2024 COMPL ETE BLOOD COUNT AUTO DIFF monocytes absolute auto 0.5 x10e3 /uL 0.1-0. 9 normal Not Available [facility] (Lab) [address] [facility], [place], [address], 02/14/2024 12:58:40 02/14/20 24 02/14/2024 COMPL ETE BLOOD COUNT AUTO DIFF eosinophils absolute auto 0.2 x10e3 /uL 0.0-0. 4 normal Not Available [facility] (Lab) [address] [facility], [place], [address], 02/14/2024 12:58:40 02/14/20 24 02/14/2024 COMPL ETE BLOOD COUNT AUTO DIFF basophils absolute auto 0.0 x10e3 /uL 0.0-0. 2 normal Not Available [facility] (Lab) [address] [facility], [place], [address], 02/14/2024 12:58:40 02/14/20 24 02/14/2024 COMPL ETE BLOOD COUNT AUTO DIFF nucleated red blood cells auto 0 % 0-0 normal Not Available [facility] (Lab) [address] [place], [address], 02/14/2024 12:58:40 02/14/20 24 02/14/2024 MICRO ALBUM CREAT ININE RATIO UR creatinine urine random 89.2 mg/dL not estab. Not Available [facility] (Lab) [address] [place], [address], 02/14/2024 13:09:26 02/14/20 24 02/14/2024 MICRO ALBUM CREAT ININE RATIO UR microalbumin urine random 24.7 mg/dL not estab. Not Available [facility] (Lab) [address] [place], [address], 02/14/2024 13:09:26 02/14/20 24 02/14/2024 MICRO ALBUM CREAT ININE RATIO UR microalbum creatinine ratio ur 276 mg/g_ cre 0-29 Urine Micro album in-Cr eatin ine Ratio : Lacey l 0-29 Moder ately Incre ased 30-30 0 Sever brissa Incre ased >300 Not Available [facility] (Lab) [address] [place], [address], 02/14/2024 13:09:26 02/14/20 24 02/14/2024 TSH RFX ON ABNOR MAL TO FREE T4 TSH rfx on abnormal to free T4 1.61 uIU/m L 0.450- 4.500 normal Not Available [facility] (Lab) [address], [place], [address], 02/14/2024 13:56:05 02/14/20 24 02/14/2024 LIPID PANEL triglyceride s 166 mg/dL 0-149 high Not Available [facility] (Lab) [address] [facility], [place], [address], 02/14/2024 13:56:07 02/14/20 24 02/14/2024 LIPID PANEL cholesterol 194 mg/dL 100-19 9 normal Not Available [facility] (Lab) [address], [place], [address], 02/14/2024 13:56:07 02/14/20 24 02/14/2024 LIPID PANEL LDL cholesterol 106 mg/dL 0-99 high Not Available [facility] ([facility]) [address] [place], [address], 02/14/2024 13:56:07 02/14/20 24 02/14/2024 LIPID PANEL VLDL cholesterol (calc) 33 mg/dL 5-40 normal Not Available [facility] (Lab) [address] [place], [address], 02/14/2024 13:56:07 02/14/20 24 02/14/2024 LIPID PANEL HDL cholesterol 58 mg/dL 40-999 normal Not Available [facility] (Lab) [address], [place], [address], 02/14/2024 13:56:07 02/14/20 24 02/14/2024 LIPID PANEL LDL HDL ratio 1.8 0-3.2 normal Not Available [facility] (Lab) [address], [place], [address], 02/14/2024 13:56:07 02/14/20 24 02/14/2024 LIPID PANEL chol HDL ratio 3.0 mg/dL 0-4.4 normal Not Available [facility] (Lab) [address], [place], [address], 02/14/2024 13:56:07 02/14/20 24 02/14/2024 COMPR EHENS SERA METAB OLIC PANEL sodium 138 mmol/ L 134-14 4 normal Not Available [facility] (Lab) [address] [place], [address], 02/14/2024 14:01:20 02/14/20 24 02/14/2024 COMPR EHENS SERA METAB OLIC PANEL potassium 5.2 mmol/ L 3.5-5. 2 normal Not Available [facility] (Lab) [address] [place], [address], 02/14/2024 14:01:20 02/14/20 24 02/14/2024 COMPR EHENS SERA METAB OLIC PANEL chloride 104 mmol/ L 96-106 normal Not Available [facility] (Lab) [address] [place], [address], 02/14/2024 14:01:20 02/14/20 24 02/14/2024 COMPR EHENS SERA METAB OLIC PANEL carbon dioxide 23 mmol/ L 20-29 normal Not Available [facility] (Lab) [address], [place], [address], 02/14/2024 14:01:20 02/14/20 24 02/14/2024 COMPR EHENS SERA METAB OLIC PANEL anion gap 16.0 mmol/ L Not Available [facility] (Lab) [address] [place], [address], 02/14/2024 14:01:20 02/14/20 24 02/14/2024 COMPR EHENS SERA METAB OLIC PANEL blood urea nitrogen 42 mg/dL 6-24 high Not Available [facility] (Lab) [address], [place], [address], 02/14/2024 14:01:20 02/14/20 24 02/14/2024 COMPR EHENS SERA METAB OLIC PANEL creatinine 2.42 mg/dL 0.76-1 .27 high Not Available [facility] (Lab) [address], [place], [address], 02/14/2024 14:01:20 02/14/20 24 02/14/2024 COMPR EHENS SERA METAB OLIC PANEL glomerular filtration rate 23 mL/mi n/1 Not Available [facility] (Lab) [address] [place], [address], 02/14/2024 14:01:20 02/14/20 24 02/14/2024 COMPR EHENS SERA METAB OLIC PANEL BUN creatinine ratio 17 9-23 normal Not Available [facility] (Lab) [address] [place], [address], 02/14/2024 14:01:20 02/14/20 24 02/14/2024 COMPR EHENS SERA METAB OLIC PANEL glucose 191 mg/dL 70-99 high Not Available [facility] (Lab) [address] [place], [address], 02/14/2024 14:01:20 02/14/20 24 02/14/2024 COMPR EHENS SERA METAB OLIC PANEL osmolality calculated 291 275-29 5 normal Not Available [facility] (Lab) [address] [place], [address], 02/14/2024 14:01:20 02/14/20 24 02/14/2024 COMPR EHENS SERA METAB OLIC PANEL calcium 9.8 mg/dL 8.7-10 .2 normal Not Available [facility] (Lab) [address], [place], [address], 02/14/2024 14:01:20 02/14/20 24 02/14/2024 COMPR EHENS SERA METAB OLIC PANEL bilirubin total 0.2 mg/dL 0.0-1. 2 normal Not Available [facility] (Lab) [address], [place], [address], 02/14/2024 14:01:20 02/14/20 24 02/14/2024 COMPR EHENS SERA METAB OLIC PANEL aspartate amino transferase 10 IU/L 0-40 normal Not Available [facility] (Lab) [address] [place], [address], 02/14/2024 14:01:20 02/14/20 24 02/14/2024 COMPR EHENS SERA METAB OLIC PANEL alanine aminotransfe rase 10 IU/L 0-32 normal Not Available [facility] (Lab) [address], [place], [address], 02/14/2024 14:01:20 02/14/20 24 02/14/2024 COMPR EHENS SERA METAB OLIC PANEL total protein 8.0 g/dL 6.0-8. 5 normal Not Available [facility] (Lab) [address] [place], [address], 02/14/2024 14:01:20 02/14/20 24 02/14/2024 COMPR EHENS SERA METAB OLIC PANEL albumin level 3.9 g/dL 3.8-4. 9 normal Not Available [facility] (Lab) [address] [place], [address], 02/14/2024 14:01:20 02/14/20 24 02/14/2024 COMPR EHENS SERA METAB OLIC PANEL globulin 4.1 g/dL 1.5-4. 5 normal Not Available [facility] (Lab) [address] [place], [address], 02/14/2024 14:01:20 02/14/20 24 02/14/2024 COMPR EHENS SERA METAB OLIC PANEL albumin globulin ratio 1.0 1.2-2. 2 low Not Available [facility] (Lab) [address] [facility], [place], [address], 02/14/2024 14:01:20 02/14/20 24 02/14/2024 COMPR EHENS SERA METAB OLIC PANEL alkaline phosphatase 185 IU/L 44-121 high Not Available [facility] (Lab) [address] [place], [address], 02/14/2024 14:01:20 02/14/20 24 02/15/2024 HEMOG LOBIN A1C hemoglobin A1C 9.5 % 4.8-5. 6 abnormal Predi abete s: 5.7 - 6.4 Diabe terrell: >6.4 Glyce caleb contr ol for adult s with diabe terrell: <7.0 [facility] [address] [address] Lab Direc tor: Umberto barkley PhD, Phone : [phone] Not Available [facility] (Lab) [address] [place], [address], 02/15/2024 08:20:02 02/14/20 24 02/15/2024 VITAM IN D, 25-HY DROXY vitamin D, 25-hydroxy 16.9 NG/mL 30.0-1 00.0 abnormal Vitam in D defic iency has been defin ed by the Insti tute of Medic ine and an Endoc rine Socie ty pract ice guide line as a level of serum 25-OH vitam in D less than 20 ng/mL (1,2) . The Endoc rine Socie ty went on to furth er defin e vitam in D insuf ficie ncy as a level betwe en 21 and 29 ng/mL (2). 1. IOM (Inst itute of Medic ine). 2009. Dieta ry refer ence james es for calci um and D. Rupinder zimmer [place]: The [facility] . 2. Tucker barry MF, Forest bob [place], Jordi off-F errar i ABDI, et al. Evalu ation , treat ment, and preve ntion of vitam in D defic iency : an Endoc rine Socie ty clini marquis pract ice guide line. JCEM. 2010; 96(7) :1911 -30. [facility]: [facility] [address] [place], [place] [id number] Lab Direc tor: Umberto barkley PhD, Phone : [phone] Not Available [facility] (Lab) [address] [place] [address], [address], 02/15/2024 08:20:05 02/14/20 24 02/15/2024 B-TYP E NATRI URETI C PEPTI DE B-type natriuretic peptide 70.4 pg/mL 0.0-10 0.0 Sieme ns AD[facility]o dolog y Perfo rmed at: 01 - [facility] [address] [place] [address] 126 Lab Direc tor: Umberto barkley PhD, Phone : [phone] Not Available [facility] (Lab) [address] [place], [address], 02/15/2024 09:11:36 Result Notes None recorded. Problems Name Problem SNOMED Code Status Onset Date Resolution Date Notes Provider Name and Address Organization Details Recorded Time Diabetes mellitus 28161996 Active 2019 Not Available [facility] 2 10:57:09 Hypertensi ve disorder 17257905 Active 2019 Not Available [facility] 2 10:57:09 Anxiety 09357982 Active 2019 Not Available [facility] 2 10:57:09 Chronic congestive heart failure 45996923 Active 2020 Not Available [facility] 2 10:57:09 Mild intermitte nt asthma 427680189 Active 2020 Not Available [facility] 2 10:57:09 Hyperlipid emia 11542083 Active 2020 Not Available [facility] 2 10:57:09 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 Procedures Surgical History Date Name Laterality Status Provider Name and Address Organization Details Recorded Time 3 Routine Foot Care completed SUNG TALAVERA DPM [address] [place], [address], [place] [facility] 12/31/2022 12:10:14 3 Routine Foot Care completed SUNG TALAVERA DPM [address] [place], [address], [place] [facility] 05/21/2022 10:01:08 1 Routine Foot Care [place], [address], [place] [facility] 05/31/2020 12:18:20 0 Date of Last Mammogram completed Meena Ramsay MA [place] - [facility] 09/17/2021 15:56:35 9 Date of Last Pap Smear completed Meena Ramsay MA [place] - [facility] 01/20/2023 14:39:19 section completed DINH [place] - [facility] 04/09/2020 12:21:46 Imaging Results None recorded. Procedure Notes None recorded. Medical Equipment None Reported. Allergies Allergen ID Allergen Name Allergen Category Reaction Reaction Severity Criticality Documentation Date Start Date Code Code System Note Provider Name and Address Organization Details Recorded Time [id number] Latex (substanc e) environme nt,medica tion Not available Not available Not available 03/01/2019 24700 8007 SNOMED Not Available Not Available Not Available Medications Name Sig Start Date Stop Date Status Note LastModified by Organization Details LastModified Time Prescriptio n - Change active Not Available Not Available N ot Available relion pen needles [id number] mis USE DIRECTED 02/11 completed Not Available Not Available Not Available furosemide 40 mg tablet TAKE 1 TABLET BY MOUTH ONCE DAILY IN THE MORNING 04/14 completed Not Available Not Available Not Available metolazone 2.5 mg tablet TAKE 1 TABLET BY MOUTH TWICE DAILY 02/06 completed Not Available Not Available Not Available metformin 500 mg tablet Take 2 tablets twice a day by oral route for 30 days. 04/09 completed Not Available Not Available Not Available atorvastati n 20 mg tablet TAKE 1 TABLET BY MOUTH ONCE DAILY IN THE MORNING active Not Available Not Available No t Available bumetanide 2 mg tablet Take 1 tablet twice a day by oral route as directed for 90 days. active Not Available Not Available No t Available ammonium lactate 12 % lotion APPLY LOTION TOPICALLY TWICE DAILY 02/06 completed Not Available Not Available Not Available ibuprofen 800 mg tablet TAKE 1 TABLET BY MOUTH EVERY 8 HOURS NEEDED WITH FOOD 01/01 completed Not Available Not Available Not Available tizanidine 4 mg tablet TAKE 1 TABLET BY MOUTH EVERY 8 HOURS NEEDED 09/17 completed Not Available Not Available Not Available glipizide ER 10 mg tablet, extended release 24 hr TAKE 1 TABLET BY MOUTH ONCE DAILY IN THE MORNING FOR 30 DAYS 04/14 completed Not Available Not Available Not Available glipizide 10 mg tablet TAKE 1 TABLET BY MOUTH ONCE DAILY IN THE MORNING 01/06 completed Not Available Not Available Not Available potassium chloride ER 10 mEq tablet,exte nded release TAKE 1 TABLET BY MOUTH ONCE DAILY IN THE MORNING active Not Available Not Available No t Available spironolact one 25 mg tablet TAKE 1 TABLET BY MOUTH IN THE MORNING 2023 active Not Available Not Available Not Avai lable alprazolam 0.25 mg tablet TAKE 1 TABLET BY MOUTH THREE TIMES DAILY NEEDED 02/11 completed Not Available Not Available Not Available methocarbam ol 750 mg tablet TAKE 1 TABLET BY MOUTH THREE TIMES DAILY 02/06 completed Not Available Not Available Not Available amlodipine 10 mg tablet TAKE 1 TABLET BY MOUTH ONCE DAILY IN THE MORNING active Not Available Not Available No t Available ferrous sulfate 325 mg (65 mg iron) tablet TAKE 1 TABLET BY MOUTH ONCE DAILY AT 8 AM active Not Available Not Available No t Available metformin 1,000 mg tablet TAKE 1 TABLET BY MOUTH TWICE DAILY DIRECTED 04/14 completed Not Available Not Available Not Available metoprolol tartrate 50 mg tablet TAKE 1 TABLET BY MOUTH TWICE DAILY active Not Available Not Available No t Available bumetanide 1 mg tablet TAKE 1 TABLET BY MOUTH TWICE DAILY 01/06 completed Not Available Not Available Not Available hydralazine 50 mg tablet TAKE 1 TABLET BY MOUTH TWICE DAILY DIRECTED active Not Available Not Available No t Available hydrochloro thiazide 25 mg tablet TAKE 1 TABLET BY MOUTH ONCE DAILY 02/17 completed Not Available Not Available Not Available ergocalcife rol (vitamin D2) 1,250 mcg (50,000 unit) capsule TAKE 1 CAPSULE BY MOUTH ONCE A WEEK FOR 4 WEEKS, THEN ONCE A MONTH active Not Available Not Available No t Available ibuprofen 600 mg tablet TAKE 1 TABLET BY MOUTH THREE TIMES DAILY 01/01 completed Not Available Not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 by flex pen-morbid obesity and struggle with diet and exercise worsening condition of diabetes, ( HgA1 increased to 14.4 today)-pat edunt admits to difficulty taking and rememberin g her pills-orde r Ozempic, patient is excellent candidate due to injections once weekly for compliance and to decrease HgA1c, and benefit of weight loss-FOLLO W UP IN OFFICE IN 2 WEEKS-HgA1 c is 12.3 [id number] Tera Rosas MD [place] [id number] 02/07/2024 14:27:09 02/08/2024 10:09:09 Morbid obesity 295378125 E66.01 goal is 20 pound weight loss Essential hypertension 36312584 I10 HIME MONITORING BLOOD PRESSURE,P ATIENT STATES TODAY IS 138/79- NO SALT DIETFOLLOW UP IN 3 MONTHS FOR WEIGH IN AND BLOOD PRESSURE CHECK- PATIENT INSTRUCTED STROKE SIGNS AND WARNING AND GO TO ER IMMEDIATEL Y IF ANY SYMPTOMS Chronic co ngestive heart failure 21925964 I50.9 stable continue low cholestero l and low sodium dietcare under Dr. Skaggs in [facility] inter mittent asthma 382334546 J45.20 Anemia 724142144 D64.9 Type 2 alejandra betes mellitus 27257475 E11.9 uncontroll ed-on Ozempic, patient has lost over 30 pounds, home glucose levels are 130-140,s- continue insulin to levemir 20 units QHS by flex pen-morbid obesity and struggle with diet and exercise worsening condition of diabetes,- patient admits to difficulty taking and rememberin g her pills-isamare r Ozempic, patient is excellent candidate due to injections once weekly for compliance and to decrease HgA1c, and benefit of weight loss-FOLLO W UP IN OFFICE IN 3 months-HgA 1c is ordered today Health Concerns Section Related Observation LastModified by Organization Detai ls LastModified Time None Recorded Concern Status LastModified by Organization Details LastModified Time None Recorded Advance Directives Directive Y: Payers Encounter Date Sequence Insurance Name Policy Number Policy Herrera Covered Member ID Herrera Member ID Guarantor Name 05/20/2022 1 [facility] (MEDICARE REPLACEMENT HMO) Armond Jones [id number] Armond D Jones 05/20/2022 2 [place] Armond Jones [id number] Armond D Jones 12/31/2022 2 [place] Armond D Jones [id number] Armond D Jones 12/31/2022 1 [facility] - DOS ON OR AFTER 20 (MEDICAID REPLACEMENT - HMO) [id number] Armond D Jones [id number] Armond D Jones 01/06/2023 1 [place] WHEN MED[place]ARE OR MEDICARE REPLACEMENT PRIMARY) Armond Jones [id number] Armond D Jones 01/06/2023 2 [facility] ON OR AFTER 10/10/20 (MEDICAID REPLACEMENT - HMO) [id number] Armond Jones [id number] Armond D Jones 01/20/2023 2 [facility] - DOS ON OR AFTER 20 (MEDICAID REPLACEMENT - HMO) [id number] Armond Jones [id number] Armond D Jones 01/20/2023 1 [facility] ON OR AFTER 04/12/2020 - DUAL ELIGIBLE (MEDICARE REPLACEMENT/AD VANTAGE - HMO) [id number] Armond D Jones [id number] Armond D Jones 02/07/2024 1 [place] Armond D Jones [id number] Armond D Jones 02/07/2024 2 [place] OR [place]IC[place] REPLACEMENT PRIMARY) Armond D Jones [id number] Armond D Jones Notes Date Note Type Note Provider Name and Address Organization Details Recorded Time 05/20/2022 text/html Patient presents today for evaluation and treatment of nail deformities as well as generalized foot care. The patient states their nails are uncomfortable. The patient has been unable to provide self care due to the severe nature of the deformity and their medical condition(s). The patient is receiving medically necessary foot care in order to prevent further problems as well as to relieve irritation and discomfort. Patient relates a history of diabetes and cannot recall last blood glucose Denies nausea, vomiting, fever, chills, shortness of breath, chest pain, difficulty breathing, calf pain. Patient reports thickened skin on the outside of her little toes, thickened toenails, toe nail changes, skin changes on lower legs, tingling and numbness in toes and feet SUNG TALAVERA DPM [address] [place], [address], [facility] 05/21/2022 10:05:21 12/31/2022 text/html Patient presents today for evaluation and treatment of nail deformities as well as generalized foot care. The patient states their nails are uncomfortable. The patient has been unable to provide self care due to the severe nature of the deformity and their medical condition(s). The patient is receiving medically necessary foot care in order to prevent further problems as well as to relieve irritation and discomfort. Patient relates a history of diabetes and cannot recall last blood glucose Denies nausea, vomiting, fever, chills, shortness of breath, chest pain, difficulty breathing, calf pain. Patient reports thickened skin on the outside of her little toes, thickened toenails, toe nail changes, skin changes on lower legs, tingling and numbness in toes and feet SUNG TALAVERA DPM [address] [place], [address], [facility] 12/31/2022 12:25:06 01/06/2023 text/html patient is a 52 year old female presents to office for follow up care. Sh yani has known HTN, CHF, CAD Diabetes, and morbid obesity.patient has been non- compliant with diet and medication. she has been out of med for 2 days. She denies any chest pain, dizziness or dyspnea Tera Rosas MD Attn: [address] [place], [address], [facility] 01/06/2023 17:29:27 01/20/2023 text/html patient is a 52 year old female with known diabetes and HTN with morbid obesity, she is here for follow up care and to review medication, she just received her RX's and was granted [employer] thru insurance and picked them up yesterday and is here for instruction, no chest pain, dizziness or dyspnea. Tera Rosas MD Attn: [address] [place], [address], [facility] 01/20/2023 15:16:14 02/07/2024 text/html Hypertension F/UReported bypatient.Associat ed Symptoms:no dizziness; no lightheadedness; no chest pain; no shortness of breath; no palpitations; no edema; no calf pain with exertion Lifestyle:regular exercise; limiting/avoiding salt Medications:taking medications as directed; no side effects from medication Patient is a 53 year old female with known diabetes, hypertensive heart disease, congestive heart failure and obesity. She has missed several office appointments and has phone visit today. During her last visit HgA1c was 12.4. Since then patient states she has lost over 35 pounds and taking her Ozempic, insulin and anti hypertensive medications regularly and has improved exercise regimen. Sh denies any chest pain, dizziness or dyspnea and no swelling of extremities. Tera Rosas MD Attn: [address] [place], [address], [facility] 02/07/2024 18:39:24 OBGyn Episode No OBEpisode recorded.
--- OUTSIDE RECORDS SUMMARY | 2024-05-04 16:17 | XMS_ITS | Data Portability ---
Author Organization [place] - [facility] OFFICE Address [address] [place] [address] Assessment No assessment recorded. Plan of Treatment Reminders Order Date Submit Date Provider Last Modified By Organization Details Last Modified Time Details Appointments None recorded. Lab None recorded. Referral None recorded. Procedures None recorded. Surgeries None recorded. Imaging None recorded. Medication Orders lisinopril 40 mg tablet 2018 019 INTERFACE [place] [address], [address], 9 10:54:52 hydrochlor othiazide 25 mg tablet [address] [facility] [address], [address] [place] [address], [address], 9 10:54:55 metoprolol tartrate 50 mg tablet [address] [facility] [address], [address] [place] [address], [address], 9 10:54:59 hydrochlor othiazide 25 mg tablet [address] [facility] [address], [address] [place] [address], [address], 0 16:48:29 Patient TargetsNo targets recorded. Patient Instructions Encounter Date Encounter Id Patient Instructions Last Modified By Organization Details Last Modified Time 06/08/[id number] high blood pressure: care instructions [email or web address] Not available 06/08/2017 13:15:43 learning about high blood pressure [email or web address] Not available 06/08/2017 13:15:43 Weight loss 20 pounds Exercise advised Low cholesterol diet advised Low sodium diet advised. This document was scribed by Lennie Santoyo PA-C. [email or web address] Not available 06/08/2017 13:15:42 07/06/2017 [id number] high blood pressure: care instructions [email or web address] Not available 07/06/2017 13:21:04 learning about high blood pressure [email or web address] Not available 07/06/2017 13:21:04 Weight loss 20 pounds Exercise advised Low cholesterol diet advised Low sodium diet advised. Scribed by Kandace Gould [employer] [email or web address] Not available 07/06/2017 13:37:46 01/27/2019 [id number] high blood pressure: care instructions [email or web address] Not available 01/27/2019 10:54:48 learning about high blood pressure [email or web address] Not available 01/27/2019 10:54:48 10/17/2019 [id number] high blood pressure: care instructions [email or web address] Not available 10/17/2019 16:48:21 learning about high blood pressure [email or web address] Not available 10/17/2019 16:48:21 Exercise advised Low cholesterol diet advised Low sodium diet advised [email or web address] Not available 10/17/2019 16:47:05 Scribed by Esther Del Toro [employer] [email or web address] Not available 10/17/2019 16:47:09 11/20/2019 [id number] high blood pressure: care instructions [email or web address] Not available 11/20/2019 14:12:27 learning about high blood pressure mzabad Not available 11/20/2019 14:12:27 Reason for Referral None Reported. Results Created Date Observation Date Name Description Value Unit Range Abnormal Flag Note LastModifiedBy Organization Detail LastModifiedTime 05/10/19 18 04/21/2017 XR, chest , 2 view No observ ation record ed. [email or web address] Not Available 2017 10:40:43 05/17/19 18 05/11/2017 tread mill nucle ar stres s test (PROC ) No observ ation record ed. [email or web address] Not Available 2017 10:18:27 10/18/19 20 10/17/2019 elect rocar diogr am No observ ation record ed. [email or web address] Not Available 2019 16:22:13 11/16/19 20 10/31/2019 tread mill nucle ar stres s test (PROC ) No observ ation record ed. [email or web address] Not Available 2019 09:51:47 Result Notes None recorded. Problems Name Problem SNOMED Code Status Onset Date Resolution Date Notes Provider Name and Address Organization Details Recorded Time Cough 27566860 Active 2016 Suzette Skaggs null, [place] - [facility] 7 10:31:34 Dyspnea 761413909 Active 2016 Suzetteaddie [place] - [facility] 7 10:31:45 Backache 152229710 Active 2016 Suzetteaddie [place] - [facility] 7 10:31:53 Edema of lower extremity 023438751 Active 2017 Francois Pepemadelyn [place] - [facility] 8 11:17:05 Benign essential hypertension 8063486 Active 2017 Francois Pepemadelyn [place] [facility] 8 11:17:12 Dyspnea on exertion 29426944 Active 2017 Francois [place]madelyn [place] [facility] 8 11:17:18 Congestive heart failure 71572039 Active 2017 Priscila [place] [facility] 8 10:15:03 Atypical chest pain 266291475 Active 2017 Francois Pepemad[place] [facility] 8 10:15:15 Obesity 091544010 Active 2017 Francois [place] [facility] 8 10:15:29 Hyperlipidemia 50391282 Active 2019 Francois [place]mad[place] [facility] 0 14:34:56 Type 2 diabetes mellitus without complication 182351918 Active 2019 Priscila Harris null, [place] - [facility] 0 14:35:07 Problem Notes None recorded. Procedures Surgical History Date Name Laterality Status Provider Name and Address Organization Details Recorded Time 03/21/199 6 [facility] 04/21/2016 10:30:39 0 [facility] 04/21/2016 10:30:17 Imaging Results Imaging Date Name Status LastModified by Organization Details LastModified Time 04/21/2017 XR, chest, 2 view completed [email or web address] Informa tion not available 05/10/2017 10:40:43 05/11/2017 treadmill nuclear stress test (PROC) completed Information not available 06/05/2017 10:18:27 10/17/2019 electrocardiogram completed Informa tion not available 10/18/2019 16:22:13 10/31/2019 treadmill nuclear stress test (PROC) completed Information not available 11/16/2019 09:51:47 Procedure Notes None recorded. Medical Equipment None Reported. Allergies Allergen ID Allergen Name Allergen Category Reaction Reaction Severity Criticality Documentation Date Start Date Code Code System Note Provider Name and Address Organization Details Recorded Time 3520 Latex (substanc e) environme nt,medica tion Not available Not available Not available 04/21/2016 16263 8007 [facility]ED [facility] 7 10:49:07 Medications Name Sig Start Date Stop Date Status Note LastModified by Organization Details LastModified Time furosemid e 40 mg tablet Take 1 tablet every day by oral route. 2017 active Not Available Not Available Not Avai lable carvedilo l 6.25 mg tablet Take 1 tablet twice a day by oral route as directed . 07/06 completed Not Available Not Available Not Available atorvasta tin 20 mg tablet Take 1 tablet twice a day by oral route. active Not Available Not Available No t Available Lantus U-100 Insulin 100 unit/mL subcutane ous solution Inject 20 mL every day by subcutan eous route as directed . 11/[address] Cast started pt on this DM inj med 07/02/17 ;al 07/06/17 Not Available Not Available Not Available potassium chloride ER 10 mEq tablet,ex tended release TAKE ONE TABLET BY MOUTH TWICE DAILY DIRECTED 2019 active Not Available Not Available Not Avai lable metoprolo l tartrate 50 mg-hydroc hlorothia zide 25 mg tablet TAKE ONE TABLET BY MOUTH TWICE DAILY 01/27 completed Not Available Not Available Not Available magnesium oxide 400 mg (241.3 mg magnesium ) tablet Take 1 tablet by oral route. 11/19 completed Not Available Not Available Not Available metoprolo l tartrate 50 mg tablet Take 1 tablet twice a day by oral route. 2018 active Not Available Not Available Not Avai lable hydrochlo rothiazid e 25 mg tablet Take 1 tablet by mouth once daily active Not Available Not Available No t Available Aspir-81 mg tablet,de layed release Take 1 tablet every day by oral route as directed . active Not Available Not Available No t Available losartan 50 mg-hydroc hlorothia zide 12.5 mg tablet Take 1 tablet every day by oral route as directed . 04/27 completed per Marleen slater Not Available Not Available Not Available lisinopri l 40 mg tablet Take 1 tablet every day by oral route. 2018 active Not Available Not Available Not Avai lable glipizide 5 mg tablet Take 1 tablet every day by oral route. active Not Available Not Available No t Available Byetta 10 mcg/dose( 250 mcg/mL)2. 4 mL subcutane ous pen injector Inject 10 mg twice a day by subcutan eous route. 07/06 completed Not Available Not Available Not Available Januvia 100 mg tablet Take 1 tablet every day by oral route as directed . 10/[address] Cast started pt with this med on 07/05/17 ;al 07/06/17 Not Available Not Available Not Available metformin ER 1,000 mg 24 hr tablet,ex tended release (gastric reten.) Take 1 tablet twice a day by oral route. active Not Available Not Available No t Available metoprolo l succ 50 mg-hydroc hlorothia zide 12.5 mg tablet,ex t.rel 24 hr 01/27 completed Not Available Not Available Not Available Vitals Date Recorded Body height Body mass index (BMI) Body weight Heart rate Oxygen saturation Oxygen saturation in Arterial blood by Pulse oximetry Systolic blood pressure Diastolic blood pressure Provider Name and Address Organization Details Last Updated DateTime 8 163.83 cm 53.9 kg/m2 743517. 97 g 90 /min 94 % 94 % 144 mm[Hg] 96 mm[Hg] Suzette Skaggs [facility] 8 12:32:50 Date Recorded Body height Body mass index (BMI) Body weight Heart rate Oxygen saturation Oxygen saturation in Arterial blood by Pulse oximetry Provider Name and Address Organization Details Last Updated DateTime 8 163.83 cm 54.2 kg/m2 888979. 15 g 74 /min 98 % 98 % Rosalind Thompsonr [facility] 8 13:17:50 Date Recorded Systolic blood pressure Diastolic blood pressure Provider Name and Address Organization Details Last Updated DateTime 07/06/2017 130 mm[Hg] 64 mm[Hg] Kandace Bryanna [facility] 07/06/2017 13:34:03 Date Recorded Body weight Body mass index (BMI) Body height Heart rate Oxygen saturation Oxygen saturation in Arterial blood by Pulse oximetry Systolic blood pressure Diastolic blood pressure Provider Name and Address Organization Details Last Updated DateTime 9 839554. 26 g 57.2 kg/m2 162.56 cm 90 /min 96 % 96 % 140 mm[Hg] 100 mm[Hg] Ruy Atkinson i, MD [address] [place], [address], [facility] 9 10:16:56 Date Recorded Body height Body mass index (BMI) Body weight Heart rate Oxygen saturation Oxygen saturation in Arterial blood by Pulse oximetry Systolic blood pressure Diastolic blood pressure Provider Name and Address Organization Details Last Updated DateTime 0 162.56 cm 58.7 kg/m2 373464. 59 g 84 /min 97 % 97 % 140 mm[Hg] 80 mm[Hg] Ruy Lopez [facility] 0 16:34:03 Date Recorded Body height Body mass index (BMI) Body weight Heart rate Respiratory rate Oxygen saturation Oxygen saturation in Arterial blood by Pulse oximetry Systolic blood pressure Diastolic blood pressure Provider Name and Address Organization Details Last Updated DateTime 0 162.56 cm 58.7 kg/m2 433497. 59 g 79 /min 18 /min 98 % 98 % 138 mm[Hg] 84 mm[Hg] Dakota Mace [facility] 0 12:00:20 Social History Question Answer Notes LastModified by Organizat ion Details LastModified Time Tobacco Smoking Status Never Smoker Suzette Giles [facility] 04/21/2016 10:29:20 What Is Your Level Of Alcohol Consumption? None [email or web address] Information not available 04/21/2016 What Is Your Level Of Caffeine Consumption? Moderate [email or web address] Information not available 04/21/2016 How Much Tobacco Do You Chew? None Information not available 04/21/2016 What Type Of Diet Are You Following? DIABETIC Information not available 04/21/2016 Do You Or Have You Ever Used E-cigarettes Or Vape? Never Used Electronic Cigarettes Information not available 10/15/2019 What Is Your Occupation? [employer] [email or web address] Information not available 04/21/2016 Marital Status [email or web address] Informatio n not available 04/21/2016 What Was The Date Of Your Most Recent Tobacco Screening? 07/06/2017 Information not available 11/03/2018 How Many Children Do You Have? 2 [email or web address] Information not available 04/21/2016 Do You Or Have You Ever Used Smokeless Tobacco? Never Used Smokeless Tobacco Information not available 10/15/2019 How Much Tobacco Do You Smoke? No [email or web address] Information not available 04/21/2016 How Many Years Have You Smoked Tobacco? 0 Information not available 04/25/2017 Sex: Unknown Functional Status Question Answer Note LastModified by Organization D etails LastModified Time What is your exercise level? None [email or web address] Information not available 04/21/2016 Mental Status None recorded. Family History Relationship Description Onset Age of this Age Resolved Age Notes LastModified by Organization Details LastModified Time Mother Diabetes mellitus [email or web address] Not available 2016 10:28:55 Mother Hypertensive disorder [email or web address] Not available 2016 10:29:13 Medical History Condition Response Diabetes Y Congestive Heart Failure (CHF) Y Hyperlipidemia Y Hypertension Y Gynecological HistoryNo gynecological history recorded. Obstetrics History GPAL:G 0 P 0 0 0 0 Past Encounters Encounter ID Performer Location Encounter Start Date Encounter Closed Date Diagnosis/Indication Diagnosis SNOMED-CT Code Diagnosis ICD10 Code Diagnosis Note [id number] Ruy Meng MD [facility] [address] [place] [address] 04/21/2016 09:56:14 04/21/2016 13:44:59 Edema of lower extremity 492089610 R60.0 Dyspnea on exertion 6084 5006 R06.09 Benign ess ential hypertension 3398141 I10 Obesity 974998680 E66.9 Cas Hawley [facility] [address] [place] [address] 04/27/2017 16:41:48 04/28/2017 10:51:19 Benign essential hypertension 1886956 I10 Patient's blood pressure is {{well-con trolled so mewhat well-contr olled* not well-contr olled}} on present medical therapy. Patient is {{tolerati ng, without difficulty ,* having side effects with}} the current medication s. I have {{not made* made the following} } changes to the current regimen. {{ Patient is advised to maintain a blood pressure diary.*}} Patient was advised to eat a low-sodium diet (2 grams sodium or less daily). BP machine - XL. Edema of l ower extremity 461031390 R60.0 improving. Dyspnea on exertion 6084 5006 R06.09 Stable. Pt was told heart weak recently at [facility]. Obtain records [facility] 04/14/17-04/19 and echo results there. Obtain CMP, Mg, TSH. Patient was taking both lisinopril and losartan/H CTZ. Losartan/H CTZ stopped 04/27/17.Mohamud mejia to bring in med bottles next visit and will need to simplify regimen further with either carvedilol or metoprolol (currently on both). Addendum: Had echo 04/15/17 [facility]: normal LV size, mild-mod. concentric LVH; LVEF 35-40%, moderate-s evere MR. Consider DONI given moderate-s evere MR on TTE vs. repeat TTE now that respirator y infection has resolved. Pending repeat imaging and extent of LV systolic dysfunctio n, consider LHC vs. stress testing. Patient may be a good CHF clinical trial candidate. Obesity 536303462 E66.9 20 lb. weight loss recommende d over the next 2 months. Ruy Meng MD [facility] [address] [place] [address] 05/07/2017 10:07:25 05/07/2017 11:37:16 Benign essential hypertension 3153977 I10 Now well controlled Dyspnea on exertion 6084 5006 R06.09 Stable. Pt was told heart weak recently at [facility]. Obtain records [facility] 04/14/17-04/19 and echo results there. Obtain CMP, Mg, TSH. Patient was taking both lisinopril and losartan/H CTZ. Losartan/H CTZ stopped 04/27/17.Mohamud mejia to bring in med bottles next visit and will need to simplify regimen further with either carvedilol or metoprolol (currently on both). Edema of l ower extremity 854804610 R60.0 improving. Obesity 639701115 E66.9 20 lb. weight loss recommende d over the next 2 months. Atypical chest pain 1025 82063 R07.89 Treadmill Myoview Stress test, has high [place] Risk score. Has Known CAD, or CAD risk equivalent . To look for any ischemia. Congestive heart failure 23348899 I50.9 [id number] Ruy Meng MD [facility] [place] [address] 06/08/2017 11:14:30 06/08/2017 17:08:33 Benign essential hypertension 3372771 I10 Elevated today, has not taken all of medication s today.Bloo d pressure is elevated today, but this is only one reading, will keep close follow up, and consider medication change if blood pressure is still elevated next visit. Dyspnea on exertion 6084 5006 R06.09 Improving Edema of l ower extremity 636423713 R60.0 improving. Obesity 877456749 E66.9 20 lb. weight loss recommende d over the next 2 months. Atypical chest pain 1025 02831 R07.89 05/11/17 Stress test was negative Congestive heart failure 67449610 I50.9 [id number] Ruy Meng MD [facility] [address] [place] [address] 07/06/2017 12:54:26 07/08/2017 12:19:56 Benign essential hypertension 1820242 I10 BP stable. Patient has been keeping a blood pressure diary. Dyspnea on exertion 6084 5006 R06.09 Resolved. Edema of l ower extremity 013270773 R60.0 Resolved, on Lasix Obesity 016160115 E66.9 20 lb. weight loss recommende d over the next 2 months. Atypical chest pain 1025 09763 R07.89 05/11/17 Stress test was negative Congestive heart failure 18066355 I50.9 Echo done on 04/14/17. Takes Furosemide 40 mg daily [id number] Ruy Meng MD [facility] [place] [address] 01/27/2019 10:02:37 01/27/2019 10:56:16 Benign essential hypertension 0879483 I10 Blood pressure is elevated today (was out of Lisinopril x2 days), will keep close follow up, and consider medication change if blood pressure is still elevated next visit. Dyspnea on exertion 6084 5006 R06.09 Stable. Echocardio gram 04/15/2017 ; Normal aortic root dimension. Left atrium is enlarged measuring 5.29cm on M-Mode. No pericardia l effusion. Normal left ventricula r cavity internal dimension. Mild to moderate concentric left ventricula r hypertroph y. Systolic wall motion within normal limits. Estimated ejection fraction 55%. Normal right atrial and right ventricula r cavity chamber sizes. Edema of l ower extremity 419166317 R60.0 Resolved, on Lasix Obesity 147169276 E66.9 20 lb. weight loss recommende d over the next 2 months. Atypical chest pain 1025 71293 R07.89 Resolved. 05/11/17 Stress test was negative Hyperlipidemia 79280061 E78.5 Needs to keep LDL less than 70, and HDL more than 40.01/2016 LDL 134Patient states she had bloodwork done at [facility]; will obtain results. Type 2 alejandra betes mellitus without complication 008636410 E11.9 Treatment and evaluation by primary care doctor. Discussed importance of adequate glycemic control to minimize cardiovasc ular disease progressio n. A1C goal of < 7% for type 2 DM [id number] Ruy Meng MD [facility] [address] [place] [address] 10/17/2019 16:12:13 10/17/2019 16:54:35 Benign essential hypertension 4025140 I10 Controlled Dyspnea on exertion 6084 5006 R06.09 Treadmill Myoview Stress test, has high [place] Risk score. Has Known CAD, or CAD risk equivalent . To look for any ischemia. Will repeat echo Edema of l ower extremity 524834990 R60.0 Stable, improved.C ontinue Lasix, leg elevation, and low sodium diet. Obesity 614440140 E66.9 20lb weight loss recommende d over the next 2 months Atypical chest pain 1025 75006 R07.89 Treadmill Myoview Stress test, has high [place] Risk score. Has Known CAD, or CAD risk equivalent . To look for any ischemia. Obtain echo to evaluate for structural /functiona l disease Hyperlipidemia 65626739 E78.5 Needs to keep LDL less than 70, and HDL more than 40. 016 LDL 134Continu e atorvastat inWill obtain recent lipid results from PCP Type 2 alejandra betes mellitus without complication 762564284 E11.9 Treatment and evaluation by primary care doctor Discussed importance of adequate glycemic control to minimize cardiovasc ular disease progressio n, A1C goal of < 7% for type 2 DM. [id number] [facility] [place] [address] 11/20/2019 11:52:13 11/20/2019 12:48:55 Benign essential hypertension 6116454 I10 Controlled Dyspnea on exertion 6084 5006 R06.09 With positive stress test and EF 25%Will check 2D echo to confirm LV dysfunctio n and assess for valvular diseaseWil l also plan C for positive stress test and work up for cardiomyop athy The patient will be scheduled for left heart catheteriz ation, with coronary angiogram, and possible PTCA/Stent . The procedure was discussed with the patient, and risks, benefits, and alternativ e options were explained. The patient was given informatio n about heart catheteriz ation and interventi onal procedures . The patient agrees to proceed. Edema of l ower extremity 186790534 R60.0 EF 25% on Nuc. Will check 2D echocardio gram.She is already on Metoprolol and Lisinopril .Appears euvolemic on current dose of lasix. Also on HCTZ Obesity 039646511 E66.9 20lb weight loss recommende d over the next 2 months Atypical chest pain 1025 38991 R07.89 positive stress test. Will plan [facility] as aboveObtai n echo to evaluate for structural /functiona l disease Hyperlipidemia 86699561 E78.5 Needs to keep LDL less than 70, and HDL more than 40. 016 LDL 134Continu e atorvastat inWill obtain recent lipid results from PCP Type 2 alejandra betes mellitus without complication 185180569 E11.9 Treatment and evaluation by primary care doctor Discussed importance of adequate glycemic control to minimize cardiovasc ular disease progressio n, A1C goal of < 7% for type 2 DM. Health Concerns Section Related Observation LastModified by Organization Detai ls LastModified Time None Recorded Concern Status LastModified by Organization Details LastModified Time None Recorded Advance Directives Directive None Recorded Payers Encounter Date Sequence Insurance Name Policy Number Policy Herrera Covered Member ID Herrera Member ID Guarantor Name 06/08/2017 1 [employer] B[employer]EF[employer] (PPO) [id number] Armond Jones [id number] Armond Jones 07/06/2017 1 [employer] BENEFITS (PPO) [id number] Armond Jones [id number] Armond Jones 01/27/2019 1 *SELF PAY* Pa isi Jones 10/17/2019 1 [facility] PRIOR TO 10/10/2020 (MEDICAID REPLACEMENT - HMO) Armond Jones [id number] Armond Jones 11/20/2019 1 [facility] PRIOR TO 10/10/2020 (MEDICAID REPLACEMENT - HMO) Armond Jones [id number] Armond Jones Notes Date Note Type Note Provider Name and Address Organization Details Recorded Time 06/08/2017 text/html 06/08/17 CC: dyspnea on exertion Patient is 47 year-old -[place] woman with Diabetes Mellitus, Hypertension, is here for cardiac follow up She is feeling well today. She has started to walk every day for 30 minutes. She has lost 4 lbs. Her BP is slightly elevated today, 144/96 and HR 90, but she has not taken her Metoprol-HCTZ or Lasix 40mg. She checks her BP at home and reports average 139/89, with highest reading 150/98. No known history of CAD, RI, Arrhythmia, or valvular heart disease. Patient was [facility] to [facility] 04/14/17-04/19/17 for chills, aches, nausea. Was treated with Levaquin for respiratory infection. Had negative trop-I and BNP was 1617. Had echo 04/15/17 [facility]: normal LV size, mild-mod. concentric LVH; LVEF 35-40%, moderate-severe MR. Had Stress Test 05/11/17 which was negative. Results from this visit, or from the past: 04/29/17: NA:142, K:3.9, CL:96, CO2:96, CO2:33, GLU:254, BUN:19, CR:0.8, AST:14, ALT:13, M.0, TSH:1.12 04/17/17: SOD 138.0, K 3.4, CL 8.9, CO2 35.7, GL 215, BUN 13, CR 0.: Na 142 ,K 3.8 ,CL 98 ,CO2 32 ,GLU 255 ,BUN 8 ,CR 0.56 ,HgA1c 9.9 ,TC 240 ,TG 148 ,HDL 55 ,LDL 134 ,AST 11 ,ALT 10 , EK04/14/17 Sinus rhythm. LVH with secondary repolarization abnormality. Consider anterior infarct. Prolonged QT interval. 04/21/16 CHEST PA/AP AND LATERAL: No definite acute pulmonary abnormality. Moderate cardiomegaly or pericardial effusion. CXR 04/14/17: Moderate Bilateral Pulmonary opacities may represent pulmonary edema or atypical pneumonia. Follow-up is recommended. Cardiomegaly. Consider echocardiogram. Treadmill Nuclear Stress Test 05/11/17 : Negative stress test for ischemia. Abnormal LV systolic function. Artifact noted. Exercise tolerance is poor. LVEF 34%. [facility] [facility]: normal LV size, mild-mod. concentric LVH; LVEF 35-40%, moderate-severe MR. Ruy Meng MD [address] [place], [address], [facility] 06/08/2017 13:16:42 07/06/2017 text/html CC: dyspnea on exertion Patient is 47 year-old -[place] woman with Diabetes Mellitus, Hypertension, is here for cardiac follow up She is feeling well today. She has started to walk every day for 30 minutes. She has gained 2 lbs since her previous visit. She checks her BP at home and reports average 124/62, with highest reading 138/60. She has been keeping a blood pressure diary. No chest pain. No shortness of breath at rest. Denies dyspnea on exertion. No orthopnea. No PND's . No dizziness. No palpitation. No syncope or nearsyncope. No leg swelling. No nausea and vomiting. Previously, patient was admitted to [facility]. 04/14/17-04/19/17 for chills, aches, nausea. Was treated with Levaquin for respiratory infection. Had negative trop-I and BNP was 1617. Had echo 04/15/17 [facility]: normal LV size, mild-mod. concentric LVH; LVEF 35-40%, moderate-severe MR. Had Stress Test 05/11/17 which was negative. Results from this visit, or from the past:04/29/17 NA:142, K:3.9, CL:96, CO2:96, CO2:33, GLU:254, BUN:19, CR:0.8, AST:14, ALT:13, M.0, TSH:1. BUN:13, GLU:215, CR:0.50, NA:138, K:3.4, CL:35, CO2:35.7004/14/17 WBC:5.6, RBC:4.9 ,HGB:13.0, HCT:42.2, PLT:92745/03/27: Na 142 ,K 3.8 ,CL 98 ,CO2 32 ,GLU 255 ,BUN 8 ,CR 0.56 ,HgA1c 9.9 ,TC 240 ,TG 148 ,HDL 55 ,LDL 134 ,AST 11 ,ALT 10 , EK04/14/17 Sinus rhythm. LVH with secondary repolarization abnormality. Consider anterior infarct. Prolonged QT interval. 05-11-2017 Treadmill Nuclear Stress Test 05/11/17 : Negative stress test for ishcemia. Abnormal LV systolic function. Artifact noted. Exercise tolerance is poor. LVEF 34%. Echocardiogram 04/15/2017; Normal aortic root dimension. Left atrium is enlarged measuring 5.29cm on M-Mode. No pericardial effusion. Normal left ventricular cavity internal dimension. Mild to moderate concentric left ventricular hypertrophy. Systolic wall motion within normal limits. Estimated ejection fraction 55%. Normal right atrial and right ventricular cavity chamber sizes. CHEST: 04/21/17 No definite acute pulmonary abnormality. Moderate cardiomegaly or pericardial effusion. Ruy Meng MD [address] [place], [address], [facility] 07/06/2017 13:38:17 01/27/2019 text/html 01/27/2019 CC: dyspnea on exertion Patient is 48 year-old -[place] woman with Diabetes Mellitus, Hypertension, Hyperlipidiemia is here for cardiac follow up She was last here 6 months ago. Up 12 lbs. States that she's had more leg swelling since changing from Metoprolol/HCTZ to Carvedilol. Reports dyspnea with exertion, walking 2 blocks at a fast pace. Stable. She exercises 3 days a week, walks laps around her driveway, and housework. She checks her BP at home and reports average 120s/80s. She has been keeping a blood pressure diary. No chest pain. No shortness of breath at rest. Denies dyspnea on exertion. No orthopnea. No PND's . No dizziness. No palpitation. No syncope or nearsyncope. No leg swelling. No nausea and vomiting. Had Stress Test 05/11/17 which was negative. Echocardiogram 04/15/2017; Normal aortic root dimension. Left atrium is enlarged measuring 5.29cm on M-Mode. No pericardial effusion. Normal left ventricular cavity internal dimension. Mild to moderate concentric left ventricular hypertrophy. Systolic wall motion within normal limits. Estimated ejection fraction 55%. Normal right atrial and right ventricular cavity chamber sizes. Results from this visit, or from the past:04/29/17 NA:142, K:3.9, CL:96, CO2:96, CO2:33, GLU:254, BUN:19, CR:0.8, AST:14, ALT:13, M.0, TSH:1. BUN:13, GLU:215, CR:0.50, NA:138, K:3.4, CL:35, CO2:35.7004/14/17 WBC:5.6, RBC:4.9 ,HGB:13.0, HCT:42.2, PLT:51422/03/27: Na 142 ,K 3.8 ,CL 98 ,CO2 32 ,GLU 255 ,BUN 8 ,CR 0.56 ,HgA1c 9.9 ,TC 240 ,TG 148 ,HDL 55 ,LDL 134 ,AST 11 ,ALT 10 , EK04/14/17 Sinus rhythm. LVH with secondary repolarization abnormality. Consider anterior infarct. Prolonged QT interval. 05-11-2017 Treadmill Nuclear Stress Test 05/11/17 : Negative stress test for ishcemia. Abnormal LV systolic function. Artifact noted. Exercise tolerance is poor. LVEF 34%. Echocardiogram 04/15/2017; Normal aortic root dimension. Left atrium is enlarged measuring 5.29cm on M-Mode. No pericardial effusion. Normal left ventricular cavity internal dimension. Mild to moderate concentric left ventricular hypertrophy. Systolic wall motion within normal limits. Estimated ejection fraction 55%. Normal right atrial and right ventricular cavity chamber sizes. CHEST: 04/21/17 No definite acute pulmonary abnormality. Moderate cardiomegaly or pericardial effusion. Ruy Meng MD [address] [place], [address], [facility] 01/27/2019 10:56:14 10/17/2019 text/html 10/17/2019 CC: dyspnea on exertion Patient is 48 year-old -[place] woman with Diabetes Mellitus, Hypertension, hyperlipidemia is here for cardiac follow up She was last here 9 months ago on 01/27/2019. 9 lb weight gain. Stated that leg swelling is better than before. Reports dyspnea with exertion, Stable. She has not exercised in 2 months, plans on restarting her walking routine. She checks her BP at home and reports average 120s/80s. She has been keeping a blood pressure diary. Admits her blood sugars have not been well controlled, reports her last A1c was not good. No chest pain. No shortness of breath at rest. Denies dyspnea on exertion. No orthopnea. No PND's . No dizziness. No palpitation. No syncope or near syncope. Mild leg swelling. No nausea and vomiting. Had Stress Test 05/11/17 which was negative. Echocardiogram 04/15/2017; Normal aortic root dimension. Left atrium is enlarged measuring 5.29cm on M-Mode. No pericardial effusion. Normal left ventricular cavity internal dimension. Mild to moderate concentric left ventricular hypertrophy. Systolic wall motion within normal limits. Estimated ejection fraction 55%. Normal right atrial and right ventricular cavity chamber sizes. Results from this visit, or from the past: 04/29/17 NA:142, K:3.9, CL:96, CO2:96, CO2:33, GLU:254, BUN:19, CR:0.8, AST:14, ALT:13, M.0, TSH:1. BUN:13, GLU:215, CR:0.50, NA:138, K:3.4, CL:35, CO2:35.7004/14/17 WBC:5.6, RBC:4.9 ,HGB:13.0, HCT:42.2, PLT:62963/03/27: Na 142 ,K 3.8 ,CL 98 ,CO2 32 ,GLU 255 ,BUN 8 ,CR 0.56 ,HgA1c 9.9 ,TC 240 ,TG 148 ,HDL 55 ,LDL 134 ,AST 11 ,ALT 10 , EK04/14/17 Sinus rhythm. LVH with secondary repolarization abnormality. Consider anterior infarct. Prolonged QT interval. 05-11-2017 Treadmill Nuclear Stress Test 05/11/17 : Negative stress test for ishcemia. Abnormal LV systolic function. Artifact noted. Exercise tolerance is poor. LVEF 34%. Echocardiogram 04/15/2017; Normal aortic root dimension. Left atrium is enlarged measuring 5.29cm on M-Mode. No pericardial effusion. Normal left ventricular cavity internal dimension. Mild to moderate concentric left ventricular hypertrophy. Systolic wall motion within normal limits. Estimated ejection fraction 55%. Normal right atrial and right ventricular cavity chamber sizes. CHEST: 04/21/17 No definite acute pulmonary abnormality. Moderate cardiomegaly or pericardial effusion. Ruy Meng MD [address] [place], [address], [place] [facility] 10/17/2019 16:54:33 11/20/2019 text/html 11/20/19 CC: dyspnea on exertion Patient is 49 year-old -[place] woman with Diabetes Mellitus, Hypertension, hyperlipidemia is here for cardiac follow up She had stress test and returns for results. Stress test positive by EKG and Nuclear imaging. also showed. LVEF 25%. Last stress test was negative for ischemia in 2018 with EF 35%. She denies chest pain but admits to dyspnea on exertion. Previously,She was last here 9 months ago on 01/27/2019. 9 lb weight gain. Stated that leg swelling is better than before. Reports dyspnea with exertion, Stable. She has not exercised in 2 months, plans on restarting her walking routine. She checks her BP at home and reports average 120s/80s. She has been keeping a blood pressure diary. Admits her blood sugars have not been well controlled, reports her last A1c was not good. No chest pain. No shortness of breath at rest. Denies dyspnea on exertion. No orthopnea. No PND's . No dizziness. No palpitation. No syncope or near syncope. Mild leg swelling. No nausea and vomiting. Had Stress Test 05/11/17 which was negative. Echocardiogram 04/15/2017; Normal aortic root dimension. Left atrium is enlarged measuring 5.29cm on M-Mode. No pericardial effusion. Normal left ventricular cavity internal dimension. Mild to moderate concentric left ventricular hypertrophy. Systolic wall motion within normal limits. Estimated ejection fraction 55%. Normal right atrial and right ventricular cavity chamber sizes. Results from this visit, or from the past: 04/29/17 NA:142, K:3.9, CL:96, CO2:96, CO2:33, GLU:254, BUN:19, CR:0.8, AST:14, ALT:13, M.0, TSH:1. BUN:13, GLU:215, CR:0.50, NA:138, K:3.4, CL:35, CO2:35.7004/14/17 WBC:5.6, RBC:4.9 ,HGB:13.0, HCT:42.2, PLT:00236/03/27: Na 142 ,K 3.8 ,CL 98 ,CO2 32 ,GLU 255 ,BUN 8 ,CR 0.56 ,HgA1c 9.9 ,TC 240 ,TG 148 ,HDL 55 ,LDL 134 ,AST 11 ,ALT 10 , 10/17/19 EKG: Low voltage, chest leads. Poor R progression in chest leads.EK04/14/17 Sinus rhythm. LVH with secondary repolarization abnormality. Consider anterior infarct. Prolonged QT interval. 10/31/19 TDM: Positive stress test. Exercise tolerance: very poor. LVEF 25%.Treadmill Nuclear Stress Test 05/11/17 : Negative stress test for ishcemia. Abnormal LV systolic function. Artifact noted. Exercise tolerance is poor. LVEF 34%. Echocardiogram 04/15/2017; Normal aortic root dimension. Left atrium is enlarged measuring 5.29cm on M-Mode. No pericardial effusion. Normal left ventricular cavity internal dimension. Mild to moderate concentric left ventricular hypertrophy. Systolic wall motion within normal limits. Estimated ejection fraction 55%. Normal right atrial and right ventricular cavity chamber sizes. CHEST: 04/21/17 No definite acute pulmonary abnormality. Moderate cardiomegaly or pericardial effusion. Jose Culp [facility] [place] [facility] 11/20/2019 14:12:31 OBGyn Episode No OBEpisode recorded.
--- NOTE | 2024-05-31 14:32 | WPDSLEEPSTUD ---
Sleep Study Date of Study: 05/02/24 Ordering Provider: Dakota Hou MD Interpreting Physician: Nori Mike DO Sleep Study Type: Polysomnogram Height: 1.63 m Weight: 161.025 kg Body Mass Index: 60.9 Neck Circumference (inches): 16 [place]: 3 Reason for Sleep Study History of Obesity Hypoventilation syndrome. Non-compliant with NIV. Daytime hypersomnia Sleep History The patient is a 54-year-old female with obesity hypoventilation syndrome that had a sleep study ordered by her outsole tacker for evaluation of sleep apnea. The patient denies awakening from sleep short of breath. She rarely awakens at night with heartburn, belching or cough. She occasionally snores but is rarely loud enough that others complain. She denies having trouble sleeping when she has a cold. She rarely wakes up gasping for air throughout the night. She occasionally has breathing problems at night observed by herself or others. She denies sweating excessively at night. She occasionally has heart palpitations or irregular heartbeats during the night. She rarely falls asleep during the day but never while driving. She denies sleep paralysis and cataplexy. She denies having trouble at school or work due to sleepiness. She rarely experiences vivid dreamlike scenes upon awakening or falling asleep. She denies feeling afraid of going to sleep. She denies having nightmares. She rarely remembers her dreams. She denies having thoughts racing through her mind. She denies feeling sad or depressed. She rarely has anxiety. She rarely has muscular tension. She denies noticing parts of her body jerk. She denies kicking during the. She rarely has crawling and aching feelings in legs and rarely has leg pain during the night. She rarely grinds her teeth during sleep but never awakens with morning jaw pain. She denies being bothered by pain during the day and denies being awakened by pain during the night. She rarely wakes up feeling stiff in the morning. She rarely wakes up with sore or achy muscles. She occasionally wakes up pain, spine and other joints. She goes to bed at midnight on both weekdays and weekends. It takes her 5-10 minutes to fall asleep. She wakes up 4-5 times throughout the night to urinate and is able to fall back asleep within 5 minutes. She wakes up at 6:00 a.m. on weekdays and between 5-6 a.m. on the weekends. She typically gets 6 hours of sleep per night. She will stay in bed for 1 hour after waking up in the morning. She currently lives with her and adult child. She denies consuming any caffeinated beverages within 2 hours of bedtime. She denies engaging in physical exercise before bedtime. She will read and watch television before falling asleep. She will take naps in the afternoon or the evening and they are refreshing. She consumes 1 caffeinated soda per day. She denies tobacco, alcohol and recreational drug use. [facility] Past Medical History Medical History Hyperlipidemia LUCIA (obstructive sleep apnea) Diabetes Hypertension CHF (congestive heart failure) Morbid obesity with BMI of 70 and over, adult Hypertension associated with diabetes Surgical History Surgical History H/O section times 2 History of tonsillectomy and adenoidectomy Family History Family History Mother Diabetes mellitus Family history of thyroid problem Sibling Thyroid cancer Social History Social History Social History: She lives with her 2 daughters . She is disabled. She is . Code status full code Smoking status: Never smoker Alcohol intake: never Substance use: never Do You Feel Safe in your Home?: Yes Lack of Transportation: No Lack of Food: Never True Current Housing: I Have Housing Concerned About Future Housing: No Difficulty Paying Gas/Electric Bills: No Difficulty Paying for Meds: No Currently Unemployed: No Education: Trade/Vocational Certificate Difficulty w/ Childcare or Family Care: No Living arrangements: with family Gender identity (if verbalized by the patient): Female Spiritual care concerns: No Medications Home Medications ?Medication ?Instructions ?Recorded ?Confirmed ?Type atorvastatin 20 mg tablet 20 mg PO DAILY 02/18/22 03/06/24 History hydralazine 50 mg tablet 50 mg PO BID 02/18/22 03/06/24 History insulin detemir U-100 100 unit/mL 20 unit subcut HS 02/18/22 03/06/24 History (3 mL) subcutaneous pen (Levemir FlexTouch U-100 Insulin) metoprolol tartrate 50 mg tablet 50 mg PO BID 02/18/22 03/06/24 History fluticasone propionate 50 1 spray intranasal Q12HR #1 g 02/26/22 03/06/24 Rx mcg/actuation nasal spray,suspension loratadine 10 mg tablet 10 mg PO QAM #30 tabs 02/26/22 03/06/24 Rx bumetanide 1 mg tablet 2 mg (2 x 1 mg) PO BID #60 tabs 07/14/22 03/06/24 Rx ferrous sulfate 325 mg (65 mg 324 mg (0.9969 x 325 mg (65 mg 07/14/22 03/06/24 Rx iron) tablet iron)) PO DAILY@0800 #30 tabs metolazone 2.5 mg tablet 2.5 mg PO BID #60 tabs 07/14/22 03/06/24 Rx potassium chloride 10 mEq 10 meq PO DAILY #60 tabs 07/14/22 03/06/24 Rx tablet,extended release spironolactone 25 mg tablet 25 mg PO QAM #30 tabs 07/14/22 03/06/24 Rx amlodipine 10 mg tablet 10 mg PO DAILY 01/25/23 03/06/24 History ergocalciferol (vitamin D2) 1,250 1,250 mcg PO WEEKLY #12 caps 10/13/23 03/06/24 Rx mcg (50,000 unit) capsule eszopiclone 2 mg tablet 2 mg PO QHS #1 tablet 01/24/24 03/06/24 Rx semaglutide 0.25 mg or 0.5 mg (2 0.25 mg subcut WEEKLY 03/06/24 03/06/24 History mg/3 mL) subcutaneous pen injector (Ozempic) Sleep Procedure A full night polysomnogram using the [employer] multi-channel system recorded the standard physiologic parameters including EEG, EOG, submentalis EMG, anterior tibialis EMG, EKG, body position, nasal and oral airflow using nasal pressure sensor and thermistor.? Respiratory parameters of chest and abdominal movements were recorded with Respiratory Inductance Plethysmography belts. Oxygen saturation was recorded by pulse oximetry. Video monitoring was also performed. Sleep stages, periodic limb movements, and EEG arousals were scored in 30 second epochs according to the criteria of the AASM Scoring Manual. The Apnea-Hypopnea Index was calculated using [facility] guidelines for definition of hypopnea with 4% O2 desaturations while scoring respiratory events. Sleep Architecture The total recording time was 467.4 minutes.? The total sleep time was 230.5 minutes. Sleep latency was 35.3 minutes. REM latency was 276.5 minutes. Sleep efficiency was 49.3%. The patient had 56 awakenings for an awakening index of 14.6. Wake after sleep onset time was 201.5 minutes. The patient spent 48.0 minutes, 20.8% of total sleep time in Stage N1. The patient spent 136.0 minutes, 59.0% in Stage N2. The patient spent 39.0 minutes, 16.9% in Stage N3. The patient spent 7.5 minutes, 3.3% in Stage REM sleep. Respiratory Analysis The patient had 91 hypopneas for an overall Apnea Hypopnea Index of 23.7. The REM Apnea Hypopnea Index was 16.0. The NREM Apnea Hypopnea Index was 23.9. The patient had a Central Apnea Hypopnea Index of 0. There was no evidence of [place] Respirations. The patient was started on 1 lpm of supplemental oxygen at 2:39 am due to persistent hypoxemia in the absence fo respiratory events. The patient was not started on CPAP during this study because she was unable to achieve consolidated sleep until after 2 a.m. Arousals There were 128 total arousals for an arousal index of 33.3. There were 55 spontaneous arousals for an index of 14.3. There were 64 arousals due to respiratory events for an index of 16.7. There were 0 arousals due to periodic limb movements for an index of 0.? There were 9 arousals due to isolated limb movements for an index of 2.3. Periodic Limb Movements The patient had 13 isolated limb movements with an index of 3.4. The patient had 0 periodic limb movements with an index of 0. Patient had a total of 13 limb movements with a total limb movement index of 3.4. Oximetry Data The patient had an average oxygen saturation of 90.3% in sleep with a minimum oxygen saturation of 82.0% and a maximum oxygen saturation of 98.0%. The patient had 116 oxygen desaturations that were 4% or greater resulting in an Oxygen Desaturation Index of 30.2.? The patient spent 83.5 minutes, 18.6% of total sleep time with an oxygen saturation below 88%. Snoring Profile Mild to moderate snoring was present intermittently throughout the study. Cardiac Profile The EKG showed normal sinus rhythm with occasional PVCs.?The patient had an average pulse rate of 82.3 bpm with a minimum pulse of rate of 76.0 bpm and a maximum pulse rate of 99.0 bpm.? EEG Profile No signs of seizure activity seen. Assessment and Plan Assessment and Plan (1) LUCIA (obstructive sleep apnea): Code(s): G47.33 - Obstructive sleep apnea (adult) (pediatric) Status: Acute Assessment and Plan: The patient had an overall AHI of 23.7 with desaturation down to 82%. This is consistent with moderate sleep apnea. Due to the patient's congestive heart failure, stage 4 CKD and previously diagnosed Obesity Hypoventilation Syndrome, she is not a candidate for AutoPAP. I recommend that the patient have a CPAP Titration study with the use of a sleep aid to ensure we obtain enough sleep data and find an optimal pressure setting. The patient used Lunesta 2 mg for this study but still had significant difficulty with falling asleep and staying asleep. Data The data obtained during this sleep study is adequate for interpretation. Certification This sleep study has been reviewed by a board certified sleep medicine physician.
[2024-05-31 14:33] VITALS: BMI 60.9
== END 2024-05-03 06:41 | disposition home or self-care (01) ==
LOC: ANHCSM 08:42
PROVIDERS: Visit Provider Internal Medicine Pulmonary Disease
DX: G47.10 Hypersomnia, unspecified (principal); G47.33 Obstructive sleep apnea (adult) (pediatric)
CPT/HCPCS: 95810

== ENCOUNTER 2024-07-17 15:32 | Outpatient (CLI) | payer MEDICARE, MEDICAID, SELFPAY ==
[2024-07-17 16:07] LABS: Albumin Level 4.2 g/dL (3.5-5.1); Anion Gap 12 mmol/L (4-12); Blood Urea Nitrogen 47 mg/dL (7-17); Calcium 9.6 mg/dL (8.4-10.2); Carbon Dioxide 23 mmol/L (22-30); Chloride 105 mmol/L (98-107); Estimated Glomerular Filt Rate 21; Glucose 181 mg/dL (65-110); Potassium 5.3 mmol/L (3.4-5.0); Sodium 140 mmol/L (137-145)
[2024-07-17 16:20] LABS: Parathyroid Intact 288.4 pg/mL (14.5-75.2)
[2024-07-17 16:40] LABS: Creatinine Urine 139.5 mg/dL; Total Protein Urine Random 53 mg/dL; Ur Ttl Prot Creatinine Ratio 0.38 mg/mg (0-0.20)
[2024-07-17 17:07] LABS: Vitamin D 25 Hydroxy 14.6 ng/mL
--- OUTSIDE RECORDS SUMMARY | 2024-07-17 17:35 | XMS_ITS | Data Portability ---
Author Organization [facility] OFFICE Address [address] [place] [address] Assessment No assessment recorded. Plan of Treatment Reminders Order Date Submit Date Provider Last Modified By Organization Details Last Modified Time Details Appointments None recorded. Lab None recorded. Referral None recorded. Procedures None recorded. Surgeries None recorded. Imaging None recorded. Medication Orders hydrochlor othiazide 25 mg tablet 2019 020 INTERFACE [facility], [address] [place] [address], [address], 0 16:48:29 lisinopril 40 mg tablet 2018 019 INTERFACE [facility] [id number], [address], 9 10:54:52 hydrochlor othiazide 25 mg tablet 2018 019 INTERFACE [facility], [address] [place] [address], [address], 9 10:54:55 metoprolol tartrate 50 mg tablet 2018 019 INTERFACE [facility]61, [address] [place] [address], [address], 9 10:54:59 Patient TargetsNo targets recorded. Patient Instructions Encounter Date Encounter Id Patient Instructions Last Modified By Organization Details Last Modified Time 06/08/[id number] high blood pressure: care instructions [email or web address] Not available 06/08/2017 13:15:43 learning about high blood pressure [email or web address] Not available 06/08/2017 13:15:43 Weight loss 20 pounds Exercise advised Low cholesterol diet advised Low sodium diet advised. This document was scribed by Lennie Santoyo PA-C. [email or web address] Not available 06/08/2017 13:15:42 07/06/2017 [id number] high blood pressure: care instructions [email or web address] Not available 07/06/2017 13:21:04 learning about high blood pressure [email or web address] Not available 07/06/2017 13:21:04 Weight loss 20 pounds Exercise advised Low cholesterol diet advised Low sodium diet advised. Scribed by Kandace Gould DIGITAL MEASUREMENT ADVISOR-C [email or web address] Not available 07/06/2017 13:37:46 01/27/2019 [id number] high blood pressure: care instructions [email or web address] Not available 01/27/2019 10:54:48 learning about high blood pressure [email or web address] Not available 01/27/2019 10:54:48 10/17/2019 [id number] high blood pressure: care instructions [email or web address] Not available 10/17/2019 16:48:21 learning about high blood pressure [email or web address] Not available 10/17/2019 16:48:21 Exercise advised Low cholesterol diet advised Low sodium diet advised [email or web address] Not available 10/17/2019 16:47:05 Scribed by Esther Del Toro DIGITAL MEASUREMENT ADVISOR-BC [email or web address] Not available 10/17/2019 16:47:09 11/20/2019 [id number] high blood pressure: care instructions [email or web address] Not [...] and Address Organization Details Recorded Time Cough 93677183 Active 2016 Suzette Skaggs null, [place] - [facility] 7 10:31:34 Dyspnea 518002837 Active 2016 Suzetteaddie Sk[place], [place] - [facility] 7 10:31:45 Backache 276172667 Active 2016 Suzetteaddie Sk[place] - [facility] 7 10:31:53 Edema of lower extremity 056025541 Active 2017 Francois Pepemadelyn [place], [place] - [facility] 8 11:17:05 Benign essential hypertension 4148606 Active 2017 Francois Pepemadelyn [place] - [facility] 8 11:17:12 Dyspnea on exertion 24098563 Active 2017 Francois Mesmadelyn [place] - [facility] 8 11:17:18 Congestive heart failure 46722853 Active 2017 Priscila [place] - [facility] 8 10:15:03 Atypical chest pain 680680431 Active 2017 Francois Pepemadelyn [place] [facility] 8 10:15:15 Obesity 771308950 Active 2017 Francois [place] [facility] 8 10:15:29 Hyperlipidemia 95374346 Active 2019 Francois [place] [facility] 0 14:34:56 Type 2 diabetes mellitus without complication 324282479 Active 2019 Priscila Harris null, [place] - [facility] 0 14:35:07 Problem Notes None recorded. Procedures Surgical History Date Name Laterality Status Provider Name and Address Organization Details Recorded Time 03/21/199 6 [facility] 04/21/2016 10:30:39 0 [facility] 04/21/2016 10:30:17 Imaging Results Imaging Date Name [...] Not available Not available Not available 04/21/2016 [id number] [facility] 7 10:49:07 Medications Name Sig Start Date [...] Updated DateTime 8 163.83 cm 53.9 kg/m2 454741. 97 g 90 /min 94 % 94 % 144 mm[Hg] 96 mm[Hg] Suzette Skaggs [facility] 8 12:32:50 Date Recorded Body height Body mass index (BMI) Body weight Heart rate Oxygen saturation Oxygen saturation in Arterial blood by Pulse oximetry Provider Name and Address Organization Details Last Updated DateTime 8 163.83 cm 54.2 kg/m2 693345. 15 g 74 /min 98 % 98 % Rosalind Thompsonr [facility] 8 13:17:50 Date Recorded Systolic blood pressure Diastolic blood pressure Provider Name and Address Organization Details Last Updated DateTime 07/06/2017 130 mm[Hg] 64 mm[Hg] Kandace Bryanna [facility] 07/06/2017 13:34:03 Date Recorded Body weight Body mass index (BMI) Body height Heart rate Oxygen saturation Oxygen saturation in Arterial blood by Pulse oximetry Systolic blood pressure Diastolic blood pressure Provider Name and Address Organization Details Last Updated DateTime 9 881358. 26 g 57.2 kg/m2 162.56 cm 90 /min 96 % 96 % 140 mm[Hg] 100 mm[Hg] Ruy Atkinson i, MD [address] [place], [address], [facility] 9 10:16:56 Date Recorded Body height Body mass index (BMI) Body weight Heart rate Oxygen saturation Oxygen saturation in Arterial blood by Pulse oximetry Systolic blood pressure Diastolic blood pressure Provider Name and Address Organization Details Last Updated DateTime 0 162.56 cm 58.7 kg/m2 049626. 59 g 84 /min 97 % 97 % 140 mm[Hg] 80 mm[Hg] Ruy Lopez [facility] 0 16:34:03 Date Recorded Body height Body mass index (BMI) Body weight Heart rate Respiratory rate Oxygen saturation Oxygen saturation in Arterial blood by Pulse oximetry Systolic blood pressure Diastolic blood pressure Provider Name and Address Organization Details Last Updated DateTime 0 162.56 cm 58.7 kg/m2 903218. 59 g 79 /min 18 /min 98 % 98 % 138 mm[Hg] 84 mm[Hg] Dakota Mace [facility] 0 12:00:20 Social History Question Answer Notes LastModified by Organizat ion Details LastModified Time Tobacco Smoking Status Never Smoker Suzette Giles [facility] 04/21/2016 10:29:20 What Is Your Level Of Alcohol Consumption? None [email or web address] Information not available 04/21/2016 What Is Your Level Of Caffeine Consumption? Moderate [email or web address] Information not available 04/21/2016 How Much Tobacco Do You Chew? None Information not available 04/21/2016 What Type Of Diet Are You Following? DIABETIC [email or web address] Information not available 04/21/2016 Do You Or Have You Ever Used E-cigarettes Or Vape? 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 07/06/2017 Information not available 11/03/2018 How Many Children Do You Have? 2 [email or web address] Information not available 04/21/2016 Do You Or Have You Ever Used Smokeless Tobacco? Never Used Smokeless Tobacco Information not available 10/15/2019 How Much Tobacco Do You Smoke? No [email or web address] Information not available 04/21/2016 How Many Years Have You Smoked Tobacco? 0 Information not available 04/25/2017 Sex: Unknown Functional Status Question Answer Note LastModified by Organization D etails LastModified Time What is your exercise level? None [email or web address] Information not available 04/21/2016 Mental Status None recorded. Family History Relationship Description Onset Age of this Age Resolved Age Notes LastModified by Organization Details LastModified Time Mother Diabetes mellitus [email or web address] Not available 2016 10:28:55 Mother Hypertensive disorder [email or web address] Not available 2016 10:29:13 Medical History Condition Response Diabetes Y Congestive Heart Failure (CHF) Y Hyperlipidemia Y Hypertension Y Gynecological HistoryNo gynecological history recorded. Obstetrics History GPAL:G 0 P 0 0 0 0 Past Encounters Encounter ID Performer Location Encounter Start Date Encounter Closed Date Diagnosis/Indication Diagnosis SNOMED-CT Code Diagnosis ICD10 Code Diagnosis Note [id number] Ruy Meng MD [place] [facility] [address] [place] [address] 04/21/2016 09:56:14 04/21/2016 13:44:59 Edema of lower extremity 761999508 R60.0 Dyspnea on exertion 6084 5006 R06.09 Benign ess ential hypertension 4027243 I10 Obesity 965518756 E66.9 Cas Hawley [place] [facility] [address] [place] [address] 04/27/2017 16:41:48 04/28/2017 10:51:19 Benign essential hypertension 5699962 I10 Patient's blood pressure is {{well-con trolled [...] - XL. Edema of l ower extremity 636158906 R60.0 improving. Dyspnea on exertion 6084 5006 R06.09 Stable. Pt was told heart weak recently at [facility]. Obtain records [facility] 04/14/17-04/19 and echo results there. Obtain CMP, Mg, TSH. Patient was taking both lisinopril and losartan/H CTZ. Losartan/H CTZ stopped 04/27/17.Mohamud mejia to bring in med bottles next visit and will need to simplify regimen further with either carvedilol or metoprolol (currently on both). Addendum: Had echo 04/15/17 [facility]: normal LV size, mild-mod. concentric LVH; LVEF 35-40%, moderate-s evere MR. Consider DONI given moderate-s evere MR on TTE vs. repeat TTE now that respirator y infection has resolved. Pending repeat imaging and extent of LV systolic dysfunctio n, consider LHC vs. stress testing. Patient may be a good CHF clinical trial candidate. Obesity 861839304 E66.9 20 lb. weight loss recommende d over the next 2 months. Ruy Meng MD [place] [facility] [address] [place] [address] 05/07/2017 10:07:25 05/07/2017 11:37:16 Benign essential hypertension 2447111 I10 Now well controlled Dyspnea on exertion 6084 5006 R06.09 Stable. Pt was told heart weak recently at [facility]. Obtain records [facility] 04/14/17-04/19 and echo results there. Obtain CMP, Mg, TSH. Patient was taking both lisinopril and losartan/H CTZ. Losartan/H CTZ stopped 04/27/17.Mohamud mejia to bring in med bottles next visit and will need to simplify regimen further with either carvedilol or metoprolol (currently on both). Edema of l ower extremity 112504292 R60.0 improving. Obesity 743595658 E66.9 20 lb. weight loss recommende d over the next 2 months. Atypical chest pain 1025 20910 R07.89 Treadmill Myoview Stress test, has high Stamford Risk score. Has Known CAD, or CAD risk equivalent . To look for any ischemia. Congestive heart failure 98605114 I50.9 [id number] Ruy Meng MD [place] [facility] [place] [address] 06/08/2017 11:14:30 06/08/2017 17:08:33 Benign essential hypertension 0152832 I10 Elevated today, has not taken all of medication s today.Bloo d pressure is elevated today, but this is only one reading, will keep close follow up, and consider medication change if blood pressure is still elevated next visit. Dyspnea on exertion 6084 5006 R06.09 Improving Edema of l ower extremity 672459902 R60.0 improving. Obesity 027900367 E66.9 20 lb. weight loss recommende d over the next 2 months. Atypical chest pain 1025 36240 R07.89 05/11/17 Stress test was negative Congestive heart failure 44486640 I50.9 [id number] Ruy Meng MD [place] [facility] [address] [place] [address] 07/06/2017 12:54:26 07/08/2017 12:19:56 Benign essential hypertension 1016611 I10 BP stable. Patient has been keeping a blood pressure diary. Dyspnea on exertion 6084 5006 R06.09 Resolved. Edema of l ower extremity 630517667 R60.0 Resolved, on Lasix Obesity 431291463 E66.9 20 lb. weight loss recommende d over the next 2 months. Atypical chest pain 1025 62124 R07.89 05/11/17 Stress test was negative Congestive heart failure 86067361 I50.9 Echo done on 04/14/17. Takes Furosemide 40 mg daily [id number] Ruy Meng MD [place] [facility] [place] [address] 01/27/2019 10:02:37 01/27/2019 10:56:16 Benign essential hypertension 4400039 I10 Blood pressure is elevated today (was [...] chamber sizes. Edema of l ower extremity 110333544 R60.0 Resolved, on Lasix Obesity 317867515 E66.9 20 lb. weight loss recommende d over the next 2 months. Atypical chest pain 1025 55287 R07.89 Resolved. 05/11/17 Stress test was negative Hyperlipidemia 46756974 E78.5 Needs to keep LDL less than 70, and HDL more than 40.01/2016 LDL 134Patient states she had bloodwork done at [facility]; will obtain results. Type 2 alejandra betes mellitus without complication 591045811 E11.9 Treatment and evaluation by primary care doctor. Discussed importance of adequate glycemic control to minimize cardiovasc ular disease progressio n. A1C goal of < 7% for type 2 DM [id number] Ruy Meng MD [place] [facility] [address] [place] [address] 10/17/2019 16:12:13 10/17/2019 16:54:35 Benign essential hypertension 1800441 I10 Controlled Dyspnea on exertion 6084 5006 R06.09 Treadmill Myoview Stress test, has high Stamford Risk score. Has Known CAD, or CAD risk equivalent . To look for any ischemia. Will repeat echo Edema of l ower extremity 396365878 R60.0 Stable, improved.C ontinue Lasix, leg elevation, and low sodium diet. Obesity 485103400 E66.9 20lb weight loss recommende d over the next 2 months Atypical chest pain 1025 66621 R07.89 Treadmill Myoview Stress test, has high Stamford Risk score. Has Known CAD, or CAD risk equivalent . To look for any ischemia. Obtain echo to evaluate for structural /functiona l disease Hyperlipidemia 65294260 E78.5 Needs to keep LDL less than 70, and HDL more than 40. 016 LDL 134Continu e atorvastat inWill obtain recent lipid results from PCP Type 2 alejandra betes mellitus without complication 534845313 E11.9 Treatment and evaluation by primary care doctor Discussed importance of adequate glycemic control to minimize cardiovasc ular disease progressio n, A1C goal of < 7% for type 2 DM. [id number] [facility] [place] [address] 11/20/2019 11:52:13 11/20/2019 12:48:55 Benign essential hypertension 1401927 I10 Controlled Dyspnea on exertion 6084 5006 [...] to proceed. Edema of l ower extremity 079205260 R60.0 EF 25% on Nuc. Will check 2D echocardio gram.She is already on Metoprolol and Lisinopril .Appears euvolemic on current dose of lasix. Also on HCTZ Obesity 687826248 E66.9 20lb weight loss recommende d over the next 2 months Atypical chest pain 1025 61876 R07.89 positive stress test. Will plan [facility] as aboveObtai n echo to evaluate for structural /functiona l disease Hyperlipidemia 09023912 E78.5 Needs to keep LDL less than 70, and HDL more than 40. 016 LDL 134Continu e atorvastat inWill obtain recent lipid results from PCP Type 2 alejandra betes mellitus without complication 221113353 E11.9 Treatment and evaluation by primary care [...] 06/08/2017 1 [employer] - [employer]CE BENEFITS (PPO) [id number] Armond Jones [id number] Armond Jones 07/06/2017 1 [employer] - [employer]CE BENEFITS (PPO) [id number] Armond Jones [id number] Armond Jones 01/27/2019 1 *SELF PAY* Pa isi Jones 10/17/2019 1 [facility] PRIOR TO 10/10/2020 (MEDICAID REPLACEMENT - HMO) Armond Jones [id number] Armond Jones 11/20/2019 1 [facility] PRIOR TO 10/10/2020 (MEDICAID REPLACEMENT - HMO) Armond Jones [id number] Armond Jones Notes Date Note Type Note Provider Name and Address Organization Details Recorded Time 06/08/2017 text/html 06/08/17 CC: dyspnea on exertion Patient is 47 year-old -Spanish woman with Diabetes Mellitus, Hypertension, is here [...] reading 150/98. No known history of CAD, [place], Arrhythmia, or valvular heart disease. Patient was admitted to [facility]. 04/14/17-04/19/17 for chills, aches, nausea. Was treated with Levaquin for respiratory infection. Had negative trop-I and BNP was 1617. Had echo 04/15/17 [facility]: normal LV size, mild-mod. concentric [...] tolerance is poor. LVEF 34%. echo 04/15/17 [facility]: normal LV size, mild-mod. concentric LVH; LVEF 35-40%, moderate-severe MR. Ruy Meng MD [address] [place], [address], [facility] 06/08/2017 13:16:42 07/06/2017 text/html CC: dyspnea on exertion Patient is 47 year-old -Spanish woman with Diabetes Mellitus, Hypertension, is here [...] and vomiting. Previously, patient was admitted to [facility]. 04/14/17-04/19/17 for chills, aches, nausea. Was treated with Levaquin for respiratory infection. Had negative trop-I and BNP was 1617. Had echo 04/15/17 [facility]: normal LV size, mild-mod. concentric LVH; LVEF 35-40%, moderate-severe MR. Had Stress Test 05/11/17 which was negative. Results from this visit, or from the past:04/29/17 NA:142, K:3.9, CL:96, CO2:96, CO2:33, GLU:254, BUN:19, CR:0.8, AST:14, ALT:13, M.0, TSH:1. BUN:13, GLU:215, CR:0.50, NA:138, K:3.4, CL:35, CO2:35.7004/14/17 WBC:5.6, RBC:4.9 ,HGB:13.0, HCT:42.2, PLT:17845/03/27: Na 142 ,K 3.8 ,CL 98 ,CO2 [...] pericardial effusion. Ruy Meng MD [address] [place], [address], [facility] 07/06/2017 13:38:17 01/27/2019 text/html 01/27/2019 CC: dyspnea on exertion Patient is 48 year-old -Spanish woman with Diabetes Mellitus, Hypertension, Hyperlipidiemia is [...] K:3.4, CL:35, CO2:35.7004/14/17 WBC:5.6, RBC:4.9 ,HGB:13.0, HCT:42.2, PLT:33307/03/27: Na 142 ,K 3.8 ,CL 98 ,CO2 [...] or pericardial effusion. Ruy Meng MD [address] [place], [address], [facility] 01/27/2019 10:56:14 10/17/2019 text/html 10/17/2019 CC: dyspnea on exertion Patient is 48 year-old -Spanish woman with Diabetes Mellitus, Hypertension, hyperlipidemia is [...] K:3.4, CL:35, CO2:35.7004/14/17 WBC:5.6, RBC:4.9 ,HGB:13.0, HCT:42.2, PLT:10114/03/27: Na 142 ,K 3.8 ,CL 98 ,CO2 [...] pericardial effusion. Ruy Meng MD [address] [place], [address], [place] [facility] 10/17/2019 16:54:33 11/20/2019 text/html 11/20/19 CC: dyspnea on exertion Patient is 49 year-old -Spanish woman with Diabetes Mellitus, Hypertension, hyperlipidemia is [...] K:3.4, CL:35, CO2:35.7004/14/17 WBC:5.6, RBC:4.9 ,HGB:13.0, HCT:42.2, PLT:58293/03/27: Na 142 ,K 3.8 ,CL 98 ,CO2 [...] Moderate cardiomegaly or pericardial effusion. Jose Culp [facility] [place] [facility] 11/20/2019 14:12:31 OBGyn Episode No OBEpisode recorded.
--- OUTSIDE RECORDS SUMMARY | 2024-07-17 17:35 | XMS_ITS | Referral Summary ---
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 Name Role Phone Jodee Cast MD Primary Care Provide r Encounters Date Type Department Care Team Description 05/13/2024 11:02 AM NUMERICAL CONTROL MACHINE OPERATOR - 05/13/2024 11:40 AM NUMERICAL CONTROL MACHINE OPERATOR Emergency [facility] Emergency Department [address] [place] [address] Acute cough (Primary Dx) Discharge Disposition: Discharge to home or self care from Last 3 Months Allergies Active Allergy Reactions Criticality Noted Date Comments Latex, Natural Rubber Itching Low 05/30/2014 Medications fluticasone propionate (FLONASE) 50 mcg/actuation nasal spray USE 1 SPRAY(S) IN EACH NOSTRIL EVERY 12 HOURS 2 Active loratadine (CLARITIN) 10 mg tablet Take 10 mg by mouth daily 2 Active glipiZIDE (GLUCOTROL) 5 mg tablet daily Active atorvastatin (LIPITOR) 20 mg tablet every 12 hours Activ e metoprolol tartrate (LOPRESSOR) 50 mg immediate release tablet every 12 hours 5 Active potassium chloride ER 10 mEq CR tablet Take 10 mEq by mouth 2 (two) times a day 2 Active hydrALAZINE (APRESOLINE) 50 mg tabletIndicatio ns:hypertension Take 50 mg by mouth 2 (two) times a day Active insulin detemir (LEVEMIR) 100 unit/mL (3 mL) pen for injection Inject under the skin Active bumetanide (BUMEX) 1 mg tablet Take 1 tablet (1 mg total) by mouth 2 (two) times a day 180 tablet 2 3 Active spironolactone (ALDACTONE) 25 mg tablet Take 1 tablet (25 mg total) by mouth daily Active ferrous sulfate 325 mg (65 mg of elemental iron) tablet Take 1 tablet (325 mg total) by mouth daily with breakfast Active bumetanide (BUMEX) 2 mg tablet Take 1 tablet (2 mg total) by mouth 2 (two) times a day Active metOLazone (ZAROXOLYN) 2.5 mg tablet Take 1 tablet (2.5 mg total) by mouth 2 (two) times a day Active glipiZIDE (GLUCOTROL) 10 mg tablet Take 1 tablet (10 mg total) by mouth 2 (two) times a day before breakfast and lunch Active FLUTICASONE PROPIONATE INHAL Inhale 50 mcg every 12 (twelve) hours Active potassium chloride ER (KLOR-CON) 10 mEq CR tablet Take 1 tablet/capsule (10 mEq total) by mouth daily Active Active Problems Problem Noted Date Diagnosed Date Diastolic congestive heart failure 04/09/2022 Morbid obesity with BMI of 70 and over, adult LUCIA on CPAP 04/09/2022 Social History Tobacco Use Types Packs/Day Years Used Date Smoking Tobacco: Never Smokeless Tobacco: Never Tobacco Cessation:Counseling Given: Not Answered Personal Safety Answer Date Recorded Have you ever been in or are you currently in a harmful physical or emotional relationship or is someone making you feel afraid or unsafe? Denies 05/13/2024 Comments No Sex and Gender Information Value Date Recorded Sex Assigned at Not on file Legal Sex Female 2:07 AM NUMERICAL CONTROL MACHINE OPERATOR Gender Identity Not on file Sexual Orientation Not on file Last Filed Vital Signs Vital Sign Reading Time Taken Comments Blood Pressure 149/79 05/13/2024 9:36 AM NUMERICAL CONTROL MACHINE OPERATOR Pulse 88 05/13/2024 9:36 AM NUMERICAL CONTROL MACHINE OPERATOR Temperature 36.4 C (97.6 F) 05/13/2024 9:36 AM NUMERICAL CONTROL MACHINE OPERATOR Respiratory Rate 20 05/13/2024 9:36 AM NUMERICAL CONTROL MACHINE OPERATOR Oxygen Saturation 100% 05/13/2024 9:36 AM NUMERICAL CONTROL MACHINE OPERATOR Inhaled Oxygen Concentration - - Weight 154.2 kg (340 lb) 05/13/2024 9:36 AM NUMERICAL CONTROL MACHINE OPERATOR Height 162.6 cm (5' 4 ) 05/13/2024 9:36 AM NUMERICAL CONTROL MACHINE OPERATOR Body Mass Index 58.36 05/13/2024 9:36 AM NUMERICAL CONTROL MACHINE OPERATOR Plan of Treatment Not on file Procedures Procedure Name Priority Date/Time Associated Diagnosis Comments XR CHEST PA LATERAL 2 VIEWS ED 05/13/2024 9:44 AM NUMERICAL CONTROL MACHINE OPERATOR INFLUENZA A/B, RSV, AND COVID-19 PCR Routine 05/13/2024 9:40 AM NUMERICAL CONTROL MACHINE OPERATOR SCREENING MAMMOGRAM BILATERAL W FRANK Routine 08/07/2015 12:05 PM CDT from Last 3 Months or Most Recently Relevant to Health Maintenance Results * XR Chest Pa Lateral 2 Views (05/13/2024 9:44 AM NUMERICAL CONTROL MACHINE OPERATOR) Anatomical Region Laterality Modality Body, Chest N/A Computed Radiogr aphy 05/13/2024 10:0 0 AM NUMERICAL CONTROL MACHINE OPERATOR Narrative 05/13/2024 10:00 AM NUMERICAL CONTROL MACHINE OPERATOR EXAM DESCRIPTION: XR CHEST PA LATERAL 2 VIEWS REASON FOR STUDY: cough c/o cough and congestion for a week. Diabetic Chf Non smoker TECHNIQUE: Frontal and lateral radiographic view(s) of the chest. COMPARISON: 04/21/2016 FINDINGS: There is cardiomegaly. There is mild prominence of the pulmonary vasculature. There is no definite evidence of a pneumothorax. There is no definite evidence of a pleural effusion. There are mild patchy bilateral perihilar and bibasilar interstitial airspace opacities. The osseous structures are acutely grossly unremarkable. IMPRESSION: Cardiomegaly with mild prominence of pulmonary vasculature. Mild patchy bilateral interstitial airspace opacities, which may be related to subsegmental atelectasis/scarring and or mild pulmonary edema, however superimposed airspace disease cannot be entirely excluded. THIS IS AN ELECTRONICALLY VERIFIED FINAL REPORT 05/13/2024 10:00 AM - Electronically signed by Arcadio Ruiz D.O. PS: PS Report ID: [id number] Reading Location: [id number] Procedure Note Joseph Arcadio Cooper, DO - 05/13/2024 EXAM DESCRIPTION: XR CHEST PA LATERAL 2 VIEWS REASON FOR STUDY: cough c/o cough and congestion for a week. Diabetic Chf Non smoker TECHNIQUE: Frontal and lateral radiographic view(s) of the chest. COMPARISON: 04/21/2016 FINDINGS: There is cardiomegaly. There is mild prominence of the pulmonaryvasculature. There is no definite evidence of a pneumothorax. There is no definite evidence of a pleural effusion. There are mild patchy bilateral perihilarand bibasilar interstitial airspace opacities. The osseous structures are acutely grossly unremarkable. IMPRESSION: Cardiomegaly with mild prominence of pulmonary vasculature. Mild patchy bilateral interstitial airspace opacities, which may berelated to subsegmental atelectasis/scarring and or mild pulmonary edema, however superimposed airspace disease cannot be entirely excluded. THIS IS AN ELECTRONICALLY VERIFIED FINAL REPORT 05/13/2024 10:00 AM - Electronically signed by Arcadio Ruiz D.O. PS: PS Report ID: [id number] Reading Location: [place] [address] Magdalene Castillo MD IM XR PROCEDURES F inal Result * Influenza A/B, RSV, and COVID-19 PCR Nasopharyngeal (05/13/2024 9:40 AM NUMERICAL CONTROL MACHINE OPERATOR) COVID-19 RNA Negative Negative Influenza A RNA Negative Negative [facility] ([place]) Influenza B RNA Negative Negative [facility] ([place]) RSV RNA Negative Negative [facility] ([place]) Comment: Interpretive data: Testing performed by [facility]. This test is performed using the [employer] Xpert Xpress CoV-2/Flu/RSV plus assay. This is a multiplex, real- time reverse transcriptase PCR assay intended for the qualitative detection of nucleic acid from SARS-CoV-2, influenza A, influenza B, and respiratory syncytial virus. This assay has been cleared by the [place] Food and Drug administration. The performance characteristics have been verified by the [facility]. Results must be considered in the clinical context, and a negative result does not rule out infection. Interpretive Data last revised 2023 Nasopharyngeal 05/13/2024 9: 40 AM NUMERICAL CONTROL MACHINE OPERATOR 05/13/2024 9:48 AM NUMERICAL CONTROL MACHINE OPERATOR Narrative [facility] ([place]) - 05/13/2024 10:27 AM NUMERICAL CONTROL MACHINE OPERATOR Is the Patient experiencing symptoms consistent with COVID?->Yes us Magdalene Castillo MD LAB MICROBIOLOGY - GENERAL ORDERABLES Final Result [facility] ([place]) [facility] [place] [address] * Screening Mammogram Bilateral W Frank (08/07/2015 12:05 PM CDT) Anatomical Region Laterality Modality Breast Bilateral Mammography 08/07/2015 12:0 5 PM CDT Impressions 08/07/2015 2:12 PM CDT BI-RAD 1 NEGATIVE There is no mammographic evidence of malignancy. A 1 year screening mammogram is recommended. The patient has been or will be contacted. The patient will be entered into a reminder system with a target due date of 1 year for her next screening exam. Electronically signed by: Dr. Kory Clifton wi/hernan:08/07/2015 14:10:54 Basket Braider: Carey HILL (Vitaly)(Nehemias), [facility] letter sent: Normal Exam Reading location: BI-RADS: 1 Negative [EOD] Narrative 08/07/2015 2:12 PM CDT - MG BILATERAL DIGITAL SCREENING MAMMOGRAM 3D/2D WITH CAD WITH EXAGGERATED CC MEDIOLATERAL OBLIQUE CRANIOCAUDAL: 08/07/2015 The study was acquired using full field digital technology and interpreted from soft copy. Current study was also evaluated with R2 CAD. 2D digital mammographic views, as well as 3D digital tomosynthesis were performed in the CC and MLO projections. CLINICAL: Routine mammogram. Denies any problems today. No personal history of breast cancer. No family history of breast cancer. COMPARISONS: Comparison is made to exams dated: 08/22/2013 mammogram - [facility] and 10/09/2011 mammogram - [facility]. BREAST TISSUE: The tissue of both breasts is almost entirely fatty. FINDINGS: No significant masses, calcifications, or other findings are seen in either breast. There has been no significant interval change. Procedure Note Provider, MD Natalia - 08/27/2020 - MG BILATERAL DIGITAL SCREENING MAMMOGRAM 3D/2D WITH CAD WITH EXAGGERATED CC MEDIOLATERAL OBLIQUE CRANIOCAUDAL: 08/07/2015 The study was acquired using full field digital technology and interpretedfrom soft copy. Current study was also evaluated with R2 CAD. 2D digital mammographic views, as well as 3D digital tomosynthesis were performed in the CC and MLO projections. CLINICAL: Routine mammogram. Denies any problems today. No personalhistory of breast cancer. No family history of breast cancer. COMPARISONS: Comparison is made to exams dated: 08/22/2013 mammogram -[facility] and 10/09/2011 mammogram - [facility]. BREAST TISSUE: The tissue of both breasts is almost entirely fatty. FINDINGS: No significant masses, calcifications, or other findings areseen in either breast. There has been no significant interval change. IMPRESSION: BI-RAD 1 NEGATIVE There is no mammographic evidence of malignancy. A 1 year screeningmammogram is recommended. The patient has been or will be contacted. The patient will be entered into a reminder system with a target due dateof 1 year for her next screening exam. Electronically signed by: Dr. Kory Clifton wi/penrad:08/07/2015 14:10:54 Basket Braider: Carey Trinh RT (R)(M), [facility] letter sent: Normal Exam Reading location: BI-RADS: 1 Negative [EOD] us Cyn Arriaza MD IMG MAMMO PROCEDURES F inal Result from Last 3 Months or Most Recently Relevant to Health Maintenance Insurance [employer] HMO MEDICARE [place] [employer] Care Teams Computer Recycling Worker Relationship Specialty Start Date End Date Jodee Cast MD [address] [place] [id number] PCP - General Family Medicine 03/18/22
--- OUTSIDE RECORDS SUMMARY | 2024-07-17 17:35 | XMS_ITS | Data Portability ---
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 Plan of Treatment Reminders Order Date Submit Date Provider Last Modified By Organization Details Last Modified Time Details Appointments ANY 15 2024 01:15P M Tera Rosas MD Not available Not available Not available ANY 15 2024 02:30P M Romeo Barton DPM Not available Not available Not available Lab noninvas sera colorect al cancer DNA + occult blood screenin g, QL, stool 2024 025 [email or web address] Tiempodavin [facility] (Lab), [address] [place], [address], 06/27/2024 15:45:11 HbA1c (hemoglo bin A1c), blood 2024 025 In-Office Order, Internal Use Only DO Not Attach Compendium DO Not Attach Compendium, Do Not Delete/merge, [id number] 06/12/2024 15:03:47 HbA1c (hemoglo bin A1c), blood 2024 025 In-Office Order, Internal Use Only DO Not Attach Compendium DO Not Attach Compendium, Do Not Delete/merge, [id number] 05/16/2024 10:22:12 CMP, serum or plasma 2023 024 [facility] [address] [place], [address], 02/14/2024 14:01:20 lipid panel, serum 2023 [facility] (Lab), [address] [place], [address], 02/14/2024 13:56:07 unlisted lab - hemoglob in A1C 2023 [facility] (Lab), [address] [place], [address], 02/15/2024 08:20:02 microalb umin/cre atinine, mass ratio, urine 2023 [facility] (Lab), [address] [facility], [place], [address], 02/14/2024 13:09:26 CBC w/ auto diff 2023 024 [facility] (Lab), [address] [place], [address], 02/14/2024 12:58:40 unlisted lab - vitamin D, 25-hydro xy 2023 [facility] (Lab), [address] [place], [address], 02/15/2024 08:20:05 unlisted lab - TSH rfx on abnormal to free T4 2023 024 [facility] (Lab), [address] [place], [address], 02/14/2024 13:56:05 unlisted lab - B-type natriure tic peptide 2023 024 [facility] (Lab), [address] [place], [address], 02/15/2024 09:11:[address] referral - screenin g colonosc opy [address], [address], [place], [address], 06/13/2024 12:00:[address] referral - diabetic foot exam 2024 025 [facility], [address], [place], [address], 05/23/2024 15:09:32 Procedures None recorded . Surgeries None recorded . Imaging MAMMO, screenin g, bilatera l - screenin g mammogra m 2024 025 [email or web address] [facility] ([facility]), [address] [place], [address], 07/14/2024 13:09:00 MAMMO, screenin g, bilatera l [facility]24 [email or web address] [address] [place], [address], 06/16/2024 12:59:26 Medication Orders ammonium lactate 12 % lotion 2024 025 [facility], [address] [place] [address], [id number], 06/26/2024 16:22:01 ketocona zole 2 % topical cream [email or web address] [facility] [address] [facility], [address] [place] [address], [id number], 07/10/2024 12:14:41 metformi n ER 500 mg tablet,e xtended release 24 hr 2024 025 [facility], [address] [place] [address], [address], 06/12/2024 15:26:53 Mucinex 1,200 mg tablet, extended release 2024 025 [facility] [address], [address] [place] [address], [address], 05/15/2024 15:44:43 spironol actone 25 mg tablet 2024 025 [facility], [address] [place] [address], [id number], 05/15/2024 15:44:52 metoprol ol tartrate 50 mg tablet 2024 025 [facility] [address], [address] [place] [address], [address], 05/15/2024 15:44:51 Ozempic 0.25 mg or 0.5 mg (2 mg/1.5 mL) subcutan eous pen injector 2024 025 [facility] [address], [address] [place] [address], [id number], 05/15/2024 15:44:48 Basaglar KwikPen U-100 Insulin 100 unit/mL (3 mL) subcutan eous 2024 025 [facility], [address] [place] [address], [address], 06/12/2024 14:58:44 amlodipi ne 10 mg tablet 2024 025 [facility] [address], [address] [place] [address], [address], 05/15/2024 15:44:49 atorvast atin 20 mg tablet 2024 025 [facility] [address], [address] [place] [address], [address], 05/15/2024 15:44:53 hydralaz ine 50 mg tablet 2024 025 [facility], [address] [place], [address], 05/15/2024 15:44:51 potassiu m chloride ER 10 mEq tablet,e xtended release 2024 [facility] [address], [address] [place] [address], [address], 05/15/2024 15:44:51 Levemir FlexPen 100 unit/mL (3 mL) solution subcutan eous insulin pen [address] [facility] [address], [address] [place] [address], [address], 05/15/2024 15:30:57 Ozempic 0.25 mg or 0.5 mg (2 mg/3 mL) subcutan eous pen injector 2023 [facility] [address], [address] [place] [address], [id number], 02/07/2024 18:38:40 ferrous sulfate 325 mg (65 mg iron) tablet 2023 [facility] [address], [address] [place] [address], [address], 02/07/2024 18:38:40 bumetani de 2 mg tablet 2023 [facility] [address], [address] [place] [address], [address], 02/07/2024 18:38:42 metoprol ol tartrate 50 mg tablet 2023 [facility] [address], [address] [place] [address], [address], 02/07/2024 18:38:41 spironol actone 25 mg tablet 2023 [facility], [address] [place], [address], 02/07/2024 18:38:35 atorvast atin 20 mg tablet 2023 [facility] [address], [address] [place], [address], 02/07/2024 18:38:36 hydralaz ine 50 mg tablet 2023 [facility] [address], [address] [place] [address], [address], 02/07/2024 18:38:37 potassiu m chloride ER 10 mEq tablet,e xtended release 2023 [facility] [address], [address] [place] [address], [address], 02/07/2024 18:38:41 amlodipi ne 10 mg tablet 2023 [facility] [address], [address] [place] [address], [address], 02/07/2024 18:38:41 albutero l sulfate HFA 90 mcg/actu ation aerosol inhaler 2023 [facility] [address], [address] [place] [address], [id number], 02/07/2024 18:38:35 Patient TargetsNo targets recorded. Patient Instructions Encounter Date Encounter Id Patient Instructions Last Modified By Organization Details Last Modified Time 02/07/2024 [id number] Learning About Carbohydrate (Carb) Counting and Eating [...] Not available 02/07/2024 18:38:25 How To Lower Blo od Pressure Not available 02/07/2024 18:38:25 asthma: your action plan Not available 02/07/2024 18:38:25 asthma in adults : care instructions Not available 02/07/2024 18:38:25 05/15/2024 [id number] type 2 diabetes: care instructions Not available 05/15/2024 15:44:34 learning about type 2 diabetes Not available 05/15/2024 15:44:34 Learning About Carbohydrate (Carb) Counting and Eating Out When You Have Diabetes Not available 05/15/2024 15:44:34 dash diet: care instructions Not available 05/15/2024 15:44:34 How To Lower Blo od Pressure Not available 05/15/2024 15:44:35 Learning About B E FAST: Stroke Warning Signs Not available 05/15/2024 15:44:34 heart attack: ca re instructions Not available 05/15/2024 15:44:34 stroke: care instructions Not available 05/15/2024 15:44:34 A healthy lifestyle: care instructions Not available 05/16/2024 10:22:12 Well Visit, Ages 18 to 65: Care Instructions Not available 05/15/2024 15:44:34 06/12/2024 [id number] dash diet: care instructions Not available 06/12/2024 15:30:53 How To Lower Blo od Pressure Not available 06/12/2024 15:30:53 type 2 diabetes: care instructions Not available 06/12/2024 15:30:26 Counting Carbohydrates for Diabetes: Care Instructions Not available 06/12/2024 15:30:26 A healthy lifestyle: care instructions Not available 06/12/2024 15:03:45 diet and exercis e for metabolic syndrome: care instructions Not available 06/12/2024 15:23:32 A healthy heart: care instructions Not available 06/12/2024 15:23:32 low sodium diet (2,000 milligram): care instructions Not available 06/12/2024 15:23:32 Learning About Carbohydrate (Carb) Counting and Eating Out When You Have Diabetes Not available 06/12/2024 15:23:32 learning about low-carbohydrate diets Not available 06/12/2024 15:23:32 learning about low-carbohydrate foods Not available 06/12/2024 15:23:32 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 Type 2 diabetes mellitus diabetic foot exam Referring Physician: Tera Rosas [facility] Medicine, Encounter Date: 05/15/2024 Airport Screener Referral for Screening for malignant neoplasm of colon screening colonoscopy Referring Physician: Tera Rosas [facility] Medicine, Encounter Date: 06/12/2024 Results Created Date Observation Date Name Description Value Unit Range Abnormal Flag Note LastModifiedBy Organization Detail LastModifiedTime 02/14/20 24 02/14/2024 COMPL ETE BLOOD COUNT AUTO DIFF white blood count 7.9 x10e3 /uL 3.4-10 .8 normal Not Available [facility] (Lab) [address] [place], [address], 02/14/2024 12:58:40 02/14/20 24 02/14/2024 COMPL ETE BLOOD COUNT AUTO DIFF red blood count 4.10 x10e6 /uL 3.77-5 .28 normal Not Available [facility] (Lab) [address] [place], [address], 02/14/2024 12:58:40 02/14/20 24 02/14/2024 COMPL ETE BLOOD COUNT AUTO DIFF hemoglobin 11.3 g/dL 11.1-1 5.9 normal Not Available [facility] (Lab) [address] [place], [address], 02/14/2024 12:58:40 02/14/20 24 02/14/2024 COMPL ETE BLOOD COUNT AUTO DIFF hematocrit 37.3 % 34.0-4 6.6 normal Not Available [facility] (Lab) [address] [place], [address], 02/14/2024 12:58:40 02/14/20 24 02/14/2024 COMPL ETE BLOOD COUNT AUTO DIFF mean corpuscular volume 91 fL 79-97 normal Not Available [facility] (Lab) [address], [place], [address], 02/14/2024 12:58:40 02/14/20 24 02/14/2024 COMPL ETE BLOOD COUNT AUTO DIFF mean corpuscular hemoglobin 27.6 pg 26.6-3 3.0 normal Not Available [facility] ([facility]) [address], [place], [address], 02/14/2024 12:58:40 02/14/20 24 02/14/2024 COMPL ETE BLOOD COUNT AUTO DIFF mean corpuscular HGB conc 30.3 g/dL 31.5-3 5.7 low Not Available [facility] (Lab) [address], [place], [address], 02/14/2024 12:58:40 02/14/20 24 02/14/2024 COMPL ETE BLOOD COUNT AUTO DIFF red cell distribution width 14.0 % 11.5-1 4.5 normal Not Available [facility] (Lab) [address] [place], [address], 02/14/2024 12:58:40 02/14/20 24 02/14/2024 COMPL ETE BLOOD COUNT AUTO DIFF platelet count 334 x10e3 /uL 150-45 0 normal Not Available [facility] (Lab) [address] [place], [address], 02/14/2024 12:58:40 02/14/20 24 02/14/2024 COMPL ETE BLOOD COUNT AUTO DIFF mean platelet volume 8.9 fL 8.9-12 .7 normal Not Available [facility] (Lab) [address] [place], [address], 02/14/2024 12:58:40 02/14/20 24 02/14/2024 COMPL ETE BLOOD COUNT AUTO DIFF immature granulocytes pct auto 1.3 % not estb. Not Available [facility] (Lab) [address], [place], [address], 02/14/2024 12:58:40 02/14/20 24 02/14/2024 COMPL ETE BLOOD COUNT AUTO DIFF neutrophils percent auto 70 % not estb. Not Available [facility] (Lab) [address], [place], [address], 02/14/2024 12:58:40 02/14/20 24 02/14/2024 COMPL ETE BLOOD COUNT AUTO DIFF lymphocytes percent auto 20 % not estb. Not Available [facility] (Lab) [address], [place], [address], 02/14/2024 12:58:40 02/14/20 24 02/14/2024 COMPL ETE BLOOD COUNT AUTO DIFF monocytes percent auto 6 % not estb. Not Available [facility] (Lab) [address] [place], [address], 02/14/2024 12:58:40 02/14/20 24 02/14/2024 COMPL ETE BLOOD COUNT AUTO DIFF eosinophils percent auto 2 % not estb. Not Available [facility] (Lab) [address], [place], [address], 02/14/2024 12:58:40 02/14/20 24 02/14/2024 COMPL ETE BLOOD COUNT AUTO DIFF basophils percent auto 0 % not estb. Not Available [facility] (Lab) [address], [place], [address], 02/14/2024 12:58:40 02/14/20 24 02/14/2024 COMPL ETE BLOOD COUNT AUTO DIFF neutrophils absolute auto 5.5 x10e3 /uL 1.4-7. 0 normal Not Available [facility] (Lab) [address] [place], [address], 02/14/2024 12:58:40 02/14/20 24 02/14/2024 COMPL ETE BLOOD COUNT AUTO DIFF immature granulocytes abs auto 0.1 x10e3 /uL 0.0-0. 1 normal Not Available [facility] (Lab) [address] [place], [address], 02/14/2024 12:58:40 02/14/20 24 02/14/2024 COMPL ETE BLOOD COUNT AUTO DIFF lymphocytes absolute auto 1.6 x10e3 /uL 0.7-3. 1 normal Not Available [facility] (Lab) [address] [place], [address], 02/14/2024 12:58:40 02/14/20 24 02/14/2024 COMPL ETE BLOOD COUNT AUTO DIFF monocytes absolute auto 0.5 x10e3 /uL 0.1-0. 9 normal Not Available [facility] (Lab) [address], [place], [address], 02/14/2024 12:58:40 02/14/20 24 02/14/2024 COMPL ETE BLOOD COUNT AUTO DIFF eosinophils absolute auto 0.2 x10e3 /uL 0.0-0. 4 normal Not Available [facility] (Lab) [address] [place], [address], 02/14/2024 12:58:40 02/14/20 24 02/14/2024 COMPL ETE BLOOD COUNT AUTO DIFF basophils absolute auto 0.0 x10e3 /uL 0.0-0. 2 normal Not Available [facility] (Lab) [address] [place], [address], 02/14/2024 12:58:40 02/14/20 24 02/14/2024 COMPL ETE BLOOD COUNT AUTO DIFF nucleated red blood cells auto 0 % 0-0 normal Not Available [facility] (Lab) [address] [place], [address], 02/14/2024 12:58:40 02/14/20 02/14/2024 MICRO ALBUM CREAT ININE RATIO UR creatinine urine random 89.2 mg/dL not estab. Not Available [facility] (Lab) [address] [place], [address], 02/14/2024 13:09:26 02/14/20 24 02/14/2024 MICRO ALBUM CREAT ININE RATIO UR microalbumin urine random 24.7 mg/dL not estab. Not Available [facility] (Lab) [address], [place], [address], 02/14/2024 13:09:26 02/14/20 24 02/14/2024 MICRO ALBUM CREAT ININE RATIO UR microalbum creatinine ratio ur 276 mg/g_ cre 0-29 Urine Micro album in-Cr eatin ine Ratio : Lacey l 0-29 Moder ately Incre ased 30-30 0 Sever brissa Incre ased >300 Not Available [facility] (Lab) [address], [place], [address], 02/14/2024 13:09:26 02/14/20 24 02/14/2024 TSH RFX ON ABNOR MAL TO FREE T4 TSH rfx on abnormal to free T4 1.61 uIU/m L 0.450- 4.500 normal Not Available [facility] (Lab) [address], [place], [address], 02/14/2024 13:56:05 02/14/20 24 02/14/2024 LIPID PANEL triglyceride s 166 mg/dL 0-149 high Not Available [facility] (Lab) [address] [place], [address], 02/14/2024 13:56:07 02/14/20 24 02/14/2024 LIPID PANEL cholesterol 194 mg/dL 100-19 9 normal Not Available [facility] (Lab) [address], [place], [address], 02/14/2024 13:56:07 02/14/20 24 02/14/2024 LIPID PANEL LDL cholesterol 106 mg/dL 0-99 high Not Available [facility] (Lab) [address] [place], [address], 02/14/2024 13:56:07 02/14/20 24 02/14/2024 LIPID PANEL VLDL cholesterol (calc) 33 mg/dL 5-40 normal Not Available [facility]) [address] [place], [address], 02/14/2024 13:56:07 02/14/20 24 02/14/2024 LIPID PANEL HDL cholesterol 58 mg/dL 40-999 normal Not Available [facility] (Lab) [address] [place], [address], 02/14/2024 13:56:07 02/14/20 24 02/14/2024 LIPID PANEL LDL HDL ratio 1.8 0-3.2 normal Not Available [facility]) [address] [place], [address], 02/14/2024 13:56:07 02/14/20 24 02/14/2024 LIPID PANEL chol HDL ratio 3.0 mg/dL 0-4.4 normal Not Available [facility]) [address], [place], [address], 02/14/2024 13:56:07 02/14/20 24 02/14/2024 COMPR EHENS SERA METAB OLIC PANEL sodium 138 mmol/ L 134-14 4 normal Not Available [facility] (Lab) [address] [place], [address], 02/14/2024 14:01:20 02/14/20 24 02/14/2024 COMPR EHENS SERA METAB OLIC PANEL potassium 5.2 mmol/ L 3.5-5. 2 normal Not Available [facility] ([facility]) [address] [place], [address], 02/14/2024 14:01:20 02/14/20 24 02/14/2024 COMPR EHENS SERA METAB OLIC PANEL chloride 104 mmol/ L 96-106 normal Not Available [facility] ([facility]) [address] [place], [address], 02/14/2024 14:01:20 02/14/20 24 02/14/2024 COMPR EHENS SERA METAB OLIC PANEL carbon dioxide 23 mmol/ L 20-29 normal Not Available [facility] (Lab) [address], [place], [address], 02/14/2024 14:01:20 02/14/20 24 02/14/2024 COMPR EHENS SERA METAB OLIC PANEL anion gap 16.0 mmol/ L Not Available [facility] (Lab) [address], [place], [address], 02/14/2024 14:01:20 02/14/20 24 02/14/2024 COMPR EHENS SERA METAB OLIC PANEL blood urea nitrogen 42 mg/dL 6-24 high Not Available [facility] ([facility]) [address], [place], [address], 02/14/2024 14:01:20 02/14/20 24 02/14/2024 COMPR EHENS SERA METAB OLIC PANEL creatinine 2.42 mg/dL 0.76-1 .27 high Not Available [facility] (Lab) [address], [place], [address], 02/14/2024 14:01:20 02/14/20 24 02/14/2024 COMPR EHENS SERA METAB OLIC PANEL glomerular filtration rate 23 mL/mi n/1 Not Available [facility] (Lab) [address] [place], [address], 02/14/2024 14:01:20 02/14/20 24 02/14/2024 COMPR EHENS SERA METAB OLIC PANEL BUN creatinine ratio 17 9-23 normal Not Available [facility]) [address] [place], [address], 02/14/2024 14:01:20 02/14/20 24 02/14/2024 COMPR EHENS SERA METAB OLIC PANEL glucose 191 mg/dL 70-99 high Not Available [facility] (Lab) [address] [place], [address], 02/14/2024 14:01:20 02/14/20 24 02/14/2024 COMPR EHENS SERA METAB OLIC PANEL osmolality calculated 291 275-29 5 normal Not Available [facility] (Lab) [address], [place], [address], 02/14/2024 14:01:20 02/14/20 24 02/14/2024 COMPR EHENS SERA METAB OLIC PANEL calcium 9.8 mg/dL 8.7-10 .2 normal Not Available [facility] (Lab) [address], [place], [address], 02/14/2024 14:01:20 02/14/20 24 02/14/2024 COMPR EHENS SERA METAB OLIC PANEL bilirubin total 0.2 mg/dL 0.0-1. 2 normal Not Available [facility] (Lab) [address] [place], [address], 02/14/2024 14:01:20 02/14/20 24 02/14/2024 COMPR EHENS SERA METAB OLIC PANEL aspartate amino transferase 10 IU/L 0-40 normal Not Available [facility] (Lab) [address] [place], [address], 02/14/2024 14:01:20 02/14/20 24 02/14/2024 COMPR EHENS SERA METAB OLIC PANEL alanine aminotransfe rase 10 IU/L 0-32 normal Not Available [facility] ([facility]) [address] [place], [address], 02/14/2024 14:01:20 02/14/20 24 02/14/2024 COMPR EHENS SERA METAB OLIC PANEL total protein 8.0 g/dL 6.0-8. 5 normal Not Available [facility] (Lab) [address] [place], [address], 02/14/2024 14:01:20 02/14/20 24 02/14/2024 COMPR EHENS SERA METAB OLIC PANEL albumin level 3.9 g/dL 3.8-4. 9 normal Not Available [facility] (Lab) [address] [place], [address], 02/14/2024 14:01:20 02/14/20 24 02/14/2024 COMPR EHENS SERA METAB OLIC PANEL globulin 4.1 g/dL 1.5-4. 5 normal Not Available [facility] (Lab) [address], [place], [address], 02/14/2024 14:01:20 02/14/20 24 02/14/2024 COMPR EHENS SERA METAB OLIC PANEL albumin globulin ratio 1.0 1.2-2. 2 low Not Available [facility] (Lab) [address], [place], [address], 02/14/2024 14:01:20 02/14/20 24 02/14/2024 COMPR EHENS SERA METAB OLIC PANEL alkaline phosphatase 185 IU/L 44-[address] [facility] (Lab) [address] [place], [address], 02/14/2024 14:01:20 02/14/20 24 02/15/2024 HEMOG LOBIN A1C hemoglobin A1C 9.5 % 4.8-5. 6 abnormal Predi abete s: 5.7 - 6.4 Diabe terrell: >6.4 Glyce caleb contr ol for adult s with diabe terrell: <7.0 [place]fo [place]: [facility] [place] [address] Lab Direc tor: Umberto barkley PhD, Phone : [phone] Not Available [facility] (Lab) [address] [place], [address], 02/15/2024 08:20:02 02/14/20 24 02/15/2024 VITAM IN [...] 1. IOM (Inst itute of Medic ine). 2010. Dieta ry refer ence james es for calci um and D. Rupinder zimmer [place]: The [facility] Press . 2. Tucker baryr [place], [place] bob [place], Jordi off-F errar i ABDI, et al. Evalu ation , treat ment, and preve ntion of vitam in D defic iency : an Endoc rine Socie ty clini marquis pract ice guide line. JCEM. 2010; 96(7) :1911 -30. Perfo rmed at: 01 - Lab[address] [address] [facility] Lab Direc tor: Umberto barkley PhD, Phone : [phone] Not Available [facility] (Lab) [address] [place] [address], [address], 02/15/2024 08:20:05 02/14/20 24 02/15/2024 B-TYP E NATRI URETI C PEPTI DE B-type natriuretic peptide 70.4 pg/mL 0.0-10 0.0 Sieme ns ADVIA [facility] XP metho dolog y Perfo rmed at: 01 - [facility] [address] [place], [place] [id number] Lab Direc tor: Umberto barkley PhD, Phone : [phone] Not Available [facility] (Lab) [address] [place], [address], 02/15/2024 09:11:36 05/15/19 25 05/15/2024 HbA1c (hemo globi n A1c), blood HbA1c 9.6 Not Available In-Office Order Internal Use Only DO Not Attach Compendium DO Not Attach Compendium, Do Not Delete/merge, [id number] 05/15/2024 15:03:45 06/13/19 25 06/12/2024 HbA1c (hemo globi n A1c), blood HbA1c 10.5 Not Available In-Office Order Internal Use Only DO Not Attach Compendium DO Not Attach Compendium, Do Not Delete/merge, [id number] 06/12/2024 14:31:06 Result Notes None recorded. Problems Name Problem SNOMED Code Status Onset Date Resolution Date Notes Provider Name and Address Organization Details Recorded Time Diabetes mellitus 56379239 Active 2019 Not Available [facility] 2 10:57:09 Hypertensi ve disorder 50228998 Active 2019 Not Available [facility] 2 10:57:09 Anxiety 99157411 Active 2019 Not Available [facility] 2 10:57:09 Chronic congestive heart failure 26715211 Active 2020 Not Available [facility] 10:57:09 Mild intermitte nt asthma 291935025 Active 2020 Not Available [facility] 2 10:57:09 Hyperlipid emia 77019067 Active 2020 Not Available [facility] 2 10:57:09 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 Procedures Surgical History Date Name Laterality Status Provider Name and Address Organization Details Recorded Time 5 Routine Foot Care completed Romeo Barton DPM [address], [place], [address], [facility] 06/26/2024 16:20:21 3 Routine Foot Care completed SUNDAR ASENCIO DPM [address], [place], [address], [facility] 12/31/2022 12:10:14 3 Routine Foot Care completed SUNDAR ASENCIO DPM [address], [place], [address], [facility] 05/21/2022 10:01:08 1 Routine Foot Care completed SUNDAR ASENCIO DPM [address], [place], [address], [facility] 05/31/2020 12:18:20 0 Date of Last Mammogram completed Meena Ramsay [place] [facility] 09/17/2021 15:56:35 9 Date of Last Pap Smear completed Meena Ramsay [place] 01/20/2023 14:39:19 section completed Meena Ramsay [place] [facility] 04/09/2020 12:21:46 Imaging Results None recorded. Procedure Notes None recorded. Medical Equipment None Reported. Allergies Allergen ID Allergen Name Allergen Category Reaction Reaction Severity Criticality Documentation Date Start Date Code Code System Note Provider Name and Address Organization Details Recorded Time 548100 Latex (substanc e) environme nt,medica tion Not available Not available Not available 03/01/20192024 97352 8007 SNOMED Not Available Not Available Not Available Medications Name Sig Start Date Stop Date Status Note LastModified by Organization Details LastModified Time relion pen needles [id number] mis USE DIRECTED 02/11 completed Not Available Not Available Not Available Prescriptio n - Change active Not Available Not Available N ot Available amoxicillin 500 mg capsule TAKE 1 CAPSULE BY MOUTH TWICE DAILY FOR 5 DAYS 06/12 completed Not Available Not Available Not Available [...] No t Available bumetanide 2 mg tablet TAKE 1 TABLET BY MOUTH TWICE DAILY DIRECTED active Not Available Not Available No t Available ammonium lactate 12 % lotion Apply 1 applicati on twice a day by topical route. 2024 active Not Available Not Available Not Avai lable azithromyci n 250 mg tablet TAKE 2 TABLETS BY MOUTH ON DAY 1, AND THEN TAKE 1 TABLET BY MOUTH ONCE A DAY ON DAY 2 THROUGH DAY 5 06/12 completed Not Available Not Available Not Available [...] 1 TABLET BY MOUTH IN THE MORNING active Not Available Not Available No t Available alprazolam 0.25 mg tablet TAKE 1 TABLET [...] FOR 4 WEEKS, THEN ONCE A MONTH 06/12 completed Not Available Not Available Not Available ibuprofen 600 mg tablet TAKE 1 TABLET BY MOUTH THREE TIMES DAILY 01/01 completed Not Available Not Available Not Available methylpredn isolone 4 mg tablets in a dose pack TAKE BY MOUTH DIRECTED ON INSIDE OF PACKAGE 05/15 completed Not Available Not Available Not Available albuterol sulfate HFA 90 mcg/actuati on aerosol inhaler INHALE 2 PUFFS BY MOUTH EVERY 4 HOURS NEEDED active Not Available Not Available No t Available ketoconazol e 2 % topical cream APPLY CREAM TOPICALLY TO THE AFFECTED AREA ONCE DAILY active Not Available Not Available No [...] 500 mg tablet,exte nded release 24 hr TAKE 1 TABLET BY MOUTH ONCE DAILY IN THE MORNING FOR DIABETES active Not Available Not Available No t Available loratadine 10 mg tablet TAKE 1 TABLET BY MOUTH ONCE DAILY IN THE MORNING 02/06 completed Not Available Not Available Not Available Tylenol Extra Strength 500 mg tablet Take 2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 I10 UNCONTROLL ED, HAD NOT TAKEN MEDS TODAY-ADDE D HYDRALAZIN E To MEDS- NO SALT DIETFOLLOW UP IN 2 weeks- PATIENT INSTRUCTED STROKE SIGNS AND WARNING AND GO TO ER IMMEDIATEL Y IF ANY SYMPTOMS Congestive heart failure 41027626 I50.9 - seen by Dr Morgan Skaggs in [place] [id number] Tera Rosas MD [place] [id number] 01/20/2023 14:10:33 01/21/2023 11:38:34 Morbid obesity 964193996 E66.01 goal is 20 pound weight loss Essential hypertension 40332313 I10 UNCONTROLL ED, HAD NOT TAKEN MEDS TODAY-ADDE D HYDRALAZIN E To MEDS- NO SALT DIETFOLLOW UP IN 2 weeks- PATIENT INSTRUCTED STROKE SIGNS AND WARNING AND GO TO ER IMMEDIATEL Y IF ANY SYMPTOMS Type 2 alejandra betes mellitus 03344166 E11.9 uncontroll ed-on Ozempic-co ntinue insulin to levemir 20 units QHS by flex pen-morbid obesity and struggle with diet and exercise worsening condition of diabetes, ( HgA1 increased to 14.4 today)-oliverio woodruff admits to difficulty taking and rememberin g her pills-orde r Ozempic, patient is excellent candidate due to injections once weekly for compliance and to decrease HgA1c, and benefit of weight loss-FOLLO W UP IN OFFICE IN 2 WEEKS-HgA1 c is 12.3 [id number] Tera Rosas MD [address] [address] 02/07/2024 14:27:09 02/08/2024 10:09:09 Morbid obesity 722403842 E66.01 goal is 20 pound weight loss Essential hypertension 49740614 I10 HIME MONITORING BLOOD PRESSURE,P ATIENT STATES TODAY IS 138/79- NO SALT DIETFOLLOW UP IN 3 MONTHS FOR WEIGH IN AND BLOOD PRESSURE CHECK- PATIENT INSTRUCTED STROKE SIGNS AND WARNING AND GO TO ER IMMEDIATEL Y IF ANY SYMPTOMS Chronic co ngestive heart failure 48099838 I50.9 stable continue low cholestero l and low sodium dietcare under Dr. Skaggs in [facility] inter mittent asthma 436243538 J45.20 Anemia 465530077 D64.9 Type 2 alejandra betes mellitus 26947953 E11.9 uncontroll ed-on Ozempic, patient has lost [...] IN 3 months-HgA 1c is ordered today [id number] Tera Rosas MD [address] [address] 05/15/2024 14:38:57 05/16/2024 12:04:35 Morbid obesity 124147190 E66.01 goal is 20 pound weight loss Essential hypertension 88448919 I10 UNCONTROLL ED, TODAY BOOD PRESSURE IS 181/103. DECLINES REFERRAL TO ER FOR URGENT HTN,PATIEN T HAS NOT TAKEN BLOOD PRESSURE MEDS IN 3 DAYS- NO SALT DIETFOLLOW UP IN 1 MONTHS FOR WEIGH IN AND BLOOD PRESSURE CHECK- PATIENT INSTRUCTED STROKE SIGNS AND WARNING AND GO TO ER IMMEDIATEL Y IF ANY SYMPTOMS-R EFERRAL TO HYPERTENSI ON TEAM AT [facility] Chronic co ngestive heart failure 31278814 I50.9 stable continue low cholestero l and low sodium dietcare under Dr. Skaggs in [place] Type 2 alejandra betes mellitus 62962194 E11.9 uncontroll ed-on Ozempic, patient has lost over 30 pounds, home glucose levels are 130-140,s, increase Ozempic dosage-con tinue insulin to basaglar 20 units QHS by flex pen-morbid obesity and struggle with diet and exercise worsening condition of diabetes,- patient admits to difficulty taking and rememberin g her pills-orde r Ozempic, patient is excellent candidate due to injections once weekly for compliance and to decrease HgA1c, and benefit of weight loss-FOLLO W UP IN OFFICE IN 3 months-HgA 1c is ordered today Screening for malignant neoplasm of breast 182268950 Z12.39 Adult heal th examination 706876037 Z00.00 Persistent cough 0329919 02 R05.3 [id number] Tera Rosas MD [address] [address] 06/12/2024 13:36:07 06/14/2024 09:34:39 Morbid obesity 328392981 E66.01 goal is 20 pound weight loss Diabetes mellitus 772538 09 E11.65 uncontroll ed,HgA1c 10.6 patient continues to be educated on diet, exercise and medication and insulin compliance . she agreed and will follow up in office in 2 month and will bring glucometer . DIABETIC TESTING 3 TIMES A DAY BEFORE MEALS OR INSULIN INJECTION IN EVENING , USE OF INSULIN WITH METFORMIN medication reviewed in detail and will continue current dosage, Metformin added for control in addition, patient cancelled her appts for podiatry Screening for malignant neoplasm of breast 966707085 Z12.31 Screening for malignant neoplasm of colon 094462946 Z12.11 ORDER SENT Essential hypertension 59739581 I10 improved control-lo w sodium diet [id number] Rodrigo Cerna MD [facility] [address] [place] [address] 06/21/2024 11:15:05 06/21/2024 11:51:15 Screening for malignant neoplasm of colon 258582435 Z12.11 Patient is in need of screening colonoscop y. However, the patient's BMI is too high to be performed and to [facility]. Gave the patient option of asking for referral to a larger center versus performing a Cologuard at this time. She has decided to go with a Cologuard with the understand ing that if it returns positive, she will need a scope of the larger facility. [id number] Romeo Barton DPM [facility] [address] [place] [address] 06/26/2024 15:43:17 06/26/2024 16:23:57 Bilateral atherosclerosis of arteries of lower limbs 5870422439 8597797 I70.203 The patient was educated about the importance of exercise, diet and the need to protect their feet in order to prevent injury or ulceration Diabetic p eripheral neuropathy 667702049 E11.42 Patient was educated about the systemic [...] etic shoes with moldable inserts sent to [facility] pharmacy 05/20/22 Acquired h ammer toe of right foot 1397921371 150060 M20.41 The patient was educated regarding how [...] . Xerosis du e to atopic dermatitis 505415813 L85.3 The patient was educated regarding proper hydration of their feet/ankle s and the patient was given several recommenda tions for proper creams to protect/hy drate and keep the area healthy. Acquired h ammer toe of left foot 1665562683 197426 M20.42 Anhidrosis 66735064 L74. 4 The patient was educated regarding proper hydration of their feet/ankle s and the patient was given several recommenda tions for proper creams to protect/hy drate and keep the area healthy. Localized edema 42432720 4 R60.0 The patient was educated about the importance of exercise, diet and the need to protect their feet in order to prevent injury or ulceration Onychomycosis 965239289 B35.1 Tinea pedis 5991152 B35. 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 1415144760 102 E11.628 Health Concerns Section Related Observation LastModified by Organization Detai ls LastModified Time None Recorded Concern Status LastModified by Organization Details LastModified Time None Recorded Advance Directives Directive Y: Payers Encounter Date Sequence Insurance Name Policy Number Policy Herrera Covered Member ID Herrera Member ID Guarantor Name 02/07/2024 1 [place] Armond D Jones [id number] Armond D Jones 02/07/2024 2 [place] MED[place] OR MEDICARE REPLACEMENT PRIMARY) Armond D Jones [id number] Armond D Jones 05/15/2024 1 [place] Armond D Jones [id number] Armond D Jones 05/15/2024 2 [place]PLACEMENT [place]IMARY) Armond D Jones [id number] Armond D Jones 06/12/2024 1 [place] Armond D Jones [id number] Armond D Jones 06/12/2024 2 [place]PLACEMENT [place]) Armond D Jones [id number] Armond D Jones 06/21/2024 1 [place] Armond D Jones [id number] Armond D Jones 06/21/2024 2 [place] [facility] Armond D Jones [id number] Armond D Jones 06/26/2024 1 [place] Armond D Jones [id number] Armond D Jones 06/26/2024 2 [place] Armond D Jones [id number] Armond D Jones Notes Date Note Type Note Provider Name and Address Organization Details Recorded Time 4 text/html Hypertension F/UReported bypatient.Associated Symptoms:no dizziness; no lightheadedness; no chest pain; [...] swelling of extremities. Tera Rosas MD Attn: Accounting,[address] [place], [address], [facility] 02/07/2024 18:39:24 5 text/html patient is a 54 year old female with known diabetes, obesity, chronic kidney disease and uncontrolled hypertension.no chest pain, dizziness or dyspnea and she has not taken her blood pressure pills for 3 days Tera Rosas MD Attn: Accounting[address] [place], [address], [facility] 05/15/2024 15:45:13 5 text/html need a glucometerozempic 0.5 every wednesdayeating bad Tera Rosas MD Attn: Accounting[address] [place], [address], [facility] 07/12/2024 10:00:31 5 text/html Diabetes F/UReported bypatient.Labs:last A1C result: 9.5 Context:seeing eye doctor regularly; checking feet regularly;not taking aspirin daily Associated Symptoms:weight gain (4 lbs);increased urinationHypertension F/UReported bypatient.Associated Symptoms:no dizziness; no lightheadedness; no chest pain; no shortness of breath; no palpitations; no edema; no calf pain with exertion Lifestyle:not exercising regularly;high salt intake Medications:taking medications as directed; no side effects from medication Tera Rosas MD Attn: Accounting[address] [place], [address], [facility] 07/12/2024 10:00:31 5 text/html patient here for colonoscopy evaluation. This will be patient's first scope. No pain, no diarrhea, no constipation. No abdominal surgical history. No family history. Rodrigo Cerna MD [address], [place], [address], [facility] 06/21/2024 11:41:35 5 text/html Patient presents today for evaluation and [...] well as to relieve irritation and discomfort. Recent HgbA1c was 10.5 Romeo Barton DPM [address], [place], [address], [facility] 06/26/2024 16:23:28 OBGyn Episode No OBEpisode recorded.
--- OUTSIDE RECORDS SUMMARY | 2024-07-17 17:35 | XMS_ITS | Clinical Summary ---
Author Organization [facility] [address] Address [address] [place] [address] Phone Care Team Providers Care Tire Mold Tester Name Role Phone Jodee Cast MD Primary Care Provide r Allergies Active Allergy Reactions Criticality Noted Date [...] and over, adult LUCIA on CPAP 04/09/2022 Encounters Date Type Department Care Team Description 05/13/2024 11:02 AM CLINIC RECEPTIONIST - 05/13/2024 11:40 AM [facility] Emergency [facility] Emergency Department [address] [place], [place] [id number] Acute cough (Primary Dx) Discharge Disposition: Discharge to home or self care from Last 3 Months Surgical History Surgery Date Site/Laterality Comments SECTION Medical History Medical History Date Comments Diabetes mellitus (HCC) Hypertension CHF (congestive heart failure) (HCC) Family History Medical History Relation Name Comments No Known Problems Father Diabetes type II Mother Heart disease Mother Thyroid disease Mother Relation Name Status Comments Father Alive Mother Alive Social History Tobacco Use Types Packs/Day Years [...] on file Legal Sex Female 2:07 AM CLINIC RECEPTIONIST Gender Identity Not on file Sexual Orientation Not on file Obstetrics History Last Filed Vital Signs Vital Sign Reading Time Taken Comments Blood Pressure 149/79 05/13/2024 9:36 AM CLINIC RECEPTIONIST Pulse 88 05/13/2024 9:36 AM CLINIC RECEPTIONIST Temperature 36.4 C (97.6 F) 05/13/2024 9:36 AM CLINIC RECEPTIONIST Respiratory Rate 20 05/13/2024 9:36 AM CLINIC RECEPTIONIST Oxygen Saturation 100% 05/13/2024 9:36 AM CLINIC RECEPTIONIST Inhaled Oxygen Concentration - - Weight 154.2 kg (340 lb) 05/13/2024 9:36 AM CLINIC RECEPTIONIST Height 162.6 cm (5' 4 ) 05/13/2024 9:36 AM CLINIC RECEPTIONIST Body Mass Index 58.36 05/13/2024 9:36 AM CLINIC RECEPTIONIST Plan of Treatment Health Maintenance Due Date Last Done Comments Cervical Cancer Screening 1968 Colon Cancer Screening-Colonoscopy 1968 Depression Screening 1968 Hepatitis C Screening 1968 DTaP/Tdap/Td Vaccine (1 - Tdap) 1979 Hepatitis B Screening 1986 Regular Well Visit/Exam 18-64 1986 Breast Cancer Screening-Mammogram 08/06/2016 08/07/2015, 08/22/2013 Zoster Vaccine (1 of 2) 2018 Influenza Vaccine (Season Ended) 2024 07/04/2014, 05/30/2014 Pneumococcal vaccine <65 Aged Out No longer eligible based on patient's age to complete this topic Procedures Procedure Name Priority Date/Time Associated Diagnosis Comments XR CHEST PA LATERAL 2 VIEWS ED 05/13/2024 9:44 AM CLINIC RECEPTIONIST INFLUENZA A/B, RSV, AND COVID-19 PCR Routine 05/13/2024 9:40 AM CLINIC RECEPTIONIST SCREENING MAMMOGRAM BILATERAL W FRANK Routine 08/07/2015 12:05 PM CDT from Last 3 Months or Most Recently Relevant to Health Maintenance Results * XR Chest Pa Lateral 2 Views (05/13/2024 9:44 AM CLINIC RECEPTIONIST) Anatomical Region Laterality Modality Body, Chest N/A Computed Radiogr aphy 05/13/2024 10:0 0 AM CLINIC RECEPTIONIST Narrative 05/13/2024 10:00 AM CLINIC RECEPTIONIST EXAM DESCRIPTION: XR CHEST PA LATERAL 2 [...] Arcadio Ruiz D.O. PS: PS Report ID: [id number] Reading Location: [id number] Procedure Note Arcadio Ruiz, - 05/13/2024 EXAM DESCRIPTION: XR CHEST PA [...] Arcadio Ruiz D.O. PS: PS Report ID: [id number] Reading Location: [id number] Magdalene Castillo MD IMG XR PROCEDURES F inal Result * Influenza A/B, RSV, and COVID-19 PCR Nasopharyngeal (05/13/2024 9:40 AM CLINIC RECEPTIONIST) COVID-19 RNA Negative Negative Influenza A RNA Negative Negative [facility] ([place]) Influenza B RNA Negative Negative [facility] ([place]) RSV RNA Negative Negative [facility] ([place]) Comment: Interpretive data: Testing performed by [facility]. This test is performed using the [employer] Xpert Xpress CoV-2/Flu/RSV plus assay. This is a multiplex, real- time reverse transcriptase PCR assay intended for the qualitative detection of nucleic acid from SARS-CoV-2, influenza A, influenza B, and respiratory syncytial virus. This assay has been cleared by the [place] Food and Drug administration. The performance characteristics have been verified by the [facility]. Results must be considered in the clinical context, and a negative result does not rule out infection. Interpretive Data last revised 2023 Nasopharyngeal 05/13/2024 9: 40 AM CLINIC RECEPTIONIST 05/13/2024 9:48 AM CLINIC RECEPTIONIST Narrative [facility] ([place]) - 05/13/2024 10:27 AM CLINIC RECEPTIONIST Is the Patient experiencing symptoms consistent with COVID?->Yes Magdalene Castillo MD LAB MICROBIOLOGY - GENERAL ORDERABLES Final Result [facility] [address] [facility] [place] [address] * Screening Mammogram Bilateral W Frank (08/07/2015 [...] exam. Electronically signed by: Dr. Kory Clifton nh/penrad:08/07/2015 14:10:54 Medical Chief Technician: Carey HILL (Vitaly)(Nehemias), [facility] letter sent: Normal Exam Reading location: BI-RADS: [...] made to exams dated: 08/22/2013 mammogram - [facility] and 10/09/2011 mammogram - [facility]. BREAST TISSUE: The tissue of both breasts [...] is made to exams dated: 08/22/2013 mammogram -[facility] and 10/09/2011 mammogram - [facility]. BREAST TISSUE: The tissue of both breasts [...] exam. Electronically signed by: Dr. Kory Clifton tx/penrad:08/07/2015 14:10:54 Medical Chief Technician: Carey Trinh RT (R)(M), [facility] letter sent: Normal Exam Reading location: BI-RADS: 1 Negative [EOD] Cyn Arriaza MD [facility] MAMMO PROCEDURES F inal Result from Last 3 Months or Most Recently Relevant to Health Maintenance Insurance [employer] MEDICARE HMO [facility] OTHER Address: [address] [address] [place] [address] MEDICARE [facility] MEDICARE MD MEDICARE Care Teams Tire Mold Tester Relationship Specialty Start Date End Date Jodee Cast MD [address] [place] [address] PCP - General Family Medicine 03/18/22
--- OUTSIDE RECORDS SUMMARY | 2024-07-17 17:35 | XMS_ITS | Continuity of Care Document ---
Author Organization [facility] Address [address] [facility] [address] [place] [address] Phone Care Team Providers Care Gluten Settling Tender Name Role Phone Sang Santana MD Unavailable Unavailable Allergies, Adverse Reactions, Alerts Substance Reaction Status Criticality latex Unknown Active No Information Medications Medication Instructions Dosage Effective Dates (start - stop) Status Comments METOPROLOL SUCCINATE (unknown strength) Not Available - Active INVOKAMET (unknown strength) Not Available - Active MICARDIS (unknown strength) Not Available - Active RIOMET (unknown strength) Not Available - Active BYETTA (unknown strength) Not Available - Active FUROSEMIDE (unknown strength) Not Available - Active Procedures Procedure Date OFFICE/OUTPATIENT VISIT EST OFFICE/OUTPATIENT VISIT EST OFFICE/OUTPATIENT VISIT EST OFFICE/OUTPATIENT VISIT NEW Advance Directives Directive Yes / No Effective Date File Name No Information Encounters Encounter Description Practice Location Reason(s) For Visit Diagnoses Date Provider Providers Copied on Encounter OFFICE/OUTPA TIENT VISIT EST [facility], [address] [place] [address], [address], tel:[phone] [facility] Tear of medial cartilage or meniscus of knee, current Jul- 3-201 5 Esther Domínguez. [address] [place] [address], [id number]. tel:[phone] OFFICE/OUTPA TIENT VISIT EST [facility], [address], [address], tel:[phone] [facility] Follow Up of R knee (chief complaint) Primary osteoarthriti s of right knee 5 Brandt Chavez. [address] [facility] [address], [place], [place], [id number]. tel:[phone] OFFICE/OUTPA TIENT VISIT [facility], [address] [facility] [address], [place], [address], tel:[phone] [facility] Knee pain 4 Esther Domínguez. [address] [place], [place], [id number]. tel:[phone] OFFICE/OUTPA TIENT VISIT [facility], [address] [facility] [facility] [address], [place], [address], [place] tel:[phone] [facility] Knee pain 0 4 Alesiakayla Sang. [address] [place], [place], [address]. tel:[phone] Family History Family Member Type Diagnosis Age At Onset Mother Problem (finding) Alive and well Payers Payer name Insurance type Covered libertarian ID Authoriza tion(s) No Information Social History Type Description Quantity Date Captured Comments Alcohol Use Details Unknown Caffeine Use Details Unknown Tobacco Use Status No Information Smoking Status No Information Sex Female Chief Complaint And Reason For Visit No Information Reason For Referral Reason For Referral No Information Plan Of Treatment Date Type Action Status Referral Ordered: RADEX KNE COMPL 4/MORE VIEWS RT ordered Referral Ordered: RADEX KNE 3 VIEWS RT ordered Referral Ordered: MRI ANY JT LXTR C-MATRL RT knee Appointment date/timeframe: 07/31/2013 ordered History Of Present Illness Encounter Date Complaint History Of Prese nt Illness Follow Up of R knee Functional Status Date Functional Assessmen t No Information Instructions Date Instruction Additional Infor caryl Immobilize as directed. Related to Tear of medial cartilage or meniscus of knee, current Apply ice as tolerated. Related to Tear of medial cartilage or meniscus of knee, current Elevate extremity above heart. R elated to Tear of medial cartilage or meniscus of knee, current Apply ice as instructed. Related to Primary osteoarthritis of right knee Activity as tolerated. Related t o Primary osteoarthritis of right knee Take medication as prescribed. R elated to Primary osteoarthritis of right knee Ice as instructed Weight bearing statu s: weight bear as tolerated Protective activity Activity as tolerated Activity as tolerated Assessments Type Assessment Date assessment Tear of medial cartilage or meni scus of knee, current Patient Care Teams Name Effective Dates (start - stop) Status Members No Information
--- OUTSIDE RECORDS SUMMARY | 2024-07-17 17:35 | XMS_ITS | Clinical Summary ---
Author Organization [facility] Care Team Providers Care Manufacturer Name Role Phone Unavailable Primary Care Provider Unavailabl e Social History Tobacco Use Types Packs/Day Years Used Date Smoking Tobacco: Never Assessed Comments Unknown Sex and Gender Information Value Date Recorded Sex Assigned at Not on file Legal Sex Female 3:51 PM CDT Gender Identity Not on file Sexual Orientation Not on file Plan of Treatment Health Maintenance Due Date Last Done Comments Hepatitis C Virus (HCV) Screening 1968 TdaP Immunization 1968 Hepatitis B Immunization (1 of 3 - 19+ 3-dose series) 1987 Pap Smear 1989 Cervical Cancer Screening (CCS) 1998 HPV/Cotest 1998 Colonoscopy 2013 Colorectal Cancer Screening 2013 Cologuard 2018 Immunochemical Fecal Occult Blood 2018 Mammogram 2018 Pneumococcal Immunization (5 0+ years) (1 of 1 - PCV) 2018 Zoster Immunization (1 of 2) 2018 Influenza Immunization (#1) 2023 SARS-COV-2 Immunization ( season) 2023 Respiratory Syncytial Virus (RSV) Immunization (Adult) (1 - 1-dose 75+ series) 2043 Meningococcal Immunization (ACWY) Aged Out No longer eligible based on patient's age to complete this topic Pneumococcal Immunization Combined Aged Out No longer eligible based on patient's age to complete this topic Rotavirus Immunization Aged Out No lo nger eligible based on patient's age to complete this topic
== END 2024-07-17 15:33 | disposition home or self-care (01) ==
PROVIDERS: Visit Provider Internal Medicine Nephrology
DX: E11.22 Type 2 diabetes mellitus with diabetic chronic kidney disease (principal); I12.9 Hypertensive chronic kidney disease with stage 1 through stage 4 chronic kidney disease, or unspecified chronic kidney disease; N18.4 Chronic kidney disease, stage 4 (severe); N25.81 Secondary hyperparathyroidism of renal origin; E55.9 Vitamin D deficiency, unspecified
CPT/HCPCS: 36415; 80069; 82306; 82570; 83970; 84156

== ENCOUNTER 2024-07-25 21:03 | Emergency (ER) | payer MEDICARE, SELFPAY ==
--- NOTE | ~2024-07-25 | XR_ITS ---
XR foot RT min 3V Ordering provider: Shravan Sarkar MD History: . injury, pain . Comparison: None. FINDINGS: BONES: No acute fracture or dislocation. Hammertoes are seen. Calcaneal spur and ossification of the insertion of the tendo Achilles is noted. Flat foot is also seen. JOINT SPACES: Severe osteoarthritic changes of the interphalangeal joints. Osteoarthritic changes of the first metatarsophalangeal joint. No tarsal coalition. SOFT TISSUES: Normal. IMPRESSION: No acute osseous abnormality of the right foot. Polyarticular osteoarthritic changes. Reviewed, dictated and finalized at location A.
--- NOTE | ~2024-07-25 | XR_ITS ---
XR ankle RT 2V Ordering provider: Shravan Sarkar History: . injury,pain . Comparison: None. FINDINGS: BONES: Lucency in the area of the lateral malleolus. Possibility of a fracture cannot be excluded. Fo llow-up advised. JOINT SPACES: Normal. SOFT TISSUES: Soft tissue swelling over the medial and lateral malleoli. Calcaneus spur. Ossification of the insertion of the tendo Achilles. IMPRESSION: Lucency in the lateral malleolus. Possibility of fracture cannot be excluded. Follow-up advised. Reviewed, dictated and finalized at location A. IMPRESSION: Lucency in the lateral malleolus. Possibility of fracture cannot be excluded. F ollow-up advised.
--- OUTSIDE RECORDS SUMMARY | 2024-07-25 21:05 | XMS_ITS | Clinical Summary ---
Author Organization [facility] Care Team Providers Care [employer] Name Role Phone Unavailable Primary Care Provider [...]
--- OUTSIDE RECORDS SUMMARY | 2024-07-25 21:06 | XMS_ITS | Data Portability ---
Author Organization [facility] Address [address] [place] [address] Care Team Providers Care Veterinary Technician Instructor Name Role Phone TERA ROSAS Primary Care Provider [phone] Assessment No assessment recorded. Plan of Treatment Reminders Order Date Submit Date Provider Last Modified By Organization Details Last Modified Time Details Appointments ANY 15 2024 01:15P M Tera Rosas MD Not available Not available Not available ANY 2024 02:30P M Romeo Barton DPM Not available Not available Not available Lab noninvas sera colorect al cancer DNA + occult blood screenin g, QL, stool 2024 025 [email or web address] [employer] [facility] (Lab), [address] [place], [address], 06/27/2024 15:45:11 HbA1c (hemoglo bin A1c), blood 2024 025 In-Office Order, Internal Use Only DO Not Attach Compendium DO Not Attach Compendium, Do Not Delete/merge, [id number] 06/12/2024 15:03:47 HbA1c (hemoglo bin A1c), blood 2024 025 In-Office Order, Internal Use Only DO Not Attach Compendium DO Not Attach Compendium, Do Not Delete/merge, [id number] 05/16/2024 10:22:12 CMP, serum or plasma 2023 024 [facility] [address] [place], [address], 02/14/2024 14:01:20 lipid panel, serum 2023 [facility] (Lab), [address] [place], [address], 02/14/2024 13:56:07 unlisted lab - hemoglob in A1C 2023 [facility] (Lab), [address] [place], [address], 02/15/2024 08:20:02 microalb umin/cre atinine, mass ratio, urine 2023 [facility] (Lab), [address] [facility] [place], [address], 02/14/2024 13:09:26 CBC w/ auto diff 2023 024 [facility] (Lab), [address] [place], [address], 02/14/2024 12:58:40 unlisted lab - vitamin D, 25-hydro xy 2023 [facility] (Lab), [address] [place], [address], 02/15/2024 08:20:05 unlisted lab - TSH rfx on abnormal to free T4 2023 024 [facility] (Lab), [address] [place], [address], 02/14/2024 13:56:05 unlisted lab - B-type natriure tic peptide 2023 024 [facility] (Lab), [address] [place], [address], 02/15/2024 09:11:[address] referral - screenin g colonosc opy [address], [address], [place], [address], 06/13/2024 12:00:[address] referral - diabetic foot exam 2024 025 [facility], [address], [place], [address], 05/23/2024 15:09:32 Procedures None recorded . Surgeries None recorded . Imaging MAMMO, screenin g, bilatera l - screenin g mammogra m 2024 025 [facility] [address] [place], [address], 07/21/2024 11:16:49 MAMMO, screenin g, bilatera l 2024 025 [facility] ([facility]), [address] [place], [address], 06/16/2024 12:59:26 Medication Orders ammonium lactate 12 % lotion 2024 025 [facility], [address] [place] [address], [id number], 06/26/2024 16:22:01 ketocona zole 2 % topical cream [email or web address] [facility] [address] [facility], [address] [place] [address], [id number], 07/10/2024 12:14:41 metformi n ER 500 mg tablet,e xtended release 24 hr 2024 025 [facility], [address] [place] [address], [address], 06/12/2024 15:26:53 Mucinex 1,200 mg tablet, extended release 2024 025 [facility] [address], [address] [place], [address], 05/15/2024 15:44:43 spironol actone 25 mg tablet 2024 025 [facility] [address], [address] [place], [address], 05/15/2024 15:44:52 metoprol ol tartrate 50 mg tablet 2024 025 [facility] [address], [address] [place] [address], [address], 05/15/2024 15:44:51 Ozempic 0.25 mg or 0.5 mg (2 mg/1.5 mL) subcutan eous pen injector 2024 025 [facility] [address], [address] [place] [address], [id number], 05/15/2024 15:44:48 Basaglar KwikPen U-100 Insulin 100 unit/mL (3 mL) subcutan eous 2024 025 [facility] [address], [address] [place] [address], [address], 06/12/2024 14:58:44 amlodipi ne 10 mg tablet 2024 025 [facility] [address], [address] [place] [address], [address], 05/15/2024 15:44:49 atorvast atin 20 mg tablet 2024 025 [facility] [address], [address] [place] [address], [address], 05/15/2024 15:44:53 hydralaz ine 50 mg tablet 2024 025 [facility] [address], [address] [place], [address], 05/15/2024 15:44:51 potassiu m chloride ER 10 mEq tablet,e xtended release 2024 [facility] [address], [address] [place] [address], [address], 05/15/2024 15:44:51 Levemir FlexPen 100 unit/mL (3 mL) solution subcutan eous insulin pen [address] [facility] [address], [address] [place] [address], [address], 05/15/2024 15:30:57 Ozempic 0.25 mg or 0.5 mg (2 mg/3 mL) subcutan eous pen injector 2023 [facility] [address], [address] [place] [address], [address], 02/07/2024 18:38:40 ferrous sulfate 325 mg (65 mg iron) tablet 2023 [facility] [address], [address] [place] [address], [address], 02/07/2024 18:38:40 bumetani de 2 mg tablet 2023 [facility] [address], [address] [place] [address], [address], 02/07/2024 18:38:42 metoprol ol tartrate 50 mg tablet 2023 [facility] [address], [address] [place] [address], [address], 02/07/2024 18:38:41 spironol actone 25 mg tablet 2023 [facility] [address], [address] [place], [address], 02/07/2024 18:38:35 atorvast atin 20 mg tablet 2023 [facility] [address], [address] [place], [address], 02/07/2024 18:38:36 hydralaz ine 50 mg tablet 2023 [facility] [address], [address] [place] [address], [address], 02/07/2024 18:38:37 potassiu m chloride ER 10 mEq tablet,e xtended release 2023 [facility] [address], [address] [place] [address], [address], 02/07/2024 18:38:41 amlodipi ne 10 mg tablet 2023 [facility] [address], [address] [place] [address], [address], 02/07/2024 18:38:41 albutero l sulfate HFA 90 mcg/actu ation aerosol inhaler 2023 [facility] [address], [address] [place] [address], [address], 02/07/2024 18:38:35 Patient TargetsNo targets recorded. Patient Instructions Encounter Date Encounter Id Patient Instructions Last Modified By Organization Details Last Modified Time 02/07/2024 [id number] Learning About Carbohydrate (Carb) Counting and Eating [...] care instructions Not available 02/07/2024 18:38:25 05/15/2024 [id number] type 2 diabetes: care instructions Not available [...] Care Instructions Not available 05/15/2024 15:44:34 06/12/2024 [id number] dash diet: care instructions Not available 06/12/2024 [...] Not available 06/12/2024 15:23:32 Reason for Referral Director Transportation Referral for Type 2 diabetes mellitus diabetic foot exam Referring Physician: Tera Rosas [facility], Encounter Date: 05/15/2024 Manager Of Medical Referral for Screening for malignant neoplasm of colon screening colonoscopy Referring Physician: Tera Rosas [facility], Encounter Date: 06/12/2024 Results Created Date Observation Date Name Description Value Unit Range Abnormal Flag Note LastModifiedBy Organization Detail LastModifiedTime 02/14/20 24 02/14/2024 COMPL ETE BLOOD COUNT AUTO DIFF white blood count 7.9 x10e3 /uL 3.4-10 .8 normal Not Available [facility] (Lab) [address] [place], [address], 02/14/2024 12:58:40 02/14/20 24 02/14/2024 COMPL ETE BLOOD COUNT AUTO DIFF red blood count 4.10 x10e6 /uL 3.77-5 .28 normal Not Available [facility] (Lab) [address] [place], [address], 02/14/2024 12:58:40 02/14/20 24 02/14/2024 COMPL ETE BLOOD COUNT AUTO DIFF hemoglobin 11.3 g/dL 11.1-1 5.9 normal Not Available [facility] (Lab) [address] [place], [address], 02/14/2024 12:58:40 02/14/20 24 02/14/2024 COMPL ETE BLOOD COUNT AUTO DIFF hematocrit 37.3 % 34.0-4 6.6 normal Not Available [facility] (Lab) [address] [place], [address], 02/14/2024 12:58:40 02/14/20 24 02/14/2024 COMPL ETE BLOOD COUNT AUTO DIFF mean corpuscular volume 91 fL 79-97 normal Not Available [facility] (Lab) [address] [place], [address], 02/14/2024 12:58:40 02/14/20 24 02/14/2024 COMPL ETE BLOOD COUNT AUTO DIFF mean corpuscular hemoglobin 27.6 pg 26.6-3 3.0 normal Not Available [facility]) [address], [place], [address], 02/14/2024 12:58:40 02/14/20 24 02/14/2024 COMPL ETE BLOOD COUNT AUTO DIFF mean corpuscular HGB conc 30.3 g/dL 31.5-3 5.7 low Not Available [facility] (Lab) [address], [place], [address], 02/14/2024 12:58:40 02/14/20 24 02/14/2024 COMPL ETE BLOOD COUNT AUTO DIFF red cell distribution width 14.0 % 11.5-1 4.5 normal Not Available [facility] ([facility]) [address] [place], [address], 02/14/2024 12:58:40 02/14/20 24 02/14/2024 COMPL ETE BLOOD COUNT AUTO DIFF platelet count 334 x10e3 /uL 150-45 0 normal Not Available [facility] (Lab) [address] [place], [address], 02/14/2024 12:58:40 02/14/20 24 02/14/2024 COMPL ETE BLOOD COUNT AUTO DIFF mean platelet volume 8.9 fL 8.9-12 .7 normal Not Available [facility] (Lab) [address] [place], [address], 02/14/2024 12:58:40 02/14/20 24 02/14/2024 COMPL ETE BLOOD COUNT AUTO DIFF immature granulocytes pct auto 1.3 % not estb. Not Available [facility] (Lab) [address], [place], [address], 02/14/2024 12:58:40 02/14/20 24 02/14/2024 COMPL ETE BLOOD COUNT AUTO DIFF neutrophils percent auto 70 % not estb. Not Available [facility] (Lab) [address], [place], [address], 02/14/2024 12:58:40 02/14/20 24 02/14/2024 COMPL ETE BLOOD COUNT AUTO DIFF lymphocytes percent auto 20 % not estb. Not Available [facility] (Lab) [address], [place], [address], 02/14/2024 12:58:40 02/14/20 24 02/14/2024 COMPL ETE BLOOD COUNT AUTO DIFF monocytes percent auto 6 % not estb. Not Available [facility] (Lab) [address], [place], [address], 02/14/2024 12:58:40 02/14/20 24 02/14/2024 COMPL ETE BLOOD COUNT AUTO DIFF eosinophils percent auto 2 % not estb. Not Available [facility] (Lab) [address], [place], [address], 02/14/2024 12:58:40 02/14/20 24 02/14/2024 COMPL ETE BLOOD COUNT AUTO DIFF basophils percent auto 0 % not estb. Not Available [facility] (Lab) [address], [place], [address], 02/14/2024 12:58:40 02/14/20 24 02/14/2024 COMPL ETE BLOOD COUNT AUTO DIFF neutrophils absolute auto 5.5 x10e3 /uL 1.4-7. 0 normal Not Available [facility] (Lab) [address], [place], [address], 02/14/2024 12:58:40 02/14/20 24 02/14/2024 COMPL ETE BLOOD COUNT AUTO DIFF immature granulocytes abs auto 0.1 x10e3 /uL 0.0-0. 1 normal Not Available [facility] (Lab) [address], [place], [address], 02/14/2024 12:58:40 02/14/20 24 02/14/2024 COMPL ETE BLOOD COUNT AUTO DIFF lymphocytes absolute auto 1.6 x10e3 /uL 0.7-3. 1 normal Not Available [facility] (Lab) [address] [place], [address], 02/14/2024 12:58:40 02/14/20 24 02/14/2024 COMPL ETE BLOOD COUNT AUTO DIFF monocytes absolute auto 0.5 x10e3 /uL 0.1-0. 9 normal Not Available [facility] (Lab) [address] [facility], [place], [address], 02/14/2024 12:58:40 02/14/20 24 02/14/2024 COMPL ETE BLOOD COUNT AUTO DIFF eosinophils absolute auto 0.2 x10e3 /uL 0.0-0. 4 normal Not Available [facility] (Lab) [address] [facility], [place], [address], 02/14/2024 12:58:40 02/14/20 24 02/14/2024 COMPL ETE BLOOD COUNT AUTO DIFF basophils absolute auto 0.0 x10e3 /uL 0.0-0. 2 normal Not Available [facility] (Lab) [address] [place], [address], 02/14/2024 12:58:40 02/14/20 24 02/14/2024 COMPL ETE BLOOD COUNT AUTO DIFF nucleated red blood cells auto 0 % 0-0 normal Not Available [facility] (Lab) [address] [place], [address], 02/14/2024 12:58:40 02/14/20 24 02/14/2024 MICRO ALBUM CREAT ININE RATIO UR creatinine urine random 89.2 mg/dL not estab. Not Available [facility] (Lab) [address] [place], [address], 02/14/2024 13:09:26 02/14/20 24 02/14/2024 MICRO ALBUM CREAT ININE RATIO UR microalbumin urine random 24.7 mg/dL not estab. Not Available [facility] (Lab) [address], [place], [address], 02/14/2024 13:09:26 02/14/20 24 02/14/2024 MICRO ALBUM CREAT ININE RATIO UR microalbum creatinine ratio ur 276 mg/g_ cre 0-29 Urine Micro album in-Cr eatin ine Ratio : Lacey l 0-29 Moder ately Incre ased 30-30 0 Sever brissa Incre ased >300 Not Available [facility] (Lab) [address], [place], [address], 02/14/2024 13:09:26 02/14/20 24 02/14/2024 TSH RFX ON ABNOR MAL TO FREE T4 TSH rfx on abnormal to free T4 1.61 uIU/m L 0.450- 4.500 normal Not Available [facility] (Lab) [address], [place], [address], 02/14/2024 13:56:05 02/14/20 24 02/14/2024 LIPID PANEL triglyceride s 166 mg/dL 0-149 high Not Available [facility] ([facility]) [address] [place], [address], 02/14/2024 13:56:07 02/14/20 24 02/14/2024 LIPID PANEL cholesterol 194 mg/dL 100-19 9 normal Not Available [facility] (Lab) [address], [place], [address], 02/14/2024 13:56:07 02/14/20 24 02/14/2024 LIPID PANEL LDL cholesterol 106 mg/dL 0-99 high Not Available [facility] (Lab) [address] [place], [address], 02/14/2024 13:56:07 02/14/20 24 02/14/2024 LIPID PANEL VLDL cholesterol (calc) 33 mg/dL 5-40 normal Not Available [facility] [address] [place], [address], 02/14/2024 13:56:07 02/14/20 24 02/14/2024 LIPID PANEL HDL cholesterol 58 mg/dL 40-999 normal Not Available [facility] (Lab) [address] [place], [address], 02/14/2024 13:56:07 02/14/20 24 02/14/2024 LIPID PANEL LDL HDL ratio 1.8 0-3.2 normal Not Available [facility] ([facility]) [address] [place], [address], 02/14/2024 13:56:07 02/14/20 24 02/14/2024 LIPID PANEL chol HDL ratio 3.0 mg/dL 0-4.4 normal Not Available [facility] ([facility]) [address], [place], [address], 02/14/2024 13:56:07 02/14/20 24 02/14/2024 COMPR EHENS SERA METAB OLIC PANEL sodium 138 mmol/ L 134-14 4 normal Not Available [facility] (Lab) [address] [place], [address], 02/14/2024 14:01:20 02/14/20 24 02/14/2024 COMPR EHENS SERA METAB OLIC PANEL potassium 5.2 mmol/ L 3.5-5. 2 normal Not Available [facility] ([facility]) [address] [place], [address], 02/14/2024 14:01:20 02/14/20 24 02/14/2024 COMPR EHENS SERA METAB OLIC PANEL chloride 104 mmol/ L 96-106 normal Not Available [facility] (Lab) [address] [place], [address], 02/14/2024 14:01:20 02/14/20 24 02/14/2024 COMPR EHENS SERA METAB OLIC PANEL carbon dioxide 23 mmol/ L 20-29 normal Not Available [facility] (Lab) [address], [place], [address], 02/14/2024 14:01:20 02/14/20 24 02/14/2024 COMPR EHENS SERA METAB OLIC PANEL anion gap 16.0 mmol/ L Not Available [facility] (Lab) [address], [place], [address], 02/14/2024 14:01:20 02/14/20 24 02/14/2024 COMPR EHENS SERA METAB OLIC PANEL blood urea nitrogen 42 mg/dL 6-24 high Not Available [facility] ([facility]) [address], [place], [address], 02/14/2024 14:01:20 02/14/20 24 02/14/2024 COMPR EHENS SERA METAB OLIC PANEL creatinine 2.42 mg/dL 0.76-1 .27 high Not Available [facility] (Lab) [address], [place], [address], 02/14/2024 14:01:20 02/14/20 24 02/14/2024 COMPR EHENS SERA METAB OLIC PANEL glomerular filtration rate 23 mL/mi n/1 Not Available [facility] ([facility]) [address] [place], [address], 02/14/2024 14:01:20 02/14/20 24 02/14/2024 COMPR EHENS SERA METAB OLIC PANEL BUN creatinine ratio 17 9-23 normal Not Available [facility] ([facility] [address] [place], [address], 02/14/2024 14:01:20 02/14/20 24 02/14/2024 COMPR EHENS SERA METAB OLIC PANEL glucose 191 mg/dL 70-99 high Not Available [facility] (Lab) [address] [place], [address], 02/14/2024 14:01:20 02/14/20 24 02/14/2024 COMPR EHENS SERA METAB OLIC PANEL osmolality calculated 291 275-29 5 normal Not Available [facility] (Lab) [address], [place], [address], 02/14/2024 14:01:20 02/14/20 24 02/14/2024 COMPR EHENS SERA METAB OLIC PANEL calcium 9.8 mg/dL 8.7-10 .2 normal Not Available [facility] (Lab) [address] [place], [address], 02/14/2024 14:01:20 02/14/20 24 02/14/2024 COMPR EHENS SERA METAB OLIC PANEL bilirubin total 0.2 mg/dL 0.0-1. 2 normal Not Available [facility] (Lab) [address] [place], [address], 02/14/2024 14:01:20 02/14/20 24 02/14/2024 COMPR EHENS SERA METAB OLIC PANEL aspartate amino transferase 10 IU/L 0-40 normal Not Available [facility] ([facility]) [address] [place], [address], 02/14/2024 14:01:20 02/14/20 24 02/14/2024 COMPR EHENS SERA METAB OLIC PANEL alanine aminotransfe rase 10 IU/L 0-32 normal Not Available [facility] ([facility]) [address] [place], [address], 02/14/2024 14:01:20 02/14/20 24 02/14/2024 COMPR EHENS SERA METAB OLIC PANEL total protein 8.0 g/dL 6.0-8. 5 normal Not Available [facility] (Lab) [address] [place], [address], 02/14/2024 14:01:20 02/14/20 24 02/14/2024 COMPR EHENS SERA METAB OLIC PANEL albumin level 3.9 g/dL 3.8-4. 9 normal Not Available [facility] (Lab) [address], [place], [address], 02/14/2024 14:01:20 02/14/20 24 02/14/2024 COMPR EHENS SERA METAB OLIC PANEL globulin 4.1 g/dL 1.5-4. 5 normal Not Available [facility] (Lab) [address], [place], [address], 02/14/2024 14:01:20 02/14/20 24 02/14/2024 COMPR EHENS SERA METAB OLIC PANEL albumin globulin ratio 1.0 1.2-2. 2 low Not Available [facility] (Lab) [address], [place], [address], 02/14/2024 14:01:20 02/14/20 24 02/14/2024 COMPR EHENS SERA METAB OLIC PANEL alkaline phosphatase 185 IU/L 44-121 high Not Available [facility] (Lab) [address] [place], [address], 02/14/2024 14:01:20 02/14/20 24 02/15/2024 HEMOG LOBIN A1C hemoglobin A1C 9.5 % 4.8-5. 6 abnormal Predi abete s: 5.7 - 6.4 Diabe terrell: >6.4 Glyce caleb contr ol for adult s with diabe terrell: <7.0 [place]fo [place] at: [facility] [place] [address] Lab Direc tor: Umberto barkley PhD, Phone : [phone] Not Available [facility] (Lab) [address] [place], [address], 02/15/2024 08:20:02 02/14/20 24 02/15/2024 VITAM IN [...] um and D. Rupinder zimmer [place]: The [facility] . 2. Tucker barry MF, Forest bob [place], Jordi off-F errar i ABDI, et al. Evalu ation , treat ment, and preve ntion of vitam in D defic iency : an Endoc rine Socie ty clini marquis pract ice guide line. JCEM. 2010; 96(7) :1911 -30. [facility]: [facility] [address] [place], [place] [address] Lab Direc tor: Umberto barkley PhD, Phone : [phone] Not Available [facility] (Lab) [address] [place], [address], 02/15/2024 08:20:05 02/14/20 24 02/15/2024 B-TYP E NATRI URETI C PEPTI DE B-type natriuretic peptide 70.4 pg/mL 0.0-10 0.0 Sieme ns ADVIA Cent[facility] XP metho dolog y Perfo rmed at: 01 - [facility] n [address] [place], [place] [address] Lab Direc tor: Umberto barkley PhD, Phone : [phone] Not Available [facility] (Lab) [address] [place], [address], 02/15/2024 09:11:36 05/15/19 25 05/15/2024 HbA1c (hemo globi n A1c), blood HbA1c 9.6 Not Available In-Office Order Internal Use Only DO Not Attach Compendium DO Not Attach Compendium, Do Not Delete/merge, [id number] 05/15/2024 15:03:45 06/13/19 25 06/12/2024 HbA1c (hemo globi n A1c), blood HbA1c 10.5 Not Available In-Office Order Internal Use Only DO Not Attach Compendium DO Not Attach Compendium, Do Not Delete/merge, [id number] 06/12/2024 14:31:06 Result Notes None recorded. Problems Name Problem SNOMED Code Status Onset Date Resolution Date Notes Provider Name and Address Organization Details Recorded Time Diabetes mellitus 20771543 Active 2019 Not Available [facility] 2 10:57:09 Hypertensi ve disorder 28964850 Active 2019 Not Available [facility] 2 10:57:09 Anxiety 43272279 Active 2019 Not Available [facility] 2 10:57:09 Chronic congestive heart failure 17820877 Active 2020 [facility] Available [facility] 10:57:09 Mild intermitte nt asthma 474844609 Active 2020 Not Available [facility] 2 10:57:09 Hyperlipid emia 01410620 Active 2020 [facility] Available [facility] 2 10:57:09 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 Procedures Surgical History Date Name Laterality Status Provider Name and Address Organization Details Recorded Time 5 Routine Foot Care completed Romeo Barton DPM [address], [place], [address], [place] [facility] 06/26/2024 16:20:21 3 Routine Foot Care completed SUNDAR ASENCIO DPNehemias [address], [place], [address], [place] [facility] 12/31/2022 12:10:14 3 Routine Foot Care completed SUNDAR ASENCIO DPM [address], [place], [address], [place] [facility] 05/21/2022 10:01:08 1 Routine Foot Care completed SUNDAR ASENCIO DPM [address], [place], [address], [facility] - [facility] 05/31/2020 12:18:20 0 Date of [...] Name and Address Organization Details Recorded Time 801017 Latex (substanc e) environme nt,medica tion Not available Not available Not available 03/01/20192024 53543 8007 SNOMED Not Available Not Available Not Available Medications Name Sig Start Date Stop Date Status Note LastModified by Organization Details LastModified Time relion pen needles [id number] mis USE DIRECTED 02/11 completed Not Available Not Available Not Available amoxicillin 500 mg capsule TAKE 1 [...] ketoconazol e 2 % topical cream APPLY TOPICALLY TO THE AFFECTED AREA ONCE DAILY [...] OneTouch Verio test strips TEST GLUCOSE IN INSURANCE CLAIM APPROVER AND IN EVENING BEFORE INSULIN INJECTION . [...] Available pen needle, diabetic 31 gauge x USE DIRECTED 02/06 completed Not [...] Updated DateTime 02/07/2024 162.56 cm 57.5 kg/m2 791821.44 g DINH Welch [facility] 02/07/2024 16:04:47 Date Recorded Body height Body mass index (BMI) Body weight Oxygen saturation Oxygen saturation in Arterial blood by Pulse oximetry Heart rate Respiratory rate Body temperature Systolic blood pressure Diastolic blood pressure Systolic blood pressure Diastolic blood pressure Provider Name and Address Organization Details Last Updated DateTime 162.56 cm 59.5 kg/m2 259463. 76 g 96 % 96 % 107 /min 18 /min 97.9 [degF] 181 mm[Hg] 103 mm[Hg] 191 mm[Hg] 104 mm[Hg] Meena Ramsay MA [place] - [facility] 15:00:50 Date Recorded Heart rate Systolic blood [...] Available Es[facility]! 15:21:46 Date Recorded Heart rate Provider Name an d Address Organization Details Last Updated DateTime 05/18/2024 69 /min Not Available [facility]! 05/18/2024 14:06:06 Date Recorded Heart rate Provider Name an d Address Organization Details Last Updated DateTime 05/19/2024 77 /min Not Available [facility]! 05/19/2024 20:26:36 Date Recorded Heart rate Provider Name an d Address Organization Details Last Updated DateTime 05/20/2024 70 /min Not Available [facility]! 05/20/2024 14:01:21 Date Recorded Heart rate Heart rate Provider Name and Address Organization Details Last Updated DateTime 05/21/2024 71 /min 73 /min Not Available [facility]! 05/21 18:59:08 Date Recorded Heart rate Provider Name an d Address Organization Details Last Updated DateTime 05/22/2024 78 /min Not Available [facility]! 05/22/2024 22:13:12 Date Recorded Heart rate Provider Name an d Address Organization Details Last Updated DateTime 05/23/2024 80 /min Not Available [facility]! 05/24/2024 00:49:05 Date Recorded Heart rate Provider Name [...] Last Updated DateTime 162.56 cm 60.1 kg/m2 868233. 33 g 95 % 95 % 85 [...] Last Updated DateTime 162.56 cm 60.8 kg/m2 321946. 7 g 87 /min 97.2 [degF] 0 [...] Updated DateTime 06/26/2024 162.56 cm 60.9 kg/m2 751076.8 5 g 83 /min 97.6 [degF] Luis [...] 75 /min Not Available [facility]! 07/17/2024 00:10:36 Date Recorded Heart rate Provider Name an d Address Organization Details Last Updated DateTime 07/17/2024 85 /min Not Available [facility]! 07/18/2024 00:15:13 Date Recorded Heart rate Provider Name an d Address Organization Details Last Updated DateTime 07/18/2024 90 /min Not Available [facility]! 07/18/2024 23:19:32 Date Recorded Heart rate Provider Name an d Address Organization Details Last Updated DateTime 07/19/2024 77 /min Not Available [facility]! 07/19/2024 16:40:40 Date Recorded Heart rate Provider Name an d Address Organization Details Last Updated DateTime 07/21/2024 75 /min Not Available [facility]! 07/21/2024 16:48:05 Date Recorded Heart rate Provider Name an d Address Organization Details Last Updated DateTime 07/22/2024 77 /min Not Available [facility]! 07/22/2024 15:19:35 Date Recorded Heart rate Provider Name an d Address Organization Details Last Updated DateTime 07/24/2024 76 /min Not Available [facility]! 07/24/2024 15:59:26 Date Recorded Heart rate Provider Name an d Address Organization Details Last Updated DateTime 07/25/2024 79 /min Not Available [facility]! 07/25/2024 15:45:01 Social History Question Answer Notes LastModified by Organizat ion Details LastModified Time Tobacco Smoking Status Never Smoker Meena Ramsay MA [facility], [place] - [facility] 01/06/2023 13:13:30 Do You Have An Advance [...] Anxious, Or Unable To Sleep At Night)? [id number]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
--- OUTSIDE RECORDS SUMMARY | 2024-07-25 21:06 | XMS_ITS | Data Portability ---
Author Organization [facility] OFFICE Address [address] [place] [address] Assessment No assessment recorded. Plan of Treatment Reminders Order Date Submit Date Provider Last Modified By Organization Details Last Modified Time Details Appointments None recorded. Lab None recorded. Referral None recorded. Procedures None recorded. Surgeries None recorded. Imaging None recorded. Medication Orders hydrochlor othiazide 25 mg tablet 2019 020 INTERFACE [facility], [address] [place] [address], [address], 0 16:48:29 lisinopril 40 mg tablet 2018 019 INTERFACE [facility] [address], [address], 9 10:54:52 hydrochlor othiazide 25 mg tablet 2018 019 INTERFACE [facility] [address], [address] [place] [address], [address], 9 10:54:55 metoprolol tartrate 50 mg tablet 2018 019 INTERFACE [facility] [address], [address] [place] [address], [address], 9 10:54:59 Patient TargetsNo targets recorded. Patient Instructions Encounter Date Encounter Id Patient Instructions Last Modified By Organization Details Last Modified Time 06/08/[id number] high blood pressure: care instructions [email or web address] Not available 06/08/2017 13:15:43 learning about high blood pressure [email or web address] Not available 06/08/2017 13:15:43 Weight loss 20 pounds Exercise advised Low cholesterol diet advised Low sodium diet advised. This document was scribed by Lennie Santoyo PA-C. [email or web address] Not available 06/08/2017 13:15:42 07/06/2017 [id number] high blood pressure: care instructions [email or web address] Not available 07/06/2017 13:21:04 learning about high blood pressure [email or web address] Not available 07/06/2017 13:21:04 Weight loss 20 pounds Exercise advised Low cholesterol diet advised Low sodium diet advised. Scribed by Kandace Gould [employer]ER-C oalmousalli Not available 07/06/2017 13:37:46 01/27/2019 [id number] high blood pressure: care instructions [email or web address] Not available 01/27/2019 10:54:48 learning about high blood pressure [email or web address] Not available 01/27/2019 10:54:48 10/17/2019 [id number] high blood pressure: care instructions [email or web address] Not available 10/17/2019 16:48:21 learning about high blood pressure [email or web address] Not available 10/17/2019 16:48:21 Exercise advised Low cholesterol diet advised Low sodium diet advised [email or web address] Not available 10/17/2019 16:47:05 Scribed by Esther Del Toro [employer]ER-BC oalmousalli Not available 10/17/2019 16:47:09 11/20/2019 [id number] high blood pressure: care instructions [email or web address] Not [...] and Address Organization Details Recorded Time Cough 37092161 Active 2016 Suzette Skaggs null, [place] - [facility] 7 10:31:34 Dyspnea 180568239 Active 2016 Suzetteaddie Sk[place]gs [place], [place] - [facility] 7 10:31:45 Backache 532173609 Active 2016 Suzetteaddie Skaggs [place], [place] - [facility] 7 10:31:53 Edema of lower extremity 560880609 Active 2017 Francois Pepemadelyn [place], [place] - [facility] 8 11:17:05 Benign essential hypertension 3829440 Active 2017 Francois Pepemadelyn [place], [place] - [facility] 8 11:17:12 Dyspnea on exertion 27790765 Active 2017 Francois Mesmadelyn [place] - [facility] 8 11:17:18 Congestive heart failure 94193764 Active 2017 Priscila Harris [place], [place] - [facility] 8 10:15:03 Atypical chest pain 029177225 Active 2017 Francois Pepemadelyn [place] [facility] 8 10:15:15 Obesity 415118538 Active 2017 Francois Mesmadelyn [place] [facility] 8 10:15:29 Hyperlipidemia 92064536 Active 2019 Francois Mesmadelyn [place] [facility] 0 14:34:56 Type 2 diabetes mellitus without complication 032963712 Active 2019 Priscila Harris null, [place] - [facility] 0 14:35:07 Problem Notes None recorded. Procedures Surgical History Date Name Laterality Status Provider Name and Address Organization Details Recorded Time 03/21/199 6 [facility] 04/21/2016 10:30:39 0 [facility] Section [facility] 04/21/2016 10:30:17 Imaging Results Imaging Date [...] Not available Not available Not available 04/21/2016 [id number] SNOMED [facility] 7 10:49:07 Medications Name Sig Start [...] Updated DateTime 8 163.83 cm 53.9 kg/m2 491103. 97 g 90 /min 94 % 94 % 144 mm[Hg] 96 mm[Hg] Suzette Skaggs [facility] 8 12:32:50 Date Recorded Body height Body mass index (BMI) Body weight Heart rate Oxygen saturation Oxygen saturation in Arterial blood by Pulse oximetry Provider Name and Address Organization Details Last Updated DateTime 8 163.83 cm 54.2 kg/m2 389928. 15 g 74 /min 98 % 98 % Rosalind Thompsonr [facility] 8 13:17:50 Date Recorded Systolic blood pressure Diastolic blood pressure Provider Name and Address Organization Details Last Updated DateTime 07/06/2017 130 mm[Hg] 64 mm[Hg] Kandace Bryanna [facility] 07/06/2017 13:34:03 Date Recorded Body weight Body mass index (BMI) Body height Heart rate Oxygen saturation Oxygen saturation in Arterial blood by Pulse oximetry Systolic blood pressure Diastolic blood pressure Provider Name and Address Organization Details Last Updated DateTime 9 982568. 26 g 57.2 kg/m2 162.56 cm 90 /min 96 % 96 % 140 mm[Hg] 100 mm[Hg] Ruy Atkinson i, MD [address] [place], [address], [facility] 9 10:16:56 Date Recorded Body height Body mass index (BMI) Body weight Heart rate Oxygen saturation Oxygen saturation in Arterial blood by Pulse oximetry Systolic blood pressure Diastolic blood pressure Provider Name and Address Organization Details Last Updated DateTime 0 162.56 cm 58.7 kg/m2 085279. 59 g 84 /min 97 % 97 % 140 mm[Hg] 80 mm[Hg] Ruy Lopez [facility] 0 16:34:03 Date Recorded Body height Body mass index (BMI) Body weight Heart rate Respiratory rate Oxygen saturation Oxygen saturation in Arterial blood by Pulse oximetry Systolic blood pressure Diastolic blood pressure Provider Name and Address Organization Details Last Updated DateTime 0 162.56 cm 58.7 kg/m2 561967. 59 g 79 /min 18 /min 98 % 98 % 138 mm[Hg] 84 mm[Hg] Dakota Mace [facility] 0 12:00:20 Social History Question Answer Notes LastModified by Organizat ion Details LastModified Time Tobacco Smoking Status Never Smoker Suzette Giles [facility] 04/21/2016 10:29:20 What Is Your Level Of Alcohol Consumption? None [email or web address] Information not available 04/21/2016 What Is Your Level Of Caffeine Consumption? Moderate [email or web address] Information not available 04/21/2016 How Much Tobacco Do You Chew? None [email or web address] Information not available 04/21/2016 What Type Of Diet Are You Following? DIABETIC [email or web address] Information not available 04/21/2016 Do You Or Have You Ever Used E-cigarettes Or Vape? Never Used Electronic Cigarettes Information not available 10/15/2019 What Is Your Occupation? [employer] [email or web address] Information not available 04/21/2016 Marital Status [email or web address] Informatio n not available 04/21/2016 What Was The Date Of Your Most Recent Tobacco Screening? 07/06/2017 Information not available 11/03/2018 How Many Children Do You Have? 2 [email or web address] Information not available 04/21/2016 Do You Or Have You Ever Used Smokeless Tobacco? Never Used Smokeless Tobacco Information not available 10/15/2019 How Much Tobacco Do You Smoke? No [email or web address] Information not available 04/21/2016 How Many Years Have You Smoked Tobacco? 0 Information not available 04/25/2017 Sex: Unknown Functional Status Question Answer Note LastModified by Organization D etails LastModified Time What is your exercise level? None [email or web address] Information not available 04/21/2016 Mental Status None recorded. Family History Relationship Description Onset Age of this Age Resolved Age Notes LastModified by Organization Details LastModified Time Mother Diabetes mellitus [email or web address] Not available 2016 10:28:55 Mother Hypertensive disorder Not available 2016 10:29:13 Medical History Condition Response Diabetes Y Congestive Heart Failure (CHF) Y Hyperlipidemia Y Hypertension Y Gynecological HistoryNo gynecological history recorded. Obstetrics History GPAL:G 0 P 0 0 0 0 Past Encounters Encounter ID Performer Location Encounter Start Date Encounter Closed Date Diagnosis/Indication Diagnosis SNOMED-CT Code Diagnosis ICD10 Code Diagnosis Note [id number] Ruy Meng MD [facility] [address] [place] [address] 04/21/2016 09:56:14 04/21/2016 13:44:59 Edema of lower extremity 852832473 R60.0 Dyspnea on exertion 6084 5006 R06.09 Benign ess ential hypertension 7889930 I10 Obesity 913775270 E66.9 Cas Hawley [facility] [address] [place] [address] 04/27/2017 16:41:48 04/28/2017 10:51:19 Benign essential hypertension 8064225 I10 Patient's blood pressure is {{well-con trolled [...] - XL. Edema of l ower extremity 317128180 R60.0 improving. Dyspnea on exertion 6084 5006 R06.09 Stable. Pt was told heart weak recently at [facility] Obtain records [facility] 04/14/17-04/19 and echo results there. Obtain CMP, Mg, TSH. Patient was taking both lisinopril and losartan/H CTZ. Losartan/H CTZ stopped 04/27/17.Mohamud mejia to bring in med bottles next visit and will need to simplify regimen further with either carvedilol or metoprolol (currently on both). Addendum: Had echo 04/15/17 [facility]: normal LV size, mild-mod. concentric LVH; LVEF 35-40%, moderate-s evere MR. Consider DONI given moderate-s evere MR on TTE vs. repeat TTE now that respirator y infection has resolved. Pending repeat imaging and extent of LV systolic dysfunctio n, consider LHC vs. stress testing. Patient may be a good CHF clinical trial candidate. Obesity 477745944 E66.9 20 lb. weight loss recommende d over the next 2 months. Ruy Meng MD [facility] [address] [place] [address] 05/07/2017 10:07:25 05/07/2017 11:37:16 Benign essential hypertension 6325208 I10 Now well controlled Dyspnea on exertion 6084 5006 R06.09 Stable. Pt was told heart weak recently at [facility] Obtain records [facility] 04/14/17-04/19 and echo results there. Obtain CMP, Mg, TSH. Patient was taking both lisinopril and losartan/H CTZ. Losartan/H CTZ stopped 04/27/17.Mohamud mejia to bring in med bottles next visit and will need to simplify regimen further with either carvedilol or metoprolol (currently on both). Edema of l ower extremity 637676474 R60.0 improving. Obesity 776434690 E66.9 20 lb. weight loss recommende d over the next 2 months. Atypical chest pain 1025 45075 R07.89 Treadmill Myoview Stress test, has high Winchester Risk score. Has Known CAD, or CAD risk equivalent . To look for any ischemia. Congestive heart failure 84544498 I50.9 [id number] Ruy Megn MD [facility] [place] [address] 06/08/2017 11:14:30 06/08/2017 17:08:33 Benign essential hypertension 0759304 I10 Elevated today, has not taken all of medication s today.Bloo d pressure is elevated today, but this is only one reading, will keep close follow up, and consider medication change if blood pressure is still elevated next visit. Dyspnea on exertion 6084 5006 R06.09 Improving Edema of l ower extremity 369555708 R60.0 improving. Obesity 697354262 E66.9 20 lb. weight loss recommende d over the next 2 months. Atypical chest pain 1025 55166 R07.89 05/11/17 Stress test was negative Congestive heart failure 13612223 I50.9 [id number] Ruy Meng MD [facility] [address] [place] [address] 07/06/2017 12:54:26 07/08/2017 12:19:56 Benign essential hypertension 9528964 I10 BP stable. Patient has been keeping a blood pressure diary. Dyspnea on exertion 6084 5006 R06.09 Resolved. Edema of l ower extremity 743637850 R60.0 Resolved, on Lasix Obesity 868091980 E66.9 20 lb. weight loss recommende d over the next 2 months. Atypical chest pain 1025 79464 R07.89 05/11/17 Stress test was negative Congestive heart failure 25099651 I50.9 Echo done on 04/14/17. Takes Furosemide 40 mg daily [id number] Ruy Meng MD [facility] [place] [address] 01/27/2019 10:02:37 01/27/2019 10:56:16 Benign essential hypertension 7433837 I10 Blood pressure is elevated today (was [...] chamber sizes. Edema of l ower extremity 917284524 R60.0 Resolved, on Lasix Obesity 656412032 E66.9 20 lb. weight loss recommende d over the next 2 months. Atypical chest pain 1025 68331 R07.89 Resolved. 05/11/17 Stress test was negative Hyperlipidemia 11926158 E78.5 Needs to keep LDL less than 70, and HDL more than 40.01/2016 LDL 134Patient states she had bloodwork done at [facility]; will obtain results. Type 2 alejandra betes mellitus without complication 121636731 E11.9 Treatment and evaluation by primary care doctor. Discussed importance of adequate glycemic control to minimize cardiovasc ular disease progressio n. A1C goal of < 7% for type 2 DM [id number] Ruy Meng MD [facility] [address] [place] [address] 10/17/2019 16:12:13 10/17/2019 16:54:35 Benign essential hypertension 7506840 I10 Controlled Dyspnea on exertion 6084 5006 R06.09 Treadmill Myoview Stress test, has high Winchester Risk score. Has Known CAD, or CAD risk equivalent . To look for any ischemia. Will repeat echo Edema of l ower extremity 868298765 R60.0 Stable, improved.C ontinue Lasix, leg elevation, and low sodium diet. Obesity 410317919 E66.9 20lb weight loss recommende d over the next 2 months Atypical chest pain 1025 41496 R07.89 Treadmill Myoview Stress test, has high Winchester Risk score. Has Known CAD, or CAD risk equivalent . To look for any ischemia. Obtain echo to evaluate for structural /functiona l disease Hyperlipidemia 45606881 E78.5 Needs to keep LDL less than 70, and HDL more than 40. 016 LDL 134Continu e atorvastat inWill obtain recent lipid results from PCP Type 2 alejandra betes mellitus without complication 373573129 E11.9 Treatment and evaluation by primary care doctor Discussed importance of adequate glycemic control to minimize cardiovasc ular disease progressio n, A1C goal of < 7% for type 2 DM. [id number] [facility] [place] [address] 11/20/2019 11:52:13 11/20/2019 12:48:55 Benign essential hypertension 4699154 I10 Controlled Dyspnea on exertion 6084 5006 [...] to proceed. Edema of l ower extremity 612765154 R60.0 EF 25% on Nuc. Will check 2D echocardio gram.She is already on Metoprolol and Lisinopril .Appears euvolemic on current dose of lasix. Also on HCTZ Obesity 209379750 E66.9 20lb weight loss recommende d over the next 2 months Atypical chest pain 1025 11528 R07.89 positive stress test. Will plan [facility] as aboveObtai n echo to evaluate for structural /functiona l disease Hyperlipidemia 69379180 E78.5 Needs to keep LDL less than 70, and HDL more than 40. 016 LDL 134Continu e atorvastat inWill obtain recent lipid results from PCP Type 2 alejandra betes mellitus without complication 863109464 E11.9 Treatment and evaluation by primary care [...] 06/08/2017 1 [employer] - FCE BENEFITS (PPO) [id number] Armond Jones [id number] Armond Jones 07/06/2017 1 [employer] - FCE BENEFITS (PPO) [id number] Armond Jones [id number] Armond Jones 01/27/2019 1 *SELF PAY* Pa isi Jones 10/17/2019 1 [facility] PRIOR TO 10/10/2020 (MEDICAID REPLACEMENT - HMO) Armond Jones [id number] Armond Jones 11/20/2019 1 [facility] PRIOR TO 10/10/2020 (MEDICAID REPLACEMENT - HMO) Armond Jones [id number] Armond Jones Notes Date Note Type Note Provider Name and Address Organization Details Recorded Time 06/08/2017 text/html 06/08/17 CC: dyspnea on exertion Patient is 47 year-old -Swedish woman with Diabetes Mellitus, Hypertension, is here [...] reading 150/98. No known history of CAD, [place], Arrhythmia, or valvular heart disease. Patient was admitted to [facility]. 04/14/17-04/19/17 for chills, aches, nausea. Was treated with Levaquin for respiratory infection. Had negative trop-I and BNP was 1617. Had echo 04/15/17 [facility]: normal LV size, mild-mod. concentric LVH; [...] tolerance is poor. LVEF 34%. echo 04/15/17 [facility]: normal LV size, mild-mod. concentric LVH; LVEF 35-40%, moderate-severe MR. Ruy Meng MD [address] [place], [address], [facility] 06/08/2017 13:16:42 07/06/2017 text/html CC: dyspnea on exertion Patient is 47 year-old -Swedish woman with Diabetes Mellitus, Hypertension, is here [...] and vomiting. Previously, patient was admitted to [facility]. 04/14/17-04/19/17 for chills, aches, nausea. Was treated with Levaquin for respiratory infection. Had negative trop-I and BNP was 1617. Had echo 04/15/17 [facility]: normal LV size, mild-mod. concentric LVH; LVEF 35-40%, moderate-severe MR. Had Stress Test 05/11/17 which was negative. Results from this visit, or from the past:04/29/17 NA:142, K:3.9, CL:96, CO2:96, CO2:33, GLU:254, BUN:19, CR:0.8, AST:14, ALT:13, M.0, TSH:1. BUN:13, GLU:215, CR:0.50, NA:138, K:3.4, CL:35, CO2:35.7004/14/17 WBC:5.6, RBC:4.9 ,HGB:13.0, HCT:42.2, PLT:42110/03/27: Na 142 ,K 3.8 ,CL 98 ,CO2 [...] pericardial effusion. Ruy Meng MD [address] [place], [address], [facility] 07/06/2017 13:38:17 01/27/2019 text/html 01/27/2019 CC: dyspnea on exertion Patient is 48 year-old -Swedish woman with Diabetes Mellitus, Hypertension, Hyperlipidiemia is [...] K:3.4, CL:35, CO2:35.7004/14/17 WBC:5.6, RBC:4.9 ,HGB:13.0, HCT:42.2, PLT:13288/03/27: Na 142 ,K 3.8 ,CL 98 ,CO2 [...] or pericardial effusion. Ruy Meng MD [address] [place], [address], [facility] 01/27/2019 10:56:14 10/17/2019 text/html 10/17/2019 CC: dyspnea on exertion Patient is 48 year-old -Swedish woman with Diabetes Mellitus, Hypertension, hyperlipidemia is [...] K:3.4, CL:35, CO2:35.7004/14/17 WBC:5.6, RBC:4.9 ,HGB:13.0, HCT:42.2, PLT:89970/03/27: Na 142 ,K 3.8 ,CL 98 ,CO2 [...] pericardial effusion. Ruy Meng MD [address] [place], [address], [place] [facility] 10/17/2019 16:54:33 11/20/2019 text/html 11/20/19 CC: dyspnea on exertion Patient is 49 year-old -Swedish woman with Diabetes Mellitus, Hypertension, hyperlipidemia is [...] K:3.4, CL:35, CO2:35.7004/14/17 WBC:5.6, RBC:4.9 ,HGB:13.0, HCT:42.2, PLT:50364/03/27: Na 142 ,K 3.8 ,CL 98 ,CO2 [...] Moderate cardiomegaly or pericardial effusion. Jose Culp [facility] [place] - [facility] 11/20/2019 14:12:31 OBGyn Episode No OBEpisode recorded.
--- OUTSIDE RECORDS SUMMARY | 2024-07-25 21:06 | XMS_ITS | Continuity of Care Document ---
Author Organization [facility] Address [address] [facility] [address] [place] [address] Phone Care Team Providers Care Evs Attendant Name Role Phone Sang Santana MD Unavailable [...] Copied on Encounter OFFICE/OUTPA TIENT VISIT EST [facility], [address] [place] [address], [address], tel:[phone] [facility] Tear of medial cartilage or meniscus of knee, current Jul- 3-201 5 Esther Domínguez. [address] [place] [address], [id number]. tel:[phone] OFFICE/OUTPA TIENT VISIT EST [facility], [address], [address], tel:[phone] [facility] Follow Up of R knee (chief complaint) Primary osteoarthriti s of right knee 5 Brandt Chavez. [address] [facility] [address], [place], [place], [id number]. tel:[phone] OFFICE/OUTPA TIENT VISIT [facility], [address] [facility] [address], [place], [address], tel:[phone] [facility] Knee pain 4 Esther Domínguez. [address], [place], [id number]. tel:[phone] OFFICE/OUTPA TIENT VISIT [facility], [address] [facility] [address], [place], [address], [place] tel:[phone] [facility] Knee pain 0 4 Alesiakayla Sang. [address], [place], [id number]. tel:[phone] Family History Family Member Type Diagnosis Age At Onset Mother Problem (finding) Alive and well Payers Payer name Insurance type Covered constitution party ID Authoriza tion(s) No Information Social History [...]
--- OUTSIDE RECORDS SUMMARY | 2024-07-25 21:06 | XMS_ITS | Referral Summary ---
Author Organization [facility] [address] Address 1 [place] [address] Phone Care Team Providers Care Houseman Name Role Phone Jodee Cast MD Primary Care Provide r Encounters Date Type Department Care Team Description 05/13/2024 11:02 AM STROBOSCOPE OPERATOR - 05/13/2024 11:40 AM STROBOSCOPE OPERATOR Emergency [facility] Emergency Department 1 [place] [address] Acute cough (Primary Dx) Discharge Disposition: Discharge [...] on file Legal Sex Female 2:07 AM STROBOSCOPE OPERATOR Gender Identity Not on file Sexual Orientation Not on file Last Filed Vital Signs Vital Sign Reading Time Taken Comments Blood Pressure 149/79 05/13/2024 9:36 AM STROBOSCOPE OPERATOR Pulse 88 05/13/2024 9:36 AM STROBOSCOPE OPERATOR Temperature 36.4 C (97.6 F) 05/13/2024 9:36 AM STROBOSCOPE OPERATOR Respiratory Rate 20 05/13/2024 9:36 AM STROBOSCOPE OPERATOR Oxygen Saturation 100% 05/13/2024 9:36 AM STROBOSCOPE OPERATOR Inhaled Oxygen Concentration - - Weight 154.2 kg (340 lb) 05/13/2024 9:36 AM STROBOSCOPE OPERATOR Height 162.6 cm (5' 4 ) 05/13/2024 9:36 AM STROBOSCOPE OPERATOR Body Mass Index 58.36 05/13/2024 9:36 AM STROBOSCOPE OPERATOR Plan of Treatment Not on file Procedures Procedure Name Priority Date/Time Associated Diagnosis Comments XR CHEST PA LATERAL 2 VIEWS ED 05/13/2024 9:44 AM STROBOSCOPE OPERATOR INFLUENZA A/B, RSV, AND COVID-19 PCR Routine 05/13/2024 9:40 AM STROBOSCOPE OPERATOR SCREENING MAMMOGRAM BILATERAL W FRANK Routine 08/07/2015 12:05 PM CDT from Last 3 Months or Most Recently Relevant to Health Maintenance Results * XR Chest Pa Lateral 2 Views (05/13/2024 9:44 AM STROBOSCOPE OPERATOR) Anatomical Region Laterality Modality Body, Chest N/A Computed Radiogr aphy 05/13/2024 10:0 0 AM STROBOSCOPE OPERATOR Narrative 05/13/2024 10:00 AM STROBOSCOPE OPERATOR EXAM DESCRIPTION: XR CHEST PA LATERAL [...] Arcadio Ruiz D.O. PS: PS Report ID: [id number] Reading Location: [id number] Procedure Note Joseph Arcadio Cooper, DO - [...] Arcadio Ruiz D.O. PS: PS Report ID: [id number] Reading Location: [place] [address] Magdalene Castillo MD IM XR PROCEDURES F inal Result * Influenza A/B, RSV, and COVID-19 PCR Nasopharyngeal (05/13/2024 9:40 AM STROBOSCOPE OPERATOR) COVID-19 RNA Negative Negative Influenza A RNA Negative Negative [facility] ([place]) Influenza B RNA Negative Negative [facility]) RSV RNA Negative Negative [facility] ([place]) Comment: Interpretive data: Testing performed by [facility]. This test is performed using the [employer] Xpert Xpress CoV-2/Flu/RSV plus assay. This is a multiplex, real- time reverse transcriptase PCR assay intended for the qualitative detection of nucleic acid from SARS-CoV-2, influenza A, influenza B, and respiratory syncytial virus. This assay has been cleared by the [place] Food and Drug administration. The performance characteristics have been verified by the [facility]. Results must be considered in the clinical context, and a negative result does not rule out infection. Interpretive Data last revised 2023 Nasopharyngeal 05/13/2024 9: 40 AM STROBOSCOPE OPERATOR 05/13/2024 9:48 AM STROBOSCOPE OPERATOR Narrative [facility] ([place]) - 05/13/2024 10:27 AM STROBOSCOPE OPERATOR Is the Patient experiencing symptoms consistent with COVID?->Yes us Magdalene Castillo MD LAB MICROBIOLOGY - GENERAL ORDERABLES Final Result [facility] BUTL[facility] ([place]) 1 [facility] Department [place] [address] * Screening Mammogram Bilateral W Frank (08/07/2015 [...] exam. Electronically signed by: Dr. Kory Clifton la/hernan:08/07/2015 14:10:54 Factory Worker: Carey HILL (Vitaly)(Nehemias), [facility] letter sent: Normal Exam Reading location: [...] made to exams dated: 08/22/2013 mammogram - [facility] and 10/09/2011 mammogram - [facility]. BREAST TISSUE: The tissue of both breasts [...] is made to exams dated: 08/22/2013 mammogram -[facility] and 10/09/2011 mammogram - [facility]. BREAST TISSUE: The tissue of both breasts [...] exam. Electronically signed by: Dr. Kory Clifton la/penrad:08/07/2015 14:10:54 Factory Worker: Carey Trinh RT (R)(M), [facility] letter sent: Normal Exam Reading location: BI-RADS: 1 Negative [EOD] us Cyn Arriaza MD IMG MAMMO PROCEDURES F inal Result from Last 3 Months or Most Recently Relevant to Health Maintenance Insurance WE[employer] MEDICARE HMO MEDICARE [employer] [place] COMPLETE MEDICARE [place] MEDICARE Care Teams Houseman Relationship Specialty Start Date End Date Jodee Cast MD [address] [place] [id number] PCP - General Family Medicine 03/18/22
--- OUTSIDE RECORDS SUMMARY | 2024-07-25 21:06 | XMS_ITS | Clinical Summary ---
Author Organization [facility] [address] Address [address] [facility] [place] [address] Phone Care Team Providers Care Personnel Quality Assurance Auditor Name Role Phone Jodee Cast MD Primary [...] Department Care Team Description 05/13/2024 11:02 AM SENIOR PRODUCER - 05/13/2024 11:40 AM [facility] Emergency [facility] Emergency Department [address] [place], [place] [id number] Acute cough (Primary Dx) Discharge Disposition: Discharge [...] on file Legal Sex Female 2:07 AM SENIOR PRODUCER Gender Identity Not on file Sexual Orientation Not on file Obstetrics History Last Filed Vital Signs Vital Sign Reading Time Taken Comments Blood Pressure 149/79 05/13/2024 9:36 AM SENIOR PRODUCER Pulse 88 05/13/2024 9:36 AM SENIOR PRODUCER Temperature 36.4 C (97.6 F) 05/13/2024 9:36 AM SENIOR PRODUCER Respiratory Rate 20 05/13/2024 9:36 AM SENIOR PRODUCER Oxygen Saturation 100% 05/13/2024 9:36 AM SENIOR PRODUCER Inhaled Oxygen Concentration - - Weight 154.2 kg (340 lb) 05/13/2024 9:36 AM SENIOR PRODUCER Height 162.6 cm (5' 4 ) 05/13/2024 9:36 AM SENIOR PRODUCER Body Mass Index 58.36 05/13/2024 9:36 AM SENIOR PRODUCER Plan of Treatment Health Maintenance Due Date [...] LATERAL 2 VIEWS ED 05/13/2024 9:44 AM SENIOR PRODUCER INFLUENZA A/B, RSV, AND COVID-19 PCR Routine 05/13/2024 9:40 AM SENIOR PRODUCER SCREENING MAMMOGRAM BILATERAL W FRANK Routine 08/07/2015 12:05 PM CDT from Last 3 Months or Most Recently Relevant to Health Maintenance Results * XR Chest Pa Lateral 2 Views (05/13/2024 9:44 AM SENIOR PRODUCER) Anatomical Region Laterality Modality Body, Chest N/A Computed Radiogr aphy 05/13/2024 10:0 0 AM SENIOR PRODUCER Narrative 05/13/2024 10:00 AM SENIOR PRODUCER EXAM DESCRIPTION: XR CHEST PA LATERAL 2 [...] Arcadio Ruiz D.O. PS: PS Report ID: [id number] Reading Location: [id number] Procedure Note Arcadio Ruiz, - 05/13/2024 EXAM [...] Arcadio Ruiz D.O. PS: PS Report ID: [id number] Reading Location: [id number] Magdalene Castillo MD IMG XR PROCEDURES F inal Result * Influenza A/B, RSV, and COVID-19 PCR Nasopharyngeal (05/13/2024 9:40 AM SENIOR PRODUCER) COVID-19 RNA Negative Negative Influenza A RNA Negative Negative [facility] ([place]) Influenza B RNA Negative Negative [facility] ([place]) RSV RNA Negative Negative [facility] ([place]) Comment: Interpretive data: Testing performed by [facility]. This test is performed using the [employer] Xpert Xpress CoV-2/Flu/RSV plus assay. This is a multiplex, real- time reverse transcriptase PCR assay intended for the qualitative detection of nucleic acid from SARS-CoV-2, influenza A, influenza B, and respiratory syncytial virus. This assay has been cleared by the [place] Food and Drug administration. The performance characteristics have been verified by the [facility]. Results must be considered in the clinical context, and a negative result does not rule out infection. Interpretive Data last revised 2023 Nasopharyngeal 05/13/2024 9: 40 AM SENIOR PRODUCER 05/13/2024 9:48 AM SENIOR PRODUCER Narrative [facility] ([place]) - 05/13/2024 10:27 AM SENIOR PRODUCER Is the Patient experiencing symptoms consistent with COVID?->Yes Magdalene Castillo MD LAB MICROBIOLOGY - GENERAL ORDERABLES Final Result [facility]IS [place] 1 [facility] Department [place] [address] * Screening Mammogram Bilateral W Frank (08/07/2015 [...] signed by: Dr. Kory Clifton nh/penrad:08/07/2015 14:10:54 Metal Sander: Carey HILL (Vitaly)(Nehemias), [facility] letter sent: Normal Exam Reading location: [...] made to exams dated: 08/22/2013 mammogram - [facility] and 10/09/2011 mammogram - [facility]. BREAST TISSUE: The tissue of both [...] is made to exams dated: 08/22/2013 [facility] and 10/09/2011 mammogram - [facility]. BREAST TISSUE: The tissue of both [...] exam. Electronically signed by: Dr. Kory Clifton pa/penrad:08/07/2015 14:10:54 Metal Sander: Carey Trinh RT (R)(M), [facility] letter sent: Normal Exam Reading location: BI-RADS: 1 Negative [EOD] Cyn Arriaza MD [employer]Blake MAMMO PROCEDURES F inal Result from Last 3 Months or Most Recently Relevant to Health Maintenance Insurance WELLCARE MEDICARE HMO MEDICARE [facility] [place] Care Teams Personnel Quality Assurance Auditor Relationship Specialty Start Date End Date Jodee Cast MD [address] [place] [id number] PCP - General Family Medicine 03/18/22
[2024-07-25 21:07] VITALS: BP 156/80; PULSE 93; RESP 20; TEMP 36.9; O2SAT 97
--- OUTSIDE RECORDS SUMMARY | 2024-07-25 21:48 | XMS_ITS | Continuity of Care Document ---
Author Organization [facility] Address [address] [facility] [address] [place] [address] Phone Care Team Providers Care Object Oriented Developer Name Role Phone Sang Santana MD Unavailable [...] Copied on Encounter OFFICE/OUTPA TIENT VISIT EST [facility], [address] [place] [address], [address], tel:[phone] [facility] Tear of medial cartilage or meniscus of knee, current Jul- 3-201 5 Esther Domínguez. [address] [place] [address], [id number]. tel:[phone] OFFICE/OUTPA TIENT VISIT EST [facility], [address], [address], tel:[phone] [facility] Follow Up of R knee (chief complaint) Primary osteoarthriti s of right knee 5 Brandt Chavez. [address] [facility] [address], [place], [place], [id number]. tel:[phone] OFFICE/OUTPA TIENT VISIT [facility], [address] [facility] [address], [place], [address], tel:[phone] [facility] Knee pain 4 Esther Domínguez. [address] [place], [place], [id number]. tel:[phone] OFFICE/OUTPA TIENT VISIT [facility], [address] [facility] [address], [place], [address], [place] tel:[phone] [facility] Knee pain 0 4 Alesiakayla Sang. [address] [place], [place], [id number]. tel:[phone] Family History Family Member Type Diagnosis Age At Onset Mother Problem (finding) Alive and well Payers Payer name Insurance type Covered democrat ID Authoriza tion(s) No Information Social History [...]
--- OUTSIDE RECORDS SUMMARY | 2024-07-25 21:48 | XMS_ITS | Referral Summary ---
Author Organization [facility] [address] Address 1 [place] [address] Phone Care Team Providers Care Manager Educational Name Role Phone Jodee Cast MD Primary Care Provide r Encounters Date Type Department Care Team Description 05/13/2024 11:02 AM AIRFIELD MANAGER - 05/13/2024 11:40 AM AIRFIELD MANAGER Emergency [facility] Emergency Department 1 [place] [address] Acute cough (Primary Dx) Discharge Disposition: Discharge [...] on file Legal Sex Female 2:07 AM AIRFIELD MANAGER Gender Identity Not on file Sexual Orientation Not on file Last Filed Vital Signs Vital Sign Reading Time Taken Comments Blood Pressure 149/79 05/13/2024 9:36 AM AIRFIELD MANAGER Pulse 88 05/13/2024 9:36 AM AIRFIELD MANAGER Temperature 36.4 C (97.6 F) 05/13/2024 9:36 AM AIRFIELD MANAGER Respiratory Rate 20 05/13/2024 9:36 AM AIRFIELD MANAGER Oxygen Saturation 100% 05/13/2024 9:36 AM AIRFIELD MANAGER Inhaled Oxygen Concentration - - Weight 154.2 kg (340 lb) 05/13/2024 9:36 AM AIRFIELD MANAGER Height 162.6 cm (5' 4 ) 05/13/2024 9:36 AM AIRFIELD MANAGER Body Mass Index 58.36 05/13/2024 9:36 AM AIRFIELD MANAGER Plan of Treatment Not on file Procedures Procedure Name Priority Date/Time Associated Diagnosis Comments XR CHEST PA LATERAL 2 VIEWS ED 05/13/2024 9:44 AM AIRFIELD MANAGER INFLUENZA A/B, RSV, AND COVID-19 PCR Routine 05/13/2024 9:40 AM AIRFIELD MANAGER SCREENING MAMMOGRAM BILATERAL W FRANK Routine 08/07/2015 12:05 PM CDT from Last 3 Months or Most Recently Relevant to Health Maintenance Results * XR Chest Pa Lateral 2 Views (05/13/2024 9:44 AM AIRFIELD MANAGER) Anatomical Region Laterality Modality Body, Chest N/A Computed Radiogr aphy 05/13/2024 10:0 0 AM AIRFIELD MANAGER Narrative 05/13/2024 10:00 AM AIRFIELD MANAGER EXAM DESCRIPTION: XR CHEST PA LATERAL 2 [...] Arcadio Ruiz D.O. PS: PS Report ID: [id number] Reading Location: [id number] Procedure Note Joseph Arcadio Cooper, DO - [...] Arcadio Ruiz D.O. PS: PS Report ID: [id number] Reading Location: [place] [address] Magdalene Castillo MD IM XR PROCEDURES F inal Result * Influenza A/B, RSV, and COVID-19 PCR Nasopharyngeal (05/13/2024 9:40 AM AIRFIELD MANAGER) COVID-19 RNA Negative Negative Influenza A RNA Negative Negative [facility] ([place]) Influenza B RNA Negative Negative [facility] ([place]) RSV RNA Negative Negative [facility] ([place]) Comment: Interpretive data: Testing performed by [facility]. This test is performed using the [employer] Xpert Xpress CoV-2/Flu/RSV plus assay. This is a multiplex, real- time reverse transcriptase PCR assay intended for the qualitative detection of nucleic acid from SARS-CoV-2, influenza A, influenza B, and respiratory syncytial virus. This assay has been cleared by the [place] Food and Drug administration. The performance characteristics have been verified by the [facility]. Results must be considered in the clinical context, and a negative result does not rule out infection. Interpretive Data last revised 2023 Nasopharyngeal 05/13/2024 9: 40 AM AIRFIELD MANAGER 05/13/2024 9:48 AM AIRFIELD MANAGER Narrative [facility] ([place]) - 05/13/2024 10:27 AM AIRFIELD MANAGER Is the Patient experiencing symptoms consistent with COVID?->Yes us Magdalene Castillo MD LAB MICROBIOLOGY - GENERAL ORDERABLES Final Result [facility] BUTL[facility] ([place]) 1 [facility] Department [place] [address] * Screening Mammogram Bilateral W Frank (08/07/2015 [...] exam. Electronically signed by: Dr. Kory Clifton sd/hernan:08/07/2015 14:10:54 Primary Clinician: Carey HILL (Vitaly)(Nehemias), [facility] letter sent: Normal Exam Reading [...] made to exams dated: 08/22/2013 mammogram - [facility] and 10/09/2011 mammogram - [facility]. BREAST TISSUE: The tissue of both breasts [...] is made to exams dated: 08/22/2013 mammogram -[facility] and 10/09/2011 mammogram - [facility]. BREAST TISSUE: The tissue of both breasts [...] exam. Electronically signed by: Dr. Kory Clifton sd/penrad:08/07/2015 14:10:54 Primary Clinician: Carey Trinh RT (R)(M), [facility] letter sent: Normal Exam Reading location: BI-RADS: 1 Negative [EOD] us Cyn Arriaza MD IMG MAMMO PROCEDURES F inal Result from Last 3 Months or Most Recently Relevant to Health Maintenance Insurance [employer] MEDICARE HMO MEDICARE [place] [employer] COMPLETE MEDICARE [place] MEDICARE Care Teams Manager Educational Relationship Specialty Start Date End Date Jodee Cast MD [address] [place] [id number] PCP - General Family Medicine 03/18/22
--- OUTSIDE RECORDS SUMMARY | 2024-07-25 21:48 | XMS_ITS | Clinical Summary ---
Author Organization [facility] Care Team Providers Care Photocopying Machine Operator Name Role Phone Unavailable Primary Care Provider [...]
--- OUTSIDE RECORDS SUMMARY | 2024-07-25 21:48 | XMS_ITS | Clinical Summary ---
Author Organization [facility] [address] Address [address] [place] [address] Phone Care Team Providers Care Media Clerk Name Role Phone Jodee Cast MD Primary [...] Department Care Team Description 05/13/2024 11:02 AM DIRECTOR OF MATERIALS - 05/13/2024 11:40 AM [facility] Emergency [facility] Emergency Department [address] [place], [place] [id number] Acute cough (Primary Dx) Discharge Disposition: Discharge [...] on file Legal Sex Female 2:07 AM DIRECTOR OF MATERIALS Gender Identity Not on file Sexual Orientation Not on file Obstetrics History Last Filed Vital Signs Vital Sign Reading Time Taken Comments Blood Pressure 149/79 05/13/2024 9:36 AM DIRECTOR OF MATERIALS Pulse 88 05/13/2024 9:36 AM DIRECTOR OF MATERIALS Temperature 36.4 C (97.6 F) 05/13/2024 9:36 AM DIRECTOR OF MATERIALS Respiratory Rate 20 05/13/2024 9:36 AM DIRECTOR OF MATERIALS Oxygen Saturation 100% 05/13/2024 9:36 AM DIRECTOR OF MATERIALS Inhaled Oxygen Concentration - - Weight 154.2 kg (340 lb) 05/13/2024 9:36 AM DIRECTOR OF MATERIALS Height 162.6 cm (5' 4 ) 05/13/2024 9:36 AM DIRECTOR OF MATERIALS Body Mass Index 58.36 05/13/2024 9:36 AM DIRECTOR OF MATERIALS Plan of Treatment Health Maintenance Due Date [...] LATERAL 2 VIEWS ED 05/13/2024 9:44 AM DIRECTOR OF MATERIALS INFLUENZA A/B, RSV, AND COVID-19 PCR Routine 05/13/2024 9:40 AM DIRECTOR OF MATERIALS SCREENING MAMMOGRAM BILATERAL W FRANK Routine 08/07/2015 12:05 PM CDT from Last 3 Months or Most Recently Relevant to Health Maintenance Results * XR Chest Pa Lateral 2 Views (05/13/2024 9:44 AM DIRECTOR OF MATERIALS) Anatomical Region Laterality Modality Body, Chest N/A Computed Radiogr aphy 05/13/2024 10:0 0 AM DIRECTOR OF MATERIALS Narrative 05/13/2024 10:00 AM DIRECTOR OF MATERIALS EXAM DESCRIPTION: XR CHEST PA LATERAL 2 [...] Arcadio Ruiz D.O. PS: PS Report ID: [id number] Reading Location: [id number] Procedure Note Arcadio Ruiz, - 05/13/2024 EXAM [...] Arcadio Ruiz D.O. PS: PS Report ID: [id number] Reading Location: [id number] Magdalene Castillo MD IMG XR PROCEDURES F inal Result * Influenza A/B, RSV, and COVID-19 PCR Nasopharyngeal (05/13/2024 9:40 AM DIRECTOR OF MATERIALS) COVID-19 RNA Negative Negative Influenza A RNA Negative Negative [facility] ([place]) Influenza B RNA Negative Negative [facility] ([place]) RSV RNA Negative Negative [facility] ([place]) Comment: Interpretive data: Testing performed by [facility]. This test is performed using the [employer] Xpert Xpress CoV-2/Flu/RSV plus assay. This is a multiplex, real- time reverse transcriptase PCR assay intended for the qualitative detection of nucleic acid from SARS-CoV-2, influenza A, influenza B, and respiratory syncytial virus. This assay has been cleared by the [place] Food and Drug administration. The performance characteristics have been verified by the [facility]. Results must be considered in the clinical context, and a negative result does not rule out infection. Interpretive Data last revised 2023 Nasopharyngeal 05/13/2024 9: 40 AM DIRECTOR OF MATERIALS 05/13/2024 9:48 AM DIRECTOR OF MATERIALS Narrative [facility] ([place]) - 05/13/2024 10:27 AM DIRECTOR OF MATERIALS Is the Patient experiencing symptoms consistent with COVID?->Yes Magdalene Castillo MD LAB MICROBIOLOGY - GENERAL ORDERABLES Final Result [facility] [place] 1 [facility] Department [place] [address] * Screening Mammogram Bilateral W Frank (08/07/2015 [...] signed by: Dr. Kory Clifton nh/penrad:08/07/2015 14:10:54 Mat Puncher: Carey HILL (Vitaly)(Nehemias), [facility] letter sent: Normal Exam Reading location: [...] to exams dated: 08/22/2013 mammogram - [facility] and 10/09/2011 mammogram - [facility]. BREAST TISSUE: The tissue of both [...] made to exams dated: 08/22/2013 mammogram -[facility] and 10/09/2011 mammogram - [facility]. BREAST TISSUE: The tissue of both [...] exam. Electronically signed by: Dr. Kory Clifton ar/penrad:08/07/2015 14:10:54 Mat Puncher: Carey Trinh RT (R)(M), [facility] letter sent: Normal Exam Reading location: BI-RADS: 1 Negative [EOD] Cyn Arriaza MD [facility]ake MAMMO PROCEDURES F inal Result from Last 3 Months or Most Recently Relevant to Health Maintenance Insurance WE[employer] MEDICARE HMO [facility] OTHER Address: [address] [address] [place] [address] MEDICARE [facility] [employer] COMPLETE MEDICARE [place] MEDICARE Care Teams Media Clerk Relationship Specialty Start Date End Date Jodee Cast MD [address] [place] [id number] PCP - General Family Medicine 03/18/22
--- NOTE | 2024-07-25 22:12 | ED.LOWEXIN ---
HPI - Extremity Injury (Lower) General Chief Complaint: Extremity Injury, Lower Stated Complaint: Injury to right ankle-felt something 'POP Time Seen by Provider: 07/25/24 21:38 Source: patient Mode of arrival: ambulatory Limitations: no limitations History of Present Illness HPI Narrative: This is a 54-year-old female who presents to the ED for chief complaint of right ankle, foot injury that occurred prior to arrival. Patient states that she was just walking when she stepped down and felt a pop to the right lateral/posterior ankle. Endorses pain and swelling to the area. Denies any further sites of pain or injury. Related Data Home Medications ?Medication ?Instructions ?Recorded ?Confirmed ?Last Taken ?Type atorvastatin 20 mg tablet 20 mg PO DAILY 02/18/22 07/20/24 07/09/22 History hydralazine 50 mg tablet 50 mg PO BID 02/18/22 07/20/24 07/09/22 History insulin detemir U-100 100 unit/mL 20 unit subcut HS 02/18/22 07/20/24 1 Day Ago History (3 mL) subcutaneous pen (Levemir ~07/08/22 FlexTouch U-100 Insulin) metoprolol tartrate 50 mg tablet 50 mg PO BID 02/18/22 07/20/24 07/09/22 History amlodipine 10 mg tablet 10 mg PO DAILY 01/25/23 07/20/24 Unknown History semaglutide 0.25 mg or 0.5 mg (2 0.25 mg subcut WEEKLY 03/06/24 07/20/24 Unknown History mg/3 mL) subcutaneous pen injector (Ozempic) Allergies Allergy/AdvReac Type Severity Reaction Status Date / Time Latex, Natural Rubber Allergy Rash Verified 07/25/24 21:10 Review of Systems Review of Systems: All systems as dictated in HPI [facility] Past Medical History Medical History Hyperlipidemia LUCIA (obstructive sleep apnea) Diabetes Hypertension CHF (congestive heart failure) Morbid obesity with BMI of 70 and over, adult Hypertension associated with diabetes Surgical History Surgical History H/O section times 2 History of tonsillectomy and adenoidectomy Family History Family History Mother Diabetes mellitus Family history of thyroid problem Sibling Thyroid cancer Social History Social History Social History: She lives with her 2 daughters . She is disabled. She is . Code status full code Smoking status: Never smoker Alcohol intake: never Substance use: never Do You Feel Safe in your Home?: Yes Lack of Transportation: No Lack of Food: Never True Current Housing: I Have Housing Concerned About Future Housing: No Difficulty Paying Gas/Electric Bills: No Difficulty Paying for Meds: No Currently Unemployed: No Education: Trade/Vocational Certificate Difficulty w/ Childcare or Family Care: No Living arrangements: with family Gender identity (if verbalized by the patient): Female Spiritual care concerns: No Exam Narrative: GENERAL: Well-appearing, well-nourished, and in no acute distress. MSK: Tenderness to the right lateral ankle and right posterior ankle. Mild to moderate edema throughout the ankle. Neurovascular intact distally. SKIN: Warm, dry, no rash. NEURO: Alert and oriented x4. No focal deficits. PSYCH: Normal mood and affect. Course Vital Signs Vital signs: Vital Signs Temperature 98.4 F 07/25/24 21:07 Pulse Rate 93 07/25/24 21:07 Respiratory Rate 20 07/25/24 21:07 Blood Pressure 156/80 H 07/25/24 21:07 Pulse Oximetry 97 07/25/24 21:07 Oxygen Delivery Room Air 07/25/24 21:07 Temperature 98.4 F 07/25/24 21:07 Pulse Rate 65 07/25/24 23:00 Respiratory Rate 16 07/25/24 23:00 Blood Pressure 150/72 H 07/25/24 23:00 Pulse Oximetry 96 07/25/24 23:00 Oxygen Delivery Room Air 07/25/24 21:07 MDM - Extremity Injury (Lower) MDM Narrative Medical decision making narrative: This is a 54-year-old female who presents to the ED for chief complaint of right ankle injury prior to arrival. Vitals are normal. Exam remarkable for the above with tenderness and edema throughout the right ankle. Right ankle x-rays show potential lucency consistent with lateral malleolus fracture. It is nondisplaced. Question ligamentous sprain versus acute fracture. She will be placed in posterior short-leg splint in case this is more related to fracture. Podiatry referral given. Patient will be discharged in stable condition. Supportive measures discussed and return precautions given. Patient is understanding and agreeable with plan for discharge with PCP follow-up. Differential Diagnosis Differential diagnosis: Likely ankle sprain and strain, puncture wound of foot and ankle fracture Discharge Plan Discharge Clinical Impression: Ankle fracture, lateral malleolus, closed Patient Disposition: Home Condition: Stable Instructions: Antibiotic Form Additional Instructions: Your exam and imaging today show possible fracture to the ankle. This may be more of just a sprain, however should be followed up with Podiatry for recheck. Use splint until otherwise directed. Take Tylenol every 6 hours as needed for pain control. If you have any new or worsening symptoms please return to the ER for further evaluation. Patient Language: Afghan Prescriptions: No Action amlodipine 10 mg tablet 10 mg PO DAILY Ozempic 0.25 mg or 0.5 mg (2 mg/3 mL) pen injector 0.25 mg subcut WEEKLY eszopiclone 2 mg tablet 2 mg PO QHS Qty: 1 0RF Rx Instructions: Bring with you to the sleep lab and administer for insomnia. eszopiclone 2 mg tablet 2 mg PO QHS Qty: 1 0RF Rx Instructions: bring with you to the sleep lab and administer 4 insomnia. ergocalciferol (vitamin D2) 1,250 mcg (50,000 unit) capsule 1,250 mcg PO WEEKLY Qty: 12 3RF atorvastatin 20 mg tablet 20 mg PO DAILY metoprolol tartrate 50 mg tablet 50 mg PO BID hydralazine 50 mg tablet 50 mg PO BID Levemir FlexTouch U100 Insulin 100 unit/mL (3 mL) insulin pen 20 unit SUBCUT HS loratadine 10 mg Tablet 10 mg PO QAM Qty: 30 0RF fluticasone propionate 50 mcg/actuation [place],Suspension 1 spray intranasal Q12HR Qty: 1 0RF spironolactone 25 mg Tablet 25 mg PO QAM Qty: 30 0RF ferrous sulfate 325 mg (65 mg iron) Tablet 324 mg PO DAILY@0800 Qty: 30 0RF bumetanide 1 mg Tablet 2 mg PO BID Qty: 60 0RF metolazone 2.5 mg Tablet 2.5 mg PO BID Qty: 60 0RF potassium chloride 10 mEq tablet extended release 10 meq PO DAILY Qty: 60 0RF Follow-up/Referrals: Aaliyah Garza DPM [Physician] - PHYSICIAN NOT ON STAFF,NONSTAFF [Primary Care Provider] - Time of Disposition: 22:32
[2024-07-25] MEDS: ACETAMINOPHEN 500 MG TABLET 1000 MG PO (22:40)
[2024-07-25 23:00] VITALS: BP 150/72; PULSE 65; RESP 16; O2SAT 96
== END 2024-07-25 23:31 | disposition home or self-care (01) ==
PROVIDERS: Emergency Provider Physician Assistant
DX: S82.61XA Displaced fracture of lateral malleolus of right fibula, initial encounter for closed fracture (principal); E78.5 Hyperlipidemia, unspecified; G47.30 Sleep apnea, unspecified; E11.9 Type 2 diabetes mellitus without complications; I11.0 Hypertensive heart disease with heart failure; I50.9 Heart failure, unspecified; E66.01 Morbid (severe) obesity due to excess calories; Z68.44 Body mass index [BMI] 60.0-69.9, adult; X50.0XXA Overexertion from strenuous movement or load, initial encounter
CPT/HCPCS: 29515; 73600; 73630; 99284; A9270

== ENCOUNTER 2024-11-14 11:02 | Outpatient (CLI) | payer MEDICARE, MEDICAID, SELFPAY ==
--- OUTSIDE RECORDS SUMMARY | 2024-11-14 11:32 | XMS_ITS | Referral Summary ---
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 Gender Identity Not on file Sexual Orientation Not on file Last Filed Vital Signs Vital Sign Reading Time Taken Comments Blood Pressure 149/79 05/13/2024 9:36 AM OVERLAY OPERATOR Pulse 88 05/13/2024 9:36 AM OVERLAY OPERATOR Temperature 36.4 C (97.6 F) 05/13/2024 9:36 AM OVERLAY OPERATOR Respiratory Rate 20 05/13/2024 9:36 AM OVERLAY OPERATOR Oxygen Saturation 100% 05/13/2024 9:36 AM OVERLAY OPERATOR Inhaled Oxygen Concentration - - Weight 154.2 kg (340 lb) 05/13/2024 9:36 AM OVERLAY OPERATOR Height 162.6 cm (5' 4) 05/13/2024 9:36 AM OVERLAY OPERATOR Body Mass Index 58.36 05/13/2024 9:36 AM OVERLAY OPERATOR Plan of Treatment Not on file Procedures Procedure Name Priority Date/Time Associated Diagnosis Comments SCREENING MAMMOGRAM BILATERAL W FRANK Routine 08/07/2015 12:05 PM CDT from Last 3 Months or Most Recently Relevant to Health Maintenance Results * Screening Mammogram Bilateral W Frank (08/07/2015 [...] signed by: Dr. Kory Clifton nh/penrad:08/07/2015 14:10:54 Linen Worker: Carey HILL (Vitaly)(Nehemias), [facility] letter sent: Normal Exam Reading location: [...] made to exams dated: 08/22/2013 mammogram - [facility] and 10/09/2011 mammogram - [facility]. BREAST TISSUE: The tissue of both breasts [...] is made to exams dated: 08/22/2013 mammogram -[facility] and 10/09/2011 mammogram - [facility]. BREAST TISSUE: The tissue of both breasts [...] exam. Electronically signed by: Dr. Kory Clifton az/penrad:08/07/2015 14:10:54 Linen Worker: Carey HILL (Vitaly)(Nehemias), [facility] letter sent: Normal Exam Reading location: BI-RADS: 1 Negative [EOD] Cyn Arriaza MD IMG MAMMO PROCEDURES F inal Result from Last 3 Months or Most Recently Relevant to Health Maintenance Insurance [facility] MEDICARE HMO MEDICARE [employer] [place] Care Teams Sewing Machine Operator Zipper Relationship Specialty Start Date End Date Jodee Cast MD [address] [place] [id number] PCP - General Family Medicine 03/18/22
--- OUTSIDE RECORDS SUMMARY | 2024-11-14 11:32 | XMS_ITS | Clinical Summary ---
Author Organization [facility] Care Team Providers Care Sustainable Agriculture Specialist Name Role Phone Unavailable Primary Care Provider [...] Cervical Cancer Screening (CCS) 1998 HPV/Cotest 1998 Cologuard 2013 Colonoscopy 2013 Colorectal Cancer Screening 2013 Immunochemical Fecal Occult Blood 2013 Pneumococcal Immunization (5 0+ years) (1 of 1 - PCV) 2018 Zoster Immunization (1 of 2) 2018 SARS-COV-2 Immunization ( - 2023- season) 2023 Influenza Immunization (#1) 2024 Respiratory Syncytial Virus (RSV) Immunization (Adult) (1 - 1-dose 75+ series) 2043 Human Papillomavirus (HPV) Immunization Aged Out No longer eligible b ased on patient's age to complete this topic Meningococcal Immunization (ACWY) Aged Out No longer eligible based on patient's age to complete this topic Rotavirus Immunization Aged Out No lo nger eligible based on patient's age to complete this topic
--- OUTSIDE RECORDS SUMMARY | 2024-11-14 11:32 | XMS_ITS | Clinical Summary ---
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 Gender Identity Not on file Sexual Orientation Not on file Obstetrics History Last Filed Vital Signs Vital Sign Reading Time Taken Comments Blood Pressure 149/79 05/13/2024 9:36 AM CLAY DIGGER Pulse 88 05/13/2024 9:36 AM CLAY DIGGER Temperature 36.4 C (97.6 F) 05/13/2024 9:36 AM CLAY DIGGER Respiratory Rate 20 05/13/2024 9:36 AM CLAY DIGGER Oxygen Saturation 100% 05/13/2024 9:36 AM CLAY DIGGER Inhaled Oxygen Concentration - - Weight 154.2 kg (340 lb) 05/13/2024 9:36 AM CLAY DIGGER Height 162.6 cm (5' 4) 05/13/2024 9:36 AM CLAY DIGGER Body Mass Index 58.36 05/13/2024 9:36 AM CLAY DIGGER Plan of Treatment Health Maintenance Due Date Last Done Comments Cervical Cancer Screening 1968 Colon Cancer Screening-Colonoscopy 1968 Depression Screening 1968 Hepatitis C Screening 1968 DTaP/Tdap/Td Vaccine (1 - Tdap) 1979 Hepatitis B Screening 1986 Regular Well Visit/Exam 18-64 1986 Breast Cancer Screening-Mammogram 08/06/2016 08/07/2015, 08/22/2013 Zoster Vaccine (1 of 2) 2018 Influenza Vaccine (#1) 2024 5, 05/30/2014 Pneumococcal vaccine <65 Aged Out No longer eligible based on patient's age to complete this topic Procedures Procedure Name Priority Date/Time Associated Diagnosis Comments SCREENING MAMMOGRAM BILATERAL W KALANI Routine 08/07/2015 12:05 PM CDT from Last 3 Months or Most Recently Relevant to Health Maintenance Results * Screening Mammogram Bilateral W Kalani (08/07/2015 12:05 PM CDT) Anatomical Region Laterality [...] signed by: Dr. Kory Clifton nh/penrad:08/07/2015 14:10:54 Delivery Professional: Carey Trinh RT (R)(M), [facility] letter sent: Normal Exam Reading location: BI-RADS: [...] made to exams dated: 08/22/2013 mammogram - [facility] and 10/09/2011 mammogram - [facility]. BREAST TISSUE: The tissue of both [...] is made to exams dated: 08/22/2013 mammogram -[facility] and 10/09/2011 mammogram - [facility]. BREAST TISSUE: The tissue of both [...] signed by: Dr. Kory Clifton nh/penrad:08/07/2015 14:10:54 Delivery Professional: Carey HILL (R)(M), [facility] letter sent: Normal Exam Reading location: BI-RADS: 1 Negative [EOD] us Cyn Arriaza MD IMG MAMMO PROCEDURES F inal Result from Last 3 Months or Most Recently Relevant to Health Maintenance Insurance [facility] MEDICARE HMO [facility] OTHER Address: [address] [address] [place] [address] MEDICARE [facility] [employer] [employer] MEDICARE Care Teams Screen Tacker Relationship Specialty Start Date End Date Jodee Cast MD [address] [place] [id number] PCP - General Family Medicine 03/18/22
[2024-11-14 11:37] LABS: Hemoglobin A1C 7.3 % (<5.7)
[2024-11-14 11:47] LABS: Albumin Level 4.2 g/dL (3.5-5.1); Anion Gap 10 mmol/L (4-12); Blood Urea Nitrogen 62 mg/dL (7-17); Calcium 9.8 mg/dL (8.4-10.2); Carbon Dioxide 22 mmol/L (22-30); Chloride 104 mmol/L (98-107); Estimated Glomerular Filt Rate 17; Glucose 176 mg/dL (65-110); Potassium 5.4 mmol/L (3.4-5.0); Sodium 136 mmol/L (137-145)
[2024-11-14 11:50] LABS: Total Protein Urine Random 13 mg/dL; Ur Ttl Prot Creatinine Ratio 0.23 mg/mg (0-0.20)
== END 2024-11-14 11:03 | disposition home or self-care (01) ==
PROVIDERS: Visit Provider Internal Medicine Nephrology
DX: I12.9 Hypertensive chronic kidney disease with stage 1 through stage 4 chronic kidney disease, or unspecified chronic kidney disease (principal); N18.4 Chronic kidney disease, stage 4 (severe); E11.22 Type 2 diabetes mellitus with diabetic chronic kidney disease; E55.9 Vitamin D deficiency, unspecified; E11.59 Type 2 diabetes mellitus with other circulatory complications
CPT/HCPCS: 36415; 80069; 82306; 82570; 83036; 84156

== ENCOUNTER 2025-03-09 16:06 | Outpatient (CLI) | payer MEDICARE, MEDICAID, SELFPAY ==
[2025-03-09 16:47] LABS: Albumin Level 4.3 g/dL (3.5-5.1); Anion Gap 9 mmol/L (4-12); Blood Urea Nitrogen 62 mg/dL (7-17); Calcium 9.3 mg/dL (8.4-10.2); Carbon Dioxide 22 mmol/L (22-30); Chloride 109 mmol/L (98-107); Estimated Glomerular Filt Rate 16; Glucose 149 mg/dL (65-110); Potassium 4.8 mmol/L (3.4-5.0); Sodium 140 mmol/L (137-145)
[2025-03-09 16:55] LABS: Total Protein Urine Random 28 mg/dL; Ur Ttl Prot Creatinine Ratio 0.29 mg/mg (0-0.20)
[2025-03-09 16:59] LABS: Parathyroid Intact 487.9 pg/mL (14.5-75.2)
== END 2025-03-09 16:07 | disposition home or self-care (01) ==
PROVIDERS: Visit Provider Internal Medicine Nephrology
DX: I12.9 Hypertensive chronic kidney disease with stage 1 through stage 4 chronic kidney disease, or unspecified chronic kidney disease (principal); N18.4 Chronic kidney disease, stage 4 (severe); E11.22 Type 2 diabetes mellitus with diabetic chronic kidney disease; N25.81 Secondary hyperparathyroidism of renal origin; E55.9 Vitamin D deficiency, unspecified
CPT/HCPCS: 36415; 80069; 82306; 82570; 83970; 84156

== ENCOUNTER 2025-03-20 14:24 | Emergency (ER) | payer MEDICARE, MEDICAID, SELFPAY ==
--- NOTE | ~2025-03-20 | XR_ITS ---
EXAMINATION: XR chest 2V DATE: 03/20/2025 14:49 INDICATION: Cough. Wheezing. TECHNIQUE: Frontal and lateral views of the chest were obtained. COMPARISON: Chest x-ray dated 06/22/2022 FINDINGS: Significant cardiomegaly. Lungs do not show edema or effusion. Mildly increased vascular markings of both lungs. Overall visualization is significantly limited by the body habitus especially on the lateral view. IMPRESSION: 1. Limited evaluation due to body habitus. 2. Significant cardiomegaly and mild vascular congestion of lungs. Reviewed, dictated and finalized at location [facility]
--- NOTE | 2025-03-20 14:27 | ED.URI ---
HPI - URI/Sore Throat General Chief Complaint: Upper Respiratory Infection Stated Complaint: cough/wheezing Time Seen by Provider: 03/20/25 14:26 Source: patient Mode of arrival: ambulatory Limitations: no limitations History of Present Illness HPI Narrative: Armond is a 55-year-old female patient presenting to the clinic today with complaints of cough, shortness of breath, and wheezing x1 week. She reports shortness of breath is worse on exertion. Denies any fevers, chills, body aches. Has a nonproductive cough with clear nasal drainage. Feels as though she has a lot of drainage going in the back of her throat. Denies sore throat. History of congestive heart failure. Related Data Home Medications ?Medication ?Instructions ?Recorded ?Confirmed ?Last Taken ?Type atorvastatin 20 mg tablet 20 mg PO DAILY 02/18/22 03/20/25 07/09/22 History hydralazine 50 mg tablet 50 mg PO BID 02/18/22 03/20/25 07/09/22 History metoprolol tartrate 50 mg tablet 50 mg PO BID 02/18/22 03/20/25 07/09/22 History amlodipine 10 mg tablet 10 mg PO DAILY 01/25/23 03/20/25 Unknown History semaglutide 0.25 mg or 0.5 mg (2 1 mg subcut WEEKLY 11/16/24 03/20/25 Unknown History mg/3 mL) subcutaneous pen injector (Ozempic) Allergies Allergy/AdvReac Type Severity Reaction Status Date / Time Latex, Natural Rubber Allergy Rash Verified 03/20/25 14:26 Review of Systems Review of Systems: Pertinent positives per HPI. Patient denies any fever, chills, rash, headache, visual changes, dizziness, chest pain, palpitations, nausea, vomiting, diarrhea, constipation, abdominal pain, or any urinary issues. PENDING SALE TO [facility] Past Medical History Medical History Hyperlipidemia LUCIA (obstructive sleep apnea) Diabetes Hypertension CHF (congestive heart failure) Morbid obesity with BMI of 70 and over, adult Hypertension associated with diabetes Surgical History Surgical History H/O section times 2 History of tonsillectomy and adenoidectomy Family History Family History Mother Diabetes mellitus Family history of thyroid problem Sibling Thyroid cancer Social History Social History Social History: She lives with her 2 daughters . She is disabled. She is . Code status full code Smoking status: Never smoker Alcohol intake: never Substance use: never Lack of Transportation: No Lack of Food: Never True Current Housing: I Have Housing Concerned About Future Housing: No Difficulty Paying Gas/Electric Bills: No Difficulty Paying for Meds: No Currently Unemployed: No Education: Trade/Vocational Certificate Difficulty w/ Childcare or Family Care: No Living arrangements: with family Gender identity (if verbalized by the patient): Female Spiritual care concerns: No Comments At the time of my signature, I reviewed and agree with the nursing past medical, surgical, social, and family history. There is no relevant family history pertinent to the patient complaint. Exam Narrative: General: Well-developed, morbidly obese, in no apparent distress Head: Normocephalic, atraumatic Eyes: Pupils equally round and reactive to light bilaterally, EOM intact, sclera and conjunctive clear, no discharge, lids normal Ears: TMs intact and clear, ear canals clear, no drainage, grossly hearing normal. Nose: Nares patent, clear discharge, mild inflammation, ethmoid sinus tenderness. Mouth: Oral pharynx red without lesions or masses, good dentition, MMM. Postnasal drip Neck: Supple, trachea midline, no enlargement of anterior or posterior cervical nodes, no thyroid masses or goiter palpable. Cardio: Regular rate and rhythm, s1 and s2 normal, no murmur appreciated. Resp: Lung sounds coarse/distant, no rales, wheezing or rubs Course Course Level of Care: Express Care Visit Vital Signs Vital signs: Vital Signs Temperature 36.2 C L 03/20/25 14:30 Pulse Rate 79 03/20/25 14:30 Respiratory Rate 18 03/20/25 14:30 Blood Pressure 141/75 H 03/20/25 14:30 Pulse Oximetry 97 03/20/25 14:30 Temperature 36.2 C L 03/20/25 14:30 Pulse Rate 79 03/20/25 14:30 Respiratory Rate 18 03/20/25 14:30 Blood Pressure 141/75 H 03/20/25 14:30 Pulse Oximetry 97 03/20/25 14:30 MDM MDM Narrative Medical decision making narrative: At the time of visit patient is resting comfortably on the exam table. Patient appears to be nontoxic. Complaints of cough, shortness of breath, and wheezing x1 week. She reports shortness of breath is worse on exertion. Denies any fevers, chills, body aches. Has a nonproductive cough with clear nasal drainage. Feels as though she has a lot of drainage going in the back of her throat. Denies sore throat. History of congestive heart failure. On exam patient has bilateral TMs intact and clear, ear canals are ceruminous, clear nasal drainage, mild anterior turbinate inflammation, oral pharynx with postnasal drip, large body habitus- lung sounds distant and course, no lower extremity edema. Chest x-ray was ordered. Diagnostics: Chest x-ray was performed and shows significant cardiomegaly with mild vascular congestion of the lungs. Plan: I suspect patient has viral sinusitis/bronchitis. Prescription for albuterol inhaler and prednisone was sent to pharmacy. Supportive measures were discussed with the patient and they voiced understanding discharge instructions and agrees to treatment plan. Return precautions reviewed Differential Diagnosis Differential Diagnosis: Differential diagnostic considerations for upper respiratory infection include upper respiratory infection, croup, otitis media, sinusitis, viral infection, bronchitis, influenza, pharyngitis, strep, uvulitis. Imaging Data Radiologist's impression: ITS Impressions Chest X-Ray 03/20/25 14:52 IMPRESSION: 1. Limited evaluation due to body habitus. 2. Significant cardiomegaly and mild vascular congestion of lungs. Discharge Plan Discharge Clinical Impression: Acute viral sinusitis, Bronchitis Patient Disposition: Home Condition: Stable Instructions: Antibiotic Form, Acute Bronchitis (ED), Rhinosinusitis (ED) Additional Instructions: Chest x-rays negative for any sign of pneumonia. Does show significant cardiomegaly with some mild increased vascular markings. No pulmonary effusion or edema Take prescription medications only as prescribed-prednisone and albuterol inhaler Increase fluids and stay well hydrated May take Tylenol or motrin as directed on bottle for pain/fever May use Flonase 1 spray in each nare daily May take OTC antihistamines such as Zyrtec or Claritin daily as directed on bottle May apply Vicks vapor rub to chest to open sinuses Sinus rinses for congestion Cepacol spray, cough drops, throat lozenges, warm tea with honey/lemon, gargle salt water to soothe throat BRAT diet for diarrhea Clear liquids x 24 hours then advance as tolerated for nausea/vomiting Go to the ED if you develop a worsening in your condition- high fever not controlled by Tylenol or Motrin, dehydration, weakness, lethargy, shortness of breath, or chest pain. Follow up with your PCP in 3-5 days if symptoms persist. Patient Language: Slovenian Prescriptions: New albuterol sulfate 90 mcg/actuation HFA aerosol inhaler 2 puff inhalation Q4-6H PRN (Reason: shortness of breath or wheezing) 30 Days Qty: 8.5 0RF prednisone 20 mg tablet 40 mg PO DAILY 5 Days Qty: 10 0RF No Action amlodipine 10 mg tablet 10 mg PO DAILY Ozempic 0.25 mg or 0.5 mg (2 mg/3 mL) pen injector 1 mg subcut WEEKLY ergocalciferol (vitamin D2) 1,250 mcg (50,000 unit) capsule 1,250 mcg PO WEEKLY Qty: 12 3RF atorvastatin 20 mg tablet 20 mg PO DAILY metoprolol tartrate 50 mg tablet 50 mg PO BID hydralazine 50 mg tablet 50 mg PO BID loratadine 10 mg Tablet 10 mg PO QAM Qty: 30 0RF fluticasone propionate 50 mcg/actuation [place],Suspension 1 spray intranasal Q12HR Qty: 1 0RF spironolactone 25 mg Tablet 25 mg PO QAM Qty: 30 0RF ferrous sulfate 325 mg (65 mg iron) Tablet 324 mg PO DAILY@0800 Qty: 30 0RF bumetanide 1 mg Tablet 2 mg PO BID Qty: 60 0RF metolazone 2.5 mg Tablet 2.5 mg PO BID Qty: 60 0RF potassium chloride 10 mEq tablet extended release 10 meq PO DAILY Qty: 60 0RF Follow-up/Referrals: UNKNOWN,DOCTOR [Non-Staff] Time of Disposition: 15:04 Quality NIHSS Nursing Documentation ED NIHSS nursing documentation: reviewed/agree
[2025-03-20 14:30] VITALS: BP 141/75; PULSE 79; RESP 18; TEMP 36.2; O2SAT 97
== END 2025-03-20 15:11 | disposition home or self-care (01) ==
PROVIDERS: Emergency Provider Nurse Practitioner Family
DX: J01.90 Acute sinusitis, unspecified (principal); J40 Bronchitis, not specified as acute or chronic; E11.9 Type 2 diabetes mellitus without complications; Z79.85 Long-term (current) use of injectable non-insulin antidiabetic drugs; I11.0 Hypertensive heart disease with heart failure; I50.9 Heart failure, unspecified; E78.5 Hyperlipidemia, unspecified; E66.01 Morbid (severe) obesity due to excess calories; Z68.44 Body mass index [BMI] 60.0-69.9, adult
CPT/HCPCS: 71046; 99213; G0463